=== PATIENT | female | born 1945 | race Caucasian/White ===

== ENCOUNTER 2021-10-02 16:21 | Inpatient (IN) | payer MEDICARE, SELFPAY ==
[2021-10-02] VITALS (9 sets, daily range): BP systolic 105–145; BP diastolic 72–90; PULSE 60–117; RESP 16–92; TEMP 36.7–36.9; O2SAT 90–93; BMI 35.4
--- NOTE | 2021-10-02 18:33 | USR_ITS ---
PROCEDURE INFORMATION: Exam: US Abdomen, Limited; Right Upper Quadrant Exam date and time: 10/02/2021 6:33 PM Age: 76 years old Clinical indication: Abdominal pain; Acute; Patient HX: Ruq pain and nausea TECHNIQUE: Imaging protocol: US abdomen. Real time ultrasound with image documentation. Limited exam focused on the right upper quadrant. COMPARISON: No relevant prior studies available. FINDINGS: Liver: Normal. No masses. Gallbladder: The gallbladder is distended with multiple shadowing gallstones. There is gallbladder wall thickening measuring up to 1.1 cm in thickness. Common bile duct: The common bile duct measures 2 mm within normal limits. Pancreas: Suboptimally visualized due to overlying bowel gas and soft tissues. Right kidney: The right kidney measures 8 cm in length. No mass. No hydronephrosis. US/US abdomen limited [id number] IMPRESSION: Cholelithiasis with sonographic findings suspicious for acute cholecystitis.
--- NOTE | 2021-10-02 18:33 | ECG_ITS ---
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 Measurements Intervals [place] Rate: 132 P: [place]: QRS: 77 QRSD: 79 T: 14 QT: 336 QTc: 498 Interpretive Statements ATRIAL FIBRILLATION WITH RAPID VENTRICULAR RESPONSE LOW QRS VOLTAGE IN PRECORDIAL LEADS [QRS DEFLECTION < 1.0 mV IN CHEST LEADS] ABNORMAL RHYTHM ECG Compared to ECG 03/03/2019 15:27:30 Low QRS voltage now present Atrial abnormality no longer present T-wave abnormality no longer present Electronically Signed On 10-03-2021 5:36:13 SUSTAINABILITY PROJECT MANAGER by Mitra Sanchez M.D. [email or web address] [place].[employer]/store/Om/[id number]
--- NOTE | 2021-10-02 18:34 | W.ED.ABDPA2 ---
HPI - Abdominal Pain General: Chief Complaint: Abdominal Pain Stated Complaint: abd pain, sent by pcp Time Seen by Provider: 10/02/21 18:26 History of Present Illness: 76-year-old presents due to right upper quadrant abdominal pain since yesterday. Describes it is worse with eating. Denies any chest pain or shortness of breath. Denies any fevers or chills. Denies nausea vomiting diarrhea constipation. Denies any radiation. States pain is achy and constant. Review of Systems Narrative: - CONSTITUTIONAL: Denies weight loss, fever and chills. - HEENT: Denies changes in vision and hearing. - RESPIRATORY: Denies SOB and cough. - CV: Denies palpitations and CP. - GI: As above - : Denies dysuria and urinary frequency. - MSK: Denies myalgia and joint pain. - SKIN: Denies rash and pruritus. - NEUROLOGICAL: Denies headache, weakness, numbness and syncope. - PSYCHIATRIC: Denies suicidal ideation [facility] ED PFSH: Medical History Atrial fibrillation Chronic kidney disease Hypertension Leg swelling Mixed hyperlipidemia Obesity Family History Grandmother Cancer Mother Cancer Denies family history of Diabetes CAD (coronary artery disease) Clotting disorder Dementia Hyperlipidemia Chronic kidney disease (CKD) Suicide Anesthesia complication Bleeding disorder Lung disease Hypertension Stroke Social History Alcohol intake: never Physical Exam Narrative: EXAM NARRATIVE: - GENERAL: Alert and oriented x 3. No acute distress. Well-nourished. - EYES: EOMI. Anicteric. - HENT: Atraumatic, no C-spine tenderness. Moist mucous membranes. No scleral icterus. No cervical lymphadenopathy. - LUNGS: Clear to auscultation bilaterally. No accessory muscle use. Equal lung sounds bilaterally. No respiratory distress. - CARDIOVASCULAR: Irregular tachycardia. No murmur. No JVD. - ABDOMEN: Soft, right upper quadrant tenderness, non-distended. Negative CVA tenderness bilaterally, no rebound or guarding, positive Rush sign. No palpable masses. - EXTREMITIES: No edema. Non-tender. - SKIN: No rashes or lesions. Warm. - NEUROLOGIC: No meningismus or focal neurological deficits. CN II-XII grossly intact. - PSYCHIATRIC: Cooperative. Appropriate mood and affect. Course Vital Signs: Vital signs: Vital Signs Temperature 98.1 F 10/02/21 18:09 Pulse Rate 115 H 10/02/21 18:09 Respiratory Rate 16 10/02/21 20:51 Blood Pressure 144/72 10/02/21 18:30 Pulse Oximetry 93 10/02/21 18:30 MDM - Abdominal Pain Medical Decision Making 36-year-old presents with right upper quadrant abdominal pain. Ultrasound concerning for cholecystitis. His white count elevation of 27. Due to penicillin allergy started on Levaquin. Otherwise she is hemodynamic stable afebrile nontoxic-appearing. EKG does not reveal any sign of acute ischemia. Surgery consulted. Remainder of lab work and imaging reviewed. Discussed with hospitalist and they agreed patient would benefit from admission. Patient admitted in stable condition. Further evaluation management per hospitalist team. Lab Data : 10/02/21 21:00 10/02/21 21:00 Labs/Radiology: Radiology Impressions Abdomen Ultrasound 10/02/21 18:33 IMPRESSION: Cholelithiasis with sonographic findings suspicious for acute cholecystitis. Laboratory Results WBC 27.9 10^3/uL (4.0-10.0) H 10/02/21 21:00 RBC 4.33 10^6/uL (4.1-5.3) 10/02/21 21:00 Hgb 13.8 g/dL (11.5-15.3) 10/02/21 21:00 Hct 40.4 % (37.0-47.0) 10/02/21 21:00 MCV 93.3 fl (81-99) 10/02/21 21:00 MCH 31.9 pg (28.0-34.0) 10/02/21 21:00 MCHC 34.2 g/dL (30.0-36.0) 10/02/21 21:00 RDW 12.8 % (12.1-15.1) 10/02/21 21:00 Plt Count 226 10^3/cmm (130-400) 10/02/21 21:00 MPV 12.3 fL (7.4-10.4) H 10/02/21 21:00 Neut % (Auto) 89.6 % 10/02/21 21:00 Lymph % (Auto) 2.6 % 10/02/21 21:00 [place] % (Auto) 6.5 % 10/02/21 21:00 Eos % (Auto) 0.0 % 10/02/21 21:00 Baso % (Auto) 0.3 % 10/02/21 21:00 Neut # (Auto) 25.01 10^3/uL (1.8-7.7) H 10/02/21 21:00 Lymph # (Auto) 0.7 10^3/uL (0.8-4.8) L 10/02/21 21:00 [place] # (Auto) 1.8 10^3/uL (0.2-0.9) H 10/02/21 21:00 Eos # (Auto) 0.0 10^3/uL (0.0-0.8) 10/02/21 21:00 Baso # (Auto) 0.1 10^3/uL (0.0-0.1) 10/02/21 21:00 Nucleated RBC % (auto) 0 % 10/02/21 21:00 Nucleated RBCs # 0.0 /100WBC 10/02/21 21:00 PT 25.30 SECONDS (12.1-14.9) H 10/02/21 21:00 INR 2.25 (0.8-1.2) H 10/02/21 21:00 Sodium 138 mmol/L (136-145) 10/02/21 21:00 Potassium 4.1 mmol/L (3.5-5.1) 10/02/21 21:00 Chloride 103 mmol/L (98-107) 10/02/21 21:00 Carbon Dioxide 20 mmol/L (22-29) L 10/02/21 21:00 Anion Gap 19.1 (5-19) H 10/02/21 21:00 BUN 29 mg/dL (8-23) H 10/02/21 21:00 Creatinine 1.9 mg/dL (0.5-0.9) H 10/02/21 21:00 GFR Calculation Not Reportable 10/02/21 21:00 Glucose 152 mg/dL (65-115) H 10/02/21 21:00 Calculated Osmolality 295 mOsm/kg (285-295) 10/02/21 21:00 Lactate 1.5 mmol/L (0.5-2.2) 10/02/21 21:00 Calcium 8.2 mg/dL (8.5-10.5) L 10/02/21 21:00 Total Bilirubin 1.1 mg/dL (0.15-1.2) 10/02/21 21:00 AST 27 U/L (0-32) 10/02/21 21:00 ALT 32 U/L (0-33) 10/02/21 21:00 Alkaline Phosphatase 78 IU/L (35-105) 10/02/21 21:00 Troponin T Baseline 20 ng/L (0-10) H 10/02/21 21:00 Total Protein 6.2 g/dL (6.6-8.7) L 10/02/21 21:00 Albumin 3.6 g/dL (3.5-5.2) 10/02/21 21:00 Globulin 2.6 g/dL (1.3-4.6) 10/02/21 21:00 Lipase 25 U/L (13-60) 10/02/21 21:00 Urine Color Other (Yellow) 10/02/21 20:35 Urine Appearance Cloudy (CLEAR) 10/02/21 20:35 Urine pH 5 (5-7) 10/02/21 20:35 Ur Specific [place] 1.030 (1.005-1.030) 10/02/21 20:35 Urine Protein 2+ (Negative) H 10/02/21 20:35 Urine Glucose (UA) 1+ (Normal) H 10/02/21 20:35 Urine Ketones 1+ (Negative) H 10/02/21 20:35 Urine Blood Neg (Negative) 10/02/21 20:35 Urine Nitrate Positive (Negative) H 10/02/21 20:35 Urine Bilirubin Neg (Negative) 10/02/21 20:35 Urine Urobilinogen Norm mg/dL (Negative) 10/02/21 20:35 Ur Leukocyte Esterase Trace (Negative) H 10/02/21 20:35 Urine RBC 0-4 /hpf (0-2) H 10/02/21 20:35 Urine WBC 5-10 /hpf (0-5) H 10/02/21 20:35 Ur Squamous Epith Cells 40-55 /hpf (0-5) H 10/02/21 20:35 Amorphous Sediment 2+ /hpf 10/02/21 20:35 Urine Bacteria Trace /hpf (NONE) 10/02/21 20:35 Urine Mucus 1+ /hpf 10/02/21 20:35 EKG Data EKG 1: Other EKG comments: A. fib with RVR rate of 119, no sign of acute ischemia or other acute abnormality. Discharge Plan Discharge Condition: Stable Prescriptions: No Action warfarin 3 mg tablet 3 mg PO DAILY 0RF atorvastatin 20 mg tablet 20 mg PO DAILY 0RF furosemide 20 mg tablet 20 mg PO QAM PRN (Reason: edema) 0RF Rx Instructions: patient may take 1-2 tab daily as needed potassium chloride 20 mEq packet 20 meq PO DAILY PRN0RF Rx Instructions: when taking Lasix metoprolol tartrate 100 mg tablet 100 mg PO DAILY 0RF amlodipine 5 mg tablet 5 mg PO DAILY 0RF warfarin 4 mg tablet 4 mg PO DAILY 0RF Referrals: Osiris Owusu MD [Primary Care Provider] - Coding Level of Care Code ED Base Draw Operator for Chg Jean
[2021-10-02] MEDS: morphine 4 mg/mL SDV 1 mL IVP ×2 (18:45→20:51)
[2021-10-02] MEDS: ondansetron 2 mg/ML SDV 2 mL 4 MG IVP (18:46)
--- NOTE | 2021-10-02 20:33 | ECG_ITS ---
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 Measurements Intervals [place] Rate: 119 P: [place]: QRS: 0 QRSD: 84 T: 0 QT: 244 QTc: 344 Interpretive Statements ATRIAL FIBRILLATION WITH RAPID VENTRICULAR RESPONSE LOW QRS VOLTAGE IN PRECORDIAL LEADS [QRS DEFLECTION < 1.0 mV IN CHEST LEADS] POSSIBLE ANTERIOR MYOCARDIAL INFARCTION , PROBABLY OLD [30 ms Q WAVE IN V3/V4, OR R < 0.2 mV IN V4] ABNORMAL RHYTHM ECG Compared to ECG 10/02/2021 16:44:33 Myocardial infarct finding now present Electronically Signed On 10-03-2021 5:45:34 SET DESIGNER by Mitra Sanchez M.D. [email or web address]/[id number]
[2021-10-02] MEDS: levofloxacin-dextrose 5 % 750 MG/150 ML PREMIX 100 MG IV (20:58)
[2021-10-02 21:13] LABS: Basophils # 0.1 10^3/uL (0.0-0.1); Basophils % 0.3 %; Hematocrit 40.4 % (37.0-47.0); Hemoglobin 13.8 g/dL (11.5-15.3); Lymphocytes # 0.7 10^3/uL (0.8-4.8); Lymphocytes % 2.6 %; Mean Corpuscular HGB Conc 34.2 g/dL (30.0-36.0); Mean Corpuscular Hemoglobin 31.9 pg (28.0-34.0); Mean Corpuscular Volume 93.3 fl (81-99); Mean Platelet Volume 12.3 fL (7.4-10.4); Monocytes # 1.8 10^3/uL (0.2-0.9); Monocytes % 6.5 %; Neutrophils # 25.01 10^3/uL (1.8-7.7); Neutrophils % 89.6 %; Nucleated Red Blood Cells % 0 %; Platelet Count 226 10^3/cmm (130-400); Red Blood Count 4.33 10^6/uL (4.1-5.3); Red Cell Distribution Width 12.8 % (12.1-15.1); White Blood Count 27.9 10^3/uL (4.0-10.0)
[2021-10-02 21:14] LABS: Urine Appearance Cloudy (CLEAR); Urine Color Other (Yellow); pH Urine 5 (5-7)
[2021-10-02 21:15] LABS: Add Urine Culture? No; Amorphous Sediment Urine 2+ /hpf; Bacteria Urine TRACE /hpf; Bilirubin Urine Neg (Negative); Blood Urine Neg (Negative); Glucose Urine UA 1+ (Normal); Ketones Urine 1+ (Negative); Leukocyte Esterase Urine Trace (Negative); Mucus Urine 1+ /hpf; Nitrate Urine Positive (Negative); Protein Urine 2+ (Negative); RBC Urine 0-4 /hpf (0-2); Squamous Epithelial Cell Urine 40-55 /hpf (0-5); Urobilinogen Urine Norm (Negative)
[2021-10-02 21:31] LABS: INR 2.25 (0.8-1.2)
[2021-10-02 21:39] LABS: Alanine Aminotransferase 32 U/L (0-33); Albumin Level 3.6 g/dL (3.5-5.2); Alkaline Phosphatase 78 IU/L (35-105); Anion Gap 19.1 (5-19); Aspartate Amino Transferase 27 U/L (0-32); Blood Urea Nitrogen 29 mg/dL (8-23); Calcium 8.2 mg/dL (8.5-10.5); Carbon Dioxide 20 mmol/L (22-29); Chloride 103 mmol/L (98-107); Globulin 2.6 g/dL (1.3-4.6); Glucose 152 mg/dL (65-115); Lipase 25 U/L (13-60); Osmolality Calculated 295 mOsm/kg (285-295); Potassium 4.1 mmol/L (3.5-5.1); Sodium 138 mmol/L (136-145); Total Bilirubin 1.1 mg/dL (0.15-1.2); Total Protein 6.2 g/dL (6.6-8.7)
[2021-10-02 21:40] LABS: Lactate (Lactic Acid level) 1.5 mmol/L (0.5-2.2); Troponin(5th) Baseline 20 ng/L (0-10)
[2021-10-02] MEDS: sodium chloride 0.9% 1,000 ML 999 ML IV (22:29)
--- NOTE | 2021-10-02 22:51 | PC.NURSE ---
ADMIT NOTE Pt received to room from ER at 2240. Is alert and oriented. c/o pain/tenderness in RUQ abd and says goes some over into medial upper abdomen. Says worse again after moving into bed from ER rruidoso. Says pain started yesterday and just kept getting worse. Also reports having been nauseated with bitter emesis. Denies previous problems with gallbladder. IV patent to left hand. Will place on sales and marketing intern. Says has had some SOB but thinks is because of the pain. Hard to take deep breaths VS check done. Call light in reach. RN to do admission assessment
--- NOTE | 2021-10-02 23:11 | PM.HP ---
Providers/Chief Complaint Admitting Physician: René Granger DO Primary Care Provider: Osiris Owusu MD Chief Complaint: abd pain, sent by pcp History of Present Illness The patient is a 76-year-old female who presents with chief [place] abdominal pain which started on the morning of October 29, 2021. She indicates that the pain is on the right upper quadrant and does not radiate from that area. She states it was of sudden onset and since that time it has been constant and describes it as a stabbing. As worst is rated 10 out of 10 she currently claims it rates 8 out of 10 although her outward appearance does not come close to matching the subjective rating of pain. She did not take any medication for pain at home. She does not know whether by mouth intake affects the pain in any way. She denies constipation, melena, hematochezia. She admits to diarrhea. She missed to nausea and vomiting. She denies fever or rigors. She presents for further evaluation Review of Systems General: Reports: 10 or more systems reviewed and unremarkable except in HPI and below Medications/Allergies Home Medications Medication Instructions Recorded Confirmed Last Taken Type amlodipine 5 mg tablet 5 mg PO DAILY 02/03/20 07/21/20 Unknown History furosemide 20 mg tablet 20 mg PO QAM PRN 02/03/20 07/21/20 Unknown History metoprolol tartrate 100 mg tablet 100 mg PO DAILY 02/03/20 07/21/20 Unknown History potassium chloride 20 mEq oral 20 meq PO DAILY PRN 02/03/20 07/21/20 Unknown History packet warfarin 4 mg tablet 4 mg PO DAILY 02/03/20 07/21/20 Unknown History atorvastatin 20 mg tablet 20 mg PO DAILY tab 01/22/21 Unknown History warfarin 3 mg tablet 3 mg PO DAILY tab 01/22/21 Unknown History Allergies Allergy/AdvReac Type Severity Reaction Status Date / Time Penicillins Allergy unknown Verified 07/26/21 07:37 PFSH Acute PFSH: Medical History Atrial fibrillation Chronic kidney disease Hypertension Leg swelling Mixed hyperlipidemia Obesity Family History Grandmother Cancer Mother Cancer Denies family history of Diabetes CAD (coronary artery disease) Clotting disorder Dementia Hyperlipidemia Chronic kidney disease (CKD) Suicide Anesthesia complication Bleeding disorder Lung disease Hypertension Stroke Social History Alcohol intake: never Vitals/I&O/Wt Last Vital Signs Temp 98.1 F 10/02/21 23:05 Pulse 89 10/02/21 23:05 Resp 24 H 10/02/21 23:05 BP 105/90 10/02/21 23:05 Pulse Ox 91 10/02/21 23:05 10/02/21 10/02/21 10/03/21 14:59 22:59 06:59 Intake Total 150 / 150 Balance 150 / 150 Weight last 48 hrs Weight 90.718 kg Physical Exam Const: COMMON NORMALS: no acute distress, average body habitus, patient oriented x3, no limitations, healthy appearing, alert and well nourished HENMT: COMMON NORMALS: normocephalic, atraumatic, hearing grossly normal bilaterally, external ears normal, EAC's normal, TM's normal bilaterally, Normal external nose present, Normal nasal mucous membranes and turbinates present, moist oral mucous membranes, oropharynx normal, dentition normal and gingiva normal Eye: COMMON NORMALS: Equal, round and reactive pupils present, EOMs intact bilaterally, conjunctivae normal, no scleral icterus, no papilledema, normal visual sirera by confrontation and fundi normal bilaterally Neck/C-Spine: COMMON NORMALS: full ROM, no lymphadenopathy, supple, no meningeal signs, no JVD, Thyroid normal and No carotid bruits Chest: COMMONS NORMALS: normal inspection of the chest, normal palpation of entire chest wall, normal inspection of the breasts and normal palpation of the breasts Resp: COMMON NORMALS: normal respiratory effort, No retractions, No use of accessory muscles, clear to auscultation bilaterally and percussion normal Cardio: COMMON NORMALS: no JVD, regular rate, regular rhythm, S1 normal heart sound present, S2 normal heart sound present, No gallops present (Cardio), No clicks present (Cardio), No murmurs present (Cardio), No rub (Cardio) and Peripheral pulses 2+ throughout GI: COMMON NORMALS: Normal to inspection, nondistended, normoactive bowel sounds present, Soft to palpation, non-tender, No hepatosplenomegaly present, no masses and no bruits : COMMON NORMALS: Yes no CVA tenderness, Yes normal external appearance, Yes normal appearance of the vagina, Yes normal appearance of the cervix, Yes normal bimanual exam, Yes No adnexal tenderness and Yes no masses Back/Pelvis: COMMON NORMALS: no CVA tenderness, thoracic and lumbar spine normal to inspection, no thoracic nor lumbar tenderness, thoraco-lumbar ROM normal and straight leg raise negative bilaterally THORACIC SPINE/UPPER BACK: Yes normal to inspection LUMBAR SPINE/LOWER BACK: Yes normal to inspection COCCYX: swelling, Coccyx tenderness present and Other pelvic findings Extremity: COMMON NORMALS: normal to inspection, full ROM, capillary refill normal, no joint enlargement, no clubbing, cyanosis or edema, no calf tenderness and no pedal edema Neuro: COMMON NORMALS: patient oriented x3, CN's II-XII intact bilaterally, moves all extremities, no focal motor deficits, no sensory deficits noted, deep tendon reflexes 2+ bilaterally and gait normal DEEP TENDON REFLEXES: Right triceps reflex intensity grade: 2+, Left triceps reflex intensity grade: 2+, Rt Biceps (C5, C6): 2+, Left biceps reflex intensity grade: 2+, Right brachioradialis reflex intensity grade: 2+, Left brachioradialis reflex intensity grade: 2+, Right patellar reflex intensity grade: 2+, Left patellar reflex intensity grade: 2+, Right ankle reflex intensity grade: 2+ and Left ankle reflex intensity grade: 2+ COORDINATION: [id number] test normal PUPIL EXAM: Normal pupillary reactivity/response: bilateral, Dilated: bilateral, Pinpoint: bilateral, Mid position: bilateral, Sluggish: bilateral and Fixed/non-reactive: bilateral Psych: COMMON NORMALS: mental status grossly normal, Normal thought process present, cooperative, normal affect, speech normal, activity/motor behavior normal, denies hallucinations, denies homicidal ideation and denies suicidal ideation Skin: COMMON NORMALS: no rashes or lesions noted, no wounds, turgor normal, no jaundice, no petechiae and no mottling Data : 10/02/21 21:00 10/02/21 21:00 A&P Assessment and plan (1) Leg swelling: Status: Acute Plan Cholelithiasis with early cholecystitis. Nothing by mouth. Rocephin 1 g IV daily. Blood culture ?2 pending. IV normal saline at 75 ML's per hour. I was notified by the emergency department physician that General surgery has been consult and regarding this patient Atrial for ablation. Will monitor patient on telemetry. Will monitor PT/INR periodically Acute renal insufficiency versus documented history of chronic kidney disease. Will monitor creatinine intermittently. IV normal saline 75 ML's per hour Urinary tract infection. Rocephin 1 g IV daily Elevated troponin. Patient gives no history of chest pain. Will monitor patient on telemetry and checks her cardiac enzymes. Will recheck EKG on the morning of October 03, 2021 Hyperlipidemia Hypertension Obesity. The patient becomes regarding lifestyle modification DVT Proflex is. Bilateral SCD Attestations Medical Necessity Statement*: Hospitalization is medically necessary Coding Level of Care Code Acute X Ray Service Engineer for Chg Jean Diagnoses Leg swelling M79.89
[2021-10-02 23:15] LABS: Basophils # 0.1 10^3/uL (0.0-0.1); Basophils % 0.2 %; Hematocrit 39.8 % (37.0-47.0); Hemoglobin 13.7 g/dL (11.5-15.3); Lymphocytes # 0.9 10^3/uL (0.8-4.8); Lymphocytes % 3.5 %; Mean Corpuscular HGB Conc 34.4 g/dL (30.0-36.0); Mean Platelet Volume 12.4 fL (7.4-10.4); Monocytes # 1.9 10^3/uL (0.2-0.9); Neutrophils # 23.33 10^3/uL (1.8-7.7); Neutrophils % 88.1 %; Nucleated Red Blood Cells % 0 %; Platelet Count 195 10^3/cmm (130-400); Red Blood Count 4.28 10^6/uL (4.1-5.3); Red Cell Distribution Width 12.8 % (12.1-15.1); White Blood Count 26.5 10^3/uL (4.0-10.0)
[2021-10-02] MEDS: cefTRIAXone 1,000 MG in sodium chloride 0.9% (plus) 50 ML 100 MG IV (23:20)
[2021-10-02 23:24] LABS: INR 2.47 (0.8-1.2)
[2021-10-02 23:26] LABS: Partial Thromboplastin Time 52.2 SECONDS (23.9-36.7)
[2021-10-02 23:30] LABS: Troponin 5 2HR 21.09 ng/L (0-10)
[2021-10-02 23:31] LABS: Troponin 5 2HR Delta 1.09 ABS# (0-10)
[2021-10-03] VITALS (12 sets, daily range): BP systolic 108–114; BP diastolic 69–75; PULSE 89–108; RESP 18–20; TEMP 36.4–37.1; O2SAT 90–92
[2021-10-03] MEDS: ondansetron 2 mg/ML SDV 2 mL 4 MG IVP
--- NOTE | 2021-10-03 00:33 | ECG_ITS ---
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 Measurements Intervals [place] Rate: 97 P: [place]: QRS: -13 QRSD: 78 T: -21 QT: 335 QTc: 426 Interpretive Statements ATRIAL FIBRILLATION LOW QRS VOLTAGE IN PRECORDIAL LEADS [QRS DEFLECTION < 1.0 mV IN CHEST LEADS] POSSIBLE ANTERIOR MYOCARDIAL INFARCTION , OF INDETERMINATE AGE [30 ms Q WAVE IN V3/V4, OR R < 0.2 mV IN V4] Compared to ECG 10/02/2021 18:30:37 No significant changes Electronically Signed On 10-03-2021 16:06:43 LAMINATION TECHNICIAN by Jonny Clarke M.D. [id number]
[2021-10-03] MEDS: acetaminophen 325 mg Tablet 650 MG PO (03:16)
[2021-10-03 03:20] LABS: Basophils # 0.1 10^3/uL (0.0-0.1); Basophils % 0.2 %; Hematocrit 36.3 % (37.0-47.0); Hemoglobin 13.3 g/dL (11.5-15.3); Lymphocytes # 0.8 10^3/uL (0.8-4.8); Lymphocytes % 3.3 %; Mean Corpuscular HGB Conc 36.6 g/dL (30.0-36.0); Mean Corpuscular Hemoglobin 34.8 pg (28.0-34.0); Mean Platelet Volume 12.4 fL (7.4-10.4); Monocytes # 1.6 10^3/uL (0.2-0.9); Monocytes % 6.7 %; Neutrophils # 21.59 10^3/uL (1.8-7.7); Neutrophils % 87.8 %; Nucleated Red Blood Cells % 0 %; Platelet Count 197 10^3/cmm (130-400); Red Blood Count 3.82 10^6/uL (4.1-5.3); Red Cell Distribution Width 13.2 % (12.1-15.1); White Blood Count 24.6 10^3/uL (4.0-10.0)
[2021-10-03 03:28] LABS: INR 2.54 (0.8-1.2)
[2021-10-03 03:29] LABS: Partial Thromboplastin Time 54.8 SECONDS (23.9-36.7)
[2021-10-03 03:35] LABS: Troponin 5 6HR 21.64 ng/L (0-10)
[2021-10-03 03:36] LABS: Troponin 5 6HR Delta 1.64 ng/L (0-12)
[2021-10-03 03:38] LABS: Alanine Aminotransferase 28 U/L (0-33); Albumin Level 3.3 g/dL (3.5-5.2); Alkaline Phosphatase 83 IU/L (35-105); Anion Gap 16.3 (5-19); Aspartate Amino Transferase 20 U/L (0-32); Blood Urea Nitrogen 34 mg/dL (8-23); Calcium 8.1 mg/dL (8.5-10.5); Carbon Dioxide 23 mmol/L (22-29); Chloride 100 mmol/L (98-107); Globulin 3.2 g/dL (1.3-4.6); Glucose 131 mg/dL (65-115); Osmolality Calculated 289 mOsm/kg (285-295); Potassium 4.3 mmol/L (3.5-5.1); Sodium 135 mmol/L (136-145); Total Bilirubin 0.9 mg/dL (0.15-1.2); Total Protein 6.5 g/dL (6.6-8.7)
[2021-10-03] MEDS: morphine 4 mg/mL SDV 1 mL 1 MG IVP ×5 (03:42→21:27)
--- NOTE | 2021-10-03 05:58 | PC.NURSE ---
SHIFT SUMMARY Since arrival to floor from ER has had X1 emesis and was given IV Zofran with relief. Continues to have tenderness/pain to RUQ abdomen. Required call to Dr for IV Morphine for pain not responsive to po Tylenol. Remains NPO except for meds. IV infusing at 75ml/hr rate, Telemetry showing A-fib with rate staying around 100/min
--- NOTE | 2021-10-03 06:00 | ECG_ITS ---
[facility] Test Date: 2021-10-03 Pat Name: Camryn De Department: Room: 275 Gender: Female Tech Intern: : 1945 Requested By: René Granger Order Number: [id number] Sherry MD: Jonny Clarke M.D. Measurements Intervals [place] Rate: 102 P: [place]: QRS: -3 QRSD: 86 T: -5 QT: 344 QTc: 449 Interpretive Statements ATRIAL FIBRILLATION WITH RAPID VENTRICULAR RESPONSE LOW QRS VOLTAGE IN PRECORDIAL LEADS [QRS DEFLECTION < 1.0 mV IN CHEST LEADS] POSSIBLE ANTERIOR MYOCARDIAL INFARCTION , OF INDETERMINATE AGE [30 ms Q WAVE IN V3/V4, OR R < 0.2 mV IN V4] Compared to ECG 10/03/2021 02:16:42 Atrial fibrillation no longer present Myocardial infarct finding still present Electronically Signed On 10-03-2021 16:06:08 LAMPS TESTER AND INSPECTOR by Jonny Clarke M.D. [email or web address].[email or web address]/store/OM/[id number]
--- NOTE | 2021-10-03 06:12 | P.CONIM_ITS ---
Providers/Reason For Consult Consulting Physician/Specialty*: Milton Corley Reason for Consult*: Cholecystitis Requesting Physician: Dr Tobias Attending Physician: René Granger DO Primary Care Provider: Osiris Owusu MD History of Present Illness History of Present Illness Chief complaint: Tummy hurts HPI: Ms.Madonna De is a pleasant 76 year old female presented to the ER of [facility] complaining of worsening right upper quadrant abdominal pain that has been more sharp and not being referred associated with nausea and vomiting. Started last Friday and because of that she was not able to take her warfarin for her chronic atrial fibrillation with a current INR of 2.54. Further work-up in the emergency department showed a leukocytosis of 27,000+ with a trending down to 24,000+ today. Patient denies any other constitutional symptoms. She gives history of hypertension, hyperlipidemia, obesity class I with a BMI of 35.4 and chronic kidney disease She recalls no previous episodes of gallbladder disease and she was not aware that she had gallbladder stones. Current hemoglobin 13.3, platelet count 197, INR 2.54, sodium 135 potassium 4.3, serum creatinine 2.2, total bilirubin 1.9, AST 20, ALT 28 and alkaline phosphatase 83. Also I noticed that she had elevation of her troponins and I believe further work-up likely will take place by the medical hospitalists,whom the patient was admitted to their service. And serum lipase 25 U/S findings: Liver: Normal. No masses. Gallbladder:? The gallbladder is distended with multiple shadowing gallstones. There is gallbladder wall thickening measuring up to 1.1 cm in thickness. Common bile duct: The common bile duct measures 2 mm within normal limits. Pancreas: Suboptimally visualized due to overlying bowel gas and soft tissues. Right kidney: The right kidney measures 8 cm in length. No mass. No hydronephrosis. IMPRESSION: Cholelithiasis with sonographic findings suspicious for acute cholecystitis. General surgery was consulted for further evaluation potential intervention Medications/Allergies Home Medications Medication Instructions Recorded Confirmed Last Taken Type amlodipine 5 mg tablet 5 mg PO DAILY 02/03/20 07/21/20 Unknown History furosemide 20 mg tablet 20 mg PO QAM PRN 02/03/20 07/21/20 Unknown History metoprolol tartrate 100 mg tablet 100 mg PO DAILY 02/03/20 07/21/20 Unknown History potassium chloride 20 mEq oral 20 meq PO DAILY PRN 02/03/20 07/21/20 Unknown History packet warfarin 4 mg tablet 4 mg PO DAILY 02/03/20 07/21/20 Unknown History atorvastatin 20 mg tablet 20 mg PO DAILY tab 01/22/21 Unknown History warfarin 3 mg tablet 3 mg PO DAILY tab 01/22/21 Unknown History Allergies Allergy/AdvReac Type Severity Reaction Status Date / Time Penicillins Allergy unknown Verified 10/03/21 06:14 Current Medications Generic Name Dose Route Start Last Admin Trade Name Freq PRN Reason Stop Dose Admin Acetaminophen 650 mg 10/02/21 23:12 10/03/21 03:16 Acetaminophen 325 Mg Tablet PO 650 mg Q6H PRN Administration Mild/Mod Pain Or Temp >/= 101 Ceftriaxone Sodium 1,000 mg/ 50 mls @ 100 mls/hr 10/02/21 23:15 10/03/21 01:09 Sodium Chloride IV Infused Q24H SHER Infusion Protocol Morphine Sulfate 1 mg 10/03/21 03:33 10/03/21 03:42 Morphine 4 Mg/Ml Sdv 1 Ml IVP 1 mg Q4H PRN Administration SEVERE PAIN Ondansetron HCl 4 mg 10/02/21 23:12 10/03/21 00:00 Ondansetron 2 Mg/Ml Sdv 2 Ml IVP 4 mg Q8H PRN Administration vomiting, or N/V if npo PFSH Acute PFSH: Medical History Atrial fibrillation Chronic kidney disease Hypertension Leg swelling Mixed hyperlipidemia Obesity Family History Grandmother Cancer Mother Cancer Denies family history of Diabetes CAD (coronary artery disease) Clotting disorder Dementia Hyperlipidemia Chronic kidney disease (CKD) Suicide Anesthesia complication Bleeding disorder Lung disease Hypertension Stroke Social History Alcohol intake: never Vitals/I&O/Wt Last Vital Signs Temp 97.7 F 10/03/21 04:00 Pulse 100 10/03/21 05:54 Resp 20 H 10/03/21 04:00 BP 108/73 10/03/21 04:00 Pulse Ox 92 10/03/21 04:00 10/02/21 10/02/21 10/03/21 14:59 22:59 06:59 Intake Total 150 / 150 50 / 200 Output Total 300 / 300 Balance 150 / 150 -250 / -100 Weight last 48 hrs Weight 200 lb Physical Exam Const: COMMON NORMALS: no acute distress and patient oriented x3 GENERAL APPEARANCE: cooperative ORIENTATION/CONSCIOUSNESS: Yes awake, Yes oriented to person, Yes oriented to place and Yes oriented to time HENMT: COMMON NORMALS: normocephalic HEAD & SCALP: normocephalic Eye: COMMON NORMALS: Equal, round and reactive pupils present and no scleral icterus PUPIL: Yes Equal, round and reactive pupils present Lymph: LYMPHATIC: no lymphadenopathy noted Chest: COMMONS NORMALS: normal inspection of the chest Resp: COMMON NORMALS: normal respiratory effort and clear to auscultation bilaterally AUSCULTATION: clear to auscultation bilaterally Cardio: COMMON NORMALS: S1 normal heart sound present and S2 normal heart sound present; negative for No murmurs present (Cardio) HEART SOUNDS: S1 normal heart sound present and S2 normal heart sound present GI: COMMON NORMALS: Soft to palpation; negative for No hepatosplenomegaly present INSPECTION: Yes normal to inspection PALPATION: Yes Soft to palpation, No Firmness to palpation present (GI), Yes Tenderness to palpation present (GI) Details: RUQ (Positive Rush's sign ), No Guarding due to palpation present (GI), No Rigid due to palpation and No No hepatosplenomegaly present Neuro: COMMON NORMALS: patient oriented x3 SENSORIUM/ORIENTATION: Yes oriented to person, Yes oriented to place and Yes oriented to time Psych: COMMON NORMALS: mental status grossly normal Skin: COMMON NORMALS: no rashes or lesions noted GENERAL SKIN EXAM: no rashes or lesions noted Data : 10/03/21 02:50 10/03/21 02:50 Micro: Microbiology 10/03/21 02:56 Blood Culture - Preliminary Blood SPECIMEN COLLECTED 10/03/21 02:50 Blood Culture - Preliminary Blood SPECIMEN COLLECTED A&P Assessment and plan (1) Cholecystitis with cholelithiasis: Plan of care; After thorough history physical examination and reviewing the chart and images with my personal intrepreatation.I counseled the patient for laparoscopic cholecystectomy possible open, indications risks including but not limited injury to the common bile duct and/or other viscera, higher risk of bleeding,that may require potential future surgical interventions including but not limited to ERCP and or laparatomy that may include Hepatobiliary surgery.Benefits and alternatives all discussed with the patient and her spou se(over the phone in the presence of the nursing staff Stan). All questions have been answered and all concerns have been addressed to patient's satisfaction. Rationale was carefully and clearly discussed with the patient and her spouse Other options were also explored with the patient and her spouse in the form of placement of cholecystostomy tube with the plan for interval cholecystectomy in 4 to 6 weeks. And the third option is to continue IV antibiotics and conservative management with the plan for elective surgery down the road. Patient understands being on chronic warfarin with a high INR of 2.5 certainly she would be at a higher risk of bleeding and in order to proceed with surgery we need to normalize the INR and have her on heparin subcu. At the patient does understand also that she is at high risk of stroke if her blood got less anticoagulated. I did encourage the patient to discuss further with her spouse and to visit with her medical hospitalist and let me know with her potential decision. Patient can have ice chips or popsicles for now and apply heat pad to the side. Assurance and education All questions have been answered and all concerns have been addressed to patient's satisfaction. 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
--- NOTE | 2021-10-03 07:26 | PC.NURSE ---
ROUNDING Dr Kerns at bedside discussing options and treatment with pt. He talked with pts on phone
--- NOTE | 2021-10-03 09:29 | P.PN_ITS ---
Subjective Subjective: This morning patient was seen and examined, Patient will like to discuss further plan with her family Consult note reviewed Patient is currently afebrile However severe leukocytosis noted I did discuss with her that for now we are continuing IV antibiotics and IV fluids, by tomorrow we can advance her diet to clear liquids if there are no severe signs of worsening However in case she becomes septic then she might need cholecystostomy tube versus laparoscopic cholecystectomy Vitals/I&O/Wt Last Vital Signs Temp 98.5 F 10/03/21 08:00 Pulse 103 H 10/03/21 08:00 Resp 20 H 10/03/21 08:00 BP 114/69 10/03/21 08:00 Pulse Ox 90 10/03/21 08:00 10/02/21 10/03/21 10/03/21 22:59 06:59 14:59 Intake Total 150 / 150 50 / 200 Output Total 300 / 300 Balance 150 / 150 -250 / -100 Weight last 48 hrs Weight 90.718 kg Physical Exam Narrative: Patient was laying supine Dehydrated Positive Rush sign Abdomen distended, soft, right upper quadrant tenderness Lower extremity no edema Nonfocal neuro exam Saturating well on room air Data : 10/03/21 02:50 10/03/21 02:50 Micro: Microbiology 10/03/21 02:56 Blood Culture - Preliminary Blood SPECIMEN COLLECTED 10/03/21 02:50 Blood Culture - Preliminary Blood SPECIMEN COLLECTED A&P Assessment and plan (1) Cholecystitis with cholelithiasis: Status: Acute (2) Leg swelling: Status: Acute (3) Atrial fibrillation: Status: Acute Qualifiers: Atrial fibrillation type: paroxysmal Qualified Code(s): I48.0 - Paroxysmal atrial fibrillation (4) Hypertension: Status: Acute Qualifiers: Hypertension type: essential hypertension Qualified Code(s): I10 - Essential (primary) hypertension (5) Chronic kidney disease: Status: Acute Qualifiers: Chronic kidney disease stage: unspecified stage Qualified Code(s): N18.9 - Chronic kidney disease, unspecified (6) Obesity: Status: Acute Qualifiers: Obesity type: due to excess calories Obesity classification: adult class 2 (BMI 35 - 39.9) Serious obesity comorbidity presence: without serious comorbidity Body mass index: BMI 37.0-37.9 Qualified Code(s): E66.09 - Other obesity due to excess calories; Z68.37 - Body mass index (BMI) 37.0-37.9, adult Plan Acute cholecystitis Severe leukocytosis Afebrile Continue IV antibiotics and IV fluids Keep her n.p.o. Ceftriaxone 1 g daily, I will discontinue ceftriaxone and use Zosyn Appreciate general surgery consultation Supratherapeutic INR hold Coumadin A. fib RVR Continue p.o. AV abdiel blocking agent Hold Coumadin Keep her on SCDs Morphine for analgesia Leg swelling, obtain venous Doppler, please note she takes amlodipine at home Full code N.p.o. 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
--- NOTE | 2021-10-03 09:33 | USCV_ITS ---
Camryn De Age: 76 Gender: F : 1945 Exam Date: 10/03/2021 12:42 Ordering Phys: Eliu Andrade MD Technologist: Frank Valle [place] [facility] [place]: SWELLING PROCEDURES: Venous duplex imaging was performed in bilateral lower extremities. The following venous structures were evaluated: common femoral vein, profunda vein, proximal portion of the greater saphenous vein, superficial femoral vein, and the popliteal vein. In addition, the posterior tibial and peroneal trunk were evaluated. Serial compression, augmentation maneuvers, and spectral Doppler flow evaluation were performed. FINDINGS: Normal 2-D Doppler and augmentation and compressibility throughout the lower extremity venous structures. Additional imaging through the proximal calf veins also reveals no thrombus. Limited evaluation of the greater saphenous vein is patent with no thrombus. CONCLUSIONS No DVT bilateral lower extremities. Dr. Delores Hampton DO (Electronically Signed) Final Date: 04 October 2021 08:38 S
--- NOTE | 2021-10-03 09:36 | USCV_ITS ---
Camryn De Age: 76 Gender: F : 1945 Exam Date: 10/03/2021 13:10 Ordering Phys: Eliu Andrade MD Technologist: Frank Valle [place] [facility] [place]ication: chf BP: 114 / 69 HR: 93 Rhythm: Sinus Technical Quality: Adequate MEASUREMENTS (Male / Female) Normal Values 2D ECHO LV Diastolic Diameter PLAX 2.7 cm 4.2 - 5.9 / 3.9 - 5.3 cm LV Systolic Diameter PLAX 1.9 cm IVS Diastolic Thickness 1.3 cm 0.6 - 1.0 / 0.6 - 0.9 cm IVS Systolic Thickness 1.2 cm LVPW Diastolic Thickness 1.4 cm 0.6 - 1.0 / 0.6 - 0.9 cm LVPW Systolic Thickness 1.5 cm LVOT Diameter 2.0 cm LV Ejection Fraction 2D Teich 59.7 % LV Ejection Fraction MOD 2C 68.9 % LV Ejection Fraction 2C AL 68.1 % LA Diameter 3.7 cm LA Width 4.3 cm LA Height 5.0 cm RA Width 3.4 cm RA Height 4.9 cm Aorta at Sinotubular Diameter 2.4 cm M-MODE Aortic Annulus Diameter 3.0 cm LA Ao Ratio MM 1.3 MV E Point Septal Separation 0.2 cm DOPPLER AV Peak Velocity 150.0 cm/s LVOT Peak Velocity 106.0 cm/s AV Area Cont Eq vti 2.3 cm squared AV Area Cont Eq pk 2.2 cm squared TR Peak Velocity 282.6 cm/s TR Peak Gradient 31.9 mmHg TR Mean Velocity 216.3 cm/s TR Mean Gradient 19.5 mmHg TR Velocity Time Integral 75.9 cm Right Atrial Pressure 3.0 mmHg Pulmonary Artery Systolic Pressu 34.9 mmHg RV Acceleration Time 0.1 s RV Ejection Time 0.3 s RV AcT/ET 0.3 FINDINGS Left Ventricle Normal left ventricular size and systolic function, EF 65 %. Mild left ventricular hypertrophy. No regional wall motion abnormalities. Right Ventricle Mildly increased right ventricular size. Normal right ventricular systolic function. Right Atrium Mildly increased right atrial size. Left Atrium Mildly increased left atrial size. Mitral Valve Thickened mitral valve. Moderate mitral annular calcification. Trace mitral valve regurgitation. Aortic Valve Thickened aortic valve. Tricuspid Valve Trace tricuspid valve regurgitation. Pulmonic Valve Pulmonic valve not well visualized. Pericardium Normal pericardium without effusion. Aorta Normal ascending aorta dimension. CONCLUSIONS Normal left ventricular size and systolic function, EF 65 %. Mild left ventricular hypertrophy. No regional wall motion abnormalities. Mild biatrial enlargement. Thickened mitral valve. Moderate mitral annular calcification. Trace mitral valve regurgitation. Thickened aortic valve. Trace tricuspid valve regurgitation. Estimated pulmonary artery peak systolic pressure of 35 mmHg Technically difficult study because of the poor ultrasonic window. Dr Gordy Oseguera MD FACC (Electronically Signed) Final Date: 03 October 2021 17:48 S
--- NOTE | 2021-10-03 10:15 | PC.CHAP ---
Pastoral Care Encounter/Spiritual Assessment Type of Contact [] Declined veterinarian epidemiologist visit [] Patient/Family/Request visit [] Outpatient visit [] Follow-up visit [] Physician referral [] Code/Alert [] Routine visit [] Staff referral [] Actively dying [] Patient sleeping [] Family support [] [] Out of room [] Palliative care [] [] Receiving care in room [] Pre-surgical visit [] Trauma [] Long length of stay [] ICU visit [] Other: Relational/Emotional Strength [] Patient feels connected with others/family/visitors/staff [] Distress [] Loneliness/isolation [] Abandonment Spirituality of Patient [x] Person of [place] [x] Attends Denominational of their [place] [x] Believes in Prayer [] Reads Bible or Christianity materials [] There are Spiritual issues to be addressed Fringe Maker Interventions [x] Prayer [x] Active listening [x] Non-anxious presence [] Spiritual/emotional support [] Crisis/trauma care [] Spiritual counseling [] Bereavement support [] Provided bereavement packet [] Provided Bible/devotional materials [] Provided toy/stuffed animal, coloring book to patient or family member [] Provided Communion [] Anointing/[place] [] Salvation [x] Completed spiritual assessment [] Other: Impact on Illness or Injury [] Angry [] Fearful [] Anxious [] Often cries [] Exhaustion [] Unable to work [] Unable to attend congregational [] Unable to walk/stand [] Unable to read [] Unable to drive [] Unable to eat/drink [] Unable to sleep [] Unable to be with family [] Patient intubated [] Other: Summary Time spent with patient 10 min
--- NOTE | 2021-10-03 10:27 | PC.PHAR ---
pt states she takes care of her own medications-pt states she hasnt been taking her medications for a while-notes are made in the pharmacy comments-pt was unsure of the names of the medications medications entered are what the pharmacy has filled recently and what was on a previous entered med list
[2021-10-03] MEDS: metroNIDAZOLE IV 500 MG/100 ML PREMIX 100 MG IV ×2 (11:10→18:11)
[2021-10-03] MEDS: sodium chloride 0.9% 1,000 ML 75 ML IV (11:10)
[2021-10-03] MEDS: metoprolol tartrate 50 mg Tablet 100 MG PO ×2 (11:11→20:38)
[2021-10-03] MEDS: cefepime 1,000 MG in sodium chloride 0.9% (plus) 50 ML 100 MG IV (12:56)
[2021-10-04] VITALS (16 sets, daily range): BP systolic 94–141; BP diastolic 58–84; PULSE 87–111; RESP 16–22; TEMP 36.7–37.7; O2SAT 90–93
[2021-10-04] MEDS: sodium chloride 0.9% 1,000 ML 100 ML IV ×3 (00:37→21:37)
--- NOTE | 2021-10-04 01:27 | PC.NURSE ---
OUTPUT Pt has continued to have decreased urine output since IV rate was increased for this on day shift. Hospitalist was notified per Dr Kerns instructions. Wanted me to flush Pool and bladder scan pt. This was done and Pool flushed easily with saline returned. Bladder scan with 5-10ml urine shown. Pt does have some exertional SOB and wheezing noted but lungs are clear. foam charger nurse listened as well and verified lungs being clear. was notifie of all this and order received to continue IV fluids at present rate
[2021-10-04] MEDS: metroNIDAZOLE IV 500 MG/100 ML PREMIX 100 MG IV ×3 (02:34→18:47)
[2021-10-04] MEDS: morphine 4 mg/mL SDV 1 mL 1 MG IVP ×3 (02:43→18:46)
[2021-10-04 03:04] LABS: Basophils # 0.1 10^3/uL (0.0-0.1); Basophils % 0.3 %; Hematocrit 37.7 % (37.0-47.0); Hemoglobin 12.7 g/dL (11.5-15.3); Lymphocytes # 0.5 10^3/uL (0.8-4.8); Lymphocytes % 2.6 %; Mean Corpuscular HGB Conc 33.7 g/dL (30.0-36.0); Mean Corpuscular Hemoglobin 33.2 pg (28.0-34.0); Mean Corpuscular Volume 98.4 fl (81-99); Mean Platelet Volume 12.5 fL (7.4-10.4); Monocytes # 1.3 10^3/uL (0.2-0.9); Monocytes % 6.6 %; Neutrophils # 16.65 10^3/uL (1.8-7.7); Neutrophils % 87.7 %; Nucleated Red Blood Cells % 0 %; Platelet Count 175 10^3/cmm (130-400); Red Blood Count 3.83 10^6/uL (4.1-5.3); Red Cell Distribution Width 13.4 % (12.1-15.1)
[2021-10-04 03:30] LABS: Alanine Aminotransferase 19 U/L (0-33); Albumin Level 2.8 g/dL (3.5-5.2); Alkaline Phosphatase 122 IU/L (35-105); Anion Gap 17.7 (5-19); Aspartate Amino Transferase 16 U/L (0-32); Blood Urea Nitrogen 52 mg/dL (8-23); Calcium 7.9 mg/dL (8.5-10.5); Carbon Dioxide 20 mmol/L (22-29); Chloride 104 mmol/L (98-107); Globulin 3.4 g/dL (1.3-4.6); Glucose 121 mg/dL (65-115); Osmolality Calculated 299 mOsm/kg (285-295); Potassium 4.7 mmol/L (3.5-5.1); Sodium 137 mmol/L (136-145); Total Bilirubin 0.5 mg/dL (0.15-1.2); Total Protein 6.2 g/dL (6.6-8.7)
--- NOTE | 2021-10-04 05:10 | PC.NURSE ---
SHIFT SUMMARY Awake much of the night. Had to change rooms during night due to need for private room for cancer pt. Mrs De was not very happy about this. New roommate was snoring. Later did not seem to be too upset. Has told me several times that she just wants surgery overwith. Has been medicated with IV Morphine for pain and appears tp have good relief with this. Has taken clear liquids and enc to go easy with them. No N/V c/o tonight. IV infusing at 100ml/hr rate and receiving IV antibiotics as ordered. Total urine output this shift at 350ml
[2021-10-04 06:05] LABS: INR 2.99 (0.8-1.2)
--- NOTE | 2021-10-04 07:27 | PM.PN ---
Subjective Subjective: Patient overall feels better. Tolerating p.o. intake. Trending down of leukocytosis to 19,000. And a current INR of 2.9, patient decided if she were to get any procedure she would be more interested in a cholecystostomy tube placement. Medications: Reviewed: Yes Vitals/I&O/Wt Last Vital Signs Temp 98.0 F 10/04/21 04:00 Pulse 94 10/04/21 06:00 Resp 16 10/04/21 04:00 BP 124/75 10/04/21 04:00 Pulse Ox 93 10/04/21 04:00 10/03/21 10/04/21 10/04/21 22:59 06:59 14:59 Intake Total 320 / 470 220 / 690 Output Total 10 110 350 / 460 Balance 310 / 360 -130 / 230 Weight last 48 hrs Weight 200 lb Physical Exam Narrative: Patient is conscious alert oriented X3 No apparent distress BMI 35.4 Head and neck examination PERRLA no masses no cervical lymphadenopathy no jaundice Abdomen less tender nondistended soft no organomegaly guarding or rigidity/no signs of peritonitis Obese Extremities no cyanosis no clubbing no edema Urinary Catheter Management: Pool: Cath Placed During This Visit: yes Reason for Continuing Indwelling Catheter: Other Urinary Catheter Date of Insertion: 10/03/21 Urinary Catheter Time of Insertion: 10:50 Data : 10/04/21 02:37 10/04/21 02:37 Micro: Microbiology 10/03/21 02:56 Blood Culture - Preliminary Blood NEGATIVE TO DATE 10/03/21 02:50 Blood Culture - Preliminary Blood NEGATIVE TO DATE A&P Assessment and plan (1) Cholecystitis with cholelithiasis: At this point since the patient decided to proceed with cholecystostomy tube likely INR reversal would be very appropriate by receiving FFP, I will defer further management with that regard to . From surgical standpoint reviewed recommend highly to continue the parenteral antimicrobial therapy and optimize the patient's medically. We will continue to follow on patient's clinical progress Recommend to continue clear liquid diet and n.p.o. after midnight Please call for any questions or concerns Assurance and education All questions have been answered and all concerns have been addressed to patient's satisfaction. 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
[2021-10-04] MEDS: amlodipine 10 mg Tablet PO (08:40)
[2021-10-04] MEDS: metoprolol tartrate 50 mg Tablet 100 MG PO ×2 (08:40→21:36)
[2021-10-04] MEDS: FUROsemide 10 mg/mL SDV 2mL 20 MG IVP (09:31)
[2021-10-04] MEDS: cefepime 1,000 MG in sodium chloride 0.9% (plus) 50 ML 100 MG IV (10:31)
--- NOTE | 2021-10-04 13:48 | PM.PN ---
Subjective Subjective: This Morning plan was made for IR cholecystostomy tube Leukocytosis improving Afebrile Transaminases improving We will give her 2 units FFP to bring her INR below 1.[address] Kerns Inadequate urine output This morning given Lasix, continue IV fluids at 100 mL/h Clinically dehydrated Vitals/I&O/Wt Last Vital Signs Temp 98.2 F 10/04/21 11:55 Pulse 87 10/04/21 11:55 Resp 16 10/04/21 11:55 BP 107/71 10/04/21 11:55 Pulse Ox 91 10/04/21 11:55 10/03/21 10/04/21 10/04/21 22:59 06:59 14:59 Intake Total 320 / 470 220 / 690 1245 / 1245 Output Total 10 / 110 350 / 460 Balance 310 / 360 -130 / 230 1245 / 1245 Weight last 48 hrs Weight 90.718 kg Physical Exam Narrative: Patient was laying supine Endorsing feeling slightly better Tolerating her diet Had 1 bowel movement today Abdomen soft nontender no signs of peritonitis Right upper quadrant tenderness positive S1, S2 Saturating well on 2 L nasal cannula Lower extremity 1+ pitting edema Urinary Catheter Management: Pool: Cath Placed During This Visit: yes Reason for Continuing Indwelling Catheter: Other Urinary Catheter Date of Insertion: 10/03/21 Urinary Catheter Time of Insertion: 10:50 Data : 10/04/21 02:37 10/04/21 02:37 Micro: Microbiology 10/03/21 02:56 Blood Culture - Preliminary Blood NEGATIVE TO DATE 10/03/21 02:50 Blood Culture - Preliminary Blood NEGATIVE TO DATE A&P Assessment and plan (1) Cholecystitis with cholelithiasis: Status: Acute (2) Leg swelling: Status: Acute (3) Atrial fibrillation: Status: Acute Qualifiers: Atrial fibrillation type: paroxysmal Qualified Code(s): I48.0 - Paroxysmal atrial fibrillation (4) Hypertension: Status: Acute Qualifiers: Hypertension type: essential hypertension Qualified Code(s): I10 - Essential (primary) hypertension (5) Chronic kidney disease: Status: Acute Qualifiers: Chronic kidney disease stage: unspecified stage Qualified Code(s): N18.9 - Chronic kidney disease, unspecified (6) Obesity: Status: Acute Qualifiers: Obesity type: due to excess calories Obesity classification: adult class 2 (BMI 35 - 39.9) Serious obesity comorbidity presence: without serious comorbidity Body mass index: BMI 37.0-37.9 Qualified Code(s): E66.09 - Other obesity due to excess calories; Z68.37 - Body mass index (BMI) 37.0-37.9, adult (7) Mixed hyperlipidemia: Status: Acute Plan Acute cholecystitis without signs of bacteremia Continue broad-spectrum antibiotics Leukocytosis improving Afebrile Plan for cholecystostomy tube tomorrow by IR 2 FFP today to reverse coagulopathy A. fib without RVR Hold Coumadin Reversing Coumadin related coagulopathy with FFP today when goal INR below 1.8 for the intervention tomorrow Acute hypoxia: Wean off oxygen to room air Does not use oxygen at home Patient is tolerating clear liquid diet 1 bowel movement today We will keep n.p.o. 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
[2021-10-04] MEDS: sodium chloride 0.9% (100 ml) 100 ML 999 ML (15:51)
[2021-10-05] VITALS (10 sets, daily range): BP systolic 124–163; BP diastolic 74–88; PULSE 72–101; RESP 16–24; TEMP 36.6–36.8; O2SAT 92–96
[2021-10-05 03:02] LABS: Basophils % 0.1 %; Hematocrit 36.7 % (37.0-47.0); Hemoglobin 12.9 g/dL (11.5-15.3); Lymphocytes # 0.8 10^3/uL (0.8-4.8); Lymphocytes % 5.3 %; Mean Corpuscular HGB Conc 35.1 g/dL (30.0-36.0); Mean Corpuscular Hemoglobin 34.5 pg (28.0-34.0); Mean Corpuscular Volume 98.1 fl (81-99); Mean Platelet Volume 12.8 fL (7.4-10.4); Monocytes # 0.8 10^3/uL (0.2-0.9); Monocytes % 5.4 %; Neutrophils # 12.91 10^3/uL (1.8-7.7); Nucleated Red Blood Cells % 0 %; Platelet Count 175 10^3/cmm (130-400); Red Blood Count 3.74 10^6/uL (4.1-5.3); Red Cell Distribution Width 13.6 % (12.1-15.1); White Blood Count 14.7 10^3/uL (4.0-10.0)
[2021-10-05 03:12] LABS: INR 2.01 (0.8-1.2)
[2021-10-05 03:22] LABS: Alanine Aminotransferase 18 U/L (0-33); Alkaline Phosphatase 122 IU/L (35-105); Anion Gap 16.7 (5-19); Aspartate Amino Transferase 21 U/L (0-32); Blood Urea Nitrogen 49 mg/dL (8-23); Calcium 8.2 mg/dL (8.5-10.5); Carbon Dioxide 21 mmol/L (22-29); Chloride 107 mmol/L (98-107); Globulin 3.8 g/dL (1.3-4.6); Glucose 121 mg/dL (65-115); Osmolality Calculated 306 mOsm/kg (285-295); Potassium 3.7 mmol/L (3.5-5.1); Sodium 141 mmol/L (136-145); Total Bilirubin 0.4 mg/dL (0.15-1.2); Total Protein 6.8 g/dL (6.6-8.7)
[2021-10-05] MEDS: metroNIDAZOLE IV 500 MG/100 ML PREMIX 100 MG IV ×3 (03:23→22:49)
[2021-10-05] MEDS: amlodipine 10 mg Tablet PO (09:18)
[2021-10-05] MEDS: metoprolol tartrate 50 mg Tablet 100 MG PO ×2 (09:19→20:48)
--- NOTE | 2021-10-05 09:39 | PC.NURSE ---
Administered antibiotic therapy. Previously held per primary care nurse due to need for FFP infusion. Attempted 2nd line per Kemar Glover SPN times 1 stick and Meg Elder RN times 1 stick RA. STAT Vit K subcut injection ordered. Primary care nurse verified med. 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 Administered dose and charted late into EHR. PCN aware.
--- NOTE | 2021-10-05 10:28 | PC.SOCIAL ---
IMM Update Pg. 2 of IMM updated and reviewed with patient, who verbalized understanding. Copy provided.
[2021-10-05] MEDS: sodium chloride 0.9% 1,000 ML 100 ML IV (10:42)
[2021-10-05] MEDS: phytonadione (ADULT) 10 mg/mL Ampule 1 mL SUBCUT (11:06)
[2021-10-05] MEDS: cefepime 1,000 MG in sodium chloride 0.9% (plus) 50 ML 100 MG IV (11:13)
[2021-10-05 11:40] LABS: INR 1.85 (0.8-1.2)
--- NOTE | 2021-10-05 13:52 | P.PN_ITS ---
Subjective Subjective: Patient was seen this morning, her is at bedside, she did have a low-grade temperature overnight 99.3, she still quite tender in the right upper quadrant, still has significant pain on palpation, her INR is 1.8 1:05 unit FFP and vitamin K, she and her are anxious about the next step -As per her discussion with Dr. Andrade and Dr. Kerns, she was quite hesitant about proceeding with cholecystectomy initially, she had a high white count, she was quite ill, the plan was to give a trial of IV antibiotics -Her clinical condition did improve with IV antibiotics, her white count has improved, she is clinically improved, -Thus the plan is to proceed with cholecystostomy tube placement to further see clinical improvement, to drain the gallbladder, allow infection to cool off, and plan for elective surgery -Given her age, her anticoagulation with Coumadin, atrial fibrillation, her CKD, her obesity, planning for elective surgery, she does have significant surgical risk, -Thus by continuing antibiotics, placing cholecystostomy tube, allowing the gallbladder to cool off, and planning elective surgery would carry better surgical outcome, and decreased surgical risk -Her and her understand, they are a bit frustrated about her INR, and frustrated about her prolonged hospital course, prolonged course for gallbladder removal -But they understand our rationale, they understand this would yield a better outcome for her -Her INR remains 1.85, will give her another unit FFP is Dr. Hampton once INR below 1.5, I spoken to anesthesia, as there are plans on doing CT-guided c holecystostomy tube under conscious sedation, repeat INR at 2 PM Vitals/I&O/Wt Last Vital Signs Temp 97.8 F 10/05/21 13:36 Pulse 97 10/05/21 13:36 Resp 22 H 10/05/21 13:36 BP 149/81 10/05/21 13:36 Pulse Ox 92 10/05/21 13:25 10/04/21 10/05/21 10/05/21 22:59 06:59 14:59 Intake Total 1608.333 / 2973.333 1512 / 1512 Output Total 450 / 450 800 / 1250 Balance 1158.333 / 2523.333 -800 / 5545.899 5492 / 1512 Physical Exam Const: COMMON NORMALS: no acute distress and patient oriented x3 Resp: COMMON NORMALS: normal respiratory effort, No retractions, No use of accessory muscles and clear to auscultation bilaterally AUSCULTATION: clear to auscultation bilaterally Cardio: COMMON NORMALS: regular rate, regular rhythm, S1 normal heart sound present and S2 normal heart sound present RATE: regular rate RHYTHM: regular rhythm HEART SOUNDS: S1 normal heart sound present and S2 normal heart sound present GI: COMMON NORMALS: Soft to palpation AUSCULTATION: Yes normoactive bowel sounds PALPATION: Yes Soft to palpation, Yes Tenderness to palpation present (GI) Details: RUQ, No Guarding due to palpation present (GI) and No Rigid due to palpation Extremity: COMMON NORMALS: no pedal edema Neuro: COMMON NORMALS: patient oriented x3 Psych: COMMON NORMALS: mental status grossly normal Urinary Catheter Management: Pool: Cath Placed During This Visit: yes Reason for Continuing Indwelling Catheter: Required Immobilization for Trauma or Surgery or Anesthesia Urinary Catheter Date of Insertion: 10/03/21 Urinary Catheter Time of Insertion: 10:50 Data : 10/05/21 01:45 10/05/21 01:45 A&P Assessment and plan (1) Cholecystitis with cholelithiasis: Status: Acute (2) Leg swelling: Status: Acute (3) Atrial fibrillation: Status: Acute Qualifiers: Atrial fibrillation type: paroxysmal Qualified Code(s): I48.0 - Paroxysmal atrial fibrillation (4) Hypertension: Status: Acute Qualifiers: Hypertension type: essential hypertension Qualified Code(s): I10 - Essential (primary) hypertension (5) Chronic kidney disease: Status: Acute Qualifiers: Chronic kidney disease stage: unspecified stage Qualified Code(s): N18.9 - Chronic kidney disease, unspecified (6) Obesity: Status: Acute Qualifiers: Obesity type: due to excess calories Obesity classification: adult class 2 (BMI 35 - 39.9) Serious obesity comorbidity presence: without serious comorbidity Body mass index: BMI 37.0-37.9 Qualified Code(s): E66.09 - Other obesity due to excess calories; Z68.37 - Body mass index (BMI) 37.0-37.9, adult (7) Mixed hyperlipidemia: Status: Acute Plan Acute cholecystitis without signs of bacteremia Continue broad-spectrum antibiotics Leukocytosis improving Low-grade temperature overnight Continues to have significant right upper quadrant pain Plan for cholecystostomy tube today INR still 1.85 status post 2 units FFP, 10 mg of vitamin K, will give another units FFP A. fib without RVR Hold Coumadin Reversing Coumadin related coagulopathy with FFP today when goal INR below 1.5 for intervention today Acute hypoxia: Wean off oxygen to room air Does not use oxygen at home Patient is tolerating clear liquid diet Bowel regimen N.p.o. 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
--- NOTE | 2021-10-05 17:22 | P.PN_ITS ---
Subjective Subjective: Patient was seen and examined today, and seems to be overall doing better and clinically improving. Overall responding to antimicrobial therapy and IV fluid hydration. Seems to be tolerating p.o. intake.Trending down leukocytosis 14.7and INR 2.01as well. Medications: Reviewed: Yes Vitals/I&O/Wt Last Vital Signs Temp 97.8 F 10/05/21 13:36 Pulse 73 10/05/21 16:00 Resp 16 10/05/21 16:00 BP 124/74 10/05/21 16:00 Pulse Ox 96 10/05/21 16:00 10/05/21 10/05/21 10/05/21 06:59 14:59 22:59 Intake Total 1512 / 1512 Output Total 800 / 1250 Balance -800 / 0880.121 6082 / 1512 Physical Exam Narrative: Patient is conscious alert oriented X3 No apparent distress BMI 35.4 Head and neck examination PERRLA no masses no cervical lymphadenopathy no jaundice Abdomen much less tender nondistended soft no organomegaly guarding or rigidity/no signs of peritonitis Obese Urinary Catheter Management: Pool: Cath Placed During This Visit: yes Reason for Continuing Indwelling Catheter: Required Immobilization for Trauma or Surgery or Anesthesia Urinary Catheter Date of Insertion: 10/03/21 Urinary Catheter Time of Insertion: 10:50 Data : 10/05/21 01:45 10/05/21 01:45 A&P Assessment and plan (1) Cholecystitis with cholelithiasis: Overall seems that the patient is improving clinically and responding to antimicrobial therapy. Patient is anxious to go home. And she seems to be little bit [id number] on the next step. But she still leaning more towards a cholecystostomy tube to be placed if anything to be done. From general surgery standpoint of view, certainly the patient would benefit at some point from laparoscopic cholecystectomy down the road ,as an intervention procedure. Providing that the patient continues to show clinical improvement whether responding to parenteral antimicrobial therapy with or without placement of cholecystostomy tube. We will continue coordinating care with hospitalist service. Assurance and education All questions have been answered and all concerns have been addressed to patient's satisfaction. 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
[2021-10-06] VITALS (18 sets, daily range): BP systolic 146–179; BP diastolic 84–111; PULSE 88–110; RESP 16–29; TEMP 36.4–36.8; O2SAT 93–95
--- NOTE | 2021-10-06 | CT_ITS ---
WS: [id number] CT-GUIDED cholecystotomy tube. HISTORY: acute cholecystitis FLUOROSCOPIC TIME: 1.0 minutes. DLP: 317.[address] scans at [facility] use at least one of these dose optimization techniques: automated e xposure control; mA and/or kV adjustment per patient size (includes targeted exams where dose is matc hed to clinical indication); or iterative reconstruction. Procedures is explained to detailed to the patient and her family. Consent is obtained. Consent is fo r bleeding, infection and sepsis. Prior medications and blood work reviewed. Recent CT 10/06/2021 is also reviewed which demonstrated acute cholecystitis. Small RIGHT pleural effus ion and bibasilar atelectasis. With anesthesia present cholecystostomy tube is placed with patient under sedation. Imaging is perfor med through the gallbladder. Skin is cleansed with ChloraPrep and anesthetized with 1% buffered lidoc zhang. Access achieved into the gallbladder with a 17-gauge coaxial needle. Needle was exchanged over a guidewire. Tract is dilated. 8.5 Tristanian pigtail catheter is inserted into the lumen of the gallblad len. Catheter is in good position. Bile is readily aspirated from the gallbladder. Approximately 60 cc are removed without difficulty. Vacuum drainage bag was then connected. Catheter secured in positi on after the pigtail was formed. Bile specimen is collected for analysis. No complications. Patient will be transferred to ICU for close monitoring. CT/CT guided drainage [id number] IMPRESSION: 1. Uncomplicated cholecystostomy tube placement with the patient sedated by an esthesia. 2. Bile specimen collected and sent for culture and sensitivity. 3. Gallbladder catheter should be flushed with 10 cc of sterile saline every 1 2 hours. 4. No tension placed on the catheter. 5. Catheter will need to remain within the gallbladder for at least 4-6 weeks unless surgery is performed.
[2021-10-06] MEDS: sodium chloride 0.9% 1,000 ML 100 ML IV ×2 (01:57→14:06)
[2021-10-06 05:49] LABS: Basophils # 0.1 10^3/uL (0.0-0.1); Basophils % 0.4 %; Eosinophils # 0.1 10^3/uL (0.0-0.8); Eosinophils % 0.8 %; Hematocrit 32.7 % (37.0-47.0); Hemoglobin 11.8 g/dL (11.5-15.3); Lymphocytes % 7.4 %; Mean Corpuscular HGB Conc 36.1 g/dL (30.0-36.0); Mean Corpuscular Hemoglobin 34.9 pg (28.0-34.0); Mean Corpuscular Volume 96.7 fl (81-99); Mean Platelet Volume 11.9 fL (7.4-10.4); Monocytes # 1.2 10^3/uL (0.2-0.9); Monocytes % 9.5 %; Neutrophils # 10.52 10^3/uL (1.8-7.7); Nucleated Red Blood Cells % 0 %; Platelet Count 194 10^3/cmm (130-400); Red Blood Count 3.38 10^6/uL (4.1-5.3); Red Cell Distribution Width 13.6 % (12.1-15.1)
[2021-10-06] MEDS: metroNIDAZOLE IV 500 MG/100 ML PREMIX 100 MG IV ×3 (06:17→23:12)
[2021-10-06 07:00] LABS: INR 1.51 (0.8-1.2)
[2021-10-06 07:24] LABS: Alanine Aminotransferase 15 U/L (0-33); Albumin Level 2.9 g/dL (3.5-5.2); Alkaline Phosphatase 135 IU/L (35-105); Anion Gap 16.3 (5-19); Aspartate Amino Transferase 15 U/L (0-32); Blood Urea Nitrogen 46 mg/dL (8-23); Calcium 8.1 mg/dL (8.5-10.5); Carbon Dioxide 20 mmol/L (22-29); Chloride 111 mmol/L (98-107); Globulin 3.5 g/dL (1.3-4.6); Glucose 112 mg/dL (65-115); Magnesium 1.8 mg/dL (1.7-2.3); Osmolality Calculated 311 mOsm/kg (285-295); Phosphorus 2.2 mg/dL (2.5-4.5); Potassium 3.3 mmol/L (3.5-5.1); Sodium 144 mmol/L (136-145); Total Bilirubin 0.5 mg/dL (0.15-1.2); Total Protein 6.4 g/dL (6.6-8.7)
[2021-10-06] MEDS: amlodipine 10 mg Tablet PO (08:54)
[2021-10-06] MEDS: metoprolol tartrate 50 mg Tablet 100 MG PO ×2 (08:55→20:05)
--- NOTE | 2021-10-06 09:40 | CTR_ITS ---
PROCEDURE INFORMATION: Exam: CT Abdomen And Pelvis With Contrast Exam date and time: 10/06/2021 9:40 AM Age: 76 years old Clinical indication: Abdominal pain; Tenderness; Right upper quadrant (ruq); Additional info: Acute cholecystitis TECHNIQUE: Imaging protocol: Computed tomography of the abdomen and pelvis with contrast. Radiation optimization: All CT scans at this facility use at least one of these dose optimization techniques: automated exposure control; mA and/or kV adjustment per patient size (includes targeted exams where dose is matched to clinical indication); or iterative reconstruction. Contrast material: VISIPAQUE 320; Contrast volume: 90 ml; Contrast route: INTRAVENOUS (IV); COMPARISON: US abdomen limited [id number] 10/02/2021 7:00 PM RADIATION DOSE METRICS: Total DLP (mGy-cm): 1786.72 FINDINGS: Pleural spaces: There is a small to moderate right pleural effusion incompletely seen. There is a small left incompletely seen effusion. Incompletely seen bilateral lower lobe infiltrates most likely atelectasis. Liver: The liver is moderately fatty but not enlarged. There is fluid around the liver. There is periportal fluid. There is a small cystic area within the liver inferiorly measuring 8 mm adjacent to the gallbladder fossa. As the patient has suspected acute cholecystitis the presence of a defect chin cannot be excluded versus simple cyst. Gallbladder and bile ducts: There is a large distended gallbladder with an irregular possibly some irregularly thickened wall and pericholecystic fluid and edema. Pancreas: Normal. No ductal dilation. Spleen: Normal. No splenomegaly. Adrenal glands: Normal. No mass. Kidneys and ureters: Normal. No hydronephrosis. Stomach and bowel: Numerous colonic diverticula without evidence of acute colonic diverticulitis. Appendix: The appendix is seen appears normal. Intraperitoneal space: There is a small amount of pelvic fluid. Vasculature: Unremarkable. No abdominal aortic aneurysm. Lymph nodes: Unremarkable. No enlarged lymph nodes. Urinary bladder: The Pool catheter and air is seen in the decompressed urinary bladder. Reproductive: Unremarkable as visualized. Bones/joints: Unremarkable. No acute fracture. Soft tissues: Small hiatal hernia. CT/CT abdomen pelvis w con* [id number] IMPRESSION: 1. Severe acute cholecystitis. 2. Cyst versus abscess in the liver adjacent to the gallbladder image and . 3. Bilateral pleural effusions and lobe infiltrates possibly atelectasis. 4. Ascites.
[2021-10-06] MEDS: iodixanol 320 mg/mL 100mL Btl IV (10:05)
--- NOTE | 2021-10-06 10:22 | ANES.PREANE2 ---
Pre-Anesthetic Assessment Height/Weight: Height 1.6 m Weight 90.718 kg Temp Pulse Resp BP Pulse Ox 97.6 F 100 18 161/98 93 10/06/21 08:00 10/06/21 08:00 10/06/21 08:00 10/06/21 08:00 10/06/21 08:00 Cholecystostomy/cholecystectomy Familial anesthetic complications: None Was Beta Ondina taken within 24 hours: Yes Was Clonidine taken within 24 hours: N/A Social No alcohol and No tobacco Exam alert, oriented x 3 and clear to auscultation bilaterally Irregular, slightly tachy Airway Submandibular: within normal limits Cervical ROM: within normal limits Mallampati: Class II Dentition: chipped CV/HEM Atrial Fibrillation, Anemia and Hypertension Chronic Renal Insufficiency Metabolic Hyperlipidemia and Morbid Obesity [facility] [place] Deconditioned Anesthetic Plan ASA status: 3 Anesthesia: Choice Medications/Allergies Home Medications Medication Instructions Recorded Confirmed Last Taken Type amlodipine 5 mg tablet 5 mg PO DAILY 02/03/20 10/03/21 Unknown History furosemide 20 mg tablet 20 mg PO QAM PRN 02/03/20 10/03/21 Unknown History metoprolol tartrate 100 mg tablet 100 mg PO DAILY 02/03/20 10/03/21 Unknown History potassium chloride 20 mEq oral 20 - 40 meq PO DAILY PRN 02/03/20 10/03/21 Unknown History packet atorvastatin 20 mg tablet 20 mg PO DAILY tab 01/22/21 10/03/21 Unknown History warfarin 3 mg tablet 3 mg PO . DIRECTED tab 01/22/21 10/03/21 Unknown History ondansetron 4 mg disintegrating 4 mg PO TID PRN 10/03/21 10/03/21 Unknown History tablet Allergies Allergy/AdvReac Type Severity Reaction Status Date / Time Penicillins Allergy unknown Verified 10/03/21 06:14 Current Medications Generic Name Dose Route Start Last Admin Trade Name Freq PRN Reason Stop Dose Admin Acetaminophen 650 mg 10/02/21 23:12 10/03/21 03:16 Acetaminophen 325 Mg Tablet PO 650 mg Q6H PRN Administration Mild/Mod Pain Or Temp >/= 101 Amlodipine Besylate 10 mg 10/04/21 09:00 10/06/21 08:54 Amlodipine 10 Mg Tablet PO 10 mg DAILY SHER Administration Cefepime HCl 1,000 mg/ Sodium 50 mls @ 100 mls/hr 10/03/21 10:00 10/05/21 21:05 Chloride IV Infused Q24H SHER Infusion Protocol Sodium Chloride 1,000 mls @ 100 mls/hr 10/03/21 16:45 10/06/21 01:57 Sodium Chloride 0.9% IV 100 mls/hr .Q10H SHER Administration Metronidazole 500 mg in 100 mls @ 100 mls/hr 10/05/21 14:45 10/06/21 06:17 Flagyl Iv IV 100 mls/hr Q8H SHER Administration Protocol Metoprolol Tartrate 100 mg 10/03/21 09:35 10/06/21 08:55 Metoprolol Tartrate 50 Mg Tablet PO 100 mg BID@0900,2100 SHER Administration Morphine Sulfate 1 mg 10/03/21 03:33 10/04/21 18:46 Morphine 4 Mg/Ml Sdv 1 Ml IVP 1 mg Q4H PRN Administration SEVERE PAIN Ondansetron HCl 4 mg 10/02/21 23:12 10/03/21 00:00 Ondansetron 2 Mg/Ml Sdv 2 Ml IVP 4 mg Q8H PRN Administration vomiting, or N/V if npo PFSH Anesthesia Medical History Atrial fibrillation Chronic kidney disease Hypertension Leg swelling Mixed hyperlipidemia Obesity Surgical History (Updated 10/03/21 @ 09:31 by Eliu Andrade MD) No history of previous surgery Family History Grandmother Cancer Mother Cancer Denies family history of Diabetes CAD (coronary artery disease) Clotting disorder Dementia Hyperlipidemia Chronic kidney disease (CKD) Suicide Anesthesia complication Bleeding disorder Lung disease Hypertension Stroke Social History Alcohol intake: never Data Anesthesia : 10/06/21 05:15 10/06/21 05:15 Short CBC 10/05/21 10/06/21 Range/Units 01:45 05:15 WBC 14.7 H 13.0 H (4.0-10.0) 10^3/uL Hgb 12.9 11.8 (11.5-15.3) g/dL Hct 36.7 L 32.7 L (37.0-47.0) % MCV 98.1 96.7 (81-99) fl Plt Count 175 194 (130-400) 10^3/cmm Neut % (Auto) 88.0 81.0 % Neut # (Auto) 12.91 H 10.52 H (1.8-7.7) 10^3/uL BMP 10/05/21 10/06/21 01:45 05:15 Sodium 141 144 Potassium 3.7 3.3 L Chloride 107 111 H Carbon Dioxide 21 L 20 L BUN 49 H 46 H Creatinine 2.1 H 1.2 H Glucose 121 H 112 Calcium 8.2 L 8.1 L Liver Function 10/05/21 10/06/21 Range/Units 01:45 05:15 Total Bilirubin 0.4 0.5 (0.15-1.2) mg/dL AST 21 15 (0-32) U/L ALT 18 15 (0-33) U/L Alkaline Phosphatase 122 H 135 H (35-105) IU/L Albumin 3.0 L 2.9 L (3.5-5.2) g/dL Blood Bank 10/04/21 10:42 Blood Type AB Positive Rho(D) Type Positive Coags 10/05/21 10/05/21 10/05/21 01:45 11:12 14:05 PT 23.20 H 21.70 H 20.40 H INR 2.01 H 1.85 H 1.70 H 10/06/21 05:15 PT 18.50 H INR 1.51 H Cardiac Studies: Echocardiogram 10/03/21
[2021-10-06] MEDS: cefepime 1,000 MG in sodium chloride 0.9% (plus) 50 ML 100 MG IV (10:33)
--- NOTE | 2021-10-06 11:09 | PM.PN ---
Subjective Subjective: Patient overall is about the same, did not undergo IR placement of cholecystostomy tube yesterday because of higher INR. Today's INR is down to 1.5 and WBC count is down to 13,000+ Interventional radiologist requested a repeat CT scan of the abdomen and pelvis and the report came; Liver: The liver is moderately fatty but not enlarged. There is fluid around the liver. There is periportal fluid. There is a small cystic area within the liver inferiorly measuring 8 mm adjacent to the gallbladder fossa. As the patient has suspected acute cholecystitis the presence of a defect chin cannot be excluded versus simple cyst. Gallbladder and bile ducts: There is a large distended gallbladder with an irregular possibly some irregularly thickened wall and pericholecystic fluid and edema. 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 nondistended soft no organomegaly guarding or rigidity/no signs of peritonitis Obese Urinary Catheter Management: Pool: Cath Placed During This Visit: yes Reason for Continuing Indwelling Catheter: Required Immobilization for Trauma or Surgery or Anesthesia Urinary Catheter Date of Insertion: 10/03/21 Urinary Catheter Time of Insertion: 10:50 Data : 10/06/21 05:15 10/06/21 05:15 A&P Assessment and plan (1) Cholecystitis with cholelithiasis: After further evaluating the patient, and reviewing the CT scan of the abdomen and pelvis with my personal interpretation, certainly the patient does have severely inflamed acute calculus cholecystitis with surrounding stranding and edema of the surrounding structures, which certainly would make it at higher risk of complications for surgical intervention. The best potential approach would be placement of cholecystostomy tube under image guided. To drain the gallbladder and give the patient relief with the plan for interval cholecystectomy in 4 to 6 weeks. I would highly recommend to obtain cultures from the gallbladder content I did discuss with the patient again and in the presence of her spouse and nursing staff Edyta, the plan of care and I reemphasized that last Friday we would have had a window for surgical intervention but as the patient and her elected to hold off surgery now her about few days from her symptoms or so it would be more challenging to achieve a safe laparoscopic cholecystectomy giving the surrounding inflammatory structures and adhesions and higher risk of biliary injury and conversion to open, I did discuss with them the benefits of potential cholecystostomy tube placement and commitment to have it taken care of for the coming 6 weeks before potential elective surgery. Patient and her spouse agreed to proceed accordingly I also did discuss the plan of care with Dr. Bolanos the hospitalist and all providers are on the same page with the plan of care. 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
--- NOTE | 2021-10-06 11:31 | CT_ITS ---
WS: [id number] CT-GUIDED cholecystotomy tube. HISTORY: acute cholecystitis FLUOROSCOPIC TIME: 1.0 minutes. DLP: 317.[address] scans at [facility] use at least one of these dose optimization techniques: automated e xposure control; mA and/or kV adjustment per patient size (includes targeted exams where dose is matc hed to clinical indication); or iterative reconstruction. Procedures is explained to detailed to the patient and her family. Consent is obtained. Consent is fo r bleeding, infection and sepsis. Prior medications and blood work reviewed. Recent CT 10/06/2021 is also reviewed which demonstrated acute cholecystitis. Small RIGHT pleural effus ion and bibasilar atelectasis. With anesthesia present cholecystostomy tube is placed with patient under sedation. Imaging is perfor med through the gallbladder. Skin is cleansed with ChloraPrep and anesthetized with 1% buffered lidoc zhang. Access achieved into the gallbladder with a 17-gauge coaxial needle. Needle was exchanged over a guidewire. Tract is dilated. 8.5 Kosovan pigtail catheter is inserted into the lumen of the gallblad len. Catheter is in good position. Bile is readily aspirated from the gallbladder. Approximately 60 cc are removed without difficulty. Vacuum drainage bag was then connected. Catheter secured in positi on after the pigtail was formed. Bile specimen is collected for analysis. No complications. Patient will be transferred to ICU for close monitoring.
--- NOTE | 2021-10-06 12:38 | PC.NURSE ---
Addendum entered by Harriet Pool RN 10/06/21 12:40: Report given to AMY at 1145. Original Note: Gave report to AMY in ICU at 1245.
[2021-10-06] MEDS: morphine 4 mg/mL SDV 1 mL 1 MG IVP ×2 (13:23→18:16)
--- NOTE | 2021-10-06 14:01 | PM.PN ---
Subjective Subjective: Patient was seen this morning, multiple times, she continues to have right upper quadrant pain, no fevers overnight, is feeling better, denies any fevers overnight, discussed her INR 1.5, last night there was delays her cholecystostomy tube as her INR remained elevated, and it was too late to perform it last night, will attempt this morning, plans on doing a CT scan, CT scan shows severe acute cholecystitis with cyst versus abscess in the liver, discussed with Dr. Kerns, neck step would be to place cholecystostomy tube, discussed with Dr. Hampton, agreeable for cholecystostomy tube placement this afternoon Vitals/I&O/Wt Last Vital Signs Temp 97.9 F 10/06/21 13:15 Pulse 105 H 10/06/21 13:30 Resp 28 H 10/06/21 13:30 BP 179/111 10/06/21 13:30 Pulse Ox 95 10/06/21 13:02 10/05/21 10/06/21 10/06/21 22:59 06:59 14:59 Intake Total 1150 / 2662 340 / 3002 1350 / 1350 Output Total 500 / 500 300 / 800 Balance 650 / 2162 40 / 2202 1350 / 1350 Physical Exam Const: COMMON NORMALS: no acute distress and patient oriented x3 Resp: COMMON NORMALS: normal respiratory effort, No retractions, No use of accessory muscles and clear to auscultation bilaterally AUSCULTATION: clear to auscultation bilaterally Cardio: COMMON NORMALS: regular rate, regular rhythm, S1 normal heart sound present and S2 normal heart sound present RATE: regular rate RHYTHM: regular rhythm HEART SOUNDS: S1 normal heart sound present and S2 normal heart sound present GI: COMMON NORMALS: Normal to inspection, nondistended, normoactive bowel sounds present and Soft to palpation PALPATION: Yes Soft to palpation and Yes Tenderness to palpation present (GI) Details: RUQ Extremity: COMMON NORMALS: no pedal edema Neuro: COMMON NORMALS: patient oriented x3 Psych: COMMON NORMALS: mental status grossly normal Urinary Catheter Management: Pool: Cath Placed During This Visit: yes Reason for Continuing Indwelling Catheter: Required Immobilization for Trauma or Surgery or Anesthesia Urinary Catheter Date of Insertion: 10/03/21 Urinary Catheter Time of Insertion: 10:50 Data : 10/06/21 05:15 10/06/21 05:15 A&P Assessment and plan (1) Cholecystitis with cholelithiasis: Status: Acute (2) Leg swelling: Status: Acute (3) Atrial fibrillation: Status: Acute Qualifiers: Atrial fibrillation type: paroxysmal Qualified Code(s): I48.0 - Paroxysmal atrial fibrillation (4) Hypertension: Status: Acute Qualifiers: Hypertension type: essential hypertension Qualified Code(s): I10 - Essential (primary) hypertension (5) Chronic kidney disease: Status: Acute Qualifiers: Chronic kidney disease stage: unspecified stage Qualified Code(s): N18.9 - Chronic kidney disease, unspecified (6) Obesity: Status: Acute Qualifiers: Obesity type: due to excess calories Obesity classification: adult class 2 (BMI 35 - 39.9) Serious obesity comorbidity presence: without serious comorbidity Body mass index: BMI 37.0-37.9 Qualified Code(s): E66.09 - Other obesity due to excess calories; Z68.37 - Body mass index (BMI) 37.0-37.9, adult (7) Mixed hyperlipidemia: Status: Acute Plan Acute cholecystitis without signs of bacteremia Continue broad-spectrum antibiotics CT scan of the abdomen pelvis shows 1. Severe acute cholecystitis. 2. Cyst versus abscess in the liver adjacent to the gallbladder image and . 3. Bilateral pleural effusions and lobe infiltrates possibly atelectasis. 4. Ascites. Potassium replacement Cultures obtained Leukocytosis improving Afebrile overnight Continues to have significant right upper quadrant pain Plan for cholecystostomy tube today INR 1.5, hold anticoagulation for the next 24 hours, will consider resuming tomorrow based on clinical progress We will move patient down to ICU for closer monitoring for the next 24 hours, PT OT A. fib without RVR Hold Coumadin Reversing Coumadin related coagulopathy with FFP today when goal INR below 1.5 for intervention today Acute hypoxia: Wean off oxygen to room air Does not use oxygen at home Does have bilateral pleural effusions, will consider Lasix therapy Bilateral pleural effusions, likely secondary to fluid overload, hold fluids for now we will consider Lasix Patient is tolerating clear liquid diet Bowel regimen Clear liquid diet Hold DVT prophylaxis Full code Attestations Medical Necessity Statement*: Patient requires hospitalization due to severe cholecystitis, possible liver abscess, requiring cholecystostomy tube placement 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
--- NOTE | 2021-10-06 17:26 | NUR.SHIFT ---
Shift Note Frequent safety and comfort rounds after procedure.. Patient monitored for response to drain insertion. thick green output noted . Education provided includes drain care and pain . Will continue to monitor.
--- NOTE | 2021-10-06 18:14 | PC.SLP ---
VOLUNTEER FIRE FIGHTER followed up with the patient at [facility]. The patient was not feeling up to eating but a bite or 2 of Jell-O and drinking some liquid. No overt symptoms of aspiration noted. No significant swallowing difficulty reported by the patient. VOLUNTEER FIRE FIGHTER will follow with the patient tomorrow. Nursing reports that the plan is to upgrade to a full liquid diet soon.
--- NOTE | 2021-10-06 18:38 | PC.OT ---
As per the discussion with Dr. Bolanos, he will be taking the order off and no need for OT evaluation at this time. Nursing notified.
[2021-10-06] MEDS: enoxaparin 40 mg/0.4 mL Syringe SUBCUT (20:05)
--- NOTE | 2021-10-06 23:17 | ANE.PACU2 ---
Inpatient post-anesthesia follow up: Airway intact: Yes Vital signs: Temperature 98.2 F Pulse Rate 94 Respiratory Rate 18 Blood Pressure 152/97 Pulse Oximetry 93 Oxygen Delivery Me thod [ Nasal Cannula Current Rate & Del claudine] Oxygen Delivery Me thod Nasal Cannula Oxygen Flow Rate [ Current Rate 2.5 & Delivery] Oxygen Flow Rate 2 Fraction of Inspir ed Oxygen Hydration adequate: Yes Nausea and vomiting: No Pain level: 2 Mental status: Baseline
[2021-10-06] MEDS: ondansetron 2 mg/ML SDV 2 mL 4 MG IVP (23:40)
[2021-10-07] VITALS (46 sets, daily range): BP systolic 117–171; BP diastolic 85–100; PULSE 82–128; RESP 16–30; TEMP 36.6–36.9; O2SAT 90–96
[2021-10-07] MEDS: morphine 4 mg/mL SDV 1 mL 1 MG IVP (00:09)
[2021-10-07] MEDS: metroNIDAZOLE IV 500 MG/100 ML PREMIX 100 MG IV ×3 (05:58→22:53)
[2021-10-07] MEDS: amlodipine 10 mg Tablet PO (08:26)
[2021-10-07] MEDS: potassium chloride ER 20 mEq Tablet PO (08:26)
[2021-10-07] MEDS: FUROsemide 10 mg/mL SDV 4mL 40 MG IVP (08:26)
[2021-10-07] MEDS: metoprolol tartrate 50 mg Tablet 100 MG PO ×2 (08:27→20:02)
[2021-10-07 08:30] LABS: Basophils # 0.1 10^3/uL (0.0-0.1); Basophils % 0.5 %; Eosinophils # 0.1 10^3/uL (0.0-0.8); Eosinophils % 0.9 %; Hematocrit 40.6 % (37.0-47.0); Hemoglobin 13.8 g/dL (11.5-15.3); Lymphocytes # 1.3 10^3/uL (0.8-4.8); Lymphocytes % 12.9 %; Mean Platelet Volume 11.8 fL (7.4-10.4); Monocytes # 1.3 10^3/uL (0.2-0.9); Monocytes % 12.2 %; Neutrophils # 7.33 10^3/uL (1.8-7.7); Neutrophils % 71.6 %; Nucleated Red Blood Cells % 0 %; Platelet Count 204 10^3/cmm (130-400); Red Blood Count 4.06 10^6/uL (4.1-5.3); Red Cell Distribution Width 14.2 % (12.1-15.1); White Blood Count 10.2 10^3/uL (4.0-10.0)
[2021-10-07 09:24] LABS: Alanine Aminotransferase 12 U/L (0-33); Albumin Level 2.6 g/dL (3.5-5.2); Alkaline Phosphatase 100 IU/L (35-105); Blood Urea Nitrogen 34 mg/dL (8-23); C Reactive Protein 146.1 mg/L (0.0-4.9); Calcium 8.2 mg/dL (8.5-10.5); Carbon Dioxide 22 mmol/L (22-29); Chloride 111 mmol/L (98-107); Globulin 4.1 g/dL (1.3-4.6); Glucose 131 mg/dL (65-115); Magnesium 1.6 mg/dL (1.7-2.3); Osmolality Calculated 311 mOsm/kg (285-295); Phosphorus 2.3 mg/dL (2.5-4.5); Sodium 146 mmol/L (136-145); Total Bilirubin 0.6 mg/dL (0.15-1.2); Total Protein 6.7 g/dL (6.6-8.7)
[2021-10-07 09:29] LABS: Anion Gap 16.8 (5-19); Aspartate Amino Transferase 12 U/L (0-32); Potassium 3.8 mmol/L (3.5-5.1); Procalcitonin 1.48 ng/mL (0-0.5)
[2021-10-07] MEDS: cefepime 1,000 MG in sodium chloride 0.9% (plus) 50 ML 100 MG IV (10:45)
[2021-10-07] MEDS: warfarin 6 mg Tablet PO (10:50)
[2021-10-07] MEDS: lisinopril 10 mg Tablet PO ×2 (12:55→17:28)
[2021-10-07] MEDS: magnesium sulfate premix 2 GM/50 ML PIGGYBACK IV (12:55)
--- NOTE | 2021-10-07 14:26 | P.PN_ITS ---
Subjective Subjective: Patient was seen this morning, she had a cholecystostomy tube placed yesterday afternoon, doing significantly better, feeling better, she is wondering when she can be ready to go home, afebrile overnight, continues to have a poor appetite Vitals/I&O/Wt Last Vital Signs Temp 98.2 F 10/07/21 04:00 Pulse 87 10/07/21 13:00 Resp 22 H 10/07/21 13:00 BP 128/85 10/07/21 13:00 Pulse Ox 94 10/07/21 13:00 10/06/21 10/07/21 10/07/21 22:59 06:59 14:59 Intake Total 0 / 1559.0909 460 / 2019.0909 550 / 550 Output Total 580 / 580 470 / 1050 Balance -580 / 979.0909 -10 / 969.0909 550 / 550 Physical Exam Const: COMMON NORMALS: no acute distress and patient oriented x3 Resp: COMMON NORMALS: normal respiratory effort, No retractions, No use of accessory muscles and clear to auscultation bilaterally AUSCULTATION: clear to auscultation bilaterally Cardio: COMMON NORMALS: regular rate, regular rhythm, S1 normal heart sound present and S2 normal heart sound present RATE: regular rate RHYTHM: regular rhythm HEART SOUNDS: S1 normal heart sound present and S2 normal heart sound present GI: COMMON NORMALS: Normal to inspection, nondistended, normoactive bowel sounds present, Soft to palpation and non-tender PALPATION: Yes Soft to palpation Extremity: COMMON NORMALS: no pedal edema Neuro: COMMON NORMALS: patient oriented x3 Urinary Catheter Management: Pool: Cath Placed During This Visit: yes Reason for Continuing Indwelling Catheter: Acute Urinary Retention or Obstruction Urinary Catheter Date of Insertion: 10/03/21 Urinary Catheter Time of Insertion: 10:50 Data : 10/07/21 08:15 10/07/21 08:15 Micro: Microbiology 10/06/21 12:45 Gram Stain - Final Other Source A&P Assessment and plan (1) Cholecystitis with cholelithiasis: Status: Acute (2) Leg swelling: Status: Acute (3) Atrial fibrillation: Status: Acute Qualifiers: Atrial fibrillation type: paroxysmal Qualified Code(s): I48.0 - Paroxysmal atrial fibrillation (4) Hypertension: Status: Acute Qualifiers: Hypertension type: essential hypertension Qualified Code(s): I10 - Essential (primary) hypertension (5) Chronic kidney disease: Status: Acute Qualifiers: Chronic kidney disease stage: unspecified stage Qualified Code(s): N18.9 - Chronic kidney disease, unspecified (6) Obesity: Status: Acute Qualifiers: Obesity type: due to excess calories Obesity classification: adult class 2 (BMI 35 - 39.9) Serious obesity comorbidity presence: without serious comorbidity Body mass index: BMI 37.0-37.9 Qualified Code(s): E66.09 - Other obesity due to excess calories; Z68.37 - Body mass index (BMI) 37.0-37.9, adult (7) Mixed hyperlipidemia: Status: Acute Plan Acute cholecystitis without signs of bacteremia Continue broad-spectrum antibiotics CT scan of the abdomen pelvis shows 1. Severe acute cholecystitis. 2. Cyst versus abscess in the liver adjacent to the gallbladder image and . 3. Bilateral pleural effusions and lobe infiltrates possibly atelectasis. 4. Ascites. Potassium replacement Cultures obtained Leukocytosis improving Afebrile overnight Continues to have significant right upper quadrant pain Status post cholecystostomy tube placement yesterday afternoon, 450 cc output INR 1.5, resume anticoagulation, PT OT We will move patient out of the ICU A. 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
--- NOTE | 2021-10-07 16:21 | PC.SOCIAL ---
IMM UPDATED IMM dated and initialed and copy given to family
--- NOTE | 2021-10-07 17:11 | NUR.SHIFT ---
Shift Note Frequent safety and comfort rounds continue. up ambulated in [place] today with walker and pt Patient monitored for response tolerated well at this time. . Education provided includes how to care for drain right side . Patient and present to teaching . Will continue to monitor.
[2021-10-07] MEDS: lanolin oint 7 gm 1 APPLIC TOPICAL (22:55)
[2021-10-08] VITALS (16 sets, daily range): BP systolic 116–162; BP diastolic 86–99; PULSE 83–107; RESP 16–22; TEMP 36.4–36.6; O2SAT 90–96
[2021-10-08 03:32] LABS: Basophils # 0.1 10^3/uL (0.0-0.1); Basophils % 0.4 %; Eosinophils # 0.3 10^3/uL (0.0-0.8); Eosinophils % 2.3 %; Hematocrit 36.1 % (37.0-47.0); Hemoglobin 12.5 g/dL (11.5-15.3); Lymphocytes # 1.8 10^3/uL (0.8-4.8); Lymphocytes % 15.4 %; Mean Corpuscular HGB Conc 34.6 g/dL (30.0-36.0); Mean Corpuscular Hemoglobin 32.2 pg (28.0-34.0); Mean Platelet Volume 11.4 fL (7.4-10.4); Monocytes # 1.5 10^3/uL (0.2-0.9); Monocytes % 12.7 %; Neutrophils # 7.63 10^3/uL (1.8-7.7); Neutrophils % 66.1 %; Nucleated Red Blood Cells % 0 %; Platelet Count 227 10^3/cmm (130-400); Red Blood Count 3.88 10^6/uL (4.1-5.3); Red Cell Distribution Width 13.5 % (12.1-15.1); White Blood Count 11.5 10^3/uL (4.0-10.0)
[2021-10-08 03:42] LABS: INR 1.41 (0.8-1.2)
[2021-10-08 04:00] LABS: Alanine Aminotransferase 9 U/L (0-33); Albumin Level 2.5 g/dL (3.5-5.2); Alkaline Phosphatase 87 IU/L (35-105); Anion Gap 14.3 (5-19); Aspartate Amino Transferase 9 U/L (0-32); Blood Urea Nitrogen 27 mg/dL (8-23); C Reactive Protein 68.8 mg/L (0.0-4.9); Calcium 7.9 mg/dL (8.5-10.5); Carbon Dioxide 24 mmol/L (22-29); Chloride 107 mmol/L (98-107); Globulin 3.6 g/dL (1.3-4.6); Glucose 114 mg/dL (65-115); Magnesium 1.7 mg/dL (1.7-2.3); Osmolality Calculated 300 mOsm/kg (285-295); Phosphorus 2.1 mg/dL (2.5-4.5); Potassium 3.3 mmol/L (3.5-5.1); Procalcitonin 1.07 ng/mL (0-0.5); Sodium 142 mmol/L (136-145); Total Bilirubin 0.5 mg/dL (0.15-1.2); Total Protein 6.1 g/dL (6.6-8.7)
[2021-10-08] MEDS: metroNIDAZOLE IV 500 MG/100 ML PREMIX 100 MG IV (05:04)
[2021-10-08] MEDS: morphine 4 mg/mL SDV 1 mL 1 MG IVP (05:05)
[2021-10-08] MEDS: FUROsemide 10 mg/mL SDV 4mL 40 MG IVP (08:58)
[2021-10-08] MEDS: lidocaine 1% 5 ML in potassium chloride premix 100 ML 25 ML IV (08:58)
[2021-10-08] MEDS: cefepime 1,000 MG in sodium chloride 0.9% (plus) 50 ML 100 MG IV (08:59)
[2021-10-08] MEDS: metoprolol tartrate 50 mg Tablet 100 MG PO (08:59)
[2021-10-08] MEDS: amlodipine 10 mg Tablet PO (08:59)
[2021-10-08] MEDS: lisinopril 10 mg Tablet PO (08:59)
--- NOTE | 2021-10-08 11:06 | PC.CHAP ---
Pastoral Care Encounter/Spiritual Assessment Type of Contact [] Declined licensed psychologist visit [] Patient/Family/Request visit [] Outpatient visit [] Follow-up visit [] Physician referral [] Code/Alert [x] Routine visit [] Staff referral [] Actively dying [x] Patient sleeping [] Family support [] [] Out of room [] Palliative care [] [] Receiving care in room [] Pre-surgical visit [] Trauma [] Long length of stay [x] ICU visit [] Other: Relational/Emotional Strength [] Patient feels connected with others/family/visitors/staff [] Distress [] Loneliness/isolation [] Abandonment Spirituality of Patient [] Person of [place] [] Attends Oriental Orthodox of their [place] [] Believes in Prayer [] Reads Bible or Latter-Day materials [] There are Spiritual issues to be addressed 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 Machine Operator Helper Interventions [x] Prayer [] Active listening [] Non-anxious presence [] Spiritual/emotional support [] Crisis/trauma care [] Spiritual counseling [] Bereavement support [] Provided bereavement packet [] Provided Bible/devotional materials [] Provided toy/stuffed animal, coloring book to patient or family member [] Provided Communion [] Anointing/[place] [] Salvation [x] Completed spiritual assessment [] Other: Impact on Illness or Injury [] Angry [] Fearful [] Anxious [] Often cries [] Exhaustion [] Unable to work [] Unable to attend muslim [] Unable to walk/stand [] Unable to read [] Unable to drive [] Unable to eat/drink [] Unable to sleep [] Unable to be with family [] Patient intubated [] Other: Summary Time spent with patient
--- NOTE | 2021-10-08 11:50 | P.DS_ITS ---
Discharge Providers Date of Admission: 10/02/21 21:59 Date of Discharge: October 08, 2021 Attending Provider at Admission: René Granger DO Attending Provider at Discharge: Shamar Bolanos MD Primary Care Provider: Osiris Owusu MD Diagnoses at Discharge Discharge Diagnosis (1) Cholecystitis with cholelithiasis: Status: Acute (2) Leg swelling: Status: Acute (3) Atrial fibrillation: Status: Acute Qualifiers: Atrial fibrillation type: paroxysmal Qualified Code(s): I48.0 - Paroxysmal atrial fibrillation (4) Hypertension: Status: Acute Qualifiers: Hypertension type: essential hypertension Qualified Code(s): I10 - Essential (primary) hypertension (5) Chronic kidney disease: Status: Acute Qualifiers: Chronic kidney disease stage: unspecified stage Qualified Code(s): N18.9 - Chronic kidney disease, unspecified (6) Obesity: Status: Acute Qualifiers: Obesity type: due to excess calories Obesity classification: adult class 2 (BMI 35 - 39.9) Serious obesity comorbidity presence: without serious comorbidity Body mass index: BMI 37.0-37.9 Qualified Code(s): E66.09 - Other obesity due to excess calories; Z68.37 - Body mass index (BMI) 37.0-37.9, adult (7) Mixed hyperlipidemia: Status: Acute Reason for Visit Reason for Visit: abd pain, sent by pcp Hospital Course Hospital Course This is a 76-year-old female with a past medical history of atrial fibrillation on Coumadin, hypertension, hyperlipidemia, CKD, obesity, who presents to [facility] due to concerns for abdominal pain Patient was admitted to [facility] for acute cholecystitis with sepsis, managed with broad-spectrum antibiotic therapy, after discussion with patient and general surgery service patient elected for elective surgery as outpatient, after few days of medical management and plans on cholecystostomy tube placement, CT of abdomen and pelvis showed severe acute cholecystitis with cyst versus abscess in the liver, radiology service was consulted, had cholecystostomy tube placed successfully. Patient overall clinically improved, blood cultures remain unremarkable, afebrile, right upper quadrant pain improved, ambulating without significant symptomatology. Will be discharged on 8 remaining days of antibiotics, with close follow-up with primary care provider as outpatient. Discharged with cholecystostomy tube in place, with a follow-up with general surgery in 2 weeks. For atrial fibrillation, and hypertension, metoprolol dose was increased to 100 mg twice a day, lisinopril 20 mg twice daily was also added, Norvasc dose was increased to 10 mg a day follow-up with primary care provider for recheck blood pressure in a few days. Patient's Coumadin was held for over 3 days in preparation for cholecystostomy tube placement, she will be discharged on 3 mg Coumadin daily, with recheck INR through primary care on Friday. Physical Exam Const: COMMON NORMALS: no acute distress and patient oriented x3 Resp: COMMON NORMALS: normal respiratory effort, No retractions, No use of accessory muscles and clear to auscultation bilaterally AUSCULTATION: clear to auscultation bilaterally Cardio: COMMON NORMALS: regular rate, regular rhythm, S1 normal heart sound present and S2 normal heart sound present RATE: regular rate RHYTHM: regular rhythm HEART SOUNDS: S1 normal heart sound present and S2 normal heart sound present GI: COMMON NORMALS: Normal to inspection, nondistended, normoactive bowel sounds present, Soft to palpation, non-tender and No hepatosplenomegaly present PALPATION: Yes Soft to palpation and Yes No hepatosplenomegaly present OTHER: Cholecystostomy tube in place, area looks clean and dry, VAC in place Extremity: COMMON NORMALS: no pedal edema Neuro: COMMON NORMALS: patient oriented x3 Psych: COMMON NORMALS: mental status grossly normal Urinary Catheter Management: Pool: Cath Placed During This Visit: yes Reason for Continuing Indwelling Catheter: Acute Urinary Retention or Obstruction Urinary Catheter Date of Insertion: 10/03/21 Urinary Catheter Time of Insertion: 10:50 Discharge Data Studies Completed and Pending Completed Studies During Hospitalization Category Date Time Status CT abdomen pelvis w con* [id number] Stat Cat Scan 10/06/21 09:[address] guided drainage [id number] Routine Cat Scan 10/06/21 [place] [id number] Routine Ultrasound 10/03/21 09:33 Completed CV. echo complete* [id number] Routine Ultrasound 10/03/21 09:36 Completed US abdomen limited [id number] Stat Ultrasound 10/02/21 18:33 Completed Pending at discharge Category Date Time Status ABO/Rh Type Routine Lab 10/04/21 10:42 Results Body Fluid Culture & GS Stat Lab 10/06/21 12:45 Results C Reactive Protein AM LABS Lab 10/09/21 04:00 Ordered Complete Crossmatch Routine Lab 10/04/21 10:42 Results FFP [Frozen Plasma FZ <24 1st Cont] Routine Lab 10/04/21 10:42 Results Procalcitonin AM LABS Lab 10/09/21 04:00 Ordered Prothrombin Time INR AM LABS Lab 10/09/21 04:00 Ordered Prothrombin Time INR AM LABS Lab 10/10/21 04:00 Ordered Prothrombin Time INR AM LABS Lab 10/11/21 04:00 Ordered Radiology Impressions Abdomen Ultrasound 10/02/21 18:33 IMPRESSION: Cholelithiasis with sonographic findings suspicious for acute cholecystitis. Abscess Drainage CT 10/06/21 00:00 IMPRESSION: 1. Uncomplicated cholecystostomy tube placement with the patient sedated by anesthesia. 2. Bile specimen collected and sent for culture and sensitivity. 3. Gallbladder catheter should be flushed with 10 cc of sterile saline every 12 hours. 4. No tension placed on the catheter. 5. Catheter will need to remain within the gallbladder for at least 4-6 weeks unless surgery is performed. Abdomen/Pelvis CT 10/06/21 09:40 IMPRESSION: 1. Severe acute cholecystitis. 2. Cyst versus abscess in the liver adjacent to the gallbladder image and . 3. Bilateral pleural effusions and lobe infiltrates possibly atelectasis. 4. Ascites. ADDENDUM: 10/06/21 1106 Findings were discussed with SHAMAR BOLANOS at 10/06/2021 11:03 AM [employer]. In addition there are inflammatory changes seen involving the right posterior flank soft tissues which also could be cellulitis. Laboratory Results WBC 11.5 10^3/uL (4.0-10.0) H 10/08/21 03:14 Corrected WBC Cancelled 10/07/21 05:03 RBC 3.88 10^6/uL (4.1-5.3) L 10/08/21 03:14 Hgb 12.5 g/dL (11.5-15.3) 10/08/21 03:14 Hct 36.1 % (37.0-47.0) L 10/08/21 03:14 MCV 93.0 fl (81-99) D 10/08/21 03:14 MCH 32.2 pg (28.0-34.0) 10/08/21 03:14 MCHC 34.6 g/dL (30.0-36.0) 10/08/21 03:14 RDW 13.5 % (12.1-15.1) 10/08/21 03:14 Plt Count 227 10^3/cmm (130-400) 10/08/21 03:14 MPV 11.4 fL (7.4-10.4) H 10/08/21 03:14 Gran % Cancelled 10/07/21 05:03 Neut % (Auto) 66.1 % 10/08/21 03:14 Lymph % (Auto) 15.4 % 10/08/21 03:14 [place] % (Auto) 12.7 % 10/08/21 03:14 Eos % (Auto) 2.3 % 10/08/21 03:14 Baso % (Auto) 0.4 % 10/08/21 03:14 Neut # (Auto) 7.63 10^3/uL (1.8-7.7) 10/08/21 03:14 Lymph # (Auto) 1.8 10^3/uL (0.8-4.8) 10/08/21 03:14 [place] # (Auto) 1.5 10^3/uL (0.2-0.9) H 10/08/21 03:14 Eos # (Auto) 0.3 10^3/uL (0.0-0.8) 10/08/21 03:14 Baso # (Auto) 0.1 10^3/uL (0.0-0.1) 10/08/21 03:14 Absolute Gran (auto) Cancelled 10/07/21 05:03 Nucleated RBC % (auto) 0 % 10/08/21 03:14 Nucleated RBCs # 0.0 /100WBC 10/08/21 03:14 PT 17.60 SECONDS (12.1-14.9) H 10/08/21 03:14 INR 1.41 (0.8-1.2) H 10/08/21 03:14 APTT 54.8 SECONDS (23.9-36.7) H 10/03/21 02:50 Sodium 142 mmol/L (136-145) 10/08/21 03:14 Potassium 3.3 mmol/L (3.5-5.1) L 10/08/21 03:14 Chloride 107 mmol/L (98-107) 10/08/21 03:14 Carbon Dioxide 24 mmol/L (22-29) 10/08/21 03:14 Anion Gap 14.3 (5-19) 10/08/21 03:14 BUN 27 mg/dL (8-23) H 10/08/21 03:14 Creatinine 0.8 mg/dL (0.5-0.9) 10/08/21 03:14 GFR Calculation Not Reportable 10/08/21 03:14 Glucose 114 mg/dL (65-115) 10/08/21 03:14 Calculated Osmolality 300 mOsm/kg (285-295) H 10/08/21 03:14 Lactate 1.5 mmol/L (0.5-2.2) 10/02/21 21:00 Calcium 7.9 mg/dL (8.5-10.5) L 10/08/21 03:14 Phosphorus 2.1 mg/dL (2.5-4.5) L 10/08/21 03:14 Magnesium 1.7 mg/dL (1.7-2.3) 10/08/21 03:14 Total Bilirubin 0.5 mg/dL (0.15-1.2) 10/08/21 03:14 AST 9 U/L (0-32) 10/08/21 03:14 ALT 9 U/L (0-33) 10/08/21 03:14 Alkaline Phosphatase 87 IU/L (35-105) 10/08/21 03:14 Troponin T Baseline 20 ng/L (0-10) H 10/02/21 21:00 Troponin T 120 Minute 21.09 ng/L (0-10) H 10/02/21 23:02 Delta Troponin T 1.09 ABS# (0-10) 10/02/21 23:02 Troponin T Hi Sens 6Hr 21.64 ng/L (0-10) H 10/03/21 02:50 Troponin T Hi Sens 6Hr Delta 1.64 ng/L (0-12) 10/03/21 02:50 C-Reactive Protein 68.8 mg/L (0.0-4.9) H 10/08/21 03:14 Total Protein 6.1 g/dL (6.6-8.7) L 10/08/21 03:14 Albumin 2.5 g/dL (3.5-5.2) L 10/08/21 03:14 Globulin 3.6 g/dL (1.3-4.6) 10/08/21 03:14 Lipase 25 U/L (13-60) 10/02/21 21:00 Procalcitonin 1.07 ng/mL (0-0.5) H 10/08/21 03:14 Urine Color Other (Yellow) 10/02/21 20:35 Urine Appearance Cloudy (CLEAR) 10/02/21 20:35 Urine pH 5 (5-7) 10/02/21 20:35 Ur Specific [place] 1.030 (1.005-1.030) 10/02/21 20:35 Urine Protein 2+ (Negative) H 10/02/21 20:35 Urine Glucose (UA) 1+ (Normal) H 10/02/21 20:35 Urine Ketones 1+ (Negative) H 10/02/21 20:35 Urine Blood Neg (Negative) 10/02/21 20:35 Urine Nitrate Positive (Negative) H 10/02/21 20:35 Urine Bilirubin Neg (Negative) 10/02/21 20:35 Urine Urobilinogen Norm mg/dL (Negative) 10/02/21 20:35 Ur Leukocyte Esterase Trace (Negative) H 10/02/21 20:35 Urine RBC 0-4 /hpf (0-2) H 10/02/21 20:35 Urine WBC 5-10 /hpf (0-5) H 10/02/21 20:35 Ur Squamous Epith Cells 40-55 /hpf (0-5) H 10/02/21 20:35 Amorphous Sediment 2+ /hpf 10/02/21 20:35 Urine Bacteria Trace /hpf (NONE) 10/02/21 20:35 Urine Mucus 1+ /hpf 10/02/21 20:35 Blood Type AB Positive 10/04/21 10:42 Rho(D) Type Positive 10/04/21 10:42 Vitals Last Vital Signs Temp 97.9 F 10/08/21 07:00 Pulse 100 10/08/21 08:00 Resp 18 10/08/21 08:00 BP 162/98 10/08/21 08:00 Pulse Ox 91 10/08/21 08:00 Discharge Plan Discharge Patient Disposition: Home Condition: Stable Prescriptions: New hydrocodone-acetaminophen 5-325 mg tablet 1 tab PO Q6H PRN (Reason: pain) 7 Days Qty: 28 0RF metoprolol tartrate 50 mg Tablet 100 mg PO BID@0900,2100 30 Days Qty: 60 0RF lisinopril 20 mg Tablet 20 mg PO BID 30 Days Qty: 60 0RF metronidazole 500 mg tablet 500 mg PO Q8H 8 Days Qty: 24 0RF amlodipine 10 mg Tablet 10 mg PO DAILY 30 Days Qty: 30 0RF cefdinir 300 mg capsule 300 mg PO BID 8 Days Qty: 16 0RF Continued warfarin 3 mg tablet 3 mg PO . DIRECTED 0RF atorvastatin 20 mg tablet 20 mg PO DAILY 0RF furosemide 20 mg tablet 20 mg PO QAM PRN (Reason: edema) 0RF potassium chloride 20 mEq packet 20 - 40 meq PO DAILY PRN (Reason: while taking lasix) 0RF ondansetron 4 mg tablet,disintegrating 4 mg PO TID PRN (Reason: Nausea And Vomiting) 0RF Discontinued metoprolol tartrate 100 mg tablet 100 mg PO DAILY 0RF amlodipine 5 mg tablet 5 mg PO DAILY 0RF Discharge Orders: Discharge Order (Routine); Ordered 10/08/21 Ordered By: Shamar Bolanos Referrals: Osiris Owusu MD [Primary Care Provider] - Milton Kerns MD [Physician] - (Return to surgery office in 2 weeks discuss elective laparoscopic cholecystectomy) Discharge Diet: Low Fat and GI Soft Discharge Activity: Resume usual activity Patient Instructions: Opioid Safety Activity Restrictions/Additional Instructions: -Keep cholecystostomy in place -bag changes as directed -If you have any worsening abdominal pain please go to emergency room -If you have any fevers, chills, nausea, vomiting go to emergency room -Follow-up with general surgery as outpatient -Continue Coumadin 3 mg daily, recheck INR on Friday through primary care Discharge Attestations Time Spent in Discharge Care*: less than 30 min Quality Metrics Clinical Quality Measures [ No reported AMI, CVA or VTE this stay] Coding Level of Care Code Acute g [facility] note Diagnoses Cholecystitis with cholelithiasis K80.10 Leg swelling M79.89 Atrial fibrillation I48.0 Atrial fibrillation type: paroxysmal Hypertension I10 Hypertension type: essential hypertension Chronic kidney disease N18.9 Chronic kidney disease stage: unspecified stage Obesity E66.09; Z68.37 Obesity type: due to excess calories Obesity classification: adult class 2 (BMI 35 - 39.9) Serious obesity comorbidity presence: without serious comorbidity Body mass index: BMI 37.0-37.9 Mixed hyperlipidemia E78.2
--- NOTE | 2021-10-08 16:09 | PC.NURSE ---
Discharge note Patient discharged to home with . IV removed with catheter in tact. Biliary drain emptied and flushed. Patient and Patient's spouse educated on care for drain with demonstration, verbal explanation, and teach back. Patient and spouse able to teach back drain care. Patient educated on all discharge information with medication education and follow up appointments. Patient what taken out by this nurse via wheelchair to patients vehicle with spouse.
== END 2021-10-08 15:35 | disposition home or self-care (01) | DRG 445 ==
LOC: ER 22:34 → MEDSURG 22:41 → ICU 10-06 11:53
PROVIDERS: Emergency Medicine; Internal Medicine; Surgery; Admitting Provider Internal Medicine; Emergency Provider Emergency Medicine; PCP Family Medicine; Visit Provider Family Medicine
DX: K80.00 Calculus of gallbladder with acute cholecystitis without obstruction (principal); N39.0 Urinary tract infection, site not specified; R18.8 Other ascites; J90 Pleural effusion, not elsewhere classified; I48.0 Paroxysmal atrial fibrillation; I12.9 Hypertensive chronic kidney disease with stage 1 through stage 4 chronic kidney disease, or unspecified chronic kidney disease; N18.9 Chronic kidney disease, unspecified; E78.2 Mixed hyperlipidemia; M79.89 Other specified soft tissue disorders; R93.2 Abnormal findings on diagnostic imaging of liver and biliary tract; R77.8 Other specified abnormalities of plasma proteins; E86.0 Dehydration; R09.02 Hypoxemia; E66.09 Other obesity due to excess calories; Z68.37 Body mass index [BMI] 37.0-37.9, adult; Z79.01 Long term (current) use of anticoagulants; Z88.0 Allergy status to penicillin
CPT/HCPCS: 36415; 36430; 47490; 51702; 74177; 75989; 76705; 80053; 81001; 83605; 83690; 83735; 84100; 84145; 84484; 85025; 85610; 85730; 86140; 86900; 86927; 87040; 87070; 87075; 87205; 92610; 93005; 93306; 93970; 96365; 96372; 96375; 96376; 97110; 97161; 97530; 99291; J0692; J0696; J1650; J1940; J1956; J2270; J2405; J3010; J3430; J3475; J3480; J3490; J7030; P9017; Q9967; S0030

== ENCOUNTER 2021-10-27 14:04 | Inpatient (IN) | payer MEDICARE, SELFPAY ==
[2021-10-27] VITALS (53 sets, daily range): BP systolic 70–115; BP diastolic 40–65; PULSE 107–194; RESP 20; TEMP 36.4–37; O2SAT 89–100; BMI 32.1
--- NOTE | 2021-10-27 14:08 | W.ED.ABDPA2 ---
HPI - Abdominal Pain General: Chief Complaint: Weakness Stated Complaint: ABD/BACK PAIN; LOW BP Time Seen by Provider: 10/27/21 14:07 Source: patient Limitations: no limitations History of Present Illness: 76-year-old female presents to the emergency room with nausea and vomiting generally not feeling well she had poor oral intake last couple of weeks. She was admitted through the emergency room recently and had a week long hospital stay with acute cholecystitis cholecystectomy tube was placed with the plan of after drainage to progress to definitive treatment after 6 weeks with cholecystectomy. She presents today generally not feeling well she also noticed increased swelling nausea she denies any significant shortness of breath or chest pain. She does have some generalized mild abdominal discomfort but states that actually little better. MD elicited complaint: abdominal pain Pertinent past history: other (Cholecystitis) Onset (ago): week(s) Pain Consistency: constant Location: Epigastric Severity: mild Quality: cramping Radiation: none Migration to: no migration Exacerbating factors: eating Relieving factors: nothing Associated Symptoms: Reports bloating, GI cramping and poor appetite; Denies anorexia, belching, change in bowel habits, change in stool character, chills, coffee ground emesis, constipation, diarrhea, dyspepsia, dysuria, excessive flatus, fever(s), heartburn, hematochezia, hematuria, hematemesis, fecal incontinence, loose stools, melena and nausea Review of Systems Const: Denies: fever(s) or chills ENMT: Denies: throat pain, ear or mastoid pain, nasal discharge or nasal congestion Card: Denies: chest pain, edema, dyspnea on exertion or orthopnea Resp: Denies: dyspnea, productive cough or non-productive cough GI: Reports: bloating and GI cramping; Denies: nausea, hematemesis, coffee ground emesis, heartburn, diarrhea, constipation, belching, excessive flatus, fecal incontinence, change in bowel habits, change in stool character, hematochezia or melena : Denies: dysuria or hematuria Skin/Breast: Denies: rash or pruritus PFSH ED PFSH: Medical History Atrial fibrillation Chronic anticoagulation With Coumadin, for atrial fibrillation Chronic kidney disease Hypertension Mixed hyperlipidemia Obesity Surgical History Acute calculous cholecystitis Status post cholecystostomy tube placement Family History Grandmother Cancer Mother Cancer Denies family history of Diabetes CAD (coronary artery disease) Clotting disorder Dementia Hyperlipidemia Chronic kidney disease (CKD) Suicide Anesthesia complication Bleeding disorder Lung disease Hypertension Stroke Social History Smoking and tobacco status: never smoked Alcohol intake: never Household members: spouse Marital status: Physical Exam Const: GENERAL APPEARANCE: cooperative and lethargic ORIENTATION/CONSCIOUSNESS: Yes awake and Yes lethargic HENMT: COMMON NORMALS: normocephalic and atraumatic HEAD & SCALP: normocephalic and atraumatic Neck/C-Spine: COMMON NORMALS: no JVD Resp: COMMON NORMALS: normal respiratory effort, No retractions, No use of accessory muscles and clear to auscultation bilaterally AUSCULTATION: clear to auscultation bilaterally Cardio: COMMON NORMALS: no JVD, regular rate, regular rhythm and No murmurs present (Cardio) RATE: regular rate RHYTHM: regular rhythm GI: COMMON NORMALS: Soft to palpation and No hepatosplenomegaly present AUSCULTATION: Yes normoactive bowel sounds PALPATION: Yes Soft to palpation, No Tenderness to palpation present (GI), No Guarding due to palpation present (GI) and Yes No hepatosplenomegaly present OTHER: Cholecystectomy tube in the right upper quadrant bilious drainage present minimal tenderness Extremity: COMMON NORMALS: normal to inspection, capillary refill normal, no clubbing, cyanosis or edema, no calf tenderness and no pedal edema Neuro: SENSORIUM/ORIENTATION: Yes lethargic Skin: COMMON NORMALS: no rashes or lesions noted GENERAL SKIN EXAM: no rashes or lesions noted Course Vital Signs: Vital signs: Vital Signs Temperature 97.8 F 11/06/21 11:37 Pulse Rate 99 11/06/21 11:37 Respiratory Rate 16 11/06/21 11:37 Blood Pressure 148/79 11/06/21 11:37 Pulse Oximetry 96 11/06/21 11:37 MDM - Abdominal Pain Medical Decision Making Acute kidney injury. Cholecystitis. Discussed with hospitalist consult surgery will admit orders written start antibiotics also start fluids consult nephrology as well Medical Records I reviewed the patient's medical records. Lab Data I reviewed the patient's lab results. : 11/06/21 04:10 11/06/21 04:10 Labs/Radiology: Radiology Impressions Abdomen/Pelvis CT 10/27/21 14:13 IMPRESSION: When compared with 10/06/2021, there has been interval placement of a percutaneous canal cholecystotomy. Gallbladder distension and associated inflammation have significantly improved in the interval. There is questionable gastroduodenitis.Clinical correlation is advised. Chest X-Ray 10/27/21 21:34 IMPRESSION: There is a right IJ catheter whose tip is in the superior vena cava. No PICC catheter is identified. Laboratory Results WBC 11.4 10^3/uL (4.0-10.0) H 10/27/21 14:45 RBC 3.45 10^6/uL (4.1-5.3) L 10/27/21 14:45 Hgb 10.7 g/dL (11.5-15.3) L 10/27/21 14:45 Hct 31.2 % (37.0-47.0) L 10/27/21 14:45 MCV 90.4 fl (81-99) 10/27/21 14:45 MCH 31.0 pg (28.0-34.0) 10/27/21 14:45 MCHC 34.3 g/dL (30.0-36.0) 10/27/21 14:45 RDW 14.3 % (12.1-15.1) 10/27/21 14:45 Plt Count 300 10^3/cmm (130-400) 10/27/21 14:45 MPV 13.1 fL (7.4-10.4) H 10/27/21 14:45 Neut % (Auto) 85.3 % 10/27/21 14:45 Lymph % (Auto) 10.1 % 10/27/21 14:45 [place] % (Auto) 3.8 % 10/27/21 14:45 Eos % (Auto) 0.0 % 10/27/21 14:45 Baso % (Auto) 0.4 % 10/27/21 14:45 Neut # (Auto) 9.76 10^3/uL (1.8-7.7) H 10/27/21 14:45 Lymph # (Auto) 1.2 10^3/uL (0.8-4.8) 10/27/21 14:45 [place] # (Auto) 0.4 10^3/uL (0.2-0.9) 10/27/21 14:45 Eos # (Auto) 0.0 10^3/uL (0.0-0.8) 10/27/21 14:45 Baso # (Auto) 0.1 10^3/uL (0.0-0.1) 10/27/21 14:45 Nucleated RBC % (auto) 0 % 10/27/21 14:45 Nucleated RBCs # 0.0 /100WBC 10/27/21 14:45 PT Cancelled 10/27/21 17:10 INR Cancelled 10/27/21 17:10 Specimen Type Arterial 10/27/21 17:30 Sample Site Radial, left 10/27/21 17:30 ABG pH 7.26 (7.35-7.45) L 10/27/21 17:30 ABG pCO2 24.5 mmHg (35-45) L 10/27/21 17:30 ABG pO2 155.0 mmHg (80.0-100.0) H 10/27/21 17:30 ABG HCO3 11.0 mmol/L (22-26) L 10/27/21 17:30 ABG O2 Saturation 99.4 10/27/21 17:30 ABG Base Excess -14.6 mmol/L (-2.0-2.0) L 10/27/21 17:30 Андрей Test Pos 10/27/21 17:30 A-a O2 Gradient Not Reportable 10/27/21 17:30 Hematocrit 27.0 % (37-47) L 10/27/21 17:30 Hgb O2 Saturation 97.9 % (95-100) 10/27/21 17:30 Carboxyhemoglobin 0.3 %THgb (0.4-20.1) L 10/27/21 17:30 Methemoglobin 1.2 % (0.4-1.5) 10/27/21 17:30 Total Hemoglobin 8.8 g/dL (12-16) L 10/27/21 17:30 Sodium 133.0 mmol/L (131-143) 10/27/21 17:30 Potassium 5.3 mmol/L (3.5-5.0) H 10/27/21 17:30 Glucose 111.0 mg/dL (70-115) 10/27/21 17:30 Ionized Calcium 1.8 mmol/L (1.1-1.4) H* 10/27/21 17:30 O2 Delivery Device Nc 10/27/21 17:30 O2 Liters/Min 5.0 % 10/27/21 17:30 Dealer Sales Rep ID [id number] 10/27/21 17:30 Sodium 126 mmol/L (136-145) L 10/27/21 16:34 Potassium 6.2 mmol/L (3.5-5.1) H 10/27/21 16:34 Chloride 92 mmol/L (98-107) L 10/27/21 16:34 Carbon Dioxide 10 mmol/L (22-29) L 10/27/21 16:34 Anion Gap 30.2 (5-19) H 10/27/21 16:34 BUN 143 mg/dL (8-23) H* D 10/27/21 16:34 Creatinine 11.1 mg/dL (0.5-0.9) H* 10/27/21 16:34 GFR Calculation Not Reportable 10/27/21 16:34 Glucose 117 mg/dL (65-115) H 10/27/21 16:34 Calculated Osmolality 310 mOsm/kg (285-295) H 10/27/21 16:34 Lactic Acid 1.0 mmol/L (0.5-2.2) 10/27/21 16:34 Calcium 9.4 mg/dL (8.5-10.5) 10/27/21 16:34 Phosphorus 7.8 mg/dL (2.5-4.5) H* 10/27/21 16:34 Magnesium 2.1 mg/dL (1.7-2.3) 10/27/21 16:34 Total Bilirubin 0.3 mg/dL (0.15-1.2) 10/27/21 16:34 AST 15 U/L (0-32) 10/27/21 16:34 ALT 12 U/L (0-33) 10/27/21 16:34 Alkaline Phosphatase 86 IU/L (35-105) 10/27/21 16:34 Total Protein 7.2 g/dL (6.6-8.7) 10/27/21 16:34 Albumin 3.3 g/dL (3.5-5.2) L 10/27/21 16:34 Globulin 3.9 g/dL (1.3-4.6) 10/27/21 16:34 Lipase 174 U/L (13-60) H 10/27/21 16:34 Urine Color Cancelled 10/27/21 15:03 Urine Appearance Cancelled 10/27/21 15:03 Urine pH Cancelled 10/27/21 15:03 Ur Specific [place] Cancelled 10/27/21 15:03 Urine Protein Cancelled 10/27/21 15:03 Urine Glucose (UA) Cancelled 10/27/21 15:03 Urine Ketones Cancelled 10/27/21 15:03 Urine Blood Cancelled 10/27/21 15:03 Urine Nitrate Cancelled 10/27/21 15:03 Urine Bilirubin Cancelled 10/27/21 15:03 Prot Sulfosalicylic Acd Cancelled 10/27/21 15:03 Urine Urobilinogen Cancelled 10/27/21 15:03 Ur Leukocyte Esterase Cancelled 10/27/21 15:03 Discharge Plan Discharge Patient Disposition: Admitted As Inpatient Admit Provider: Simba Keller Clinical Impression: Acute kidney injury superimposed on chronic kidney disease, Chronic anticoagulation, Obesity, Metabolic acidosis, Acute anemia, Paroxysmal atrial fibrillation with RVR, Hypotension, Hyperkalemia, Nausea and vomiting, Calculus of gallbladder with cholecystitis without biliary obstruction Condition: Stable 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
--- NOTE | 2021-10-27 14:13 | ECG_ITS ---
[facility] Test Date: 2021-10-27 Pat Name: Camryn De Department: Room: Gender: Female Coding Director: : 1945 Requested By: Sb Wilkins Order Number: [id number] Sherry MD: Jonny Clarke M.D. Measurements Intervals [place] Rate: 97 P: DE: QRS: -6 QRSD: 86 T: -4 QT: 335 QTc: 427 Interpretive Statements ATRIAL FIBRILLATION LOW QRS VOLTAGE IN PRECORDIAL LEADS [QRS DEFLECTION < 1.0 mV IN CHEST LEADS] POSSIBLE ANTERIOR MYOCARDIAL INFARCTION , PROBABLY OLD [30 ms Q WAVE IN V3/V4, OR R < 0.2 mV IN V4] Compared to ECG 10/03/2021 06:31:58 Myocardial infarct finding still present Electronically Signed On 10-29-2021 9:02:42 CDT by Jonny Clarke M.D. [email or web address]
--- NOTE | 2021-10-27 14:13 | CTR_ITS ---
PROCEDURE INFORMATION: Exam: CT Abdomen And Pelvis With Contrast Exam date and time: 10/27/2021 2:57 PM Age: 76 years old Clinical indication: Abdominal pain; Generalized; Prior surgery; Surgery date: <1 month; Surgery type: Gallbladder drain; Additional info: Abd pain TECHNIQUE: Imaging protocol: Computed tomography of the abdomen and pelvis with contrast. Radiation optimization: All CT scans at this facility use at least one of these dose optimization techniques: automated exposure control; mA and/or kV adjustment per patient size (includes targeted exams where dose is matched to clinical indication); or iterative reconstruction. Contrast material: OMNIPAQUE 300; Contrast volume: 95 ml; Contrast route: INTRAVENOUS (IV); COMPARISON: CT abdomen pelvis w con* [id number] 10/06/2021 10:05 AM RADIATION DOSE METRICS: Total DLP (mGy-cm): 1662.85 FINDINGS: Liver: Findings consistent with fatty infiltration of the liver are identified. Gallbladder and bile ducts: There is a percutaneous cholecystotomy. There is wall thickening of the gallbladder with a small amount of gas in the gallbladder lumen. Gallbladder distension and associated inflammation have significantly improved in the interval. Pancreas: Normal. No ductal dilation. Spleen: Normal. No splenomegaly. Adrenal glands: Normal. No mass. Kidneys and ureters: Normal. No hydronephrosis. Stomach and bowel: There is questionable wall thickening of gastric antrum and duodenum versus underdistention. For example, as seen on coronal image 33. Colonic diverticula are present although there are no CT findings to suggest diverticulitis. No bowel obstruction. Appendix: The appendix is visualized and appears normal. Intraperitoneal space: Unremarkable. No free air. No significant fluid collection. Vasculature: Unremarkable. No abdominal aortic aneurysm. Lymph nodes: Unremarkable. No enlarged lymph nodes. Urinary bladder: Unremarkable as visualized. Reproductive: Unremarkable as visualized. Bones/joints: Unremarkable. No acute fracture. Soft tissues: Unremarkable. CT/CT abdomen pelvis w con* [id number] IMPRESSION: When compared with 10/06/2021, there has been interval placement of a percutaneous canal cholecystotomy. Gallbladder distension and associated inflammation have significantly improved in the interval. There is questionable gastroduodenitis.Clinical correlation is advised.
[2021-10-27] MEDS: iohexol 300 mg/mL 100 mL Btl IV (14:57)
[2021-10-27 15:04] LABS: Basophils # 0.1 10^3/uL (0.0-0.1); Basophils % 0.4 %; Hematocrit 31.2 % (37.0-47.0); Hemoglobin 10.7 g/dL (11.5-15.3); Lymphocytes # 1.2 10^3/uL (0.8-4.8); Lymphocytes % 10.1 %; Mean Corpuscular HGB Conc 34.3 g/dL (30.0-36.0); Mean Corpuscular Volume 90.4 fl (81-99); Mean Platelet Volume 13.1 fL (7.4-10.4); Monocytes # 0.4 10^3/uL (0.2-0.9); Monocytes % 3.8 %; Neutrophils # 9.76 10^3/uL (1.8-7.7); Neutrophils % 85.3 %; Nucleated Red Blood Cells % 0 %; Platelet Count 300 10^3/cmm (130-400); Red Blood Count 3.45 10^6/uL (4.1-5.3); Red Cell Distribution Width 14.3 % (12.1-15.1); White Blood Count 11.4 10^3/uL (4.0-10.0)
[2021-10-27] MEDS: ondansetron 2 mg/ML SDV 2 mL 4 MG IVP (15:08)
--- NOTE | 2021-10-27 15:26 | PC.NURSE ---
Patient presents with abdominal pain and not feeling well for a few weeks. Patient has drain to her gall bladder that was placed a couple weeks ago. Patient in bed, call light within reach.
--- NOTE | 2021-10-27 15:27 | PC.NURSE ---
Sinus tach air sampling and monitoring placed.
--- NOTE | 2021-10-27 16:55 | PC.NURSE ---
Patient blood pressure 76/50 rechecked manually, verbalized provider, gave verbal order for 1000 ml LR bolus right now.
[2021-10-27 17:00] LABS: Alanine Aminotransferase 12 U/L (0-33); Albumin Level 3.3 g/dL (3.5-5.2); Alkaline Phosphatase 86 IU/L (35-105); Calcium 9.4 mg/dL (8.5-10.5); Carbon Dioxide 10 mmol/L (22-29); Chloride 92 mmol/L (98-107); Globulin 3.9 g/dL (1.3-4.6); Glucose 117 mg/dL (65-115); Lipase 174 U/L (13-60); Sodium 126 mmol/L (136-145); Total Bilirubin 0.3 mg/dL (0.15-1.2); Total Protein 7.2 g/dL (6.6-8.7)
[2021-10-27] MEDS: lactated ringers 1,000 ML 999 ML IV ×2 (17:03→18:06)
[2021-10-27 17:08] LABS: Anion Gap 30.2 (5-19); Osmolality Calculated 310 mOsm/kg (285-295)
[2021-10-27 17:09] LABS: Aspartate Amino Transferase 15 U/L (0-32); Potassium 6.2 mmol/L (3.5-5.1)
[2021-10-27 17:10] LABS: Blood Urea Nitrogen 143 mg/dL (8-23)
[2021-10-27] MEDS: calcium chloride 10% Syr 10 mL 1 GM IVP (17:32)
[2021-10-27] MEDS: sodium bicarbonate 8.4% 1 mEq/mL 50mL Syr 100 MEQ IVP (17:38)
[2021-10-27 17:39] LABS: Magnesium 2.1 mg/dL (1.7-2.3)
[2021-10-27 17:41] LABS: ABG PCO2 24.5 mmHg (35-45); ABG PH Result 7.26 (7.35-7.45); Base Excess ABG -14.6 mmol/L (-2.0-2.0); Blood Gas Allen Test Pos; Blood Gas Operator Identificat CAK; Blood Gas Sample Site Radial, left; Blood Gas Sample Type Arterial; Carboxyhemoglobin 0.3 %THgb (0.4-20.1); HGB O2 Sat 97.9 % (95-100); Methemoglobin 1.2 % (0.4-1.5); Oxygen Device NC; Oxygen Saturation ABG 99.4; Potassium Level - ABG 5.3 mmol/L (3.5-5.0); Total Hemoglobin 8.8 g/dL (12-16)
[2021-10-27 17:43] LABS: Phosphorus 7.8 mg/dL (2.5-4.5)
[2021-10-27 17:43] LABS: Ionized Calcium Level - ABG 1.8 mmol/L (1.1-1.4)
[2021-10-27] MEDS: sodium polystyrene sulfonate 15 gm/60 mL Btl PO (17:48)
--- NOTE | 2021-10-27 17:56 | P.CONIM_ITS ---
Providers/Reason For Consult Consulting Physician/Specialty*: Vanessa Denis DO, telenephrology Reason for Consult*: Acute kidney injury Requesting Physician: Sb Gaxiola MD Primary Care Provider: Osiris Owusu MD History of Present Illness History of Present Illness Camryn De is a 76 year old female presents to ER for evaluation of weakness and abdominal pain. Minimal oral intake for a couple of weeks. Review of Systems GI: Reports: melena Neuro: Reports: weakness in extremities and difficulty walking Medications/Allergies Home Medications Medication Instructions Recorded Confirmed Last Taken Type atorvastatin 20 mg tablet 20 mg PO DAILY tab 01/22/21 10/27/21 Unknown History warfarin 3 mg tablet 3 mg PO DAILY tab 01/22/21 10/27/21 Unknown History lisinopril 20 mg tablet 20 mg PO BID 30 Days #60 tab 10/08/21 10/27/21 Unknown Rx hydrocodone 5 mg-acetaminophen 325 1 tab PO Q6H PRN 10/17/21 10/27/21 Unknown History mg tablet Allergies Allergy/AdvReac Type Severity Reaction Status Date / Time Penicillins Allergy unknown Verified 10/18/21 15:11 Current Medications Generic Name Dose Route Start Last Admin Trade Name Freq PRN Reason Stop Dose Admin Lactated Ringer's 1,000 mls @ 999 mls/hr 10/27/21 16:56 10/27/21 17:03 Lactated Ringers IV 10/27/21 17:56 999 mls/hr .Q1H1M ONE Administration PFSH Acute PFSH: Medical History Atrial fibrillation Chronic kidney disease Hypertension Leg swelling Mixed hyperlipidemia Obesity Surgical History No history of previous surgery Family History Grandmother Cancer Mother Cancer Denies family history of Diabetes CAD (coronary artery disease) Clotting disorder Dementia Hyperlipidemia Chronic kidney disease (CKD) Suicide Anesthesia complication Bleeding disorder Lung disease Hypertension Stroke Social History Smoking and tobacco status: never smoked Alcohol intake: never Household members: spouse Marital status: Vitals/I&O/Wt Last Vital Signs Temp 97.6 F 10/27/21 15:21 Pulse 108 H 03/26/22 15:21 Resp 20 H 10/27/21 15:21 BP 85/51 10/27/21 15:21 Pulse Ox 90 10/27/21 15:21 Weight last 48 hrs Weight 90.7 kg Physical Exam Narrative: alert, answers questions appropriately Extremity: NARRATIVE EXTREMITY EXAM: no edema Data : 10/27/21 14:45 10/27/21 16:34 Other Labs: 7./155 Ca 9.4, phos 7.8 Micro: Microbiology 10/27/21 16:00 Blood Culture - Preliminary Blood SPECIMEN COLLECTED 10/27/21 14:45 Blood Culture - Preliminary Blood SPECIMEN COLLECTED CT Abd/Pel: Radiologist's impression: Kidneys and ureters: Normal. No hydronephrosis. A&P Assessment and plan (1) Hypotension: Status: Acute Plan 1. Acute kidney injury - hypotension, likely due to volume depletion, + ACEi 2. Hyperkalemia, hyponatremia 3. Increased anion gap metabolic acidosis- received IV bicarbonate 4. possible sepsis 5. Supratherapeutic INR, GI bleed Recommend: IVF hydration, repeat labs, check CK, urine studies, panculture Consult Attestations Medical Necessity Statement: see above Coding Level of Care Code Acute Principal Embedded Software Engineer for g Fwd Diagnoses Hypotension I95.9
--- NOTE | 2021-10-27 17:58 | PC.NURSE ---
HOLDING DOPAMINE DRIP PER PROVIDER.
--- NOTE | 2021-10-27 19:02 | P.HP_ITS ---
Providers/Chief Complaint Admitting Physician: Simba Keller Primary Care Provider: Osiris Owusu MD Chief Complaint: ABD/BACK PAIN; LOW BP History of Present Illness Pleasant 76-year-old lady is accompanied by her in ER presenting due to malaise, nausea, inability to take in food or drink they report for the last several weeks, she was here recently admitted 10/02-10/08 for acute cholecystitis, at which time a cholecystotomy tube was placed, also atrial fibrillation and hypertension medications were adjusted. She was continued on Coumadin. She was following up with surgery for arrangements of definitive treatment with cholecystectomy 6 weeks from index episode. She reports her blood pressure has been soft at home, but were much lower in ER, initially 85/51, she was started on IV fluid bolus, dopamine infusion was requested but so far not started. Blood pressure with improvement, up to 107 systolic. She reports she has continue taking some of her medications including lisinopril, warfarin, had not taken metoprolol, amlodipine, Lasix. Occasionally would take hydrocodone for pain. I do see empty bottle of Flagyl, so it does look like she finished her antibiotics. On laboratory work-up here she is noted to be hyponatremic, sodium 126, potassium 6.2, bicarb 10, anion gap 30.2, BUN 143, creatinine 11.1, lactic acid is 1. Liver parameters unremarkable. Albumin 3.3. Lipase 174. EKG with noted known atrial flutter, heart rate 97. Appears to have a Q-wave in [address] abdomen pelvis was obtained as well, discussed with her and her , with noted significant improvement in gallbladder distention and associated inflammation. noticed also that she had had some darker stools recently. Does report she had taken an ibuprofen yesterday, but only 1 tablet. Received treatment for hyperkalemia in ER with Kayexalate, bicarb, received calcium chloride. Some difficulties with blood draw in ER, when attempting to obtain INR level, INR reported as greater than 20, thought to be spurious value. Currently being reattempted. Due to difficult stick attempts to obtain on the foot. I see last INR reported as 2.54 during surgery visit on 10/17. is not aware of it being checked since then. Review of Systems Const: Reports: chills, change in appetite and malaise; Denies: fever(s) Eyes: Denies: change in vision or eye redness ENMT: Denies: throat pain, oral sores or ear or mastoid pain Card: Denies: chest pain, edema, pre-syncope or dyspnea on exertion Resp: Denies: dyspnea, productive cough, change in phlegm color or hemoptysis GI: Reports: nausea and vomiting; Denies: abdominal pain, diarrhea, constipation, hematochezia or melena : Denies: flank pain, urinary frequency or hematuria Musc: Reports: back pain; Denies: joint swelling or joint redness Skin/Breast: Denies: rash, sores or new lesions Neuro: Denies: headache(s), numbness in extremities, weakness in extremities, dizziness, confusion or seizure-like activity Endo: Denies: polyuria or polydipsia Nick/Lymph: Denies: easy bleeding or purpura All/Imm: Denies: urticaria, throat swelling or tongue swelling Medications/Allergies Home Medications Medication Instructions Recorded Confirmed Last Taken Type atorvastatin 20 mg tablet 20 mg PO DAILY tab 01/22/21 10/27/21 Unknown History warfarin 3 mg tablet 3 mg PO DAILY tab 01/22/21 10/27/21 Unknown History lisinopril 20 mg tablet 20 mg PO BID 30 Days #60 tab 10/08/21 10/27/21 Unknown R x hydrocodone 5 mg-acetaminophen 325 1 tab PO Q6H PRN 10/17/21 10/27/21 Unknown History mg tablet Allergies Allergy/AdvReac Type Severity Reaction Status Date / Time Penicillins Allergy unknown Verified 10/18/21 15:11 PFSH Acute PFSH: Medical History Atrial fibrillation Chronic kidney disease Hypertension Leg swelling Mixed hyperlipidemia Obesity Surgical History No history of previous surgery Family History Grandmother Cancer Mother Cancer Denies family history of Diabetes CAD (coronary artery disease) Clotting disorder Dementia Hyperlipidemia Chronic kidney disease (CKD) Suicide Anesthesia complication Bleeding disorder Lung disease Hypertension Stroke Social History Smoking and tobacco status: never smoked Alcohol intake: never Household members: spouse Marital status: Vitals/I&O/Wt Last Vital Signs Temp 97.6 F 10/27/21 15:21 Pulse 108 H 10/27/21 15:21 Resp 20 H 10/27/21 15:21 BP 85/51 10/27/21 15:21 Pulse Ox 90 10/27/21 15:21 Weight last 48 hrs Weight 90.7 kg Physical Exam Narrative: at bedside. Const: COMMON NORMALS: patient oriented x3 OTHER: Generally weak HENMT: COMMON NORMALS: oropharynx normal Neck/C-Spine: COMMON NORMALS: no JVD Resp: COMMON NORMALS: normal respiratory effort and clear to auscultation bilaterally AUSCULTATION: clear to auscultation bilaterally Cardio: COMMON NORMALS: no JVD, regular rhythm, S1 normal heart sound present, S2 normal heart sound present and No murmurs present (Cardio) RHYTHM: regular rhythm HEART SOUNDS: S1 normal heart sound present and S2 normal heart sound present GI: COMMON NORMALS: Normal to inspection, nondistended, normoactive bowel sounds present, Soft to palpation and non-tender PALPATION: Yes Soft to palpation OTHER: Cholecystotomy drain right upper quadrant small amount of leakage around drain. Extremity: COMMON NORMALS: no joint enlargement GENERAL: Yes edema (1+) Neuro: COMMON NORMALS: patient oriented x3 and moves all extremities Skin: COMMON NORMALS: no rashes or lesions noted GENERAL SKIN EXAM: no rashes or lesions noted Data : 10/27/21 14:45 10/27/21 16:34 Micro: Microbiology 10/27/21 16:00 Blood Culture - Preliminary Blood SPECIMEN COLLECTED 10/27/21 14:45 Blood Culture - Preliminary Blood SPECIMEN COLLECTED A&P Assessment and plan (1) Acute kidney injury superimposed on chronic kidney disease: JUAN on CKD with metabolic acidosis, hyperkalemia, creatinine 11.1, BUN 143. Cause not entirely clear, states she took 1 dose of ibuprofen yesterday, but has not been taking it regularly. Blood pressure noted low on presentation, but they do state have been monitoring at home, it has been low, but not as low as here. Hold lisinopril, she denies taking Lasix and a number of other medications previously listed including amlodipine. Monitor blood pressures, hypertension currently better. Monitor in ICU. Monitor I&O including cholecystotomy drainage. Nephrology consultation pending. Status: Acute (2) Hypotension: Initially hypotensive on presentation, given bolus of LR. Currently blood pressure is better. Monitor. Hold antihypertensives. Status: Acute (3) Hyperkalemia: Received treatment for hyperkalemia. Was given calcium, Kayexalate. Repeat chemistries are requested. Status: Acute (4) Metabolic acidosis: Lactic acid normal. Secondary to acute renal failure. Status: Acute (5) Acute anemia: Noted hemoglobin 10.7, lower than prior, 10/08 was 12.5. noted some dark stools. INR is unknown, currently being repeated, as initial value was reported as over 20, thought to be spurious. We will add PPI for now. Check Hemoccult. Status: Acute (6) Paroxysmal atrial fibrillation with RVR: Her reports she has not been taking metoprolol. She has been taking warfarin. Heart rates currently ranging between 90s-low 100s. Monitor. Resume beta-lizy if heart rates uncontrolled, blood pressure better, resume at lower dose with consideration of acute kidney injury. Status: Acute (7) Hypoxia: Recorded requiring 6 L of oxygen. Lungs do sound clear. Will request chest x- ray. COVID-19 PCR. Status: Acute (8) Nausea and vomiting: Signs of possible gastroenteritis on CT abdomen pelvis. Discussed with her and her . PPI added as above. Zofran for nausea vomiting.Check COVID-19. Status: Acute (9) Chronic anticoagulation: With atrial fibrillation. On Coumadin. states they do not regularly check INR. Last INR was 2.54 on 10/17. Pending recheck as first value here noted over 20. Status: Acute (10) Calculus of gallbladder with cholecystitis without biliary obstruction: Recent admission for acute cholecystitis, cholecystostomy tube in place. states has been emptying about 3-4 times a day. Significant improvement noted on CT abdomen pelvis. Pending definitive therapy with cholecystectomy being planned with surgery. Status: Acute (11) Chronic kidney disease: Status: Acute Qualifiers: Chronic kidney disease stage: unspecified stage Qualified Code(s): N18.9 - Chronic kidney disease, unspecified Plan History of HTN HLD Attestations Medical Necessity Statement*: Admission of over 2 midnights is anticipated for assessment of management of acute kidney injury on chronic kidney disease with metabolic acidosis, hyperkalemia, hypotension, additional comorbidities as above. Coding Level of Care Code Acute Floorworker Lasting for Chg Fwd Diagnoses Acute kidney injury superimposed on chronic kidney disease N17.9; N18.9 Hypotension I95.9 Hyperkalemia E87.5 Metabolic acidosis E87.2 Acute anemia D64.9 Paroxysmal atrial fibrillation with RVR I48.0 Hypoxia R09.02 Nausea and vomiting R11.2 Chronic anticoagulation Z79.01 Calculus of gallbladder with cholecystitis without biliary obstruction K80.10 Chronic kidney disease N18.9 Chronic kidney disease stage: unspecified stage
[2021-10-27 19:15] LABS: Prothrombin Time > 120.00 SECONDS (12.1-14.9)
--- NOTE | 2021-10-27 19:15 | PC.NURSE ---
Report given to Sheab NEAL in ICU.
--- NOTE | 2021-10-27 19:16 | PC.NURSE ---
Vitals printed off monitor, okay per rn discharge, will be scanned into chart. Provider was updated throughout visit on vitals and the trends patient was experiencing. Patient wheeled to ICU.
[2021-10-27 19:17] LABS: INR > 20.00 (0.8-1.2)
--- NOTE | 2021-10-27 19:22 | XRR_ITS ---
PROCEDURE INFORMATION: Exam: XR Chest Exam date and time: 10/27/2021 8:17 PM Age: 76 years old Clinical indication: Dyspnea; Additional info: Hypoxia TECHNIQUE: Imaging protocol: XR of the chest. Views: 1 view. COMPARISON: CR Chest 2 views* [id number] 03/03/2019 2:28 PM FINDINGS: Lungs: Unremarkable. No consolidation. Pleural spaces: Unremarkable. No pleural effusion. No pneumothorax. Heart/Mediastinum: Unremarkable. No cardiomegaly. Bones/joints: Unremarkable. XR/XR chest 1V portable [id number] IMPRESSION: No acute findings.
[2021-10-27] MEDS: sodium chloride 0.9% 1,000 ML 150 ML IV (20:06)
[2021-10-27] MEDS: pantoprazole 40 mg SDV IVP (20:06)
[2021-10-27] MEDS: HYDROcodone-acetaminophen 5-325 mg Tablet 1 TAB PO (20:07)
[2021-10-27] MEDS: phytonadione (ADULT) 10 mg/mL Ampule 1 mL PO (20:07)
[2021-10-27] MEDS: DOPamine drip 400 MG/250 ML PREMIX 17.01 MG IV (20:19)
--- NOTE | 2021-10-27 20:52 | PC.NURSE ---
Dr. Bolanos has approved stat CBC to be drawn from pt's foot due to poor vascular access.
[2021-10-27] MEDS: sucralfate 1 gm Tablet PO (20:55)
[2021-10-27 21:21] LABS: Basophils # 0.1 10^3/uL (0.0-0.1); Basophils % 0.4 %; Eosinophils % 0.1 %; Hematocrit 26.6 % (37.0-47.0); Hemoglobin 9.4 g/dL (11.5-15.3); Lymphocytes % 15.1 %; Mean Corpuscular HGB Conc 35.3 g/dL (30.0-36.0); Mean Corpuscular Hemoglobin 32.4 pg (28.0-34.0); Mean Corpuscular Volume 91.7 fl (81-99); Mean Platelet Volume 12.8 fL (7.4-10.4); Monocytes # 1.1 10^3/uL (0.2-0.9); Monocytes % 8.1 %; Neutrophils # 10.11 10^3/uL (1.8-7.7); Neutrophils % 75.7 %; Nucleated Red Blood Cells % 0 %; Platelet Count 190 10^3/cmm (130-400); Red Cell Distribution Width 13.9 % (12.1-15.1); White Blood Count 13.4 10^3/uL (4.0-10.0)
--- NOTE | 2021-10-27 21:34 | XRR_ITS ---
PROCEDURE INFORMATION: Exam: XR Chest Exam date and time: 10/27/2021 10:07 PM Age: 76 years old Clinical indication: Device placement; Picc; Additional info: Central line placement TECHNIQUE: Imaging protocol: XR of the chest. Views: 1 view. COMPARISON: CR (CHEST, ) 10/27/2021 8:17 PM FINDINGS: Tubes, catheters and devices: There is a nasogastric tube whose tip is in the stomach. There is a right IJ catheter whose tip is in the superior vena cava. No PICC catheter is identified. Lungs: Unremarkable. No consolidation. Pleural spaces: Unremarkable. No pleural effusion. No pneumothorax. Heart/Mediastinum: Unremarkable. No cardiomegaly. Bones/joints: Unremarkable. XR/XR chest 1V portable [id number] IMPRESSION: There is a right IJ catheter whose tip is in the superior vena cava. No PICC catheter is identified.
--- NOTE | 2021-10-27 22:14 | PC.NURSE ---
At 2040, pt became more tachycardic and hypotensive. She began vomiting blood. Dr. Bolanos notified and came to bedside for central line placement. NG tube was placed to low intermittent suction. Consent was obtained for central line and blood products. Pt tolerated procedure well. CXR was obtained for placement of NG tube and central line.
[2021-10-27] MEDS: octreotide 500 MCG in sodium chloride 0.9% (100 ml) 100 ML 10.1 MCG IV (22:36)
[2021-10-27 23:13] LABS: Alanine Aminotransferase 13 U/L (0-33); Albumin Level 2.9 g/dL (3.5-5.2); Alkaline Phosphatase 86 IU/L (35-105); Anion Gap 27.6 (5-19); Aspartate Amino Transferase 19 U/L (0-32); Calcium 9.4 mg/dL (8.5-10.5); Carbon Dioxide 14 mmol/L (22-29); Chloride 96 mmol/L (98-107); Creatine Phosphokinase 32 U/L (26-192); Globulin 3.3 g/dL (1.3-4.6); Glucose 174 mg/dL (65-115); Potassium 4.6 mmol/L (3.5-5.1); Sodium 133 mmol/L (136-145); Total Bilirubin 0.4 mg/dL (0.15-1.2); Total Protein 6.2 g/dL (6.6-8.7)
[2021-10-27 23:20] LABS: Osmolality Calculated 324 mOsm/kg (285-295)
[2021-10-27 23:21] LABS: Blood Urea Nitrogen 136 mg/dL (8-23)
[2021-10-27 23:35] LABS: Urine Color Yellow (Yellow)
[2021-10-27 23:36] LABS: Add Urine Microscopic? YES; Bilirubin Urine 2+ (Negative); Blood Urine 3+ (Negative); Glucose Urine UA Norm (Normal); Ketones Urine 1+ (Negative); Leukocyte Esterase Urine Trace (Negative); Nitrate Urine Negative (Negative); Protein Urine 1+ (Negative); Urobilinogen Urine Norm (Negative); pH Urine 5 (5-7)
[2021-10-27 23:43] LABS: Add Urine Culture? No; Bacteria Urine 2+ /hpf; Squamous Epithelial Cell Urine 15-25 /hpf (0-5); WBC Urine 15-25 /hpf (0-5)
[2021-10-27 23:46] LABS: Creatinine Urine, Random 447 mg/dL (28-217)
--- NOTE | 2021-10-27 23:52 | PC.NURSE ---
This nurse at bedside with patient from 2039 until 2299, carefully monitoring vital signs and titrating medications. Pt had a large black, tarry bowel movement, and Dr. Bolanos was notified. Pt then had a large amount of coffee ground emesis, which was witnessed by Dr. Bolanos. Pt became hypotensive and dopamine was started. Pt then became more tachycardic. Amiodarone was given. Labs were not obtained in a timely manner, because blood could not be obtained from patient. After central line was placed, blood was obtained.
[2021-10-28] VITALS (105 sets, daily range): BP systolic 72–135; BP diastolic 34–65; PULSE 75–135; RESP 12–20; TEMP 35.9–37.3; O2SAT 93–100
[2021-10-28 00:06] LABS: Urine Random Sodium 11 mmol/L
[2021-10-28] MEDS: sodium chloride 0.9% 250 ML IV (00:43)
--- NOTE | 2021-10-28 01:32 | PC.NURSE ---
Drain is on right abdomen. Drainage is a clear brownish/orange color. Very small amount of drainage in bag. Some blood visible under window dressing. No redness or warmth outside of dressing noted.
[2021-10-28 01:34] LABS: Hematocrit 22.7 % (37.0-47.0); Hemoglobin 8.2 g/dL (11.5-15.3)
[2021-10-28] MEDS: sodium bicarbonate 50 MEQ in sodium chloride 0.45% 1,000 ML 100 MEQ IV (01:34)
[2021-10-28] MEDS: norepinephrine 8 MG in dextrose 5 % 500 ML 68.58 MG IV (02:35)
--- NOTE | 2021-10-28 02:58 | ANES.PROC ---
Anesthesia Procedures Procedure/Date: 10/28/21 Central Venous Insert: Central Venous Line: rIJ Time Out Performed: Yes Consent: patient agrees to proceed and emergency procedure Central Line: New Anesthesia monitors: pulse oximetry, EKG, BP cuff and oxygen Vein cannulated: right internal jugular Ultrasound used: to identify patency to vessel and to visualize needle entry to vein Post procedure: Obtain Chest X-Ray Additional Comments: When right internal jugular was cannulated, flash of dark red blood, nonpulsatile When central line wire was threaded over needle, ultrasound was used to ensure proper placement in right internal jugular Chest x-ray confirmed appropriate placement
--- NOTE | 2021-10-28 03:00 | P.PNCC_ITS ---
Critical Care Event Note The high probability of a clinically significant, sudden or life threatening deterioration of the patient's [] system(s) required my full and direct attention, intervention and personal management. The critical care time is as shown. This time is in addition to time spent performing any reported procedures but includes the following: [x] Data and vital sign review and interpretation [x] Patient assessment, examination and intervention [x] Documentation [x] Medication orders and management At 930, patient was examined, she was hypotensive, maps less than 65, blood pressure 60s over 40s, atrial fibrillation heart rates in the 150s, she was actively vomiting dark red blood, alert to person, to place, to time, complaining of nausea vomiting -Patient's hemoglobin is 10.7, INR over 20, given vitamin K -I immediately had nurses placing NG tube, roughly 400 cc of dark red blood mixed with feculent material was suctioned out -I immediately placed a right central line -Patient was started on Levophed, weaned off dopamine -Given patient's hemorrhagic shock, concern for upper GI bleed secondary to supratherapeutic INR, benefits of Kcentra outweigh the risks, patient was given 1500 units of Kcentra -INR 1.8, given 1 unit of FFP -For atrial fibrillation was given 1 amiodarone bolus, 150, followed by amiodarone drip -Given concern for possible upper GI source started octreotide -Patient clinically improved, blood pressure is improved, heart rate improving -I briefly spoke to Dr. Che, possible need for urgent EGD, will reassess in the morning for EGD -I discussed patient's CODE STATUS, she would like to be a full code Critical Care Time Code activated: No Critical Care Time (min): 55 Coding Level of Care Code Acute Calendar Control Clerk Blood Bank for g Fwd
--- NOTE | 2021-10-28 04:43 | PC.NURSE ---
Unable to dopple dorsalis pedis pulses, but posterior tibial pulses can be heard. Cap refill normal. Extremities cool to touch.
[2021-10-28 04:45] LABS: Basophils # 0.1 10^3/uL (0.0-0.1); Basophils % 0.5 %; Eosinophils % 0.2 %; Hematocrit 22.2 % (37.0-47.0); Hemoglobin 7.6 g/dL (11.5-15.3); Lymphocytes # 2.5 10^3/uL (0.8-4.8); Lymphocytes % 16.6 %; Mean Corpuscular HGB Conc 34.2 g/dL (30.0-36.0); Mean Corpuscular Hemoglobin 31.1 pg (28.0-34.0); Mean Platelet Volume 13.1 fL (7.4-10.4); Monocytes # 1.5 10^3/uL (0.2-0.9); Neutrophils # 11.02 10^3/uL (1.8-7.7); Neutrophils % 72.2 %; Nucleated Red Blood Cells % 0 %; Platelet Count 267 10^3/cmm (130-400); Red Blood Count 2.44 10^6/uL (4.1-5.3); Red Cell Distribution Width 14.2 % (12.1-15.1); White Blood Count 15.3 10^3/uL (4.0-10.0)
[2021-10-28 04:58] LABS: INR 2.18 (0.8-1.2)
[2021-10-28 05:08] LABS: Alanine Aminotransferase 13 U/L (0-33); Albumin Level 3.1 g/dL (3.5-5.2); Alkaline Phosphatase 88 IU/L (35-105); Aspartate Amino Transferase 17 U/L (0-32); Calcium 9.3 mg/dL (8.5-10.5); Carbon Dioxide 14 mmol/L (22-29); Chloride 99 mmol/L (98-107); Globulin 2.9 g/dL (1.3-4.6); Glucose 234 mg/dL (65-115); Sodium 134 mmol/L (136-145); Total Bilirubin 0.4 mg/dL (0.15-1.2)
[2021-10-28 05:24] LABS: Blood Urea Nitrogen 140 mg/dL (8-23); Osmolality Calculated 331 mOsm/kg (285-295)
[2021-10-28] MEDS: sodium bicarbonate 8.4% 1 mEq/mL 50mL Syr 100 MEQ IVP (08:15)
[2021-10-28] MEDS: octreotide 500 MCG in sodium chloride 0.9% (100 ml) 100 ML 10.1 MCG IV ×2 (08:18→18:18)
[2021-10-28] MEDS: pantoprazole 40 mg SDV IVP ×2 (08:24→20:59)
[2021-10-28 08:46] LABS: ABG PCO2 29.2 mmHg (35-45); ABG PH Result 7.46 (7.35-7.45); Alveolar-Arterial Oxygen Gradi 1.8 mmHg (5-10); Base Excess ABG -2.5 mmol/L (-2.0-2.0); Blood Gas Allen Test Pos; Blood Gas Operator Identificat CAK; Blood Gas Sample Site Radial, left; Blood Gas Sample Type Arterial; Carboxyhemoglobin 0.8 %THgb (0.4-20.1); HCO3 ABG 20.9 mmol/L (22-26); Ionized Calcium Level - ABG 1.1 mmol/L (1.1-1.4); Methemoglobin 1.2 % (0.4-1.5); Oxygen Device ROOM AIR; Potassium Level - ABG 4.5 mmol/L (3.5-5.0); Total Hemoglobin 7.2 g/dL (12-16)
--- NOTE | 2021-10-28 08:53 | P.PN_ITS ---
Subjective Subjective: weak, not feeling well in ICU. ng tube, bled overnight. abd pain, on pressors Medications: Reviewed: Yes Medication Review Details: Current Medications Hydrocodone Bitart/Acetaminophen (Hydrocodone-Acetaminophen 5-325 Mg Tablet) 1 tab PO Q6H PRN PRN Reason: Pain Last Admin: 10/27/21 20:07 Dose: 1 tab Documented by: Dopamine HCl/Dextrose (Intropin Drip) 400 mg in 250 mls @ 17.006 mls/hr IV CONT SHER; Protocol Last Titration: 10/27/21 23:26 Dose: 5 mcg/kg/min, 17.01 mls/hr Documented by: Amiodarone HCl 900 mg/Dextrose/ IV Miscellaneous Supplies 518 mls @ 0 mls/hr IV .Q0M SHER; Protocol Last Titration: 10/28/21 04:45 Dose: 0.5 mg/min, 17.27 mls/hr Documented by: Octreotide Acetate 500 mcg/ (Sodium Chloride) 101 mls @ 10.1 mls/hr IV .Q10H SHER Last Admin: 10/28/21 08:18 Dose: 50 mcg/hr, 10.1 mls/hr Documented by: Norepinephrine Bitartrate 8 mg (/ Dextrose) 508 mls @ 0 mls/hr IV .Q0M SHER; Protocol Last Titration: 10/28/21 06:04 Dose: 19 mcg/min, 72.39 mls/hr Documented by: Ondansetron HCl (Ondansetron 2 Mg/Ml Sdv 2 Ml) 4 mg IVP Q8H PRN PRN Reason: vomiting, or N/V if npo Pantoprazole Sodium (Pantoprazole 40 Mg Sdv) 40 mg IVP Q12H SHER Last Admin: 10/28/21 08:24 Dose: 40 mg Documented by: Sucralfate (Sucralfate 1 Gm Tablet) 1 gm PO AC&BEDTIME SHER Last Admin: 10/28/21 06:41 Dose: Not Given Documented by: Vitals/I&O/Wt Last Vital Signs Temp 99 F 10/28/21 04:00 Pulse 117 H 10/28/21 06:30 Resp 16 10/28/21 06:00 BP 115/59 10/28/21 06:30 Pulse Ox 100 10/28/21 06:30 10/27/21 10/28/21 10/28/21 22:59 06:59 14:59 Intake Total 2200.842 / 2200.842 1845.032 / 4045.874 97.97 / 97.97 Output Total 490 / 510 Balance 2180.842 / 2180.842 1355.032 / 3535.874 97.97 / 97.97 Weight last 48 hrs Weight 84.277 kg Weight 84.776 kg Weight 90.7 kg Physical Exam Narrative: pressors- norepi, dopamine, amio, octreotide NC o2 ng tube w/ blood obese, uncomfortable in bed heent- nc/at, eomi lungs dull bases heart - irreg irreg, tachy abd distended, tender, + bs, cholecystostomy tube ext 1+ b/l edema neuro- a,a, o x 1 Urinary Catheter Management: Pool: Cath Placed During This Visit: yes Reason for Continuing Indwelling Catheter: Accurate Measurement of Urinary Output in Critically Ill Patients Urinary Catheter Date of Insertion: 10/27/21 Urinary Catheter Time of Insertion: 20:00 Data : 10/28/21 04:15 10/28/21 04:15 Micro: Microbiology 10/27/21 20:55 Occult Blood (FIT) - Final Stool 10/27/21 16:00 Blood Culture - Preliminary Blood SPECIMEN COLLECTED 10/27/21 14:45 Blood Culture - Preliminary Blood SPECIMEN COLLECTED A&P Assessment and plan (1) Acute kidney injury superimposed on chronic kidney disease: 76 yr old female recent admitted 10/02-10/08 for acute cholecystitis, at which time a cholecystotomy tube was placed. underlying a fib, htn. Pt was admitted on 10/27/21 in septic shock, anemia, JUAN, met acidosis, hyperkalemia, and hyponatremia. 1. JUAN - ATN from septic shock and bleed. then received iodine contrast on 10-27-21. minimal uop -low ur na noted. however, uop and cr not improving w/ ivf -as pt is on multiple pressors, k stable at 5 and alkalotic- hold dialysis for now -monitor uop, chemistries 2. met acidosis from JUAN - check lacatte 2b. resp alkalosis 3. anemia - surgery to see- Q GI bleed 4. a fib w/ RVR 5. Calculus of gallbladder with cholecystitis without biliary obstruction: Recent admission for acute cholecystitis, cholecystostomy tube in place 6. remains hypotensive w/ leukocytosis 7. high inr reversed 8. hyponatremia from sepsis meds reviewed Status: Acute Plan see above Attestations Medical Necessity Statement*: septic shock, juan, on pressors in icu Time Spent in Patient Care: Greater than 35 minutes (>than 50% of time spent in counselling and/or direct pt care on unit) . 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
[2021-10-28] MEDS: DOPamine drip 400 MG/250 ML PREMIX 13.61 MG IV (10:28)
[2021-10-28] MEDS: norepinephrine 8 MG in dextrose 5 % 500 ML 72.39 MG IV (10:29)
[2021-10-28 10:38] LABS: Complement C3 100 mg/dL (90-180)
--- NOTE | 2021-10-28 10:38 | PM.CONSULT ---
Providers/Reason For Consult Consulting Physician/Specialty*: General Surgery Yuval Che MD Reason for Consult*: Requesting temporary hemodialysis catheter placement Attending Physician: Simba Keller Primary Care Provider: Osiris Owusu MD History of Present Illness History of Present Illness Camryn De is a 76 year old female admitted last night with significant upper GI bleeding and progressive weakness. Her INR was found be over 20. She has been on Coumadin for atrial fibrillation. Her INR is now down the 1.8?2 0.1. She has experienced an acute on chronic kidney injury, and a temporary hemodialysis catheter placement has been requested by nephrology. Review of Systems General: Reports: 10 or more systems reviewed and unremarkable except in HPI and below Const: Reports: malaise GI: Reports: nausea, vomiting and hematemesis; Denies: abdominal pain Musc: Reports: back pain Medications/Allergies Home Medications Medication Instructions Recorded Confirmed Last Taken Type atorvastatin 20 mg tablet 20 mg PO DAILY tab 01/22/21 10/27/21 Unknown History warfarin 3 mg tablet 3 mg PO DAILY tab 01/22/21 10/27/21 Unknown History lisinopril 20 mg tablet 20 mg PO BID 30 Days #60 tab 10/08/21 10/27/21 Unknown Rx hydrocodone 5 mg-acetaminophen 325 1 tab PO Q6H PRN 10/17/21 10/27/21 Unknown History mg tablet Allergies Allergy/AdvReac Type Severity Reaction Status Date / Time Penicillins Allergy unknown Verified 10/28/21 10:48 Current Medications Generic Name Dose Route Start Last Admin Trade Name Freq PRN Reason Stop Dose Admin Hydrocodone Bitart/Acetaminophen 1 tab 10/27/21 19:15 10/27/21 20:07 Hydrocodone-Acetaminophen 5-325 Mg Tablet PO 1 tab Q6H PRN Administration Pain Dopamine HCl/Dextrose 400 mg in 250 mls @ 17.006 mls/hr 10/27/21 17:15 10/28/21 10:28 Intropin Drip IV 4 mcg/kg/min CONT SHER 13.61 mls/hr Administration Protocol 5 MCG/KG/MIN Amiodarone HCl 900 mg/ 518 mls @ 0 mls/hr 10/27/21 20:45 10/28/21 04:45 Dextrose/ IV Miscellaneous IV 0.5 mg/min Supplies .Q0M SHER 17.27 mls/hr Titration Protocol Per Protocol Octreotide Acetate 500 mcg/ 101 mls @ 10.1 mls/hr 10/27/21 21:00 10/28/21 08:18 Sodium Chloride IV 50 mcg/hr .Q10H SHER 10.1 mls/hr Administration 50 MCG/HR Norepinephrine Bitartrate 8 mg 508 mls @ 0 mls/hr 10/28/21 01:15 10/28/21 10:29 / Dextrose IV 19 mcg/min .Q0M SHER 72.39 mls/hr Administration Protocol Per Protocol Pantoprazole Sodium 40 mg 10/27/21 20:46 10/28/21 08:24 Pantoprazole 40 Mg Sdv IVP 40 mg Q12H SHER Administration Sucralfate 1 gm 10/27/21 21:00 10/28/21 06:41 Sucralfate 1 Gm Tablet PO Not Given AC&BEDTIME SHER PFSH Acute PFSH: Medical History (Updated 10/28/21 @ 10:56 by Yuval Che MD) Atrial fibrillation Chronic kidney disease Hypertension Leg swelling Mixed hyperlipidemia Obesity Surgical History (Updated 10/28/21 @ 10:54 by Yuval Che MD) Acute calculous cholecystitis Status post cholecystostomy tube placement Family History Grandmother Cancer Mother Cancer Denies family history of Diabetes CAD (coronary artery disease) Clotting disorder Dementia Hyperlipidemia Chronic kidney disease (CKD) Suicide Anesthesia complication Bleeding disorder Lung disease Hypertension Stroke Social History Smoking and tobacco status: never smoked Alcohol intake: never Household members: spouse Marital status: Vitals/I&O/Wt Last Vital Signs Temp 99 F 10/28/21 04:00 Pulse 117 H 10/28/21 06:30 Resp 16 10/28/21 06:00 BP 115/59 10/28/21 06:30 Pulse Ox 100 10/28/21 06:30 10/27/21 10/28/21 10/28/21 22:59 06:59 14:59 Intake Total 2200.842 / 4045.874 1845.032 / 4045.874 527.233 / 527.233 Output Total 510 490 / 510 Balance 2180.842 / 3535.874 1355.032 / 3535.874 527.233 / 527.233 Weight last 48 hrs Weight 185 lb 12.8 oz Weight 186 lb 14.4 oz Weight 199 lb 15.348 oz Physical Exam Narrative: The patient was encountered in her intensive care unit room. She does not appear to be in any acute distress. She has a nasogastric tube in place that is draining minimal material but it's very dark in color. There is no evidence of bright red blood in the tubing. The pupils seem equal. No carotid bruits are heard. The lungs are clear anteriorly. The heart seems regular. The abdomen is moderately obese. There is a cholecystostomy tube in place that is draining a small amount of light brown/bilious colored fluid. The abdomen seems nontender. The extremities reveal minimal edema. Neurologically the patient appears to be grossly intact. Urinary Catheter Management: Pool: Cath Placed During This Visit: yes Reason for Continuing Indwelling Catheter: Accurate Measurement of Urinary Output in Critically Ill Patients Urinary Catheter Date of Insertion: 10/27/21 Urinary Catheter Time of Insertion: 20:00 Data : 10/28/21 04:15 10/28/21 04:15 Micro: Microbiology 10/27/21 20:55 Occult Blood (FIT) - Final Stool 10/27/21 16:00 Blood Culture - Preliminary Blood SPECIMEN COLLECTED 10/27/21 14:45 Blood Culture - Preliminary Blood SPECIMEN COLLECTED CT Abd/Pel: Radiologist's impression: CT abdomen/pelvis 10/27/2021 IMPRESSION: When compared with 10/06/2021, there has been interval placement of a percutaneous canal cholecystotomy.? Gallbladder distension and associated inflammation have significantly improved in the interval. A&P Assessment and plan (1) Acute kidney injury superimposed on chronic kidney disease: I have been asked to see the patient for placement of a temporary hemodialysis catheter. The patient currently has a right internal jugular triple-lumen catheter in place. She has apparently had limited activity over the week due to her ongoing fatigue. We discussed placement of a temporary femoral catheter since she is not active, anyway. Surgical risks of bleeding, infection, etc. were gone over. The patient seems understand and agrees to proceed. The patient has been n.p.o. I am going to make arrangements for a temporary femoral hemodialysis catheter placement later today. Status: Acute (2) Hematemesis: Seems to have resolved. Status: Acute (3) Anemia due to blood loss, acute: Patient is being transfused. Status: Acute Consult Attestations Medical Necessity Statement: See admitting service's notation. Coding Level of Care Code Acute Incident Response Analyst for [facility] Fwd Diagnoses Acute kidney injury superimposed on chronic kidney disease N17.9; N18.9 Hematemesis K92.0 Anemia due to blood loss, acute D62
[2021-10-28 10:42] LABS: Hemoglobin 7.2 g/dL (11.5-15.3)
[2021-10-28 10:50] LABS: Hepatitis B Surface Antigen Non-Reactive (Nonreactive); Hepatitis C Virus Antibody Non-Reactive (Nonreactive)
[2021-10-28] MEDS: sodium chloride 0.9% (100 ml) 100 ML 50 ML ×2 (10:53→15:21)
[2021-10-28 10:58] LABS: Hepatitis B Surface AB < 3.5 (11.5-1000)
--- NOTE | 2021-10-28 11:00 | P.PN_ITS ---
Subjective Subjective: Last night with hematemesis, became more hypotensive, this morning so far no further vomiting. Bothered by some discomfort in the back of the throat from NG tube, as well as lower back discomfort, although with improvement with repositioning. No chest pain pressure. Is not short of breath. Vitals/I&O/Wt Last Vital Signs Temp 96.7 F L 10/28/21 10:40 Pulse 101 H 10/28/21 10:55 Resp 12 10/28/21 10:55 BP 119/57 10/28/21 10:55 Pulse Ox 94 10/28/21 10:55 10/27/21 10/28/21 10/28/21 22:59 06:59 14:59 Intake Total 2200.842 / 2200.842 1845.032 / 4045.874 527.233 / 527.233 Output Total 490 / 510 Balance 2180.842 / 2180.842 1355.032 / 3535.874 527.233 / 527.233 Weight last 48 hrs Weight 84.277 kg Weight 84.776 kg Weight 90.7 kg Physical Exam Const: COMMON NORMALS: patient oriented x3 OTHER: Generally weak HENMT: COMMON NORMALS: oropharynx normal (dry lips/MM) Neck/C-Spine: COMMON NORMALS: no JVD Resp: COMMON NORMALS: normal respiratory effort and clear to auscultation bilaterally AUSCULTATION: clear to auscultation bilaterally Cardio: COMMON NORMALS: no JVD, S1 normal heart sound present, S2 normal heart sound present and No murmurs present (Cardio) RHYTHM: abnormal rhythm irregularly irregular HEART SOUNDS: S1 normal heart sound present and S2 normal heart sound present GI: COMMON NORMALS: Normal to inspection, nondistended, normoactive bowel sounds present, Soft to palpation and non-tender PALPATION: Yes Soft to palpation OTHER: Cholecystotomy drain right upper quadrant small amount of leakage around drain. Extremity: COMMON NORMALS: no joint enlargement GENERAL: Yes edema (trace) Neuro: COMMON NORMALS: patient oriented x3 and moves all extremities Skin: COMMON NORMALS: no rashes or lesions noted GENERAL SKIN EXAM: no rashes or lesions noted OTHER: Bruising Urinary Catheter Management: Pool: Cath Placed During This Visit: yes Reason for Continuing Indwelling Catheter: Accurate Measurement of Urinary Out put in Critically Ill Patients Urinary Catheter Date of Insertion: 10/27/21 Urinary Catheter Time of Insertion: 20:00 Data : 10/28/21 09:50 10/28/21 04:15 Micro: Microbiology 10/27/21 20:55 Occult Blood (FIT) - Final Stool 10/27/21 16:00 Blood Culture - Preliminary Blood SPECIMEN COLLECTED 10/27/21 14:45 Blood Culture - Preliminary Blood SPECIMEN COLLECTED A&P Assessment and plan (1) Anemia due to blood loss, acute: History noted supratherapeutic INR more than 20, was given vitamin K, but subsequently with hematemesis, due to acute blood loss received PCC, FFP. INR on recheck last night was 1.8. This morning 2.18. Hold warfarin. Hemoglobin down to 7.6. 2 units previously transfusion requested. PPI. Octreotide. So far only 20 additional mL after 400 mL on NG tube output. Last night also with tarry bowel movement without additional BM so far. With renal dysfunction, BUN 140s, given also DDAVP. Discussed with surgery. Transfuse and continue to optimize hemodynamics, otherwise given INR has been reversed, and minimal NG tube output, no further bowel movements, anticipate bleeding has abated, however, consideration still given to possible need for EGD assessment which certainly may be a more risk endeavor given ongoing hypotension. Status: Acute (2) Hypotension: Possibly secondary to acute blood loss anemia. Also noted leukocytosis, unclear if this is stress related, although in case of acute infection, sepsis and septic shock component, will additionally cover empirically with cefepime. Continue Levophed. Wean down and off dopamine. Wean off pressors as tolerating. PRBC transfusion as above. With additionally poor oral intake recently, previously diuretics, although states not recently, may also have hypovolemia, and if hypotensive following transfusions and fluid responsive consider additional fluid boluses. Status: Acute (3) GI bleed: As above. Status: Acute (4) Acute kidney injury superimposed on chronic kidney disease: Appreciate nephrology recommendations. Surgery consultation obtained also for placement of hemodialysis catheter with anticipation to dialysis may become necessary in the near future. JUAN on CKD with metabolic acidosis, hyperkalemia, creatinine 11.1, BUN 143. Cause not entirely clear, states she took 1 dose of ibuprofen yesterday, but has not been taking it regularly. Blood pressure noted low on presentation, but they do state have been monitoring at home, it has been low, but not as low as here. Hold lisinopril, she denies taking Lasix and a number of other medications previously listed including amlodipine. Monitor blood pressures, hypertension currently better. Monitor in ICU. Monitor I&O including cholecystotomy drainage. Status: Acute (5) Hyperkalemia: Improved with treatment. Was given calcium, Kayexalate. Status: Acute (6) Metabolic acidosis: Lactic acid normal. Secondary to acute renal failure. Today alkalotic, also think this may be more due to bicarb administration, as well as contraction Kalosis, she also was tachypneic on presentation, and so CO2 is low, her, tachypnea is now resolved. Doubt PE given has been on warfarin and supratherapeutic. Status: Acute (7) Paroxysmal atrial fibrillation with RVR: Started on amiodarone drip last night. We will transition to p.o. once able to reliably take and oral intake. Her reports she has not been taking metoprolol. She has been taking warfarin. Heart rates currently ranging between 90s-low 100s. Monitor. Resume beta-lizy if heart rates uncontrolled, blood pressure better, resume at lower dose with consideration of acute kidney injury. Status: Acute (8) Hypoxia: Saturating well on room air. Chest x-ray unremarkable. COVID-19 PCR. Status: Acute (9) Nausea and vomiting: Signs of possible gastroenteritis on CT abdomen pelvis. Discussed with her and her . PPI added as above. Zofran for nausea vomiting. Check COVID-19. Status: Acute (10) Chronic anticoagulation: With atrial fibrillation. On Coumadin. states they do not regularly check INR. Last INR was 2.54 on 10/17. Last night INR noted more than 20. Received vitamin K, subsequently with GI bleed, acute blood loss anemia, hypotension, received PCC, FFP. INR down to 2.18. Recheck. Status: Acute (11) Calculus of gallbladder with cholecystitis without biliary obstruction: Recent admission for acute cholecystitis, cholecystostomy tube in place. states has been emptying about 3-4 times a day. Significant improvement noted on CT abdomen pelvis. Pending definitive therapy with cholecystectomy being planned with surgery. Status: Acute (12) Chronic kidney disease: Status: Acute Qualifiers: Chronic kidney disease stage: unspecified stage Qualified Code(s): N18.9 - Chronic kidney disease, unspecified Plan History of HTN: Continue to hold antihypertensives HLD Could not reach for update. Attestations Medical Necessity Statement*: Continue admission for assessment management of hypotension, shock, acute blood loss anemia, JUAN on CKD Critical Care Time: The high probability of a clinically significant, sudden or life threatening deterioration of the patient's acute blood loss anemia, hemodynamic and renal system(s) required my full and direct attention, intervention and personal management. The critical care time is as shown. 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
[2021-10-28 11:14] LABS: Hematocrit 19.4 % (37.0-47.0)
[2021-10-28] MEDS: cefepime 1,000 MG in sodium chloride 0.9% (plus) 50 ML 100 MG IV (11:28)
--- NOTE | 2021-10-28 11:29 | PC.NURSE ---
Cefepie delay related to double checking penicillin allergy and IV access.
--- NOTE | 2021-10-28 12:11 | ANES.PREANE2 ---
Pre-Anesthetic Assessment Height/Weight: Height 1.63 m Weight 84.277 kg Temp Pulse Resp BP Pulse Ox 96.7 F L 107 H 16 99/45 98 10/28/21 10:40 10/28/21 11:30 10/28/21 11:30 10/28/21 11:30 10/28/21 11:30 Operation Date: 10/28/21 13:00 Proposed Procedures p Dialysis Catheter Insertion(Not Applicable) - Yuval Che MD Familial anesthetic complications: None Was Beta Ondina taken within 24 hours: N/A Was Clonidine taken within 24 hours: N/A Social No alcohol and No tobacco Exam alert, oriented x 3 and clear to auscultation bilaterally Airway Submandibular: within normal limits Cervical ROM: within normal limits Mallampati: Class II Dentition: chipped CV/HEM Atrial Fibrillation, Anemia and Hypertension In ICU on pressors for hypotension Chronic Renal Insufficiency Acute kidney injury GI Gastroesophageal Reflux Disease cholecystitis Metabolic Hyperlipidemia Hyperkalemia, acidosis Musc/skel deconditioned Anesthetic Plan ASA status: 3 Anesthesia: Choice Medications/Allergies Home Medications Medication Instructions Recorded Confirmed Last Taken Type atorvastatin 20 mg tablet 20 mg PO DAILY tab 01/22/21 10/27/21 Unknown History warfarin 3 mg tablet 3 mg PO DAILY tab 01/22/21 10/27/21 Unknown History lisinopril 20 mg tablet 20 mg PO BID 30 Days #60 tab 10/08/21 10/27/21 Unknown Rx hydrocodone 5 mg-acetaminophen 325 1 tab PO Q6H PRN 10/17/21 10/27/21 Unknown History mg tablet Allergies Allergy/AdvReac Type Severity Reaction Status Date / Time Penicillins Allergy unknown Verified 10/28/21 10:48 Current Medications Generic Name Dose Route Start Last Admin Trade Name Freq PRN Reason Stop Dose Admin Hydrocodone Bitart/Acetaminophen 1 tab 10/27/21 19:15 10/27/21 20:07 Hydrocodone-Acetaminophen 5-325 Mg Tablet PO 1 tab Q6H PRN Administration Pain Dopamine HCl/Dextrose 400 mg in 250 mls @ 17.006 mls/hr 10/27/21 17:15 10/28/21 11:28 Intropin Drip IV 3 mcg/kg/min CONT SHER 10.2 mls/hr Titration Protocol 5 MCG/KG/MIN Amiodarone HCl 900 mg/ 518 mls @ 0 mls/hr 10/27/21 20:45 10/28/21 04:45 Dextrose/ IV Miscellaneous IV 0.5 mg/min Supplies .Q0M SHER 17.27 mls/hr Titration Protocol Per Protocol Octreotide Acetate 500 mcg/ 101 mls @ 10.1 mls/hr 10/27/21 21:00 10/28/21 08:18 Sodium Chloride IV 50 mcg/hr .Q10H SHER 10.1 mls/hr Administration 50 MCG/HR Norepinephrine Bitartrate 8 mg 508 mls @ 0 mls/hr 10/28/21 01:15 10/28/21 10:29 / Dextrose IV 19 mcg/min .Q0M SHER 72.39 mls/hr Administration Protocol Per Protocol Pantoprazole Sodium 40 mg 10/27/21 20:46 10/28/21 08:24 Pantoprazole 40 Mg Sdv IVP 40 mg Q12H SHER Administration Sucralfate 1 gm 10/27/21 21:00 10/28/21 06:41 Sucralfate 1 Gm Tablet PO Not Given AC&BEDTIME SHER PFSH Anesthesia Medical History (Updated 10/28/21 @ 11:08 by Simba Keller MD) Atrial fibrillation Chronic kidney disease Hypertension Leg swelling Mixed hyperlipidemia Obesity Surgical History (Updated 10/28/21 @ 10:54 by Yuval Che MD) Acute calculous cholecystitis Status post cholecystostomy tube placement Family History Grandmother Cancer Mother Cancer Denies family history of Diabetes CAD (coronary artery disease) Clotting disorder Dementia Hyperlipidemia Chronic kidney disease (CKD) Suicide Anesthesia complication Bleeding disorder Lung disease Hypertension Stroke Social History Smoking and tobacco status: never smoked Alcohol intake: never Household members: spouse Marital status: Data Anesthesia : 10/28/21 09:50 10/28/21 04:15 Short CBC 10/27/21 10/27/21 10/28/21 Range/Units 14:45 21:00 01:00 WBC 11.4 H 13.4 H (4.0-10.0) 10^3/uL Hgb 10.7 L 9.4 L 8.2 L (11.5-15.3) g/dL Hct 31.2 L 26.6 L 22.7 L (37.0-47.0) % MCV 90.4 91.7 (81-99) fl Plt Count 300 190 D (130-400) 10^3/cmm Neut % (Auto) 85.3 75.7 % Neut # (Auto) 9.76 H 10.11 H (1.8-7.7) 10^3/uL 10/28/21 10/28/21 Range/Units 04:15 09:50 WBC 15.3 H (4.0-10.0) 10^3/uL Hgb 7.6 L 7.2 L (11.5-15.3) g/dL Hct 22.2 L 19.4 L* (37.0-47.0) % MCV 91.0 (81-99) fl Plt Count 267 D (130-400) 10^3/cmm Neut % (Auto) 72.2 % Neut # (Auto) 11.02 H (1.8-7.7) 10^3/uL BMP 10/27/21 10/27/21 10/27/21 14:45 16:00 16:34 Sodium Cancelled Cancelled 126 L Potassium Cancelled Cancelled 6.2 H Chloride Cancelled Cancelled 92 L Carbon Dioxide Cancelled Cancelled 10 L BUN Cancelled Cancelled 143 H* D Creatinine Cancelled Cancelled 11.1 H* Glucose Cancelled Cancelled 117 H Calcium Cancelled Cancelled 9.4 10/27/21 10/27/21 10/28/21 21:00 22:45 04:15 Sodium Cancelled 133 L 134 L Potassium Cancelled 4.6 5.0 Chloride Cancelled 96 L 99 Carbon Dioxide Cancelled 14 L 14 L BUN Cancelled 136 H* 140 H* Creatinine Cancelled 9.6 H* 11.4 H* Glucose Cancelled 174 H 234 H Calcium Cancelled 9.4 9.3 Cardiac Enzymes 10/27/21 10/27/21 Range/Units 21:00 22:45 Creatine Kinase Cancelled 32 Liver Function 10/27/21 10/27/21 10/27/21 Range/Units 14:45 16:00 16:34 Total Bilirubin Cancelled Cancelled 0.3 AST Cancelled Cancelled 15 ALT Cancelled Cancelled 12 Alkaline Phosphatase Cancelled Cancelled 86 Albumin Cancelled Cancelled 3.3 L 10/27/21 10/28/21 Range/Units 22:45 04:15 Total Bilirubin 0.4 0.4 AST 19 17 ALT 13 13 Alkaline Phosphatase 86 88 Albumin 2.9 L 3.1 L Urine 10/27/21 10/27/21 Range/Units 15:03 23:07 Urine Color Cancelled Yellow Urine Appearance Cancelled Sl cloudy A Urine pH Cancelled 5 Ur Specific [place] Cancelled 1.030 Urine Protein Cancelled 1+ H Urine Glucose (UA) Cancelled Norm Urine Ketones Cancelled 1+ H Urine Nitrate Cancelled Negative Urine Bilirubin Cancelled 2+ H Ur Leukocyte Esterase Cancelled Trace H Urine RBC 5-10 H (0-2) /hpf Urine WBC 15-25 H (0-5) /hpf Blood Bank 10/27/21 22:45 Blood Type AB Positive Rho(D) Type Positive Antibody Screen Negative Coags 10/27/21 10/27/21 10/27/21 14:45 16:34 17:10 PT Cancelled Cancelled Cancelled INR Cancelled Cancelled Cancelled 10/27/21 10/27/21 10/28/21 18:48 22:45 04:15 PT > 120.00 H 21.30 H D 24.70 H INR > 20.00 H* 1.80 H 2.18 H ABG 10/27/21 10/28/21 17:30 08:35 Specimen Type Arterial Arterial Sample Site Radial, left Radial, left ABG pH 7.26 L 7.46 H ABG pCO2 24.5 L 29.2 L ABG pO2 155.0 H 99.0 ABG HCO3 11.0 L 20.9 L ABG O2 Saturation 99.4 99.0 ABG Base Excess -14.6 L -2.5 L A-a O2 Gradient Not Reportable 1.8 L O2 Delivery Device Nc Room air O2 Liters/Min 5.0 FiO2 21.0 Microbiology 10/27/21 20:55 Occult Blood (FIT) - Final Stool 10/27/21 16:00 Blood Culture - Preliminary Blood SPECIMEN COLLECTED 10/27/21 14:45 Blood Culture - Preliminary Blood SPECIMEN COLLECTED Cardiac Studies: Echocardiogram 10/03/21
--- NOTE | 2021-10-28 12:15 | PC.NURSE ---
Pt to surgery for HD cath.
--- NOTE | 2021-10-28 12:51 | PM.OP ---
Operative Report Date of procedure: October 28, 2021 Post-op diagnosis: Acute kidney injury on top of chronic kidney disease. Procedure done: 12 [place] 20 cm hemodialysis catheter placement into the right femoral vein utilizing intraoperative ultrasound. Specimens removed/disposition: None sent. Surgeon: General Surgery Yuval Che MD Anesthesia: MAC Estimated blood loss: 10 mL. Complications: None. Procedure: The patient was brought in the operating room and was left on her ICU bed. A monitored anesthetic was induced. The right femoral region was prepped and draped in a sterile fashion. Intraoperative ultrasound was utilized to find the right femoral vein as evidenced by its size and compressibility. The right femoral vein was accessed with a needle and syringe as evidenced by the return of dark, nonpulsatile blood. The J-wire was passed down the needle and the needle was withdrawn. An incision was made in the skin at the insertion point of the J-wire. The dilators that came in the hemodialysis kit were then used to sequentially dilate the subcutaneous tract. The dialysis catheter was passed over the wire into the femoral vein and the wire was withdrawn. Both ports aspirated venous blood very easily and were flushed with hep flush solution and subsequently with a stronger heparin-containing solution. The catheter was sewn in place with some sutures of 2-0 silk. The site was dressed with a sterile bandage and the patient was taken back to the intensive care unit in stable condition postoperatively
[2021-10-28 12:54] LABS: Add Urine Microscopic? YES; Bilirubin Urine 1+ (Negative); Blood Urine 3+ (Negative); Glucose Urine UA Norm (Normal); Ketones Urine Negative (Negative); Leukocyte Esterase Urine 2+ (Negative); Nitrate Urine Negative (Negative); Protein Urine Trace (Negative); Urine Appearance Cloudy (CLEAR); Urine Color Yellow (Yellow); Urobilinogen Urine Norm (Negative); pH Urine 5 (5-7)
[2021-10-28 12:56] LABS: Bacteria Urine 2+ /hpf
[2021-10-28 12:57] LABS: Add Urine Culture? Yes; WBC Urine 80-100 /hpf (0-5)
--- NOTE | 2021-10-28 13:05 | PC.NURSE ---
Pt arrives back to [facility] . to room 12, in cse of hemodialysis needs. Pt alert and oriented. LEft groin HD catheter intact.
[2021-10-28 14:26] LABS: Adenovirus Not Detected (NOT DETECT); Chlamydia Pneumoniae Not Detected (NOT DETECT); Coronavirus 229E,HKU1,NL63,OC4 Not Detected (NOT DETECT); Human Metapneumovirus Not Detected (NOT DETECT); Human Rhinovirus/Enterovirus Not Detected (NOT DETECT); Influenza A Not Detected (NOT DETECT); Influenza A H1 Not Detected (NOT DETECT); Influenza A H1-2009 Not Detected (NOT DETECT); Influenza A H3 Not Detected (NOT DETECT); Influenza B Not Detected (NOT DETECT); Mycoplasma Pneumoniae Not Detected (NOT DETECT); Parainfluenza Virus Type 1 Not Detected (NOT DETECT); Parainfluenza Virus Type 2 Not Detected (NOT DETECT); Parainfluenza Virus Type 3 Not Detected (NOT DETECT); Parainfluenza Virus Type 4 Not Detected (NOT DETECT); Respiratory Syncytial Virus A Not Detected (NOT DETECT); Respiratory Syncytial Virus B Not Detected (NOT DETECT); SARS-COV-2 Not Detected (NOT DETECT)
[2021-10-28 14:59] LABS: Anion Gap 25.7 (5-19); Calcium 8.6 mg/dL (8.5-10.5); Carbon Dioxide 17 mmol/L (22-29); Chloride 93 mmol/L (98-107); Glucose 229 mg/dL (65-115); Potassium 4.7 mmol/L (3.5-5.1); Sodium 131 mmol/L (136-145)
[2021-10-28 15:17] LABS: ABG PCO2 30.7 mmHg (35-45); ABG PH Result 7.39 (7.35-7.45); Alveolar-Arterial Oxygen Gradi 2.5 mmHg (5-10); Arterial Blood Gas Hematocrit 27.5 % (37-47); Base Excess ABG -5.6 mmol/L (-2.0-2.0); Blood Gas Allen Test Pos; Blood Gas Operator Identificat CAK; Blood Gas Sample Site Radial, left; Blood Gas Sample Type Arterial; Carboxyhemoglobin 1.2 %THgb (0.4-20.1); HCO3 ABG 18.6 mmol/L (22-26); HGB O2 Sat 96.8 % (95-100); Ionized Calcium Level - ABG 1.1 mmol/L (1.1-1.4); Oxygen Device ROOM AIR; PO2 ABG 91.9 mmHg (80.0-100.0); Potassium Level - ABG 4.7 mmol/L (3.5-5.0)
[2021-10-28] MEDS: HYDROcodone-acetaminophen 5-325 mg Tablet 1 TAB PO ×2 (15:22→20:59)
[2021-10-28 15:34] LABS: Alanine Aminotransferase 11 U/L (0-33); Albumin Level 2.8 g/dL (3.5-5.2); Alkaline Phosphatase 89 IU/L (35-105); Aspartate Amino Transferase 15 U/L (0-32); Globulin 3.1 g/dL (1.3-4.6); Total Protein 5.9 g/dL (6.6-8.7)
[2021-10-28 15:49] LABS: Osmolality Calculated 320 mOsm/kg (285-295)
[2021-10-28 15:52] LABS: Blood Urea Nitrogen 126 mg/dL (8-23)
[2021-10-28] MEDS: sucralfate 1 gm Tablet PO ×2 (17:26→21:00)
[2021-10-28] MEDS: norepinephrine 8 MG in dextrose 5 % 500 ML 60.96 MG IV (18:17)
[2021-10-28 18:42] LABS: Hematocrit 28.4 % (37.0-47.0); Hemoglobin 9.8 g/dL (11.5-15.3)
--- NOTE | 2021-10-28 18:43 | ANE.PACU2 ---
Inpatient post-anesthesia follow up: Airway intact: Yes Vital signs: Temperature 98.7 F Pulse Rate 82 Respiratory Rate 18 Blood Pressure 129/63 Pulse Oximetry 100 Oxygen Delivery Me thod Room Air Oxygen Flow Rate 3 Fraction of Inspir ed Oxygen Hydration adequate: Yes Nausea and vomiting: No Pain level: 4 Mental status: Baseline
[2021-10-28 18:55] LABS: INR 3.15 (0.8-1.2)
--- NOTE | 2021-10-28 19:15 | PC.NURSE ---
Shift Note: Pt rested in bed throughout shift. She did complain of back pain, repositioning and pain meds provided. No furhter complains this evening. She has had critical labs today: hematocrit, BUN and creatinine. She received 2 units of PRBCs, her color and B/P are improving. Dopamine weaned off . Levophed decreased to 15mcg/min. Octreotide remains infusing. Her l ungs were clear to auscultation. She went to OR for HD cath, it is located in er right groin, Then HD/CRRT held this afternoon. She has scant amount of urine output of 50 ml. Her gall bladder drain had 80ml of brown thick drainage. Frequent safety and comfort rounds continue. Orders and/or nursing care completed as indicated. Patient monitored for response to intervention and treatment(s). Education provided includes dialysis, PRBC, desmopressin, levophed. Patient and/or international sales representative verbalized understanding of plan of carea, medications and condition.. Will continue to monitor.
--- NOTE | 2021-10-28 20:24 | PC.NURSE ---
Pt alert to self, year, month,situation, not alert to day of the week. Believed she had been in the hospital for a few days. Pt easily reoriented.
--- NOTE | 2021-10-28 20:36 | PC.NURSE ---
Secure message sent to Dr. Bolanos regarding pt's pain. She states that she is unable to take PO meds at this time.
[2021-10-28 21:16] LABS: Hematocrit 26.6 % (37.0-47.0); Hemoglobin 9.3 g/dL (11.5-15.3)
[2021-10-28] MEDS: lidocaine 5% Patch 0.5 PATCH TOPICAL (21:27)
[2021-10-28] MEDS: phytonadione (ADULT) 10 mg/mL Ampule 1 mL 2.5 MG SUBCUT (21:28)
[2021-10-28] MEDS: amiodarone 200 mg Tablet 400 MG PO (21:28)
[2021-10-28] MEDS: lanolin oint 7 gm 1 APPLIC TOPICAL (22:29)
[2021-10-29] VITALS (65 sets, daily range): BP systolic 88–159; BP diastolic 42–94; PULSE 74–105; RESP 14–20; TEMP 36.9–37.7; O2SAT 90–99
--- NOTE | 2021-10-29 00:01 | PC.NURSE ---
no drainage out of cholecystotomy drain noted. Abdomen feels slightly distended and firm on right side only. Stopcock found to be off to patient. Drain opened to patient, and immediate drainage of cloudy dark brown fluid flowed into bag, approximately 50 mls.
[2021-10-29 05:10] LABS: Alanine Aminotransferase 11 U/L (0-33); Albumin Level 2.7 g/dL (3.5-5.2); Alkaline Phosphatase 95 IU/L (35-105); Anion Gap 24.5 (5-19); Aspartate Amino Transferase 18 U/L (0-32); Calcium 8.5 mg/dL (8.5-10.5); Carbon Dioxide 18 mmol/L (22-29); Chloride 92 mmol/L (98-107); Globulin 2.7 g/dL (1.3-4.6); Glucose 148 mg/dL (65-115); Potassium 4.5 mmol/L (3.5-5.1); Sodium 130 mmol/L (136-145); Total Bilirubin 1.4 mg/dL (0.15-1.2); Total Protein 5.4 g/dL (6.6-8.7)
[2021-10-29] MEDS: octreotide 500 MCG in sodium chloride 0.9% (100 ml) 100 ML 10.1 MCG IV ×2 (05:29→14:49)
[2021-10-29 05:30] LABS: INR 3.71 (0.8-1.2)
--- NOTE | 2021-10-29 05:36 | PC.NURSE ---
Drainage in bag is thick, brown sludge. Drainage in tubing appears serosanguinous.
[2021-10-29 06:19] LABS: Blood Urea Nitrogen 134 mg/dL (8-23)
[2021-10-29 06:20] LABS: Osmolality Calculated 316 mOsm/kg (285-295)
[2021-10-29] MEDS: sucralfate 1 gm Tablet PO ×4 (07:55→20:22)
--- NOTE | 2021-10-29 07:56 | P.PN_ITS ---
Subjective Subjective: awakens a little, confused. c/o pain everywhere. no edema, denies sob. her cholecystostomy tube was closed overnight w/ abd distention- improved when open w/ over 150 ml out Medications: Reviewed: Yes Medication Review Details: Current Medications Hydrocodone Bitart/Acetaminophen (Hydrocodone-Acetaminophen 5-325 Mg Tablet) 1 tab PO Q6H PRN PRN Reason: Pain Last Admin: 10/28/21 20:59 Dose: 1 tab Documented by: Amiodarone HCl (Amiodarone 200 Mg Tablet) 400 mg PO Q12H [facility] Last Admin: 10/28/21 21:28 Dose: 400 mg Documented by: Dopamine HCl/Dextrose (Intropin Drip) 400 mg in 250 mls @ 17.006 mls/hr IV CONT SHER; Protocol Last Titration: 10/28/21 20:32 Dose: Infused Documented by: Amiodarone HCl 900 mg/Dextrose/ IV Miscellaneous Supplies 518 mls @ 0 mls/hr IV .Q0M [facility]; Protocol Last Titration: 10/28/21 23:44 Dose: Infused Documented by: Octreotide Acetate 500 mcg/ (Sodium Chloride) 101 mls @ 10.1 mls/hr IV .Q10H SHER Last Admin: 10/29/21 05:29 Dose: 50 mcg/hr, 10.1 mls/hr Documented by: Norepinephrine Bitartrate 8 mg (/ Dextrose) 508 mls @ 0 mls/hr IV .Q0M SHER; Protocol Last Titration: 10/29/21 06:00 Dose: 4 mcg/min, 15.24 mls/hr Documented by: Cefepime HCl 250 mg/ Sodium (Chloride) 50 mls @ 100 mls/hr IV Q24H [facility] Last Infusion: 10/28/21 22:28 Dose: Infused Documented by: Lanolin (Lanolin Oint 7 Gm) 1 applic TOPICAL PRN PRN PRN Reason: DRYNESS Last Admin: 10/28/21 22:29 Dose: 1 applic Documented by: Lidocaine (Lidocaine 5% Patch) 0.5 patch TOPICAL [id number] [facility] Last Admin: 10/28/21 21:27 Dose: 0.5 patch Documented by: Ondansetron HCl (Ondansetron 2 Mg/Ml Sdv 2 Ml) 4 mg IVP Q8H PRN PRN Reason: vomiting, or N/V if npo Pantoprazole Sodium (Pantoprazole 40 Mg Sdv) 40 mg IVP Q12H SHER Last Admin: 10/28/21 20:59 Dose: 40 mg Documented by: Sucralfate (Sucralfate 1 Gm Tablet) 1 gm PO AC&BEDTIME SHER Last Admin: 10/28/21 21:00 Dose: 1 gm Documented by: Vitals/I&O/Wt Last Vital Signs Temp 100 F H 10/29/21 04:00 Pulse 82 10/29/21 05:55 Resp 20 H 10/29/21 05:00 BP 128/60 10/29/21 05:55 Pulse Ox 97 10/29/21 05:55 10/28/21 10/29/21 10/29/21 22:59 06:59 14:59 Intake Total 1649.199 / 2670.042 711.672 / 3381.714 Output Total 155 / 157 225 / 382 20 Balance 1494.199 / 2513.042 486.672 / 2999.714 -20 / -20 Weight last 48 hrs Weight 88.904 kg Weight 84.277 kg Weight 84.776 kg Weight 90.7 kg Physical Exam Narrative: pressors-decreased on levo NC o2 obese, comfortable in bed heent- nc/at, eomi lungs dull bases heart -rrr abd- soft, nt, nd, + bs, cholecystostomy tube ext minimal b/l edema neuro- a,a, o x 1-2 Urinary Catheter Management: Pool: Cath Placed During This Visit: yes Reason for Continuing Indwelling Catheter: Accurate Measurement of Urinary Output in Critically Ill Patients Urinary Catheter Date of Insertion: 10/27/21 Urinary Catheter Time of Insertion: 20:00 Data : 10/28/21 21:10 10/29/21 03:23 Micro: Microbiology 10/27/21 16:00 Blood Culture - Preliminary Blood NEGATIVE TO DATE 10/27/21 14:45 Blood Culture - Preliminary Blood NEGATIVE TO DATE A&P Assessment and plan (1) Acute kidney injury superimposed on chronic kidney disease: 76 yr old female recent admitted 10/02-10/08 for acute cholecystitis, at which time a cholecystotomy tube was placed. underlying a fib, htn. Pt was admitted on 10/27/21 in septic shock, anemia, JUAN, met acidosis, hyperkalemia, and hyponatremia. 1. JUAN - ATN from septic shock and bleed. then received iodine contrast on 10-27-21. -remains oliguric -cr may be stablizing -will give lasix and see if responds. if not, may need dialysis soon for uremic -as still on pressors, will hold dialysis for now -monitor uop, chemistries -has a groin access if needed 2. met acidosis from JUAN - improving - resp alkalosis -pt is balanced acid/ base status 3. anemia - hgb improving 4. a fib -controlled hr 5. Calculus of gallbladder with cholecystitis without biliary obstruction: Recent admission for acute cholecystitis, cholecystostomy tube in place 6. monitor wbc 7. high inr reversed- now going back up to 3.7 8. hyponatremia from sepsis, juan meds reviewed seen and examined w/ RN- telehealth visit Status: Acute Plan see above Attestations Medical Necessity Statement*: juan, septic shock, anemia Time Spent in Patient Care: 16 - 35 minutes (>than 50% of time spent in counselling and/or direct pt care on unit) . Coding Level of Care Code Acute [employer] [facility] Diagnoses Acute kidney injury superimposed on chronic kidney disease N17.9; N18.9
[2021-10-29] MEDS: FUROsemide 10 mg/mL SDV 4mL 40 MG IVP ×2 (08:18→20:22)
[2021-10-29 08:23] LABS: Uric Acid 11.7 mg/dL (2.4-5.7)
[2021-10-29 08:42] LABS: Basophils # 0.1 10^3/uL (0.0-0.1); Basophils % 0.8 %; Eosinophils # 0.2 10^3/uL (0.0-0.8); Eosinophils % 1.7 %; Hematocrit 26.7 % (37.0-47.0); Lymphocytes # 2.1 10^3/uL (0.8-4.8); Lymphocytes % 16.2 %; Mean Corpuscular HGB Conc 33.7 g/dL (30.0-36.0); Mean Platelet Volume 12.6 fL (7.4-10.4); Monocytes # 1.3 10^3/uL (0.2-0.9); Monocytes % 9.7 %; Neutrophils # 9.37 10^3/uL (1.8-7.7); Neutrophils % 70.8 %; Nucleated Red Blood Cells % 0 %; Platelet Count 164 10^3/cmm (130-400); Red Cell Distribution Width 15.1 % (12.1-15.1); White Blood Count 13.2 10^3/uL (4.0-10.0)
--- NOTE | 2021-10-29 09:00 | PM.PN ---
Subjective Subjective: Patient complains of needing to have a bowel movement. She is also hurting all over. Denies trouble breathing or nausea. Difficulty swallowing with NG tube in place. Would like to have NG tube out. No report of any bleeding overnight and has been weaned down on pressor support, transition to oral amiodarone as noted below. Medications: Medication Review Details: Levophed drip currently at 4 Amiodarone drip has been stopped with oral amiodarone initiated, drip stopped before midnight 10/29 Off of dopamine Remains on octreotide drip Vitals/I&O/Wt Last Vital Signs Temp 100 F H 10/29/21 08:00 Pulse 82 10/29/21 08:00 Resp 20 H 10/29/21 08:00 BP 128/60 10/29/21 08:00 Pulse Ox 97 10/29/21 08:00 10/28/21 10/29/21 10/29/21 22:59 06:59 14:59 Intake Total 1649.199 / 2670.042 711.672 / 3381.714 60 / 60 Output Total 155 / 157 225 / 382 20 / 20 Balance 1494.199 / 2513.042 486.672 / 2999.714 40 / 40 Positive fluid balance of approximately 6500 mls today Weight last 48 hrs Weight 88.904 kg Weight 84.277 kg Weight 84.776 kg Weight 90.7 kg Physical Exam Narrative: Constitutional: Awake, acutely ill-appearing but able to answer questions, uncomfortable HEENT: Normocephalic, lips and oropharynx are quite dry, NG tube is intact with no blood noted dark or bright in tubing presently Neck: Central venous line in place in right neck Respiratory: Clear to auscultation anteriorly, decreased at bases, no accessory muscle use Cardiovascular: Irregularly irregular, rate controlled Abdomen: Soft, cholecystostomy tube in place with dark blackish color fluid, no bright red blood or purulence noted. Abdomen is tender throughout without focal area of increased pain noted. Positive bowel sounds x4 quadrants. : Pool catheter is in place with dark yellow urine, hemodialysis catheter in place in the right groin Extremities: Both lower extremities are tender to palpation, right lower extremity looks slightly larger than left lower extremity although she is keeping it externally rotated due to pain in her back. Trace edema bilaterally. Brisk capillary refill. Neuro: Speech clear, face symmetric, generally weak all over but moves all extremities Skin: dry, scattered bruises noted Urinary Catheter Management: Pool: Cath Placed During This Visit: yes Reason for Continuing Indwelling Catheter: Accurate Measurement of Urinary Output in Critically Ill Patients Urinary Catheter Date of Insertion: 10/27/21 Urinary Catheter Time of Insertion: 20:00 Data : 10/29/21 03:23 10/29/21 03:23 Micro: Microbiology 10/27/21 16:00 Blood Culture - Preliminary Blood NEGATIVE TO DATE 10/27/21 14:45 Blood Culture - Preliminary Blood NEGATIVE TO DATE A&P Assessment and plan (1) Malaise: Presenting complaint along with abdominal pain, back pain, anorexia and low blood pressures Symptoms are persistent Status: Acute (2) Nausea and vomiting: Occurring with attempts at oral intake prior to admission Nausea remains persistent although without vomiting after NG tube placement Status: Acute Qualifiers: Vomiting type: bilious vomiting Qualified Code(s): R11.14 - Bilious vomiting (3) Hypotension: Secondary to hypovolemia and antihypertensive medications initially with subsequent development of hypovolemic shock in the setting of GI bleed Currently on Levophed at 4, max Levophed 19 mcg/min evening of presentation Max dopamine 0.5 mcg/kg/min, off since evening of 10/28/2021 Blood pressure continues to improve but remains on some pressor support, off of home lisinopril presently Status: Acute Qualifiers: Hypotension type: hypotension due to hypovolemia Qualified Code(s): I95.89 - Other hypotension; E86.1 - Hypovolemia (4) Warfarin-induced coagulopathy: Initial INR greater than 20, chronically on Coumadin due to history of atrial fibrillation, goal INR 2-3 Has received 12.5 mg of vitamin K to date - 10mg 10/27, 2.5 mg 10/28 Status post prothrombin complex concentrate x 1 dose on 10/27 Today at 3.71, slight rebound since yesterday which is not unexpected Status: Acute (5) 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 mL 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 No recurrence noted last 24 hours NG tube is in place Lipase 174 presentation On octreotide drip, Carafate, PPI No evidence of ongoing bleed is noted Status: Acute Qualifiers: GI bleed type/associated pathology: gastrointestinal hemorrhage with hematemesis Qualified Code(s): K92.0 - Hematemesis (6) Anemia due to blood loss, acute: Status post transfusion of 2 units of packed red blood cells on 10/28 Presenting hemoglobin 10.7, down from hemoglobin 12.5 10/08/2021, with low hemoglobin of 7.2 on 10/28/2021 Hemoglobin this morning within normal variation although overall trend downwards Status: Acute (7) Acute kidney injury superimposed on chronic kidney disease: BUN and creatinine at presentation 143/11.1 Creatinine earlier this month ranged from 0.8-3.0, has a diagnosis of chronic kidney disease although exact baseline creatinine is unknown Chronically on YAKOV inhibitor although had not been taking regularly Received contrast 10/27/2021 Status post DDAVP x1 dose on 10/28 Associated hyperkalemia at 6.2 at presentation Associated hyperphosphatemia Associated metabolic acidosis Assoiciated hyperuricemia Hemodialysis catheter placed 10/[address] Che Pool catheter in place since 10/27 Etiology of acute kidney injury ATN from hypotension and subsequent hypovolemic shock and possible component of contrast association Bun/Cr about the same, potassium acceptable range, hyperuricemia noted IV Lasix 40 mg every 12 hours initiated 10/29 by nephrology Nephrology assistance appreciated, continues to follow Status: Acute (8) Paroxysmal atrial fibrillation with RVR: Chronic history of atrial fibrillation for which she is on anticoagulation Had previously been on beta-blockade but was not taking it due to low blood pressures In A. fib with RVR initially, status post IV amiodarone and transition to oral amiodarone 10/29/2021 Currently rate controlled on oral amiodarone Status: Acute (9) Hypoxia: Noted at presentation COVID antigen and PCR negative Chest x-ray unremarkable On room air Status: Resolved (10) Calculus of gallbladder with cholecystitis without biliary obstruction: Subacute this month with improvement on imaging Cholecystostomy tube remains in place Following with Dr. Kerns outpatient Cholecystostomy tube output appears stable Status: Acute Qualifiers: Cholecystitis acuity: other acuity Qualified Code(s): K80.18 - Calculus of gallbladder with other cholecystitis without obstruction Plan History of HTN: presently off of home antihypertensives secondary to hypotension Hyperlipidemia: chonrically on statin therapy, currently held Constipation Borderline temperatures Leukocytosis though improved CVL in place right IJ Temporary dialysis catheter in place right femoral Cholecystostomy tube in place Pool catheter in place Continue ICU care Wean pressor support as able Monitor response to IV diuresis Consider IV fluids Continue serial laboratory studies Remains at high risk for need for hemodialysis Nephrology continues to follow Consultation with Dr. Kerns who had seen Mrs. De earlier this month when cholecystostomy tube was placed. I have spoken with him in regards to consideration of possible endoscopy and management of cholecystostomy tube, eventual cholecystectomy. Repeat hemoglobin and INR later today May require additional PCC for Coumadin coagulopathy, warfarin remains held Continue octreotide and IV PPI, Carafate presently, will likely discontinue octreotide in the next 24 hours if no ongoing bleeding noted Continue NG tube management pending evaluation by Dr. Kerns Continue oral amiodarone with plan to decrease dosing in a couple of days Laxative therapy Follow-up pending blood and urine cultures On cefepime empirically day 2 Will change to hydrocodone elixir for pain SCDs for DVT prophylaxis, no pharmacological DVT prophylaxis secondary to GI bleeding and need for transfusion Continue central line, Pool catheter and temporary dialysis catheter due to critical nature of current condition Supportive care otherwise Plans were discussed with patient and she was given an opportunity to ask questions. She would like to get the NG tube out and would like to not hurt as much. She would also like to have a bowel movement today. Will anticipate potential need for disposition to skilled facility for rehabilitation given significant overall deconditioning and severity of current clinical status. Ultimately will depend on clinical course. Discussed with case management. Full code Attestations Medical Necessity Statement*: Requires ongoing inpatient stay for management of multiple acute medical issues she is described above. Remains on pressor support and other continuous IV infusions, with serial laboratory studies, nephrology and surgical consultations ongoing. At high risk of rapid clinical decline without care. 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
[2021-10-29] MEDS: lidocaine 5% Patch 0.5 PATCH TOPICAL (09:30)
[2021-10-29] MEDS: pantoprazole 40 mg SDV IVP ×2 (09:51→20:22)
[2021-10-29] MEDS: bisacodyl 10 mg Supp PR (09:51)
[2021-10-29] MEDS: amiodarone 200 mg Tablet 400 MG PO ×2 (09:51→20:22)
--- NOTE | 2021-10-29 10:34 | PC.NURSE ---
0930 Removed lidocain patch from lower back.
[2021-10-29] MEDS: docusate sodium 10 mg/mL (5ml) Liq 100 MG PO (10:35)
--- NOTE | 2021-10-29 10:45 | PC.CHAP ---
Pastoral Care Encounter/Spiritual Assessment Type of Contact [] Declined entry level assistant manager visit [] Patient/Family/Request visit [] Outpatient visit [] Follow-up visit [] Physician referral [] Code/Alert [x] Routine visit [] Staff referral [] Actively dying [] Patient sleeping [] Family support [] [] Out of room [] Palliative care [] [] Receiving care in room [] Pre-surgical visit [] Trauma [] Long length of stay [x] ICU visit [] Other: Relational/Emotional Strength [] Patient feels connected with others/family/visitors/staff [] Distress [] Loneliness/isolation [] Abandonment Spirituality of Patient [] Person of [place] [] Attends Religion of their [place] [] Believes in Prayer [] Reads Bible or Episcopal materials [] There are Spiritual issues to be addressed Treatment Technician Interventions [x] Prayer [] Active listening [] Non-anxious presence [] Spiritual/emotional support [] Crisis/trauma care [] Spiritual counseling [] Bereavement support [] Provided bereavement packet [] Provided Bible/devotional materials [] Provided toy/stuffed animal, coloring book to patient or family member [] Provided Communion [] Anointing/[place] [] Salvation [x] Completed spiritual assessment [] Other: Impact on Illness or Injury [] Angry [] Fearful [] Anxious [] Often cries [] Exhaustion [] Unable to work [] Unable to attend mormonism [] Unable to walk/stand [] Unable to read [] Unable to drive [] Unable to eat/drink [] Unable to sleep [] Unable to be with family [] Patient intubated [] Other: Summary Time spent with patient
--- NOTE | 2021-10-29 14:35 | PM.CONSULT ---
Providers/Reason For Consult Consulting Physician/Specialty*: Milton Kerns MD Reason for Consult*: Coffee-ground emesis Requesting Physician: Dr. Maciel Attending Physician: Mary Maciel MD Primary Care Provider: Osiris Owusu MD History of Present Illness History of Present Illness Chief Complaint: Vomiting of blood History of present illness: Ms. alistair De is a 76 year old female is well-known to me from previous clinical encounters please see below: 10/03/2021 HPI in the hospital Ms.Madonna De is a pleasant 76 year old female presented to the ER of [facility] complaining of worsening right upper quadrant abdominal pain that has been more sharp and not being referred associated with nausea and vomiting.? Started last Friday and because of that she was not able to take her warfarin for her chronic atrial fibrillation with a current INR of 2.54.? Further work-up in the emergency department showed a leukocytosis of 27,000+ with a trending down to 24,000+ today.? Patient denies any other constitutional symptoms.? She gives history of hypertension, hyperlipidemia, obesity class I with a BMI of 35.4 and chronic kidney disease? She recalls no previous episodes of gallbladder disease and she was not aware that she had gallbladder stones. Current hemoglobin 13.3, platelet count 197, INR 2.54, sodium 135 potassium 4.3, serum creatinine 2.2, total bilirubin 1.9, AST 20, ALT 28 and alkaline phosphatase 83.? Also I noticed that she had elevation of her troponins and I believe further work-up likely will take place by the medical hospitalists,whom the patient was admitted to their service.? And serum lipase 25 U/S findings: Liver: Normal. No masses. Gallbladder:? The gallbladder is distended with multiple shadowing gallstones. There is gallbladder wall thickening measuring up to 1.1 cm in thickness. Common bile duct: The common bile duct measures 2 mm within normal limits. Pancreas: Suboptimally visualized due to overlying bowel gas and soft tissues. Right kidney: The right kidney measures 8 cm in length. No mass. No hydronephrosis. IMPRESSION: Cholelithiasis with sonographic findings suspicious for acute cholecystitis. General surgery was consulted for further evaluation potential intervention 10/17/2021 Shunt comes today status post CT-guided cholecystostomy tube placement by interventional radiology and seems to be feeling well and overall feeling better.? Comes today escorted by her and she denies any nausea vomiting fevers or chills or jaundice and she has been having appropriate cholecystostomy tube care.? Patient comes today to discuss potential interval cholecystectomy Hospital HPI 10/29/2021 Apparently the patient presented history of malaise and generalized weakness to the emergency department of [facility] on 10/27/2021. Patient reported blood pressure 85/51. A CT scan of the abdomen pelvis was obtained that showed; When compared with 10/06/2021, there has been interval placement of a percutaneous canal cholecystotomy.? Gallbladder distension and associated inflammation have significantly improved in the interval. Per patient's spouse description that she has been having dark stools and an INR was reported to be greater than 20. It is not clear if the INR is being checked upon or not. Patient was admitted to the ICU for further resuscitation and central venous line was placed in the right IJ by the hospitalist service and the right femoral vein temporary nontunneled hemodialysis catheter by the surgeon on-call the other day due to the concern about potential need for hemodialysis. In the interim patient had an NG with coffee-ground emesis and melanotic stools per nurse's description. I was consulted today for evaluation for potential intervention in the form of diagnostic EGD. Patient was seen and evaluated in the ICU bed #12 in the presence of her spouse and nursing staff. Seems to be comfortable in bed with NG in place Review of Systems General: Reports: 10 or more systems reviewed and unremarkable except in HPI and below Medications/Allergies Home Medications Medication Instructions Recorded Confirmed Last Taken Type atorvastatin 20 mg tablet 20 mg PO DAILY tab 01/22/21 10/27/21 Unknown History warfarin 3 mg tablet 3 mg PO DAILY tab 01/22/21 10/27/21 Unknown History lisinopril 20 mg tablet 20 mg PO BID 30 Days #60 tab 10/08/21 10/27/21 Unknown Rx hydrocodone 5 mg-acetaminophen 325 1 tab PO Q6H PRN 10/17/21 10/27/21 Unknown History mg tablet Allergies Allergy/AdvReac Type Severity Reaction Status Date / Time Penicillins Allergy unknown Verified 10/28/21 10:48 Current Medications Generic Name Dose Route Start Last Admin Trade Name Freq PRN Reason Stop Dose Admin Amiodarone HCl 400 mg 10/28/21 21:15 10/29/21 09:51 Amiodarone 200 Mg Tablet PO 400 mg Q12H SHER Administration Docusate Sodium 100 mg 10/29/21 10:00 10/29/21 10:35 Docusate Sodium 10 Mg/Ml (5ml) Liq PO 100 mg DAILY SHER Administration Furosemide 40 mg 10/29/21 08:30 10/29/21 08:18 Furosemide 10 Mg/Ml Sdv 4ml IVP 40 mg Q12H SHER Administration Octreotide Acetate 500 mcg/ 101 mls @ 10.1 mls/hr 10/27/21 21:00 10/29/21 05:29 Sodium Chloride IV 50 mcg/hr .Q10H SHER 10.1 mls/hr Administration 50 MCG/HR Norepinephrine Bitartrate 8 mg 508 mls @ 0 mls/hr 10/28/21 01:15 10/29/21 11:30 / Dextrose IV Infused .Q0M SHER Titration Protocol Per Protocol Cefepime HCl 250 mg/ Sodium 50 mls @ 100 mls/hr 10/28/21 21:30 10/28/21 22:28 Chloride IV Infused Q24H SHER Infusion Lanolin 1 applic 10/28/21 21:49 10/28/21 22:29 Lanolin Oint 7 Gm TOPICAL 1 applic PRN PRN Administration DRYNESS Lidocaine 0.5 patch 10/28/21 21:00 10/29/21 09:30 Lidocaine 5% Patch TOPICAL 0.5 patch [id number] SHER Administration Pantoprazole Sodium 40 mg 10/27/21 20:46 10/29/21 09:51 Pantoprazole 40 Mg Sdv IVP 40 mg Q12H SHER Administration Sucralfate 1 gm 10/27/21 21:00 10/29/21 11:08 Sucralfate 1 Gm Tablet PO 1 gm AC&BEDTIME SHER Administration PFSH Acute PFSH: Medical History Atrial fibrillation Chronic anticoagulation With Coumadin, for atrial fibrillation Chronic kidney disease Hypertension Mixed hyperlipidemia Obesity Surgical History Acute calculous cholecystitis Status post cholecystostomy tube placement Family History Grandmother Cancer Mother Cancer Denies family history of Diabetes CAD (coronary artery disease) Clotting disorder Dementia Hyperlipidemia Chronic kidney disease (CKD) Suicide Anesthesia complication Bleeding disorder Lung disease Hypertension Stroke Social History Smoking and tobacco status: never smoked Alcohol intake: never Household members: spouse Marital status: Vitals/I&O/Wt Last Vital Signs Temp 98.5 F 10/29/21 12:00 Pulse 75 10/29/21 14:00 Resp 20 H 10/29/21 12:00 BP 128/60 10/29/21 12:00 Pulse Ox 93 10/29/21 12:00 10/28/21 10/29/21 10/29/21 22:59 06:59 14:59 Intake Total 1649.199 / 2670.042 711.672 / 3381.714 114.59 / 114.59 Output Total 155 / 157 225 / 382 170 / 170 Balance 1494.199 / 2513.042 486.672 / 2999.714 -55.41 / -55.41 Weight last 48 hrs Weight 196 lb Weight 185 lb 12.8 oz Weight 186 lb 14.4 oz Weight 199 lb 15.348 oz Physical Exam Const: COMMON NORMALS: no acute distress and patient oriented x3 GENERAL APPEARANCE: cooperative ORIENTATION/CONSCIOUSNESS: Yes awake, Yes oriented to person, Yes oriented to place and Yes oriented to time HENMT: COMMON NORMALS: normocephalic HEAD & SCALP: normocephalic NOSE: Other nasal findings present (NG in place and coffee-ground emesis in the canister) Eye: COMMON NORMALS: Equal, round and reactive pupils present and no scleral icterus PUPIL: Yes Equal, round and reactive pupils present Lymph: LYMPHATIC: no lymphadenopathy noted Chest: COMMONS NORMALS: normal inspection of the chest Resp: COMMON NORMALS: normal respiratory effort and clear to auscultation bilaterally AUSCULTATION: clear to auscultation bilaterally Cardio: COMMON NORMALS: S1 normal heart sound present and S2 normal heart sound present; negative for No murmurs present (Cardio) HEART SOUNDS: S1 normal heart sound present and S2 normal heart sound present GI: COMMON NORMALS: Soft to palpation; negative for No hepatosplenomegaly present INSPECTION: Yes normal to inspection and Yes other (Right-sided cholecystostomy tube in place with clear bile) PALPATION: Yes Soft to palpation, No Firmness to palpation present (GI), No Tenderness to palpation present (GI), No Guarding due to palpation present (GI), No Rigid due to palpation and No No hepatosplenomegaly present : OTHER: Pool catheter in place Extremity: OTHER: Right femoral vein dialysis catheter in place Neuro: COMMON NORMALS: patient oriented x3 SENSORIUM/ORIENTATION: Yes oriented to person, Yes oriented to place and Yes oriented to time Psych: COMMON NORMALS: mental status grossly normal Skin: COMMON NORMALS: no rashes or lesions noted GENERAL SKIN EXAM: no rashes or lesions noted Urinary Catheter Management: Pool: Cath Placed During This Visit: yes Reason for Continuing Indwelling Catheter: Accurate Measurement of Urinary Output in Critically Ill Patients Urinary Catheter Date of Insertion: 10/27/21 Urinary Catheter Time of Insertion: 20:00 Data : 10/29/21 15:30 10/29/21 03:23 Micro: Microbiology 10/28/21 12:19 Urine Culture - Preliminary Urine,Clean Catch 10/27/21 23:09 Urine Culture - Preliminary Urine Catheterized 10/27/21 16:00 Blood Culture - Preliminary Blood NEGATIVE TO DATE 10/27/21 14:45 Blood Culture - Preliminary Blood NEGATIVE TO DATE A&P Assessment and plan (1) Hematemesis: Plan of care; After thorough history and physical examination and reviewing the chart, plan to perform a diagnostic esophagogastroduodenoscopy with possible biopsy in the GI lab. Once appropriate from medical standpoint of view. I discussed with the patient and her spouse in detail the risk,benefits,alternatives and indications.The risk of aspiration, bleeding, soft tissue injury, perforation of the stomach/esophagus and other potential concomitant complications were explained to the patient in details,aslo the potential need for Thoracic and or Abdominal surgery to repair any complications.The patient understood this well and did agree to proceed. Rationale was carefully and clearly discussed with the patient.Appropriate informed consent have been reviewed and signed All questions have been answered and all concerns have been addressed to patient's satisfaction. NG to low intermittent wall Flush NG tube with 50 mL of saline every 8 hours to maintain patency Blood transfusion per protocol Correction of coagulopathy per hospitalist service Assurance and education All questions have been answered and all concerns have been addressed to patient's satisfaction. Thank you for consulting general surgery to participate taking care Ms. [place] Status: Acute (2) Cholecystostomy care: Please flush cholecystostomy tube at least once a day using 5 to 10 mL of normal saline to maintain patency. Assurance and education All questions have been answered and all concerns have been addressed to patient's satisfaction. 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
[2021-10-29 15:40] LABS: Hematocrit 23.8 % (37.0-47.0); Hemoglobin 8.2 g/dL (11.5-15.3)
[2021-10-29 15:57] LABS: INR 3.36 (0.8-1.2)
--- NOTE | 2021-10-29 17:46 | PC.NURSE ---
1230 Flushed jorge tube with 5ml normal saline as instructed by Dr. Kerns.
[2021-10-29] MEDS: phytonadione (ADULT) 10 mg/mL Ampule 1 mL 5 MG SUBCUT (18:42)
--- NOTE | 2021-10-29 18:46 | PC.NURSE ---
1845 Complaining left foot being pinched, removed foot pump for a short while to relieve discomfort.
[2021-10-29 22:02] LABS: Hematocrit 24.1 % (37.0-47.0); Hemoglobin 8.2 g/dL (11.5-15.3)
[2021-10-30] VITALS (26 sets, daily range): BP systolic 84–149; BP diastolic 48–101; PULSE 74–118; RESP 16–23; TEMP 36.3–36.8; O2SAT 93–99
[2021-10-30] MEDS: octreotide 500 MCG in sodium chloride 0.9% (100 ml) 100 ML 10.1 MCG IV (01:29)
[2021-10-30 04:29] LABS: Basophils # 0.1 10^3/uL (0.0-0.1); Basophils % 0.7 %; Eosinophils # 0.3 10^3/uL (0.0-0.8); Hematocrit 23.5 % (37.0-47.0); Hemoglobin 8.2 g/dL (11.5-15.3); Lymphocytes # 1.2 10^3/uL (0.8-4.8); Lymphocytes % 11.3 %; Mean Corpuscular HGB Conc 34.9 g/dL (30.0-36.0); Mean Corpuscular Hemoglobin 32.3 pg (28.0-34.0); Mean Corpuscular Volume 92.5 fl (81-99); Mean Platelet Volume 12.5 fL (7.4-10.4); Monocytes # 0.9 10^3/uL (0.2-0.9); Monocytes % 8.6 %; Nucleated Red Blood Cells % 0 %; Platelet Count 147 10^3/cmm (130-400); Red Blood Count 2.54 10^6/uL (4.1-5.3); White Blood Count 10.3 10^3/uL (4.0-10.0)
[2021-10-30 04:57] LABS: INR 2.27 (0.8-1.2)
[2021-10-30 04:59] LABS: Alanine Aminotransferase 8 U/L (0-33); Albumin Level 2.5 g/dL (3.5-5.2); Alkaline Phosphatase 106 IU/L (35-105); Anion Gap 23.8 (5-19); Aspartate Amino Transferase 13 U/L (0-32); Calcium 8.2 mg/dL (8.5-10.5); Carbon Dioxide 18 mmol/L (22-29); Chloride 95 mmol/L (98-107); Glucose 127 mg/dL (65-115); Potassium 4.8 mmol/L (3.5-5.1); Sodium 132 mmol/L (136-145); Total Bilirubin 0.5 mg/dL (0.15-1.2); Total Protein 5.5 g/dL (6.6-8.7)
[2021-10-30 05:02] LABS: Magnesium 1.7 mg/dL (1.7-2.3); Phosphorus 5.8 mg/dL (2.5-4.5)
[2021-10-30 05:11] LABS: 25 Hydroxy Vitamin D 16 ng/mL (30-100)
[2021-10-30 05:35] LABS: Osmolality Calculated 322 mOsm/kg (285-295)
[2021-10-30 05:37] LABS: Blood Urea Nitrogen 142 mg/dL (8-23)
--- NOTE | 2021-10-30 07:32 | P.PN_ITS ---
Subjective Subjective: more awake.states she feels better. on RA. is urinating. weak, abd pain. not eating Medications: Reviewed: Yes Medication Review Details: Current Medications Hydrocodone Bitart/Acetaminophen (Hydrocodone-Apap 7.5-325 Mg/15 Ml Udc) 10 ml PO Q4H PRN PRN Reason: MODERATE PAIN Amiodarone HCl (Amiodarone 200 Mg Tablet) 400 mg PO Q12H [facility] Last Admin: 10/29/21 20:22 Dose: 400 mg Documented by: Docusate Sodium (Docusate Sodium 10 Mg/Ml (5ml) Liq) 100 mg PO DAILY [facility] Last Admin: 10/29/21 10:35 Dose: 100 mg Documented by: Furosemide (Furosemide 10 Mg/Ml Sdv 4ml) 40 mg IVP Q12H [facility] Last Admin: 10/29/21 20:22 Dose: 40 mg Documented by: Octreotide Acetate 500 mcg/ (Sodium Chloride) 101 mls @ 10.1 mls/hr IV .Q10H [facility] Last Admin: 10/30/21 01:29 Dose: 50 mcg/hr, 10.1 mls/hr Documented by: Norepinephrine Bitartrate 8 mg (/ Dextrose) 508 mls @ 0 mls/hr IV .Q0M [facility]; Protocol Last Titration: 10/29/21 11:30 Dose: Infused Documented by: Cefepime HCl 250 mg/ Sodium (Chloride) 50 mls @ 100 mls/hr IV Q24H [facility] Last Admin: 10/29/21 21:31 Dose: 100 mls/hr Documented by: Lanolin (Lanolin Oint 7 Gm) 1 applic TOPICAL PRN PRN PRN Reason: DRYNESS Last Admin: 10/28/21 22:29 Dose: 1 applic Documented by: Lidocaine (Lidocaine 5% Patch) 0.5 patch TOPICAL [id number] [facility] Last Admin: 10/29/21 21:02 Dose: Not Given Documented by: Ondansetron HCl (Ondansetron 2 Mg/Ml Sdv 2 Ml) 4 mg IVP Q8H PRN PRN Reason: vomiting, or N/V if npo Pantoprazole Sodium (Pantoprazole 40 Mg Sdv) 40 mg IVP Q12H [facility] Last Admin: 10/29/21 20:22 Dose: 40 mg Documented by: Sucralfate (Sucralfate 1 Gm Tablet) 1 gm PO AC&BEDTIME [facility] Last Admin: 10/29/21 20:22 Dose: 1 gm Documented by: Vitals/I&O/Wt Last Vital Signs Temp 97.3 F L 10/30/21 00:00 Pulse 88 10/30/21 05:37 Resp 20 H 10/29/21 16:00 BP 128/60 10/30/21 04:00 Pulse Ox 96 10/30/21 04:00 10/29/21 10/30/21 10/30/21 22:59 06:59 14:59 Intake Total 85 / 293.857 101 / 394.857 Output Total 906 / 1076 600 / 1676 Balance -821 / -782.143 -499 / -1281.143 Weight last 48 hrs Weight 89.811 kg Weight 88.904 kg Physical Exam Narrative: pressors off obese, comfortable in bed, NARD heent- nc/at, eomi lungs dull bases heart -rrr abd- soft, tender, nd, + bs, cholecystostomy tube ext minimal b/l edema neuro- a,a, o x 2+ Urinary Catheter Management: Pool: Cath Placed During This Visit: yes Reason for Continuing Indwelling Catheter: Accurate Measurement of Urinary Output in Critically Ill Patients Urinary Catheter Date of Insertion: 10/27/21 Urinary Catheter Time of Insertion: 20:00 Data : 10/30/21 03:50 10/30/21 03:50 Micro: Microbiology 10/28/21 12:19 Urine Culture - Preliminary Urine,Clean Catch 10/27/21 23:09 Urine Culture - Preliminary Urine Catheterized A&P Assessment and plan (1) Acute kidney injury superimposed on chronic kidney disease: 76 yr old female recent admitted 10/02-10/08 for acute cholecystitis, at which time a cholecystotomy tube was placed. underlying a fib, htn. Pt was admitted on 10/27/21 in septic shock, anemia, JUAN, met acidosis, hyperkalemia, and hyponatremia. 1. JUAN - ATN from septic shock and bleed. then received iodine contrast on 10-27-21. -UOP and MS improved -cr slowly rising. BUN rising -d/c lasix and monitor for dialysis needs -monitor uop, chemistries -has a groin access if needed -may need a phos binder 2. met acidosis from JUAN - improved to bicarb of 18 3. anemia - hgb 8.2- monitor -give epo 4. a fib -controlled hr 5. Calculus of gallbladder with cholecystitis without biliary obstruction: Recent admission for acute cholecystitis, cholecystostomy tube in place 6. monitor wbc -improving 7. high inr reversed-back up to 3.7, now down to 2.27 8. hyponatremia from sepsis, juan- na improved to 132 meds reviewed replace vit d seen and examined w/ RN- telehealth visit Status: Acute Plan see above Attestations Medical Necessity Statement*: juan, abd process Coding Level of Care Code Acute [place] Wet Process for [facility] Fwd Diagnoses Acute kidney injury superimposed on chronic kidney disease N17.9; N18.9
[2021-10-30] MEDS: lidocaine 5% Patch 0.5 PATCH TOPICAL (08:24)
[2021-10-30] MEDS: docusate sodium 10 mg/mL (5ml) Liq 100 MG PO (08:25)
[2021-10-30] MEDS: amiodarone 200 mg Tablet 400 MG PO ×2 (08:25→21:38)
[2021-10-30] MEDS: sucralfate 1 gm Tablet PO ×2 (08:25→10:31)
[2021-10-30] MEDS: pantoprazole 40 mg SDV IVP ×2 (08:37→21:37)
--- NOTE | 2021-10-30 15:11 | P.PN_ITS ---
Subjective Subjective: Patient was seen and examined today and does not show to have acute events overnight. Minimal output per NG tube. Nephrology on board. Slight drift in H&H Medications: Reviewed: Yes Vitals/I&O/Wt Last Vital Signs Temp 97.3 F L 10/30/21 00:00 Pulse 88 10/30/21 05:37 Resp 20 H 10/29/21 16:00 BP 128/60 10/30/21 04:00 Pulse Ox 96 10/30/21 04:00 10/30/21 10/30/21 10/30/21 06:59 14:59 22:59 Intake Total 101 / 394.857 Output Total 600 / 1676 Balance -499 / -1281.143 Weight last 48 hrs Weight 198 lb Weight 196 lb Physical Exam Narrative: Patient is conscious alert oriented X3 No apparent distress BMI 34 Head and neck examination PERRLA no masses no cervical lymphadenopathy no jaundice Right IJ central line in place Abdomen nontender nondistended soft no organomegaly guarding or rigidity/no signs of peritonitis Cholecystostomy tube in place without complication Urinary Catheter Management: Pool: Cath Placed During This Visit: yes Reason for Continuing Indwelling Catheter: Accurate Measurement of Urinary Output in Critically Ill Patients Urinary Catheter Date of Insertion: 10/27/21 Urinary Catheter Time of Insertion: 20:00 Data : 10/30/21 03:50 10/30/21 15:09 Micro: Microbiology 10/28/21 12:19 Urine Culture - Final Urine,Clean Catch 10/27/21 23:09 Urine Culture - Final Urine Catheterized A&P Assessment and plan (1) Hematemesis: Plan of care; After thorough history and physical examination and reviewing the chart, plan to perform a diagnostic esophagogastroduodenoscopy with possible biopsy in the GI lab. I discussed with the patient in detail the risk,benefits,alternatives and indications.The risk of aspiration, bleeding, soft tissue injury, perforation of the stomach/esophagus and other potential concomitant complications were explained to the patient in details,aslo the potential need for Thoracic and or Abdominal surgery to repair any complications.The patient understood this well and did agree to proceed. Rationale was carefully and clearly discussed with the patient.Appropriate informed consent have been reviewed and signed All questions have been answered and all concerns have been addressed to patient's satisfaction. 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
--- NOTE | 2021-10-30 15:38 | PC.NURSE ---
Wound care: During bath noted the gallbladder drain site had foul odor and drainage, brown and purulent. Left the statlock in place, used saline and gauze then chloroprep to cleanse around area and stat lock. Covered with biocclusive and used part of a Sorba view to keep line in place. Sterile technique and hand hygiene observed during this dressing change.
[2021-10-30 16:03] LABS: Alanine Aminotransferase 8 U/L (0-33); Albumin Level 2.7 g/dL (3.5-5.2); Alkaline Phosphatase 107 IU/L (35-105); Aspartate Amino Transferase 11 U/L (0-32); Calcium 8.4 mg/dL (8.5-10.5); Carbon Dioxide 19 mmol/L (22-29); Chloride 95 mmol/L (98-107); Glucose 128 mg/dL (65-115); Sodium 132 mmol/L (136-145); Total Bilirubin 0.5 mg/dL (0.15-1.2); Total Protein 5.7 g/dL (6.6-8.7)
[2021-10-30 16:16] LABS: Anion Gap 22.3 (5-19)
[2021-10-30 16:22] LABS: Potassium 4.3 mmol/L (3.5-5.1)
[2021-10-30 16:28] LABS: Blood Urea Nitrogen 145 mg/dL (8-23); Osmolality Calculated 323 mOsm/kg (285-295)
--- NOTE | 2021-10-30 17:00 | PC.NURSE ---
Cholecstotomy tube flushed with 5ml as ordered.
[2021-10-30] MEDS: sucralfate 1 gm/10 mL Oral Liq UDC PO ×2 (17:23→21:38)
[2021-10-30] MEDS: HYDROcodone-APAP 7.5-325 mg/15 mL UDC 10 ML PO (17:39)
--- NOTE | 2021-10-30 18:03 | PC.SOCIAL ---
IMM update IMM updated with patient. Verbalized an understanding. Copy Pg 2 provided. Initialled, dated, timed, and placed in chart.
--- NOTE | 2021-10-30 19:27 | PC.NURSE ---
Shift Note: Pt rested in bed throughout shift. Bath provided. Dr Kerns removed NG this am, pt tolerated well. No nausea noted today( with the exception of trying to swallow pills). Sucralfate changed to liquid from pills for her comfort. She remains in afib. Pain meds admin this evening for back pain. Cholecystotomy drain had 155ml of this brown drainage. Urine output of 300ml. Frequent safety and comfort rounds continue. Orders and/or nursing care completed as indicated. Patient monitored for response to intervention and treatment(s). Education provided includes active range of motion pt could do, Sucralfate, protonix and EGD. Patient and/or employee relations representative verbalized understanding of plan of care and medications. Will continue to monitor.
--- NOTE | 2021-10-30 23:44 | P.PN_ITS ---
Subjective Subjective: Pt doing little better. Denied N/V. 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 Urinary Catheter Management: Pool: Cath Placed During This Visit: yes Reason for Continuing Indwelling Catheter: Accurate Measurement of Urinary Output in Critically Ill Patients Urinary Catheter Date of Insertion: 10/27/21 Urinary Catheter Time of Insertion: 20:00 Data : 10/30/21 03:50 10/30/21 15:09 Micro: Microbiology 10/28/21 12:19 Urine Culture - Final Urine,Clean Catch 10/27/21 23:09 Urine Culture - Final Urine Catheterized A&P Assessment and plan (1) Acute kidney injury superimposed on chronic kidney disease: due to ATN from sepsis, vomiting Status: Acute (2) Atrial fibrillation: rate controlled Status: Acute Qualifiers: Atrial fibrillation type: paroxysmal Qualified Code(s): I48.0 - Paroxysmal atrial fibrillation (3) Warfarin-induced coagulopathy: improving Status: Acute (4) Anemia due to blood loss, acute: H/H now holding steady Status: Acute (5) Hematemesis: Poss gastritis. Now better Status: Acute (6) Paroxysmal atrial fibrillation with RVR: rate controlled Status: Acute (7) Acute anemia: due to GI Bleed Status: Acute (8) Hypotension: now better Status: Acute Qualifiers: Hypotension type: hypotension due to hypovolemia Qualified Code(s): I95.89 - Other hypotension; E86.1 - Hypovolemia (9) GI bleed: no obvious bleeding at present Status: Acute Qualifiers: GI bleed type/associated pathology: gastrointestinal hemorrhage with hematemesis Qualified Code(s): K92.0 - Hematemesis (10) Mixed hyperlipidemia: Status: Chronic Plan To have EGD, Colonoscopy Consider HD F/U H/H, PT D.C Octreotide Attestations Medical Necessity Statement*: Pt w/GI Bleed, Ac Anemia, JUAN, sepsis, shock needs continued hospitalization for further care and management Time Spent in Patient Care: 40 min Critical Care Time: 10 min Coding Level of Care Code Acute Territory Representative for [facility] Fwd Diagnoses Acute kidney injury superimposed on chronic kidney disease N17.9; N18.9 Atrial fibrillation I48.0 Atrial fibrillation type: paroxysmal Warfarin-induced coagulopathy D68.32; T45.515A Anemia due to blood loss, acute D62 Hematemesis K92.0 Paroxysmal atrial fibrillation with RVR I48.0 Acute anemia D64.9 Hypotension I95.89; E86.1 Hypotension type: hypotension due to hypovolemia GI bleed K92.0 GI bleed type/associated pathology: gastrointestinal hemorrhage with hematemesis Mixed hyperlipidemia E78.2
[2021-10-31] VITALS (15 sets, daily range): BP systolic 109–150; BP diastolic 52–107; PULSE 72–95; RESP 12–18; TEMP 36.2–36.8; O2SAT 90–99
[2021-10-31 04:15] LABS: Basophils % 0.4 %; Eosinophils # 0.5 10^3/uL (0.0-0.8); Hematocrit 23.3 % (37.0-47.0); Hemoglobin 7.9 g/dL (11.5-15.3); Lymphocytes # 1.3 10^3/uL (0.8-4.8); Lymphocytes % 15.2 %; Mean Corpuscular HGB Conc 33.9 g/dL (30.0-36.0); Mean Corpuscular Hemoglobin 31.1 pg (28.0-34.0); Mean Corpuscular Volume 91.7 fl (81-99); Mean Platelet Volume 12.4 fL (7.4-10.4); Monocytes # 0.8 10^3/uL (0.2-0.9); Monocytes % 9.9 %; Neutrophils # 5.76 10^3/uL (1.8-7.7); Nucleated Red Blood Cells % 0 %; Platelet Count 155 10^3/cmm (130-400); Red Blood Count 2.54 10^6/uL (4.1-5.3); Red Cell Distribution Width 14.6 % (12.1-15.1); White Blood Count 8.5 10^3/uL (4.0-10.0)
[2021-10-31 04:47] LABS: Alanine Aminotransferase 8 U/L (0-33); Albumin Level 2.5 g/dL (3.5-5.2); Alkaline Phosphatase 101 IU/L (35-105); Anion Gap 22.1 (5-19); Aspartate Amino Transferase 13 U/L (0-32); Calcium 8.2 mg/dL (8.5-10.5); Carbon Dioxide 19 mmol/L (22-29); Chloride 97 mmol/L (98-107); Globulin 3.1 g/dL (1.3-4.6); Glucose 110 mg/dL (65-115); Magnesium 1.6 mg/dL (1.7-2.3); Phosphorus 5.8 mg/dL (2.5-4.5); Potassium 4.1 mmol/L (3.5-5.1); Sodium 134 mmol/L (136-145); Total Bilirubin 0.4 mg/dL (0.15-1.2); Total Protein 5.6 g/dL (6.6-8.7)
[2021-10-31 05:08] LABS: Osmolality Calculated 326 mOsm/kg (285-295)
[2021-10-31 05:09] LABS: Blood Urea Nitrogen 145 mg/dL (8-23)
--- NOTE | 2021-10-31 08:38 | PM.PN ---
Subjective Subjective: awake. NPO for EGD. dec abd pain. no sob or cp or linares. Medications: Reviewed: Yes Medication Review Details: Current Medications Hydrocodone Bitart/Acetaminophen (Hydrocodone-Apap 7.5-325 Mg/15 Ml Udc) 10 ml PO Q4H PRN PRN Reason: MODERATE PAIN Last Admin: 10/30/21 17:39 Dose: 10 ml Documented by: Amiodarone HCl (Amiodarone 200 Mg Tablet) 400 mg PO Q12H [facility] Last Admin: 10/30/21 21:38 Dose: 400 mg Documented by: Docusate Sodium (Docusate Sodium 10 Mg/Ml (5ml) Liq) 100 mg PO DAILY [facility] Last Admin: 10/30/21 08:25 Dose: 100 mg Documented by: Norepinephrine Bitartrate 8 mg (/ Dextrose) 508 mls @ 0 mls/hr IV .Q0M [facility]; Protocol Last Titration: 10/29/21 11:30 Dose: Infused Documented by: Cefepime HCl 250 mg/ Sodium (Chloride) 50 mls @ 100 mls/hr IV Q24H [facility] Last Admin: 10/30/21 21:38 Dose: 100 mls/hr Documented by: Dextrose/Sodium Chloride (Dextrose 5%-Sod Chloride 0.45%) 1,000 mls @ 100 mls/hr IV .Q10H [facility] Lanolin (Lanolin Oint 7 Gm) 1 applic TOPICAL PRN PRN PRN Reason: DRYNESS Last Admin: 10/28/21 22:29 Dose: 1 applic Documented by: Lidocaine (Lidocaine 5% Patch) 0.5 patch TOPICAL [id number] [facility] Last Admin: 10/30/21 21:38 Dose: Not Given Documented by: Ondansetron HCl (Ondansetron 2 Mg/Ml Sdv 2 Ml) 4 mg IVP Q8H PRN PRN Reason: vomiting, or N/V if npo Pantoprazole Sodium (Pantoprazole 40 Mg Sdv) 40 mg IVP Q12H [facility] Last Admin: 10/30/21 21:37 Dose: 40 mg Documented by: Sucralfate (Sucralfate 1 Gm/10 Ml Oral Liq Udc) 1 gm PO AC&BEDTIME [facility] Last Admin: 10/30/21 21:38 Dose: 1 gm Documented by: Vitals/I&O/Wt Last Vital Signs Temp 98.3 F 10/30/21 20:00 Pulse 88 10/31/21 04:00 Resp 18 10/30/21 16:00 BP 118/61 10/31/21 04:00 Pulse Ox 96 10/31/21 04:00 10/30/21 10/31/21 10/31/21 22:59 06:59 14:59 Intake Total 131 / 241 Output Total 465 / 465 480 / 945 Balance -334 / -224 -480 / -704 Weight last 48 hrs Weight 89.811 kg Physical Exam Narrative: pressors off obese, comfortable in bed, NARD heent- nc/at, eomi lungs dull bases heart -rrr abd- soft, less tender, nd, + bs, cholecystostomy tube ext minimal b/l edema, groin edema neuro- a,a, o x 2 Urinary Catheter Management: Pool: Cath Placed During This Visit: yes Reason for Continuing Indwelling Catheter: Accurate Measurement of Urinary Output in Critically Ill Patients Urinary Catheter Date of Insertion: 10/27/21 Urinary Catheter Time of Insertion: 20:00 Data : 10/31/21 03:40 10/31/21 03:40 Micro: Microbiology 10/28/21 12:19 Urine Culture - Final Urine,Clean Catch 10/27/21 23:09 Urine Culture - Final Urine Catheterized A&P Assessment and plan (1) Acute kidney injury superimposed on chronic kidney disease: 76 yr old female recent admitted 10/02-10/08 for acute cholecystitis, at which time a cholecystotomy tube was placed. underlying a fib, htn. Pt was admitted on 10/27/21 in septic shock, anemia, JUAN, met acidosis, hyperkalemia, and hyponatremia. 1. JUAN - ATN from septic shock and bleed. then received iodine contrast on 10-27-21. -UOP and MS improved -cr slowly improving. BUN stable -give ivf and if does not improve or if becomes volume overloaded then initiate HD -monitor uop, chemistries -has a groin dialysisaccess if needed -start a phos binder when eating 2. met acidosis from JUAN - improved to bicarb of 19 3. anemia - hgb 7.9- for EGD -epo 4. a fib -controlled hr 5. Calculus of gallbladder with cholecystitis without biliary obstruction: Recent admission for acute cholecystitis, cholecystostomy tube in place 6. monitor wbc -improving 7. high inr reversed-back up to 3.7, now down to 2.27 8. hyponatremia from sepsis, juan- na improved to 134 meds reviewed replace vit d seen and examined w/ RN- telehealth visit Status: Acute Plan see above Attestations Medical Necessity Statement*: juan, anemia Time Spent in Patient Care: 16 - 35 minutes (>than 50% of time spent in counselling and/or direct pt care on unit). Coding Level of Care Code Acute Funeral Pre Need Consultant for [facility] Fwd Diagnoses Acute kidney injury superimposed on chronic kidney disease N17.9; N18.9
[2021-10-31] MEDS: pantoprazole 40 mg SDV IVP ×2 (09:05→20:54)
[2021-10-31 09:06] LABS: INR 1.44 (0.8-1.2)
[2021-10-31] MEDS: lidocaine 5% Patch 0.5 PATCH TOPICAL (09:10)
--- NOTE | 2021-10-31 09:10 | PM.PN ---
Subjective Subjective: Doing better. Denied N/V. Slept well last night. Denied abd pain, CP, SOIB. 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 Urinary Catheter Management: Pool: Cath Placed During This Visit: yes Reason for Continuing Indwelling Catheter: Accurate Measurement of Urinary Output in Critically Ill Patients Urinary Catheter Date of Insertion: 10/27/21 Urinary Catheter Time of Insertion: 20:00 Data : 10/31/21 03:40 10/31/21 03:40 A&P Assessment and plan (1) Acute kidney injury superimposed on chronic kidney disease: Cr 9.3, Status: Acute (2) Atrial fibrillation: rate controlled Status: Acute Qualifiers: Atrial fibrillation type: paroxysmal Qualified Code(s): I48.0 - Paroxysmal atrial fibrillation (3) Hypertension: stable Status: Chronic Qualifiers: Hypertension type: essential hypertension Qualified Code(s): I10 - Essential (primary) hypertension (4) Hyperkalemia: resolved Status: Acute (5) Metabolic acidosis: due to JUAN Status: Acute (6) Nausea and vomiting: improved Status: Acute Qualifiers: Vomiting type: bilious vomiting Qualified Code(s): R11.14 - Bilious vomiting (7) Anemia due to blood loss, acute: due ti GI bled. H/H stable Status: Acute (8) GI bleed: upper GI bleed Status: Acute Qualifiers: GI bleed type/associated pathology: gastrointestinal hemorrhage with hematemesis Qualified Code(s): K92.0 - Hematemesis (9) Warfarin-induced coagulopathy: improving Status: Acute Plan EGD planned for today Consider HD Continue NPO Protonix IVF Attestations Medical Necessity Statement*: Pt w/GI Bleed, Ac Anemia, JUAN, sepsis, shock needs continued hospitalization? 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
--- NOTE | 2021-10-31 10:58 | ANES.PREANE2 ---
Documented by User: Demarcus Ratliff Jr, WAITER/WAITRESS TOURIST CLASS 10/31/21 11:06 Pre-Anesthetic Assessment Height/Weight: Height 1.63 m Weight 89.811 kg Temp Pulse Resp BP Pulse Ox 97.8 F 95 16 132/107 97 10/31/21 10:42 10/31/21 10:42 10/31/21 10:42 10/31/21 10:42 10/31/21 10:42 Operation Date: 10/28/21 13:00 Proposed Procedures p Dialysis Catheter Insertion(Not Applicable) - Yuval Che MD Operation Date: 10/31/21 11:00 Proposed Procedures p EGD(Not Applicable) - Milton Kerns MD Was Beta Ondina taken within 24 hours: N/A Was Clonidine taken within 24 hours: N/A Last intake: Intake Last Liquid Date 10/30/21 Last Liquid Time 17:00 Last Solid Date 10/27/21 Last Solid Time 08:00 Social No alcohol and No tobacco Exam alert, oriented x 3, clear to auscultation bilaterally and regular rate & rhythm Airway Submandibular: within normal limits Cervical ROM: within normal limits Mallampati: Class II Dentition: full History/ROS No significant history except as noted and No significant complaints Pulmonary None reported CV/HEM Atrial Fibrillation None reported Hepatic None reported GI None reported Metabolic None reported Musc/skel None reported Neuropsych None reported Anesthetic Plan ASA status: 3 Anesthesia: MAC Risk of > 500 ml blood loss (7ml/kg in children): No Medications/Allergies Home Medications Medication Instructions Recorded Confirmed Last Taken Type atorvastatin 20 mg tablet 20 mg PO DAILY tab 01/22/21 10/27/21 Unknown History warfarin 3 mg tablet 3 mg PO DAILY tab 01/22/21 10/27/21 Unknown History lisinopril 20 mg tablet 20 mg PO BID 30 Days #60 tab 10/08/21 10/27/21 Unknown Rx hydrocodone 5 mg-acetaminophen 325 1 tab PO Q6H PRN 10/17/21 10/27/21 Unknown History mg tablet Allergies Allergy/AdvReac Type Severity Reaction Status Date / Time Penicillins Allergy unknown Verified 10/28/21 10:48 Current Medications Generic Name Dose Route Start Last Admin Trade Name Freq PRN Reason Stop Dose Admin Hydrocodone Bitart/Acetaminophen 10 ml 10/29/21 10:30 10/30/21 17:39 Hydrocodone-Apap 7.5-325 Mg/15 Ml Udc PO 10 ml Q4H PRN Administration MODERATE PAIN Amiodarone HCl 400 mg 10/28/21 21:15 10/30/21 21:38 Amiodarone 200 Mg Tablet PO 400 mg Q12H SHER Administration Docusate Sodium 100 mg 10/29/21 10:00 10/31/21 09:02 Docusate Sodium 10 Mg/Ml (5ml) Liq PO Not Given DAILY SHER Norepinephrine Bitartrate 8 mg 508 mls @ 0 mls/hr 10/28/21 01:15 10/29/21 11:30 / Dextrose IV Infused .Q0M SHER Titration Protocol Per Protocol Cefepime HCl 250 mg/ Sodium 50 mls @ 100 mls/hr 10/28/21 21:30 10/30/21 21:38 Chloride IV 100 mls/hr Q24H SHER Administration Dextrose/Sodium Chloride 1,000 mls @ 100 mls/hr 10/31/21 07:00 10/31/21 09:00 Dextrose 5%-Sod Chloride 0.45% IV Not Given .Q10H SHER Lanolin 1 applic 10/28/21 21:49 10/28/21 22:29 Lanolin Oint 7 Gm TOPICAL 1 applic PRN PRN Administration DRYNESS Lidocaine 0.5 patch 10/28/21 21:00 10/31/21 09:10 Lidocaine 5% Patch TOPICAL 0.5 patch [id number] SHER Administration Pantoprazole Sodium 40 mg 10/27/21 20:46 10/31/21 09:05 Pantoprazole 40 Mg Sdv IVP 40 mg Q12H SHER Administration Sucralfate 1 gm 10/30/21 17:00 10/31/21 09:00 Sucralfate 1 Gm/10 Ml Oral Liq Udc PO Not Given AC&BEDTIME SHER PFSH Anesthesia Medical History Atrial fibrillation Chronic anticoagulation With Coumadin, for atrial fibrillation Chronic kidney disease Hypertension Mixed hyperlipidemia Obesity Surgical History Acute calculous cholecystitis Status post cholecystostomy tube placement Family History Grandmother Cancer Mother Cancer Denies family history of Diabetes CAD (coronary artery disease) Clotting disorder Dementia Hyperlipidemia Chronic kidney disease (CKD) Suicide Anesthesia complication Bleeding disorder Lung disease Hypertension Stroke Social History Smoking and tobacco status: never smoked Alcohol intake: never Household members: spouse Marital status: Data Anesthesia : 10/31/21 03:40 10/31/21 03:40 Short CBC 10/29/21 10/29/21 10/30/21 Range/Units 15:30 21:40 03:50 WBC 10.3 H (4.0-10.0) 10^3/uL Hgb 8.2 L 8.2 L 8.2 L (11.5-15.3) g/dL Hct 23.8 L 24.1 L 23.5 L (37.0-47.0) % MCV 92.5 (81-99) fl Plt Count 147 (130-400) 10^3/cmm Neut % (Auto) 76.0 % Neut # (Auto) 7.80 H (1.8-7.7) 10^3/uL 10/31/21 Range/Units 03:40 WBC 8.5 (4.0-10.0) 10^3/uL Hgb 7.9 L (11.5-15.3) g/dL Hct 23.3 L (37.0-47.0) % MCV 91.7 (81-99) fl Plt Count 155 (130-400) 10^3/cmm Neut % (Auto) 68.0 % Neut # (Auto) 5.76 (1.8-7.7) 10^3/uL BMP 10/30/21 10/30/21 10/31/21 03:50 15:09 03:40 Sodium 132 L 132 L 134 L Potassium 4.8 4.3 4.1 Chloride 95 L 95 L 97 L Carbon Dioxide 18 L 19 L 19 L BUN 142 H* 145 H* 145 H* Creatinine 10.0 H* 9.7 H* 9.3 H* Glucose 127 H 128 H 110 Calcium 8.2 L 8.4 L 8.2 L Liver Function 10/30/21 10/30/21 10/31/21 Range/Units 03:50 15:09 03:40 Total Bilirubin 0.5 0.5 0.4 (0.15-1.2) mg/dL AST 13 11 13 (0-32) U/L ALT 8 8 8 (0-33) U/L Alkaline Phosphatase 106 H 107 H 101 (35-105) IU/L Albumin 2.5 L 2.7 L 2.5 L (3.5-5.2) g/dL Coags 10/29/21 10/30/21 10/31/21 15:30 03:50 08:48 PT 34.50 H 25.50 H 17.90 H INR 3.36 H 2.27 H 1.44 H Microbiology 10/28/21 12:19 Urine Culture - Final Urine,Clean Catch 10/27/21 23:09 Urine Culture - Final Urine Catheterized Cardiac Studies: Echocardiogram 10/03/21 Documented by User: Jarrett Lobo DO 10/31/21 11:55 Medications/Allergies Home Medications Medication Instructions Recorded Confirmed Last Taken Type atorvastatin 20 mg tablet 20 mg PO DAILY tab 01/22/21 10/27/21 Unknown History warfarin 3 mg tablet 3 mg PO DAILY tab 01/22/21 10/27/21 Unknown History lisinopril 20 mg tablet 20 mg PO BID 30 Days #60 tab 10/08/21 10/27/21 Unknown Rx hydrocodone 5 mg-acetaminophen 325 1 tab PO Q6H PRN 10/17/21 10/27/21 Unknown History mg tablet Allergies Allergy/AdvReac Type Severity Reaction Status Date / Time Penicillins Allergy unknown Verified 10/28/21 10:48 Additional Medication Information Current Medications Hydrocodone Bitart/Acetaminophen (Hydrocodone-Apap 7.5-325 Mg/15 Ml Udc) 10 ml PO Q4H PRN PRN Reason: MODERATE PAIN Last Admin: 10/30/21 17:39 Dose: 10 ml Documented by: Amiodarone HCl (Amiodarone 200 Mg Tablet) 400 mg PO Q12H SHER Last Admin: 10/30/21 21:38 Dose: 400 mg Documented by: Docusate Sodium (Docusate Sodium 10 Mg/Ml (5ml) Liq) 100 mg PO DAILY [facility] Last Admin: 10/30/21 08:25 Dose: 100 mg Documented by: Norepinephrine Bitartrate 8 mg (/ Dextrose) 508 mls @ 0 mls/hr IV .Q0M [facility]; Protocol Last Titration: 10/29/21 11:30 Dose: Infused Documented by: Cefepime HCl 250 mg/ Sodium (Chloride) 50 mls @ 100 mls/hr IV Q24H [facility] Last Admin: 10/30/21 21:38 Dose: 100 mls/hr Documented by: Dextrose/Sodium Chloride (Dextrose 5%-Sod Chloride 0.45%) 1,000 mls @ 100 mls/hr IV .Q10H [facility] Lanolin (Lanolin Oint 7 Gm) 1 applic TOPICAL PRN PRN PRN Reason: DRYNESS Last Admin: 10/28/21 22:29 Dose: 1 applic Documented by: Lidocaine (Lidocaine 5% Patch) 0.5 patch TOPICAL [id number] [facility] Last Admin: 10/30/21 21:38 Dose: Not Given Documented by: Ondansetron HCl (Ondansetron 2 Mg/Ml Sdv 2 Ml) 4 mg IVP Q8H PRN PRN Reason: vomiting, or N/V if npo Pantoprazole Sodium (Pantoprazole 40 Mg Sdv) 40 mg IVP Q12H [facility] Last Admin: 10/30/21 21:37 Dose: 40 mg Documented by: Sucralfate (Sucralfate 1 Gm/10 Ml Oral Liq Udc) 1 gm PO AC&BEDTIME [facility] Last Admin: 10/30/21 21:38 Dose: 1 gm Documented by: [facility] Anesthesia Medical History Atrial fibrillation Chronic anticoagulation With Coumadin, for atrial fibrillation Chronic kidney disease Hypertension Mixed hyperlipidemia Obesity Surgical History Acute calculous cholecystitis Status post cholecystostomy tube placement Family History Grandmother Cancer Mother Cancer Denies family history of Diabetes CAD (coronary artery disease) Clotting disorder Dementia Hyperlipidemia Chronic kidney disease (CKD) Suicide Anesthesia complication Bleeding disorder Lung disease Hypertension Stroke Social History Smoking and tobacco status: never smoked Alcohol intake: never Household members: spouse Marital status: Data Anesthesia : 10/31/21 03:40 10/31/21 03:40 Cardiac Studies: Echocardiogram 10/03/21
[2021-10-31] MEDS: sodium chloride 0.9% 1,000 ML 30 ML IV ×2 (11:02→14:08)
--- NOTE | 2021-10-31 12:00 | ANE.PACU2 ---
Documented by User: Dickson Arreguin CRNA 10/31/21 12:01 Inpatient post-anesthesia follow up: Airway intact: Yes Vital signs: Temperature 97.8 F Pulse Rate 95 Respiratory Rate 16 Blood Pressure 132/107 Pulse Oximetry 97 Oxygen Delivery Me thod [ Room Air Current Rate & Del claudine] Oxygen Delivery Me thod Room Air Oxygen Flow Rate 3 Fraction of Inspir ed Oxygen Hydration adequate: Yes Nausea and vomiting: No Pain level: 1 Mental status: Baseline
--- NOTE | 2021-10-31 12:05 | PC.CHAP ---
Pastoral Care Encounter/Spiritual Assessment Type of Contact [] Declined handicapper harness racing visit [] Patient/Family/Request visit [] Outpatient visit [] Follow-up visit [] Physician referral [] Code/Alert [x] Routine visit [] Staff referral [] Actively dying [] Patient sleeping [] Family support [] [] Out of room [] Palliative care [] [] Receiving care in room [] Pre-surgical visit [] Trauma [] Long length of stay [x] ICU visit [] Other: Relational/Emotional Strength [] Patient feels connected with others/family/visitors/staff [] Distress [] Loneliness/isolation [] Abandonment Spirituality of Patient [] Person of [place] [] Attends Taoism of their [place] [] Believes in Prayer [] Reads Bible or Uatsdin materials [] There are Spiritual issues to be addressed Insulation Blanket Maker Interventions [x] Prayer [] Active listening [] Non-anxious presence [] Spiritual/emotional support [] Crisis/trauma care [] Spiritual counseling [] Bereavement support [] Provided bereavement packet [] Provided Bible/devotional materials [] Provided toy/stuffed animal, coloring book to patient or family member [] Provided Communion [] Anointing/[place] [] Salvation [x] Completed spiritual assessment [] Other: Impact on Illness or Injury [] Angry [] Fearful [] Anxious [] Often cries [] Exhaustion [] Unable to work [] Unable to attend oriental orthodox [] Unable to walk/stand [] Unable to read [] Unable to drive [] Unable to eat/drink [] Unable to sleep [] Unable to be with family [] Patient intubated [] Other: Summary Time spent with patient
[2021-10-31] MEDS: HYDROcodone-APAP 7.5-325 mg/15 mL UDC 10 ML PO ×2 (12:53→21:45)
--- NOTE | 2021-10-31 13:02 | PC.NURSE ---
Patient placed on bedpan.
[2021-10-31] MEDS: dextrose 5%-sod chloride 0.45% 1,000 ML 100 ML IV (17:55)
[2021-10-31] MEDS: sucralfate 1 gm/10 mL Oral Liq UDC PO ×2 (17:55→20:54)
[2021-10-31] MEDS: amiodarone 200 mg Tablet 400 MG PO (20:54)
[2021-11-01] VITALS (15 sets, daily range): BP systolic 113–155; BP diastolic 64–94; PULSE 72–87; RESP 16; TEMP 36.7; O2SAT 92–96
[2021-11-01] MEDS: dextrose 5%-sod chloride 0.45% 1,000 ML 100 ML IV ×2 (03:15→13:34)
[2021-11-01 03:32] LABS: Basophils # 0.1 10^3/uL (0.0-0.1); Basophils % 0.7 %; Eosinophils # 0.5 10^3/uL (0.0-0.8); Eosinophils % 5.9 %; Hematocrit 24.9 % (37.0-47.0); Hemoglobin 8.2 g/dL (11.5-15.3); Lymphocytes # 1.2 10^3/uL (0.8-4.8); Lymphocytes % 14.4 %; Mean Corpuscular HGB Conc 32.9 g/dL (30.0-36.0); Mean Corpuscular Hemoglobin 30.4 pg (28.0-34.0); Mean Corpuscular Volume 92.2 fl (81-99); Mean Platelet Volume 11.9 fL (7.4-10.4); Monocytes % 11.6 %; Neutrophils # 5.51 10^3/uL (1.8-7.7); Neutrophils % 66.8 %; Nucleated Red Blood Cells % 0 %; Platelet Count 179 10^3/cmm (130-400); Red Cell Distribution Width 14.2 % (12.1-15.1); White Blood Count 8.3 10^3/uL (4.0-10.0)
[2021-11-01 03:58] LABS: Alanine Aminotransferase 8 U/L (0-33); Albumin Level 2.5 g/dL (3.5-5.2); Alkaline Phosphatase 202 IU/L (35-105); Anion Gap 20.9 (5-19); Aspartate Amino Transferase 12 U/L (0-32); Calcium 7.9 mg/dL (8.5-10.5); Carbon Dioxide 19 mmol/L (22-29); Chloride 97 mmol/L (98-107); Globulin 3.2 g/dL (1.3-4.6); Glucose 173 mg/dL (65-115); Magnesium 1.5 mg/dL (1.7-2.3); Phosphorus 5.1 mg/dL (2.5-4.5); Potassium 3.9 mmol/L (3.5-5.1); Sodium 133 mmol/L (136-145); Total Bilirubin 0.3 mg/dL (0.15-1.2); Total Protein 5.7 g/dL (6.6-8.7)
[2021-11-01 04:10] LABS: Blood Urea Nitrogen 135 mg/dL (8-23); Osmolality Calculated 324 mOsm/kg (285-295)
[2021-11-01] MEDS: pantoprazole 40 mg SDV IVP (07:43)
[2021-11-01] MEDS: sucralfate 1 gm/10 mL Oral Liq UDC PO ×3 (07:43→22:12)
--- NOTE | 2021-11-01 08:15 | PM.PN ---
Subjective Subjective: feels better. no n/v/f/c/linaers/d/sob. on cl liquid diet. s/p EGD yesterday - gastritis Medications: Reviewed: Yes Medication Review Details: Current Medications Hydrocodone Bitart/Acetaminophen (Hydrocodone-Apap 7.5-325 Mg/15 Ml Udc) 10 ml PO Q4H PRN PRN Reason: MODERATE PAIN Last Admin: 10/31/21 21:45 Dose: 10 ml Documented by: Amiodarone HCl (Amiodarone 200 Mg Tablet) 400 mg PO Q12H [facility] Last Admin: 10/31/21 20:54 Dose: 400 mg Documented by: Docusate Sodium (Docusate Sodium 10 Mg/Ml (5ml) Liq) 100 mg PO DAILY [facility] Last Admin: 10/31/21 09:02 Dose: Not Given Documented by: Norepinephrine Bitartrate 8 mg (/ Dextrose) 508 mls @ 0 mls/hr IV .Q0M [facility]; Protocol Last Titration: 10/29/21 11:30 Dose: Infused Documented by: Cefepime HCl 250 mg/ Sodium (Chloride) 50 mls @ 100 mls/hr IV Q24H [facility] Last Infusion: 10/31/21 21:37 Dose: Infused Documented by: Dextrose/Sodium Chloride (Dextrose 5%-Sod Chloride 0.45%) 1,000 mls @ 100 mls/hr IV .Q10H [facility] Last Admin: 11/01/21 03:15 Dose: 100 mls/hr Documented by: Sodium Chloride (Sodium Chloride 0.9%) 1,000 mls @ 30 mls/hr IV .Q24H [facility] Last Admin: 10/31/21 14:08 Dose: 30 mls/hr Documented by: Lanolin (Lanolin Oint 7 Gm) 1 applic TOPICAL PRN PRN PRN Reason: DRYNESS Last Admin: 10/28/21 22:29 Dose: 1 applic Documented by: Lidocaine (Lidocaine 5% Patch) 0.5 patch TOPICAL [id number] [facility] Last Admin: 10/31/21 20:55 Dose: Not Given Documented by: Ondansetron HCl (Ondansetron 2 Mg/Ml Sdv 2 Ml) 4 mg IVP Q8H PRN PRN Reason: vomiting, or N/V if npo Pantoprazole Sodium (Pantoprazole 40 Mg Sdv) 40 mg IVP Q12H [facility]ER Last Admin: 11/01/21 07:43 Dose: 40 mg Documented by: Sucralfate (Sucralfate 1 Gm/10 Ml Oral Liq Udc) 1 gm PO AC&BEDTIME [facility]ER Last Admin: 11/01/21 07:43 Dose: 1 gm Documented by: Vitals/I&O/Wt Last Vital Signs Temp 98.0 F 11/01/21 07:45 Pulse 77 11/01/21 07:45 Resp 16 11/01/21 07:45 BP 120/65 11/01/21 07:45 Pulse Ox 94 11/01/21 07:45 10/31/21 11/01/21 11/01/21 22:59 06:59 14:59 Intake Total 50 / 150 933.333 / 1083.333 Output Total 0 / 351 780 / 1131 700 / 700 Balance 50 / -201 153.333 / -47.667 -700 / -700 Weight last 48 hrs Weight 95.424 kg Physical Exam Narrative: pressors off obese, comfortable in bed, NARD heent- nc/at, eomi lungs- clear b/l heart -rrr abd- soft, less tender, nd, + bs, cholecystostomy tube ext minimal - no leg edema neuro- a,a, o x 3 Urinary Catheter Management: Pool: Cath Placed During This Visit: yes Reason for Continuing Indwelling Catheter: Accurate Measurement of Urinary Output in Critically Ill Patients Urinary Catheter Date of Insertion: 10/27/21 Urinary Catheter Time of Insertion: 20:00 Data : 11/01/21 03:10 11/01/21 03:10 A&P Assessment and plan (1) Acute kidney injury superimposed on chronic kidney disease: 76 yr old female recent admitted 10/02-10/08 for acute cholecystitis, at which time a cholecystotomy tube was placed. underlying a fib, htn. Pt was admitted on 10/27/21 in septic shock, anemia, JUAN, met acidosis, hyperkalemia, and hyponatremia. 1. JUAN - ATN from septic shock and bleed. then received iodine contrast on 10-27-21. -UOP and MS improved -cr improving. BUN stable -give ivf and monitor uop, chemistries -if cr continues to improve, then remove dialysis access -start a phos binder when eating -replace mag 2. met acidosis from JUNA - improved to bicarb of 19 3. anemia - hgb-8.2- gastritis on EGD -epo 4. a fib -controlled hr 5. Calculus of gallbladder with cholecystitis without biliary obstruction: Recent admission for acute cholecystitis, cholecystostomy tube in place 6. monitor wbc -improving 7. high inr reversed-back up to 3.7, now down to 1.44 8. hyponatremia from sepsis, juan- na improved to 134 9. DM control meds reviewed replace vit d seen and examined w/ RN- telehealth visit Status: Acute Plan see above Attestations Medical Necessity Statement*: improving juan Time Spent in Patient Care: 16 - 35 minutes (>than 50% of time spent in counselling and/or direct pt care on unit). Coding Level of Care Code Acute Architecture Manager for Chg Fwd Diagnoses Acute kidney injury superimposed on chronic kidney disease N17.9; N18.9
[2021-11-01] MEDS: docusate sodium 10 mg/mL (5ml) Liq 100 MG PO (09:28)
[2021-11-01] MEDS: amiodarone 200 mg Tablet 400 MG PO (09:28)
[2021-11-01] MEDS: lidocaine 5% Patch 0.5 PATCH TOPICAL (09:32)
--- NOTE | 2021-11-01 10:52 | PC.SOCIAL ---
IMM Update Pg. 2 of IMM Updated, initialed, dated, and timed. Copy provided to patient at bedside.
[2021-11-01] MEDS: ondansetron 2 mg/ML SDV 2 mL 4 MG IVP (13:45)
--- NOTE | 2021-11-01 17:29 | P.PN_ITS ---
Subjective Medications: Medication Review Details: Pt is doing better Had EGD yesterday showing gastritis, duodenitis, reflux esophagitis, HH, GERD. Today tolerating clear liquid diet Vitals/I&O/Wt Last Vital Signs Temp 98.0 F 11/01/21 16:00 Pulse 80 11/01/21 16:00 Resp 16 11/01/21 16:00 BP 120/65 11/01/21 16:00 Pulse Ox 94 11/01/21 16:00 11/01/21 11/01/21 11/01/21 06:59 14:59 22:59 Intake Total 933.333 / 1153.655 0104 / 1025 Output Total 780 / 1131 700 / 700 Balance 153.333 / -47.667 325 / 325 Weight last 48 hrs Weight 95.424 kg Physical Exam Narrative: NAD HEENT: EOMI, Thr (-), Conjunc pale CVS S1S2, RRR, Mur (-) Resp: CTA Abd soft, NT, BS+ Edema + DATA ANALYST A&Ox3 Urinary Catheter Management: Pool: Cath Placed During This Visit: yes Reason for Continuing Indwelling Catheter: Accurate Measurement of Urinary Output in Critically Ill Patients Urinary Catheter Date of Insertion: 10/27/21 Urinary Catheter Time of Insertion: 20:00 Data : 11/01/21 03:10 11/01/21 03:10 Micro: Microbiology 10/27/21 16:00 Blood Culture - Final Blood NO GROWTH AFTER 5 DAYS 10/27/21 14:45 Blood Culture - Final Blood NO GROWTH AFTER 5 DAYS A&P Assessment and plan (1) Acute kidney injury superimposed on chronic kidney disease: Slowly trending down Se Cr Status: Acute (2) Atrial fibrillation: rate controlled Status: Acute Qualifiers: Atrial fibrillation type: paroxysmal Qualified Code(s): I48.0 - Paroxysmal atrial fibrillation (3) Anemia due to blood loss, acute: H/H stable Status: Acute (4) GI bleed: no further bleed Status: Acute Qualifiers: GI bleed type/associated pathology: gastrointestinal hemorrhage with hematemesis Qualified Code(s): K92.0 - Hematemesis (5) Gastritis and duodenitis: noted by EGD Status: Acute (6) Reflux esophagitis: noted by EGD Status: Acute Plan Continue PPI Hydrate Advance diet Transfer pt to [facility] Attestations Medical Necessity Statement*: Pt w/GI Bleed, Ac Anemia, JUAN, sepsis, shock needs continued hospitalization? for further care and management Time Spent in Patient Care: 40 min Coding Level of Care Code Acute Motors And Controls Tester for Chg Fwd Diagnoses Acute kidney injury superimposed on chronic kidney disease N17.9; N18.9 Atrial fibrillation I48.0 Atrial fibrillation type: paroxysmal Anemia due to blood loss, acute D62 GI bleed K92.0 GI bleed type/associated pathology: gastrointestinal hemorrhage with hematemesis Gastritis and duodenitis K29.90 Reflux esophagitis K21.00
[2021-11-01] MEDS: pantoprazole DR 40 mg Tablet PO (17:53)
[2021-11-02] VITALS (21 sets, daily range): BP systolic 114–161; BP diastolic 65–98; PULSE 70–93; RESP 18; TEMP 36.5–36.8; O2SAT 93–97
[2021-11-02] MEDS: HYDROcodone-APAP 7.5-325 mg/15 mL UDC 10 ML PO (04:21)
[2021-11-02 04:52] LABS: Basophils # 0.1 10^3/uL (0.0-0.1); Basophils % 0.6 %; Eosinophils # 0.3 10^3/uL (0.0-0.8); Eosinophils % 3.4 %; Hematocrit 26.7 % (37.0-47.0); Lymphocytes # 1.2 10^3/uL (0.8-4.8); Lymphocytes % 14.1 %; Mean Corpuscular HGB Conc 33.7 g/dL (30.0-36.0); Mean Corpuscular Hemoglobin 30.8 pg (28.0-34.0); Mean Corpuscular Volume 91.4 fl (81-99); Mean Platelet Volume 11.6 fL (7.4-10.4); Monocytes # 0.9 10^3/uL (0.2-0.9); Monocytes % 10.5 %; Neutrophils # 5.96 10^3/uL (1.8-7.7); Neutrophils % 70.6 %; Nucleated Red Blood Cells % 0 %; Platelet Count 203 10^3/cmm (130-400); Red Blood Count 2.92 10^6/uL (4.1-5.3); Red Cell Distribution Width 13.8 % (12.1-15.1); White Blood Count 8.5 10^3/uL (4.0-10.0)
[2021-11-02 05:20] LABS: Alanine Aminotransferase 8 U/L (0-33); Albumin Level 2.7 g/dL (3.5-5.2); Alkaline Phosphatase 99 IU/L (35-105); Anion Gap 20.9 (5-19); Aspartate Amino Transferase 11 U/L (0-32); Calcium 8.3 mg/dL (8.5-10.5); Carbon Dioxide 19 mmol/L (22-29); Chloride 100 mmol/L (98-107); Globulin 3.2 g/dL (1.3-4.6); Glucose 113 mg/dL (65-115); Magnesium 1.5 mg/dL (1.7-2.3); Phosphorus 4.5 mg/dL (2.5-4.5); Potassium 3.9 mmol/L (3.5-5.1); Sodium 136 mmol/L (136-145); Total Bilirubin 0.4 mg/dL (0.15-1.2); Total Protein 5.9 g/dL (6.6-8.7)
[2021-11-02 05:29] LABS: Blood Urea Nitrogen 115 mg/dL (8-23); Osmolality Calculated 319 mOsm/kg (285-295)
[2021-11-02] MEDS: sodium chloride 0.9% 1,000 ML 50 ML IV ×2 (06:28→21:41)
[2021-11-02] MEDS: sucralfate 1 gm/10 mL Oral Liq UDC PO ×3 (06:28→21:42)
[2021-11-02] MEDS: lidocaine 5% Patch 0.5 PATCH TOPICAL (09:04)
[2021-11-02] MEDS: docusate sodium 10 mg/mL (5ml) Liq 100 MG PO (09:04)
[2021-11-02] MEDS: pantoprazole DR 40 mg Tablet PO (09:04)
[2021-11-02] MEDS: ondansetron 2 mg/ML SDV 2 mL 4 MG IVP (09:17)
--- NOTE | 2021-11-02 09:57 | USCV_ITS ---
Camryn De Age: 76 Gender: F : 1945 Exam Date: 11/02/2021 16:00 Ordering Phys: Leslie Padron MD Technologist: Len Kingsley Exam Location: [facility] [place] Indication: leg pain PROCEDURES: The venous duplex Doppler examination of both lower extremities was performed in the standard fashion. The following venous structures were evaluated: common femoral vein, profunda vein, proximal portion of the greater saphenous vein, superficial femoral vein, and the popliteal vein. In addition, the posterior tibial and peroneal trunk were evaluated. FINDINGS: Normal 2-D Doppler and augmentation and compressibility throughout the lower extremity venous structures. Additional imaging through the proximal calf veins also reveals no thrombus. Limited evaluation of the greater saphenous vein is patent with no thrombus.. The veins were found to be easily compressible with spontaneous blood flow. Non pulsatile flow pattern. CONCLUSIONS No evidence of DVT in the above-mentioned identifiable veins. Dr Gordy Oseguera MD [facility] (Electronically Signed) Final Date: 02 November 2021 17:20 S
--- NOTE | 2021-11-02 10:48 | PM.PN ---
Subjective Subjective: Ms. De remained stable today with no acute issues. Blood cultures continuing to return negative. Labs reviewed, serum creatinine continues to improve, urine output remains robust. Minimal global extremity edema. Minimal pain. Eating and drinking minimal. Remains on gentle IV fluid. Otherwise no acute issues overnight Vitals/I&O/Wt Last Vital Signs Temp 98.0 F 11/02/21 08:00 Pulse 87 11/02/21 09:00 Resp 16 11/01/21 16:00 BP 121/65 11/02/21 09:00 Pulse Ox 96 11/02/21 09:00 11/01/21 11/02/21 11/02/21 22:59 06:59 14:59 Intake Total 1100 / 2125 1000 / 3125 150 / 150 Output Total 250 / 950 970 / 1920 75 / 75 Balance 850 / 1175 30 / 1205 75 / 75 Weight last 48 hrs Weight 91.399 kg Weight 95.424 kg Physical Exam Narrative: Constitutional: Awake, comfortable HEENT: Wet mucosa, no jvp, non icteric Lungs: Bilaterally clear without discernible wheeze, rales in all lung zones CVS: S1 S2, no murmurs Abdo: Soft, BS ok Ext 4: Minimal edema, peripheral perfusion with no cyanosis Neurological: Grossly non-focal Urinary Catheter Management: Pool: Cath Placed During This Visit: yes Reason for Continuing Indwelling Catheter: Accurate Measurement of Urinary Output in Critically Ill Patients Urinary Catheter Date of Insertion: 10/27/21 Urinary Catheter Time of Insertion: 20:00 Data : 11/02/21 03:30 11/02/21 03:30 Micro: Microbiology 10/27/21 16:00 Blood Culture - Final Blood NO GROWTH AFTER 5 DAYS 10/27/21 14:45 Blood Culture - Final Blood NO GROWTH AFTER 5 DAYS A&P Assessment and plan (1) Acute kidney injury superimposed on chronic kidney disease: 1. Acute kidney injury Renal function continues to improve very nicely without requiring for hemodialysis. Etiology likely multifactorial to include infection/sepsis mediated ATN, possible contrast injury No indication for dialysis, making good recovery, hemodialysis catheter can be removed Continue gentle IV hydration pending good oral intake. Ins and outs Dose medication for GFR less than 15 2. Chemistry Slight acidosis otherwise chemistry looks well-balanced. 3. Acute cholecystitis Status post a cholecystotomy tube, management per GI status post EGD 4. Hemodynamics Nicely stable Thank you for consultation Kendall Cardenas MD Nephrology [phone] Patient seen and examined via telemedicine, with the assistance of the bedside RN > 25 min spent in evaluation and mgmt of patient Status: Acute Attestations Medical Necessity Statement*: JUAN Coding Level of Care Code Acute Communications Programmer for Chg Fwd Diagnoses Acute kidney injury superimposed on chronic kidney disease N17.9; N18.9
--- NOTE | 2021-11-02 11:55 | PC.CHAP ---
Pastoral Care Encounter/Spiritual Assessment Type of Contact [] Declined personal fitness manager visit [] Patient/Family/Request visit [] Outpatient visit [] Follow-up visit [] Physician referral [] Code/Alert [x] Routine visit [] Staff referral [] Actively dying [] Patient sleeping [x] Family support [] [] Out of room [] Palliative care [] [] Receiving care in room [] Pre-surgical visit [] Trauma [] Long length of stay [x] ICU visit [] Other: Relational/Emotional Strength [] Patient feels connected with others/family/visitors/staff [] Distress [] Loneliness/isolation [] Abandonment Spirituality of Patient [] Person of [place] [] Attends Lutheran of their [place] [] Believes in Prayer [] Reads Bible or Jain materials [] There are Spiritual issues to be addressed Montessori Toddler Teacher Interventions [x] Prayer [] Active listening [] Non-anxious presence [] Spiritual/emotional support [] Crisis/trauma care [] Spiritual counseling [] Bereavement support [] Provided bereavement packet [] Provided Bible/devotional materials [] Provided toy/stuffed animal, coloring book to patient or family member [] Provided Communion [] Anointing/[place] [] Salvation [x] Completed spiritual assessment [] Other: Impact on Illness or Injury [] Angry [] Fearful [] Anxious [] Often cries [] Exhaustion [] Unable to work [] Unable to attend zoroastrianism [] Unable to walk/stand [] Unable to read [] Unable to drive [] Unable to eat/drink [] Unable to sleep [] Unable to be with family [] Patient intubated [] Other: Summary Time spent with patient
--- NOTE | 2021-11-02 13:35 | P.PN_ITS ---
Subjective Subjective: Pt continues to do better. Has slight nausea. Tolerating diet Feels weak. Denied CP, SOB. C/o leg pain karel lt Vitals/I&O/Wt Last Vital Signs Temp 98.0 F 11/02/21 08:00 Pulse 75 11/02/21 12:00 Resp 16 11/01/21 16:00 BP 132/76 11/02/21 12:00 Pulse Ox 97 11/02/21 12:00 11/01/21 11/02/21 11/02/21 22:59 06:59 14:59 Intake Total 1100 / 2125 1000 / 3125 210 / 210 Output Total 250 / 950 970 / 1920 75 / 75 Balance 850 / 1175 30 / 1205 135 / 135 Weight last 48 hrs Weight 91.399 kg Weight 95.424 kg Physical Exam Narrative: NAD HEENT: EOMI, Thr (-), Conjunc pale CVS S1S2, RRR, Mur (-) Resp: CTA Abd soft, NT, BS+ Edema + NURSING CARE PARTNER A&Ox3 Skeletal: Lt calf tender, no swelling/warmth Urinary Catheter Management: Pool: Cath Placed During This Visit: yes Reason for Continuing Indwelling Catheter: Accurate Measurement of Urinary Output in Critically Ill Patients Urinary Catheter Date of Insertion: 10/27/21 Urinary Catheter Time of Insertion: 20:00 Data : 11/02/21 03:30 11/02/21 03:30 Micro: Microbiology 10/27/21 16:00 Blood Culture - Final Blood NO GROWTH AFTER 5 DAYS 10/27/21 14:45 Blood Culture - Final Blood NO GROWTH AFTER 5 DAYS A&P Assessment and plan (1) Reflux esophagitis: on PPI stable Status: Acute (2) Gastritis and duodenitis: on PPI, stable Status: Acute (3) Atrial fibrillation: rate controlled Status: Acute Qualifiers: Atrial fibrillation type: paroxysmal Qualified Code(s): I48.0 - Paroxysmal atrial fibrillation (4) Hypertension: stable Status: Chronic Qualifiers: Hypertension type: essential hypertension Qualified Code(s): I10 - Essential (primary) hypertension (5) Acute kidney injury superimposed on chronic kidney disease: gradually improving but Se Cr still significantly high Status: Acute (6) Hyperkalemia: resolved Status: Acute (7) Anemia due to blood loss, acute: H/H low but stable Status: Acute (8) GI bleed: ni further bleed Status: Acute Qualifiers: GI bleed type/associated pathology: gastrointestinal hemorrhage with hematemesis Qualified Code(s): K92.0 - Hematemesis (9) Warfarin-induced coagulopathy: improved Status: Acute (10) Leg pain, bilateral: R/O DVT. Off ACS. 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
--- NOTE | 2021-11-02 15:45 | P.PN_ITS ---
Subjective Subjective: Patient overall looks better, resting in bed. No evidence of hematemesis and a current hemoglobin of 9, trending down of serum creatinine to 5.3 today. Tolerating p.o. intake yet slowly Medications: Reviewed: Yes Vitals/I&O/Wt Last Vital Signs Temp 98.0 F 11/02/21 08:00 Pulse 72 11/02/21 13:58 Resp 16 11/01/21 16:00 BP 132/76 11/02/21 12:00 Pulse Ox 97 11/02/21 12:00 11/02/21 11/02/21 11/02/21 06:59 14:59 22:59 Intake Total 1000 / 3125 210 / 210 Output Total 970 / 1920 75 / 75 Balance 30 / 1205 135 / 135 Weight last 48 hrs Weight 201 lb 8 oz Weight 210 lb 6 oz Physical Exam Narrative: Patient is conscious alert oriented X3 No apparent distress BMI 34 Head and neck examination PERRLA no masses no cervical lymphadenopathy no jaundice Right IJ central line in place Abdomen nontender nondistended soft no organomegaly guarding or rigidity/no signs of peritonitis Cholecystostomy tube in place without complication Urinary Catheter Management: Pool: Cath Placed During This Visit: yes Reason for Continuing Indwelling Catheter: Accurate Measurement of Urinary Output in Critically Ill Patients Urinary Catheter Date of Insertion: 10/27/21 Urinary Catheter Time of Insertion: 20:00 Data : 11/02/21 03:30 11/02/21 03:30 Micro: Microbiology 10/27/21 16:00 Blood Culture - Final Blood NO GROWTH AFTER 5 DAYS 10/27/21 14:45 Blood Culture - Final Blood NO GROWTH AFTER 5 DAYS A&P Assessment and plan (1) Gastritis and duodenitis: Raise the head of the bed 4-6 inches Frequent small meals through the day Avoid smoking or Chewing Tobacco Avoid excess coffee, tea, and other caffeinated beverages Avoid garments that fit tightly through the abdomen Avoid eating before going to sleep Avoid nonsteroidal anti-inflammatory drugs (NSAIDs) when possible Anti-reflux diet Anti-reflux medications as prescribed Emphasis on weight management Encourage to have the patient receive protein shakes 3-4 times a day(renal friendly) Recommend to have the patient follow-up at the office as scheduled to discuss elective laparoscopic cholecystectomy down the road once medically appropriate Status: Acute (2) Cholecystostomy care: Please flush cholecystostomy tube at least once a day using 5 to 10 mL of normal saline to maintain patency. Assurance and education All questions have been answered and all concerns have been addressed to patient's satisfaction. 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
--- NOTE | 2021-11-02 18:05 | PC.NURSE ---
Shift Note Frequent safety and comfort rounds continue. Orders and/or nursing care completed as indicated. Patient monitored for response to intervention and treatment(s). Education provided r/t gallbladder drain, upcoming surgery, medications and med surg orders. Pt verbalizes understanding. VSS. Continues to refuse her meals. Drinks a small amount of liquid through the day. Gallbladder drain in place draining freely to BSD. Pool remains in place with adequate UOP. No other issues noted. Will continue to monitor.
--- NOTE | 2021-11-02 18:19 | PC.NURSE ---
Report called to Evelia. Pt transferred to room 269. Tolerated well.
[2021-11-03] VITALS (10 sets, daily range): BP systolic 111–149; BP diastolic 74–89; PULSE 68–90; RESP 16–20; TEMP 36.4–36.9; O2SAT 9–98
[2021-11-03] MEDS: HYDROcodone-APAP 7.5-325 mg/15 mL UDC 10 ML PO (01:22)
[2021-11-03 05:33] LABS: Magnesium 1.4 mg/dL (1.7-2.3)
[2021-11-03] MEDS: sucralfate 1 gm/10 mL Oral Liq UDC PO (06:03)
[2021-11-03] MEDS: pantoprazole DR 40 mg Tablet PO (08:19)
[2021-11-03] MEDS: ondansetron 2 mg/ML SDV 2 mL 4 MG IVP ×2 (08:26→16:47)
[2021-11-03 08:52] LABS: Albumin Level 2.6 g/dL (3.5-5.2); Calcium 8.3 mg/dL (8.5-10.5); Carbon Dioxide 17 mmol/L (22-29); Chloride 106 mmol/L (98-107); Glucose 104 mg/dL (65-115); Phosphorus 4.4 mg/dL (2.5-4.5); Sodium 138 mmol/L (136-145)
[2021-11-03 09:06] LABS: Blood Urea Nitrogen 101 mg/dL (8-23)
--- NOTE | 2021-11-03 09:07 | PC.NURSE ---
Lab called with critical lab result for patient. BUN is 101 which is trending down from 115. Spoke Dr. Martínez and he has been made aware. He understands that her BUN is trending down.
--- NOTE | 2021-11-03 09:29 | PM.PN ---
Subjective Subjective: Ms. fritz remains comfortable today with no acute complaints. Hemodialysis catheter is now removed, robust urine output she denies any pain or discomfort. Labs reviewed, creatinine continues to downtrend, bicarb levels are low, magnesium level is low, corrected calcium looks good. Medications: Reviewed: Yes Medication Review Details: Pt is doing better Had EGD yesterday showing gastritis, duodenitis, reflux esophagitis, HH, GERD. Today tolerating clear liquid diet Vitals/I&O/Wt Last Vital Signs Temp 97.5 F L 11/03/21 08:59 Pulse 79 11/03/21 08:59 Resp 16 11/03/21 08:59 BP 129/82 11/03/21 08:59 Pulse Ox 98 11/03/21 08:59 11/02/21 11/03/21 11/03/21 22:59 06:59 14:59 Intake Total 870.833 / 1080.833 340 / 1420.833 500 / 500 Output Total 815 / 890 675 / 1565 Balance 55.833 / 190.833 -335 / -144.167 500 / 500 Weight last 48 hrs Weight 87.815 kg Weight 91.399 kg Physical Exam Narrative: Constitutional: Awake, comfortable HEENT: Wet mucosa, no jvp, non icteric Lungs: Bilaterally clear without discernible wheeze, rales in all lung zones CVS: S1 S2, no murmurs Abdo: Soft, BS ok Ext 4: Minimal edema, peripheral perfusion with no cyanosis Neurological: Grossly non-focal Urinary Catheter Management: Pool: Cath Placed During This Visit: yes Reason for Continuing Indwelling Catheter: Accurate Measurement of Urinary Output in Critically Ill Patients Urinary Catheter Date of Insertion: 10/27/21 Urinary Catheter Time of Insertion: 20:00 Data : 11/02/21 03:30 11/03/21 04:48 A&P Assessment and plan (1) Acute kidney injury superimposed on chronic kidney disease: 1. Acute kidney injury Renal function continues to improve very nicely without requiring for hemodialysis. Etiology likely multifactorial to include infection/sepsis mediated ATN, possible contrast injury No indication for dialysis, making good recovery, hemodialysis catheter can be removed DC ivf and encourage oral intake Ins and outs Dose medication for GFR less than 15 2. Chemistry Will replace magnesium, no need to alkalinize, continue to monitor. Bicarb will improve as renal function continues to improve. 3. Acute cholecystitis Status post a cholecystotomy tube, management per GI status post EGD 4. 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
--- NOTE | 2021-11-03 09:32 | PC.SOCIAL ---
IMM Updated Updated pt on IMM. No questions voiced. Provided pt a copy. Initialed, dated, & timed copy in chart.
--- NOTE | 2021-11-03 12:11 | PM.PN ---
Subjective Subjective: Patient was seen and examined this morning, was complaining of nausea as well as vomiting, likely uremic. Deny any other complain. Her Vitals and labs have been reviewed. Medications: Reviewed: Yes Medication Review Details: Generic Name Dose Route Start Last Admin Trade Name Freq PRN Reason Stop Dose Admin Hydrocodone Bitart /Acetaminophen 10 ml 10/29/21 10:30 11/03/21 01:22 Hydrocodone-Apap 7.5-325 Mg/15 Ml Udc PO 10 ml Q4H PRN Administration MODERATE PAIN Docusate Sodium 100 mg 10/29/21 10:00 11/03/21 08:31 Docusate Sodium 10 Mg/Ml (5ml) Liq PO Not Given DAILY SHER Cefepime HCl 250 m g/ Sodium 50 mls @ 100 mls/ hr 10/28/21 21:30 11/02/21 22:35 Chloride IV Infused Q24H SHER Infusion Lanolin 1 applic 10/28/21 21:49 10/28/21 22:29 Lanolin Oint 7 G m TOPICAL 1 applic PRN PRN Administration DRYNESS Lidocaine 0.5 patch 10/28/21 21:00 11/03/21 10:33 Lidocaine 5% Pat ch TOPICAL Not Given [id number] SHER Ondansetron HCl 4 mg 10/27/21 19:15 11/03/21 16:47 Ondansetron 2 Mg /Ml Sdv 2 Ml IVP 4 mg Q8H PRN Administration vomiting, or N/V if npo Pantoprazole Sodiu m 40 mg 11/03/21 09:00 11/03/21 08:[address] 40 Mg Tablet PO 40 mg DAILY SHER Administration Sucralfate 1 gm 10/31/21 17:00 11/03/21 16:47 Sucralfate 1 Gm/ 10 Ml Oral Liq Udc PO Not Given AC&BEDTIME SHER Vitals/I&O/Wt Last Vital Signs Temp 97.5 F L 11/03/21 08:59 Pulse 79 11/03/21 08:59 Resp 16 11/03/21 08:59 BP 129/82 11/03/21 08:59 Pulse Ox 98 11/03/21 08:59 11/02/21 11/03/21 11/03/21 22:59 06:59 14:59 Intake Total 870.833 / 1080.833 340 / 1420.833 500 / 500 Output Total 815 / 890 675 / 1565 400 / 400 Balance 55.833 / 190.833 -335 / -144.167 100 / 100 Weight last 48 hrs Weight 87.815 kg Weight 91.399 kg Physical Exam Const: COMMON NORMALS: patient oriented x3 HENMT: COMMON NORMALS: normocephalic and atraumatic HEAD & SCALP: normocephalic and atraumatic Chest: COMMONS NORMALS: normal inspection of the chest and normal palpation of entire chest wall CHEST: Yes Symmetrical chest wall rise Resp: COMMON NORMALS: normal respiratory effort, No retractions, No use of accessory muscles and clear to auscultation bilaterally EFFORT & INSPECTION: Yes symmetric chest movement AUSCULTATION: clear to auscultation bilaterally Cardio: COMMON NORMALS: regular rate, regular rhythm, S1 normal heart sound present, S2 normal heart sound present, No gallops present (Cardio), No murmurs present (Cardio), No rub (Cardio) and Peripheral pulses 2+ throughout RATE: regular rate RHYTHM: regular rhythm HEART SOUNDS: S1 normal heart sound present and S2 normal heart sound present PERIPHERAL PULSES: Peripheral pulses 2+ throughout GI: COMMON NORMALS: Normal to inspection, nondistended, normoactive bowel sounds present, Soft to palpation, non-tender, No hepatosplenomegaly present and no masses AUSCULTATION: Yes normoactive bowel sounds PALPATION: Yes Soft to palpation and Yes No hepatosplenomegaly present RECTAL EXAM: deferred Extremity: COMMON NORMALS: no clubbing, cyanosis or edema and no pedal edema Neuro: COMMON NORMALS: patient oriented x3 Urinary Catheter Management: Pool: Cath Placed During This Visit: yes Reason for Continuing Indwelling Catheter: Accurate Measurement of Urinary Output in Critically Ill Patients Urinary Catheter Date of Insertion: 10/27/21 Urinary Catheter Time of Insertion: 20:00 Data : 11/02/21 03:30 11/03/21 04:48 A&P Assessment and plan (1) Reflux esophagitis: on PPI stable Status: Acute (2) Gastritis and duodenitis: on PPI, stable Status: Acute (3) Atrial fibrillation: rate controlled Status: Acute Qualifiers: Atrial fibrillation type: paroxysmal Qualified Code(s): I48.0 - Paroxysmal atrial fibrillation (4) Hypertension: stable Status: Chronic Qualifiers: Hypertension type: essential hypertension Qualified Code(s): I10 - Essential (primary) hypertension (5) Acute kidney injury superimposed on chronic kidney disease: gradually improving but Se Cr still significantly high Status: Acute (6) Hyperkalemia: resolved Status: Acute (7) Anemia due to blood loss, acute: H/H low but stable Status: Acute (8) GI bleed: ni further bleed Status: Acute Qualifiers: GI bleed type/associated pathology: gastrointestinal hemorrhage with hematemesis Qualified Code(s): K92.0 - Hematemesis (9) Warfarin-induced coagulopathy: improved Status: Acute (10) Leg pain, bilateral: R/O DVT. Off ACS. Status: Acute Attestations Medical Necessity Statement*: Patient needs to be in hospital for the management of JUAN. Coding Level of Care Code Acute Steam Room Attendant for g Fwd Exam Detailed Diagnoses Reflux esophagitis K21.00 Gastritis and duodenitis K29.90 Atrial fibrillation I48.0 Atrial fibrillation type: paroxysmal Hypertension I10 Hypertension type: essential hypertension Acute kidney injury superimposed on chronic kidney disease N17.9; N18.9 Hyperkalemia E87.5 Anemia due to blood loss, acute D62 GI bleed K92.0 GI bleed type/associated pathology: gastrointestinal hemorrhage with hematemesis Warfarin-induced coagulopathy D68.32; T45.515A Leg pain, bilateral M79.604; M79.605
--- NOTE | 2021-11-03 13:03 | PC.NURSE ---
During rounds with Dr. Martínez and I were looking and feeling for right femoral pulse. RF dialysis excision site dressing was clean, dry, intact. Blister present on right upper outer thigh. Upon palpation of RF pulse, the blister popped. Clarissa Oconnor RN applied optifoam dressing on site.
[2021-11-04] VITALS (9 sets, daily range): BP systolic 109–153; BP diastolic 69–89; PULSE 76–100; RESP 16–18; TEMP 36.4–36.8; O2SAT 96–98
--- NOTE | 2021-11-04 06:06 | PC.NURSE ---
Shift Summary Patient has had an uneventful night, sleeping well with even respirations. Patient refusing all PO meds, including liquid medications, because she complained of getting choked up. Patient complained of having a slightly sour stomach this morning but refused her liquid carafate due to her getting choked up on her water when she took a drink. This nurse educated the patient that the carafate would help with the sour stomach, patient continued to refuse.
[2021-11-04 06:33] LABS: Magnesium 1.7 mg/dL (1.7-2.3)
--- NOTE | 2021-11-04 08:57 | P.PN_ITS ---
Subjective Subjective: still w/ n/v. no sob or cp or linares or diarrhea. Medications: Reviewed: Yes Medication Review Details: Current Medications Hydrocodone Bitart/Acetaminophen (Hydrocodone-Apap 7.5-325 Mg/15 Ml Udc) 10 ml PO Q4H PRN PRN Reason: MODERATE PAIN Last Admin: 11/03/21 01:22 Dose: 10 ml Documented by: Docusate Sodium (Docusate Sodium 10 Mg/Ml (5ml) Liq) 100 mg PO DAILY [facility] Last Admin: 11/04/21 08:34 Dose: Not Given Documented by: Cefepime HCl 250 mg/ Sodium (Chloride) 50 mls @ 100 mls/hr IV Q24H [facility] Last Infusion: 11/03/21 23:20 Dose: Infused Documented by: Lanolin (Lanolin Oint 7 Gm) 1 applic TOPICAL PRN PRN PRN Reason: DRYNESS Last Admin: 10/28/21 22:29 Dose: 1 applic Documented by: Lidocaine (Lidocaine 5% Patch) 0.5 patch TOPICAL [id number] [facility] Last Admin: 11/04/21 08:34 Dose: Not Given Documented by: Ondansetron HCl (Ondansetron 2 Mg/Ml Sdv 2 Ml) 4 mg IVP Q8H PRN PRN Reason: vomiting, or N/V if npo Last Admin: 11/03/21 16:47 Dose: 4 mg Documented by: Pantoprazole Sodium (Pantoprazole Dr 40 Mg Tablet) 40 mg PO DAILY [facility] Last Admin: 11/04/21 08:34 Dose: Not Given Documented by: Sucralfate (Sucralfate 1 Gm/10 Ml Oral Liq Udc) 1 gm PO AC&BEDTIME [facility] Last Admin: 11/04/21 06:06 Dose: Not Given Documented by: Vitals/I&O/Wt Last Vital Signs Temp 97.8 F 11/04/21 08:00 Pulse 76 11/04/21 08:00 Resp 18 11/04/21 08:00 BP 128/76 11/04/21 08:00 Pulse Ox 98 11/04/21 08:00 11/03/21 11/04/21 11/04/21 22:59 06:59 14:59 Intake Total 50 / 602 0 / 0 Output Total 720 / 1120 Balance -670 / -518 0 / 0 Weight last 48 hrs Weight 87.135 kg Weight 87.815 kg Physical Exam Narrative: VSS obese, comfortable in bed, NARD heent- nc/at, eomi lungs- clear b/l heart -rrr abd- soft, non tender, nd, + bs, cholecystostomy tube ext - no leg edema neuro- a,a, o x 3 Urinary Catheter Management: Almaguer: Cath Placed During This Visit: yes, but has since been removed by the nurse Reason for Continuing Indwelling Catheter: Decision to DC Catheter Urinary Catheter Date of Insertion: 10/27/21 Urinary Catheter Time of Insertion: 20:00 Date Urinary Catheter Removed: 11/03/21 Time Urinary Catheter Discontinued: 10:00 Data : 11/02/21 03:30 11/03/21 04:48 A&P Assessment and plan (1) Acute kidney injury superimposed on chronic kidney disease: 76 yr old female recent admitted 10/02-10/08 for acute cholecystitis, at which time a cholecystotomy tube was placed. underlying a fib, htn. Pt was admitted on 10/27/21 in septic shock, anemia, JUAN, met acidosis, hyperkalemia, and hyponatremia. 1. JUAN - ATN from septic shock and bleed. then received iodine contrast on 10-27-21. -UOP and MS improved -cr improving. -replace mag as needed -no almaguer and urinating on own 2. met acidosis from JUAN - improved to bicarb of 19 3. anemia - hgb-9- gastritis on EGD -epo 4. a fib -controlled hr 5. Calculus of gallbladder with cholecystitis without biliary obstruction: Recent admission for acute cholecystitis, cholecystostomy tube in place 6. monitor wbc -improving 7. DM control meds reviewed replace vit d seen and examined w/ RN- telehealth visit Status: Acute Plan see above Attestations Medical Necessity Statement*: if cr improving- then d/c per medicine Time Spent in Patient Care: 16 - 35 minutes (>than 50% of time spent in counselling and/or direct pt care on unit) . Coding Level of Care Code Acute [employer] Neck Whipper for Rosa Fwd Diagnoses Acute kidney injury superimposed on chronic kidney disease N17.9; N18.9
[2021-11-04 11:10] LABS: Basophils # 0.1 10^3/uL (0.0-0.1); Basophils % 0.6 %; Eosinophils # 0.1 10^3/uL (0.0-0.8); Eosinophils % 1.1 %; Hematocrit 28.4 % (37.0-47.0); Hemoglobin 9.3 g/dL (11.5-15.3); Lymphocytes # 1.5 10^3/uL (0.8-4.8); Lymphocytes % 15.8 %; Mean Corpuscular HGB Conc 32.7 g/dL (30.0-36.0); Mean Corpuscular Hemoglobin 31.2 pg (28.0-34.0); Mean Corpuscular Volume 95.3 fl (81-99); Mean Platelet Volume 11.5 fL (7.4-10.4); Monocytes # 0.9 10^3/uL (0.2-0.9); Monocytes % 9.1 %; Neutrophils # 6.76 10^3/uL (1.8-7.7); Neutrophils % 72.6 %; Nucleated Red Blood Cells % 0 %; Platelet Count 233 10^3/cmm (130-400); Red Blood Count 2.98 10^6/uL (4.1-5.3); Red Cell Distribution Width 14.6 % (12.1-15.1); White Blood Count 9.3 10^3/uL (4.0-10.0)
[2021-11-04 11:36] LABS: Alanine Aminotransferase 14 U/L (0-33); Albumin Level 2.7 g/dL (3.5-5.2); Alkaline Phosphatase 154 IU/L (35-105); Aspartate Amino Transferase 22 U/L (0-32); Carbon Dioxide 17 mmol/L (22-29); Chloride 108 mmol/L (98-107); Globulin 3.5 g/dL (1.3-4.6); Glucose 106 mg/dL (65-115); Osmolality Calculated 319 mOsm/kg (285-295); Sodium 141 mmol/L (136-145); Total Bilirubin 0.5 mg/dL (0.15-1.2); Total Protein 6.2 g/dL (6.6-8.7)
[2021-11-04 11:39] LABS: Blood Urea Nitrogen 88 mg/dL (8-23)
--- NOTE | 2021-11-04 14:10 | PM.PN ---
Subjective Subjective: Patient was seen and examined this morning, complaining of generalized weakness, but BUN and serum creatinine has continued to improve, patient continued to have good urine output Medications: Reviewed: Yes Medication Review Details: Generic Name Dose Route Start Last Admin Trade Name Freq PRN Reason Stop Dose Admin Hydrocodone Bitart /Acetaminophen 10 ml 10/29/21 10:30 11/03/21 01:22 Hydrocodone-Apap 7.5-325 Mg/15 Ml Udc PO 10 ml Q4H PRN Administration MODERATE PAIN Docusate Sodium 100 mg 10/29/21 10:00 11/03/21 08:31 Docusate Sodium 10 Mg/Ml (5ml) Liq PO Not Given DAILY SHER Cefepime HCl 250 m g/ Sodium 50 mls @ 100 mls/ hr 10/28/21 21:30 11/02/21 22:35 Chloride IV Infused Q24H SHER Infusion Lanolin 1 applic 10/28/21 21:49 10/28/21 22:29 Lanolin Oint 7 G m TOPICAL 1 applic PRN PRN Administration DRYNESS Lidocaine 0.5 patch 10/28/21 21:00 11/03/21 10:33 Lidocaine 5% Pat ch TOPICAL Not Given [id number] SHER Ondansetron HCl 4 mg 10/27/21 19:15 11/03/21 16:47 Ondansetron 2 Mg /Ml Sdv 2 Ml IVP 4 mg Q8H PRN Administration vomiting, or N/V if npo Pantoprazole Sodiu m 40 mg 11/03/21 09:00 11/03/21 08:[address] 40 Mg Tablet PO 40 mg DAILY SHER Administration Sucralfate 1 gm 10/31/21 17:00 11/03/21 16:47 Sucralfate 1 Gm/ 10 Ml Oral Liq Udc PO Not Given AC&BEDTIME SHER Vitals/I&O/Wt Last Vital Signs Temp 97.9 F 11/04/21 12:00 Pulse 83 11/04/21 12:00 Resp 18 11/04/21 12:00 BP 149/75 11/04/21 12:00 Pulse Ox 96 11/04/21 12:00 11/03/21 11/04/21 11/04/21 22:59 06:59 14:59 Intake Total 50 / 602 0 / 0 Output Total 720 / 1120 Balance -670 / -518 0 / 0 Weight last 48 hrs Weight 87.135 kg Weight 87.815 kg Physical Exam Const: COMMON NORMALS: patient oriented x3 HENMT: COMMON NORMALS: normocephalic and atraumatic HEAD & SCALP: normocephalic and atraumatic Chest: COMMONS NORMALS: normal inspection of the chest and normal palpation of entire chest wall CHEST: Yes Symmetrical chest wall rise Resp: COMMON NORMALS: normal respiratory effort, No retractions, No use of accessory muscles and clear to auscultation bilaterally EFFORT & INSPECTION: Yes symmetric chest movement AUSCULTATION: clear to auscultation bilaterally Cardio: COMMON NORMALS: regular rate, regular rhythm, S1 normal heart sound present, S2 normal heart sound present, No gallops present (Cardio), No murmurs present (Cardio), No rub (Cardio) and Peripheral pulses 2+ throughout RATE: regular rate RHYTHM: regular rhythm HEART SOUNDS: S1 normal heart sound present and S2 normal heart sound present PERIPHERAL PULSES: Peripheral pulses 2+ throughout GI: COMMON NORMALS: Normal to inspection, nondistended, normoactive bowel sounds present, Soft to palpation, non-tender, No hepatosplenomegaly present and no masses AUSCULTATION: Yes normoactive bowel sounds PALPATION: Yes Soft to palpation and Yes No hepatosplenomegaly present RECTAL EXAM: deferred Extremity: COMMON NORMALS: no clubbing, cyanosis or edema and no pedal edema Neuro: COMMON NORMALS: patient oriented x3 Urinary Catheter Management: Pool: Cath Placed During This Visit: yes, but has since been removed by the nurse Reason for Continuing Indwelling Catheter: Decision to DC Catheter Urinary Catheter Date of Insertion: 10/27/21 Urinary Catheter Time of Insertion: 20:00 Date Urinary Catheter Removed: 11/03/21 Time Urinary Catheter Discontinued: 10:00 Data : 11/04/21 10:30 11/04/21 10:30 A&P Assessment and plan (1) Reflux esophagitis: on PPI stable Status: Acute (2) Gastritis and duodenitis: on PPI, stable Status: Acute (3) Atrial fibrillation: rate controlled Status: Acute Qualifiers: Atrial fibrillation type: paroxysmal Qualified Code(s): I48.0 - Paroxysmal atrial fibrillation (4) Hypertension: stable Status: Chronic Qualifiers: Hypertension type: essential hypertension Qualified Code(s): I10 - Essential (primary) hypertension (5) Acute kidney injury superimposed on chronic kidney disease: gradually improving but Se Cr still significantly high Status: Acute (6) Hyperkalemia: resolved Status: Acute (7) Anemia due to blood loss, acute: H/H low but stable Status: Acute (8) GI bleed: ni further bleed Status: Acute Qualifiers: GI bleed type/associated pathology: gastrointestinal hemorrhage with hematemesis Qualified Code(s): K92.0 - Hematemesis (9) Warfarin-induced coagulopathy: improved Status: Acute (10) Leg pain, bilateral: R/O DVT. Off ACS. Status: Acute Attestations Medical Necessity Statement*: Patient needs to be in hospital for continued management of JUAN. 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
[2021-11-05] VITALS (8 sets, daily range): BP systolic 152–172; BP diastolic 71–98; PULSE 72–92; RESP 13–18; TEMP 36.7; O2SAT 94–98
[2021-11-05] MEDS: lanolin oint 7 gm 1 APPLIC TOPICAL (03:32)
[2021-11-05] MEDS: ondansetron 2 mg/ML SDV 2 mL 4 MG IVP (03:36)
[2021-11-05 04:10] LABS: Basophils # 0.1 10^3/uL (0.0-0.1); Basophils % 0.9 %; Eosinophils # 0.1 10^3/uL (0.0-0.8); Eosinophils % 1.4 %; Hematocrit 29.5 % (37.0-47.0); Hemoglobin 9.7 g/dL (11.5-15.3); Lymphocytes % 22.2 %; Mean Corpuscular HGB Conc 32.9 g/dL (30.0-36.0); Mean Corpuscular Hemoglobin 31.1 pg (28.0-34.0); Mean Corpuscular Volume 94.6 fl (81-99); Mean Platelet Volume 11.4 fL (7.4-10.4); Monocytes # 0.9 10^3/uL (0.2-0.9); Monocytes % 9.3 %; Neutrophils # 5.97 10^3/uL (1.8-7.7); Neutrophils % 65.2 %; Nucleated Red Blood Cells % 0 %; Platelet Count 269 10^3/cmm (130-400); Red Blood Count 3.12 10^6/uL (4.1-5.3); Red Cell Distribution Width 14.6 % (12.1-15.1); White Blood Count 9.2 10^3/uL (4.0-10.0)
[2021-11-05 04:31] LABS: Alanine Aminotransferase 24 U/L (0-33); Albumin Level 3.1 g/dL (3.5-5.2); Alkaline Phosphatase 182 IU/L (35-105); Anion Gap 19.7 (5-19); Aspartate Amino Transferase 45 U/L (0-32); Calcium 9.4 mg/dL (8.5-10.5); Carbon Dioxide 19 mmol/L (22-29); Chloride 109 mmol/L (98-107); Globulin 4.2 g/dL (1.3-4.6); Glucose 126 mg/dL (65-115); Magnesium 1.7 mg/dL (1.7-2.3); Osmolality Calculated 324 mOsm/kg (285-295); Phosphorus 3.1 mg/dL (2.5-4.5); Potassium 3.7 mmol/L (3.5-5.1); Sodium 144 mmol/L (136-145); Total Bilirubin 0.5 mg/dL (0.15-1.2); Total Protein 7.3 g/dL (6.6-8.7)
[2021-11-05 04:57] LABS: Blood Urea Nitrogen 82 mg/dL (8-23)
[2021-11-05] MEDS: sucralfate 1 gm/10 mL Oral Liq UDC PO ×2 (06:11→21:33)
--- NOTE | 2021-11-05 08:12 | PM.PN ---
Subjective Subjective: feels better. wants her abdominal surgery/ ccy. no linares or cp. occ n/v. no sob Medications: Reviewed: Yes Medication Review Details: Current Medications Docusate Sodium (Docusate Sodium 10 Mg/Ml (5ml) Liq) 100 mg PO DAILY [facility] Last Admin: 11/04/21 08:34 Dose: Not Given Documented by: Cefepime HCl 250 mg/ Sodium (Chloride) 50 mls @ 100 mls/hr IV Q24H [facility] Last Infusion: 11/04/21 22:07 Dose: Infused Documented by: Lanolin (Lanolin Oint 7 Gm) 1 applic TOPICAL PRN PRN PRN Reason: DRYNESS Last Admin: 11/05/21 03:32 Dose: 1 applic Documented by: Lidocaine (Lidocaine 5% Patch) 0.5 patch TOPICAL [id number] [facility] Last Admin: 11/04/21 21:38 Dose: Not Given Documented by: Ondansetron HCl (Ondansetron 2 Mg/Ml Sdv 2 Ml) 4 mg IVP Q8H PRN PRN Reason: vomiting, or N/V if npo Last Admin: 11/05/21 03:36 Dose: 4 mg Documented by: Pantoprazole Sodium (Pantoprazole Dr 40 Mg Tablet) 40 mg PO DAILY [facility] Last Admin: 11/04/21 08:34 Dose: Not Given Documented by: Sucralfate (Sucralfate 1 Gm/10 Ml Oral Liq Udc) 1 gm PO AC&BEDTIME [facility] Last Admin: 11/05/21 06:11 Dose: 1 gm Documented by: Vitals/I&O/Wt Last Vital Signs Temp 98.0 F 11/05/21 04:00 Pulse 84 11/05/21 07:58 Resp 13 11/05/21 07:58 BP 166/95 11/05/21 07:58 Pulse Ox 94 11/05/21 07:58 11/04/21 11/05/21 11/05/21 22:59 06:59 14:59 Intake Total 95 / 95 Output Total 120 / 120 450 / 570 Balance -25 / -25 -450 / -475 Weight last 48 hrs Weight 86.268 kg Weight 87.135 kg Physical Exam Narrative: VSS obese, comfortable in bed, NARD heent- nc/at, eomi lungs- clear b/l heart -rrr abd- soft, non tender, nd, + bs, cholecystostomy tube ext - no leg edema neuro- a,a, o x 3 Urinary Catheter Management: Almaguer: Cath Placed During This Visit: yes, but has since been removed by the nurse Reason for Continuing Indwelling Catheter: Decision to DC Catheter Urinary Catheter Date of Insertion: 10/27/21 Urinary Catheter Time of Insertion: 20:00 Date Urinary Catheter Removed: 11/03/21 Time Urinary Catheter Discontinued: 10:00 Data : 11/05/21 03:20 11/05/21 03:20 A&P Assessment and plan (1) Acute kidney injury superimposed on chronic kidney disease: 76 yr old female recent admitted 10/02-10/08 for acute cholecystitis, at which time a cholecystotomy tube was placed. underlying a fib, htn. Pt was admitted on 10/27/21 in septic shock, anemia, JUAN, met acidosis, hyperkalemia, and hyponatremia. 1. JUAN - ATN from septic shock and bleed. then received iodine contrast on 10-27-21. -UOP and MS improved -cr improving. -replace mag as needed -no almaguer and urinating on own 2. met acidosis from JUAN - improved to bicarb of 19 3. anemia - hgb-9.7- gastritis on EGD -epo d.c 4. a fib -controlled hr 5. Calculus of gallbladder with cholecystitis without biliary obstruction: Recent admission for acute cholecystitis, cholecystostomy tube in place -surgery ? 6. monitor wbc -improving 7. DM control meds reviewed replace vit d seen and examined w/ RN- telehealth visit Status: Acute Plan see above Attestations Medical Necessity Statement*: per hospitalist Time Spent in Patient Care: 16 - 35 minutes (>than 50% of time spent in counselling and/or direct pt care on unit). 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
--- NOTE | 2021-11-05 12:21 | PC.SOCIAL ---
IMM Update pg 2 of IMM updated and reviewed w/ patient. Copy provided and Copy in chart updated.
--- NOTE | 2021-11-05 19:44 | P.PN_ITS ---
Subjective Subjective: Patient was seen and examined this morning, has continued to complain of nausea. BUN and serum creatinine has continued to improve Continue to have good urine output. Medications: Reviewed: Yes Medication Review Details: Generic Name Dose Route Start Last Admin Trade Name Freq PRN Reason Stop Dose Admin Hydrocodone Bitart /Acetaminophen 10 ml 10/29/21 10:30 11/03/21 01:22 Hydrocodone-Apap 7.5-325 Mg/15 Ml Udc PO 10 ml Q4H PRN Administration MODERATE PAIN Docusate Sodium 100 mg 10/29/21 10:00 11/03/21 08:31 Docusate Sodium 10 Mg/Ml (5ml) Liq PO Not Given DAILY SHER Cefepime HCl 250 m g/ Sodium 50 mls @ 100 mls/ hr 10/28/21 21:30 11/02/21 22:35 Chloride IV Infused Q24H SHER Infusion Lanolin 1 applic 10/28/21 21:49 10/28/21 22:29 Lanolin Oint 7 G m TOPICAL 1 applic PRN PRN Administration DRYNESS Lidocaine 0.5 patch 10/28/21 21:00 11/03/21 10:33 Lidocaine 5% Pat ch TOPICAL Not Given [id number] SHER Ondansetron HCl 4 mg 10/27/21 19:15 11/03/21 16:47 Ondansetron 2 Mg /Ml Sdv 2 Ml IVP 4 mg Q8H PRN Administration vomiting, or N/V if npo Pantoprazole Sodiu m 40 mg 11/03/21 09:00 11/03/21 08:[address] 40 Mg Tablet PO 40 mg DAILY SHER Administration Sucralfate 1 gm 10/31/21 17:00 11/03/21 16:47 Sucralfate 1 Gm/ 10 Ml Oral Liq Udc PO Not Given AC&BEDTIME SHER Vitals/I&O/Wt Last Vital Signs Temp 98.1 F 11/05/21 19:19 Pulse 84 11/05/21 19:19 Resp 18 11/05/21 19:19 BP 169/93 11/05/21 19:19 Pulse Ox 97 11/05/21 19:19 11/05/21 11/05/21 11/05/21 06:59 14:59 22:59 Intake Total 260 / 260 52 / 312 Output Total 450 / 570 Balance -450 / -475 260 / 260 52 / 312 Weight last 48 hrs Weight 86.268 kg Weight 87.135 kg Physical Exam Const: COMMON NORMALS: patient oriented x3 HENMT: COMMON NORMALS: normocephalic and atraumatic HEAD & SCALP: normocephalic and atraumatic Chest: COMMONS NORMALS: normal inspection of the chest and normal palpation of entire chest wall CHEST: Yes Symmetrical chest wall rise Resp: COMMON NORMALS: normal respiratory effort, No retractions, No use of accessory muscles and clear to auscultation bilaterally EFFORT & INSPECTION: Yes symmetric chest movement AUSCULTATION: clear to auscultation bilaterally Cardio: COMMON NORMALS: regular rate, regular rhythm, S1 normal heart sound present, S2 normal heart sound present, No gallops present (Cardio), No murmurs present (Cardio), No rub (Cardio) and Peripheral pulses 2+ throughout RATE: regular rate RHYTHM: regular rhythm HEART SOUNDS: S1 normal heart sound present and S2 normal heart sound present PERIPHERAL PULSES: Peripheral pulses 2+ throughout GI: COMMON NORMALS: Normal to inspection, nondistended, normoactive bowel sounds present, Soft to palpation, non-tender, No hepatosplenomegaly present and no masses AUSCULTATION: Yes normoactive bowel sounds PALPATION: Yes Soft to palpation and Yes No hepatosplenomegaly present RECTAL EXAM: deferred Extremity: COMMON NORMALS: no clubbing, cyanosis or edema and no pedal edema Neuro: COMMON NORMALS: patient oriented x3 Urinary Catheter Management: Pool: Cath Placed During This Visit: yes, but has since been removed by the nurse Reason for Continuing Indwelling Catheter: Decision to DC Catheter Urinary Catheter Date of Insertion: 10/27/21 Urinary Catheter Time of Insertion: 20:00 Date Urinary Catheter Removed: 11/03/21 Time Urinary Catheter Discontinued: 10:00 Data : 11/05/21 03:20 11/05/21 03:20 A&P Assessment and plan (1) Reflux esophagitis: on PPI stable Status: Acute (2) Gastritis and duodenitis: on PPI, stable Status: Acute (3) Atrial fibrillation: rate controlled Status: Acute Qualifiers: Atrial fibrillation type: paroxysmal Qualified Code(s): I48.0 - Paroxysmal atrial fibrillation (4) Hypertension: stable Status: Chronic Qualifiers: Hypertension type: essential hypertension Qualified Code(s): I10 - Essential (primary) hypertension (5) Acute kidney injury superimposed on chronic kidney disease: gradually improving but Se Cr still significantly high Status: Acute (6) Hyperkalemia: resolved Status: Acute (7) Anemia due to blood loss, acute: H/H low but stable Status: Acute (8) GI bleed: ni further bleed Status: Acute Qualifiers: GI bleed type/associated pathology: gastrointestinal hemorrhage with hematemesis Qualified Code(s): K92.0 - Hematemesis (9) Warfarin-induced coagulopathy: improved Status: Acute (10) Leg pain, bilateral: R/O DVT. Off ACS. 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
[2021-11-05] MEDS: lidocaine 5% Patch 0.5 PATCH TOPICAL (21:39)
[2021-11-06] VITALS (10 sets, daily range): BP systolic 124–159; BP diastolic 76–94; PULSE 82–99; RESP 14–20; TEMP 36.5–36.9; O2SAT 94–99
[2021-11-06 05:08] LABS: Basophils # 0.1 10^3/uL (0.0-0.1); Basophils % 0.8 %; Eosinophils # 0.1 10^3/uL (0.0-0.8); Eosinophils % 1.3 %; Hematocrit 31.5 % (37.0-47.0); Hemoglobin 10.1 g/dL (11.5-15.3); Lymphocytes # 1.3 10^3/uL (0.8-4.8); Lymphocytes % 16.1 %; Mean Corpuscular HGB Conc 32.1 g/dL (30.0-36.0); Mean Corpuscular Hemoglobin 30.4 pg (28.0-34.0); Mean Corpuscular Volume 94.9 fl (81-99); Mean Platelet Volume 11.4 fL (7.4-10.4); Monocytes # 0.7 10^3/uL (0.2-0.9); Neutrophils # 6.03 10^3/uL (1.8-7.7); Neutrophils % 73.1 %; Nucleated Red Blood Cells % 0 %; Platelet Count 262 10^3/cmm (130-400); Red Blood Count 3.32 10^6/uL (4.1-5.3); Red Cell Distribution Width 14.6 % (12.1-15.1); White Blood Count 8.3 10^3/uL (4.0-10.0)
[2021-11-06 05:23] LABS: Alanine Aminotransferase 40 U/L (0-33); Albumin Level 3.1 g/dL (3.5-5.2); Alkaline Phosphatase 181 IU/L (35-105); Aspartate Amino Transferase 58 U/L (0-32); Blood Urea Nitrogen 65 mg/dL (8-23); Calcium 9.3 mg/dL (8.5-10.5); Carbon Dioxide 20 mmol/L (22-29); Chloride 110 mmol/L (98-107); Globulin 4.2 g/dL (1.3-4.6); Glucose 112 mg/dL (65-115); Osmolality Calculated 315 mOsm/kg (285-295); Sodium 143 mmol/L (136-145); Total Bilirubin 0.6 mg/dL (0.15-1.2); Total Protein 7.3 g/dL (6.6-8.7)
[2021-11-06 05:48] LABS: Magnesium 1.7 mg/dL (1.7-2.3); Phosphorus 2.7 mg/dL (2.5-4.5)
--- NOTE | 2021-11-06 06:27 | P.PN_ITS ---
Subjective Subjective: Patient overall seems to be recovering slowly. Seen and examined yesterday evening for 11/05/21 Medications: Reviewed: Yes Vitals/I&O/Wt Last Vital Signs Temp 97.9 F 11/06/21 04:00 Pulse 82 11/06/21 05:50 Resp 18 11/06/21 04:00 BP 146/91 11/06/21 04:00 Pulse Ox 97 11/06/21 04:00 11/05/21 11/05/21 11/06/21 14:59 22:59 06:59 Intake Total 260 / 260 222 / 482 100 / 582 Output Total 260 / 260 Balance 260 / 260 -38 / 222 100 / 322 Weight last 48 hrs Weight 188 lb 14.4 oz Weight 190 lb 3 oz Physical Exam Narrative: Patient is conscious alert oriented X3 No apparent distress BMI 34 Head and neck examination PERRLA no masses no cervical lymphadenopathy no jaundice Right IJ central line in place Abdomen nontender nondistended soft no organomegaly guarding or rigidity/no signs of peritonitis Cholecystostomy tube in place without complication Urinary Catheter Management: Pool: Cath Placed During This Visit: yes, but has since been removed by the nurse Reason for Continuing Indwelling Catheter: Decision to DC Catheter Urinary Catheter Date of Insertion: 10/27/21 Urinary Catheter Time of Insertion: 20:00 Date Urinary Catheter Removed: 11/03/21 Time Urinary Catheter Discontinued: 10:00 Data : 11/06/21 04:10 11/06/21 04:10 A&P Assessment and plan (1) Gastritis and duodenitis: Raise the head of the bed 4-6 inches Frequent small meals through the day, can advance diet as tolerated to soft GI diet Avoid smoking or Chewing Tobacco Avoid excess coffee, tea, and other caffeinated beverages Avoid garments that fit tightly through the abdomen Avoid eating before going to sleep Avoid nonsteroidal anti-inflammatory drugs (NSAIDs) when possible Anti-reflux diet Anti-reflux medications as prescribed in addition to [place] Emphasis on weight management Encourage to have the patient receive protein shakes 3-4 times a day(renal friendly) Patient is trying to get her gallbladder surgery done as soon as possible and I did educate the patient in the presence of her nursing staff Chastity that she would need time to recover from her recent acute kidney injury and hematemesis. Recommend to have the patient follow-up at the office as scheduled to discuss elective laparoscopic cholecystectomy down the road once medically appropriate Status: Acute (2) Cholecystostomy care: Continue to flush cholecystostomy tube at least once a day using 5 to 10 mL of normal saline to maintain patency. Assurance and education All questions have been answered and all concerns have been addressed to patient's satisfaction. 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
--- NOTE | 2021-11-06 08:13 | PM.PN ---
Subjective Subjective: c/o n/v/ abd pain. no sob, no cp, no linares Medications: Reviewed: Yes Medication Review Details: Current Medications Docusate Sodium (Docusate Sodium 10 Mg/Ml (5ml) Liq) 100 mg PO DAILY [facility] Last Admin: 11/06/21 08:12 Dose: Not Given Documented by: Cefepime HCl 250 mg/ Sodium (Chloride) 50 mls @ 100 mls/hr IV Q24H [facility] Last Infusion: 11/05/21 22:03 Dose: Infused Documented by: Lanolin (Lanolin Oint 7 Gm) 1 applic TOPICAL PRN PRN PRN Reason: DRYNESS Last Admin: 11/05/21 03:32 Dose: 1 applic Documented by: Lidocaine (Lidocaine 5% Patch) 0.5 patch TOPICAL [id number] [facility] Last Admin: 11/06/21 08:13 Dose: Not Given Documented by: Ondansetron HCl (Ondansetron 2 Mg/Ml Sdv 2 Ml) 4 mg IVP Q8H PRN PRN Reason: vomiting, or N/V if npo Last Admin: 11/05/21 03:36 Dose: 4 mg Documented by: Ondansetron HCl (Ondansetron 2 Mg/Ml Sdv 2 Ml) 4 mg IVP Q6H PRN PRN Reason: NAUSEA AND VOMITING Pantoprazole Sodium (Pantoprazole Dr 40 Mg Tablet) 40 mg PO DAILY [facility] Last Admin: 11/06/21 08:13 Dose: Not Given Documented by: Sucralfate (Sucralfate 1 Gm/10 Ml Oral Liq Udc) 1 gm PO AC&BEDTIME [facility] Last Admin: 11/06/21 06:02 Dose: Not Given Documented by: Vitals/I&O/Wt Last Vital Signs Temp 98.5 F 11/06/21 07:30 Pulse 85 11/06/21 07:30 Resp 14 11/06/21 07:30 BP 156/94 11/06/21 07:30 Pulse Ox 97 11/06/21 07:30 11/05/21 11/06/21 11/06/21 22:59 06:59 14:59 Intake Total 222 / 482 100 / 582 Output Total 260 / 260 Balance -38 / 222 100 / 322 Weight last 48 hrs Weight 85.684 kg Weight 86.268 kg Physical Exam Narrative: VSS obese, comfortable in bed, NARD heent- nc/at, eomi lungs- clear b/l heart -rrr abd- soft, RUQ tender, nd, + bs, cholecystostomy tube ext - no leg edema neuro- a,a, o x 3 Urinary Catheter Management: Almaguer: Cath Placed During This Visit: yes, but has since been removed by the nurse Reason for Continuing Indwelling Catheter: Decision to DC Catheter Urinary Catheter Date of Insertion: 10/27/21 Urinary Catheter Time of Insertion: 20:00 Date Urinary Catheter Removed: 11/03/21 Time Urinary Catheter Discontinued: 10:00 Data : 11/06/21 04:10 11/06/21 04:10 A&P Assessment and plan (1) Acute kidney injury superimposed on chronic kidney disease: 76 yr old female recent admitted 10/02-10/08 for acute cholecystitis, at which time a cholecystotomy tube was placed. underlying a fib, htn. Pt was admitted on 10/27/21 in septic shock, anemia, JUAN, met acidosis, hyperkalemia, and hyponatremia. 1. JUAN - ATN from septic shock and bleed. then received iodine contrast on 10-27-21. -UOP and MS improved -cr improving. -no almaguer and urinating on own 2. met acidosis from JUAN - improved to bicarb of 20 3. anemia - hgb-10.1- gastritis on EGD 4. a fib -controlled hr 5. Calculus of gallbladder with cholecystitis without biliary obstruction: Recent admission for acute cholecystitis, cholecystostomy tube in place -surgery as outpt per Dr Kerns -pt needs to be able to eat and drink to go home 6. DM control meds reviewed seen and examined w/ RN- telehealth visit renal will see PRN Status: Acute Plan see above Attestations Medical Necessity Statement*: per medicine and surgery Time Spent in Patient Care: 16 - 35 minutes (>than 50% of time spent in counselling and/or direct pt care on unit). 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
[2021-11-06] MEDS: ondansetron 2 mg/ML SDV 2 mL 4 MG IVP (11:34)
--- NOTE | 2021-11-06 17:31 | PC.NURSE ---
PATIENT GOT UP TO THE CHAIR FIRST THING THIS MORNING AND RESIDED THERE UNTIL EARLY AFTERNOON. WORKED WITH PT AND OT. PATIENT RECEIVED A SHOWER TODAY. NO COMPLAINTS OF PAIN. PATIENT HAD SEVERAL MOMENTS OF DRY HEAVING THIS MORNING. NAUSEA HAS IMPROVED THIS AFTERNOON VERSUS THIS MORNING. PATIENT HAS HAD 230ML OF OUTPUT FROM THE [place] DRAIN. GOOD URINE OUTPUT. HAD A BOWEL MOVEMENT. SLOWLY TOLERATING PO INTAKE. REFUSING PO MEDICATIONS AT THIS TIME. DR. HARGROVE NOTIFIED.
--- NOTE | 2021-11-06 17:56 | PM.PN ---
Subjective Subjective: Patient was seen and examined this morning no acute events overnight, BUN and serum creatinine has continued to improve. Medications: Reviewed: Yes Medication Review Details: Current Medications Docusate Sodium (Docusate Sodium 10 Mg/Ml (5ml) Liq) 100 mg PO DAILY [facility] Last Admin: 11/06/21 08:12 Dose: Not Given Documented by: Cefepime HCl 250 mg/ Sodium (Chloride) 50 mls @ 100 mls/hr IV Q24H [facility] Last Infusion: 11/05/21 22:03 Dose: Infused Documented by: Lanolin (Lanolin Oint 7 Gm) 1 applic TOPICAL PRN PRN PRN Reason: DRYNESS Last Admin: 11/05/21 03:32 Dose: 1 applic Documented by: Lidocaine (Lidocaine 5% Patch) 0.5 patch TOPICAL [id number] [facility] Last Admin: 11/06/21 08:13 Dose: Not Given Documented by: Ondansetron HCl (Ondansetron 2 Mg/Ml Sdv 2 Ml) 4 mg IVP Q8H PRN PRN Reason: vomiting, or N/V if npo Last Admin: 11/05/21 03:36 Dose: 4 mg Documented by: Ondansetron HCl (Ondansetron 2 Mg/Ml Sdv 2 Ml) 4 mg IVP Q6H PRN PRN Reason: NAUSEA AND VOMITING Pantoprazole Sodium (Pantoprazole Dr 40 Mg Tablet) 40 mg PO DAILY [facility] Last Admin: 11/06/21 08:13 Dose: Not Given Documented by: Sucralfate (Sucralfate 1 Gm/10 Ml Oral Liq Udc) 1 gm PO AC&BEDTIME [facility] Last Admin: 11/06/21 06:02 Dose: Not Given Documented by: Vitals/I&O/Wt Last Vital Signs Temp 97.7 F 11/06/21 15:37 Pulse 92 11/06/21 15:37 Resp 14 11/06/21 15:37 BP 124/76 11/06/21 15:37 Pulse Ox 99 11/06/21 15:37 11/06/21 11/06/21 11/06/21 06:59 14:59 22:59 Intake Total 100 / 582 420 / 420 Output Total 360 / 360 70 / 430 Balance 100 / 322 60 / 60 -70 / -10 Weight last 48 hrs Weight 85.684 kg Weight 86.268 kg Physical Exam Const: COMMON NORMALS: patient oriented x3 HENMT: COMMON NORMALS: normocephalic and atraumatic HEAD & SCALP: normocephalic and atraumatic Chest: COMMONS NORMALS: normal inspection of the chest and normal palpation of entire chest wall CHEST: Yes Symmetrical chest wall rise Resp: COMMON NORMALS: normal respiratory effort, No retractions, No use of accessory muscles and clear to auscultation bilaterally EFFORT & INSPECTION: Yes symmetric chest movement AUSCULTATION: clear to auscultation bilaterally Cardio: COMMON NORMALS: regular rate, regular rhythm, S1 normal heart sound present, S2 normal heart sound present, No gallops present (Cardio), No murmurs present (Cardio), No rub (Cardio) and Peripheral pulses 2+ throughout RATE: regular rate RHYTHM: regular rhythm HEART SOUNDS: S1 normal heart sound present and S2 normal heart sound present PERIPHERAL PULSES: Peripheral pulses 2+ throughout GI: COMMON NORMALS: Normal to inspection, nondistended, normoactive bowel sounds present, Soft to palpation, non-tender, No hepatosplenomegaly present and no masses AUSCULTATION: Yes normoactive bowel sounds PALPATION: Yes Soft to palpation and Yes No hepatosplenomegaly present RECTAL EXAM: deferred Extremity: COMMON NORMALS: no clubbing, cyanosis or edema and no pedal edema Neuro: COMMON NORMALS: patient oriented x3 Urinary Catheter Management: Pool: Cath Placed During This Visit: yes, but has since been removed by the nurse Reason for Continuing Indwelling Catheter: Decision to DC Catheter Urinary Catheter Date of Insertion: 10/27/21 Urinary Catheter Time of Insertion: 20:00 Date Urinary Catheter Removed: 11/03/21 Time Urinary Catheter Discontinued: 10:00 Data : 11/06/21 04:10 11/06/21 04:10 A&P Assessment and plan (1) Reflux esophagitis: on PPI stable Status: Acute (2) Gastritis and duodenitis: on PPI, stable Status: Acute (3) Atrial fibrillation: rate controlled Status: Acute Qualifiers: Atrial fibrillation type: paroxysmal Qualified Code(s): I48.0 - Paroxysmal atrial fibrillation (4) Hypertension: stable Status: Chronic Qualifiers: Hypertension type: essential hypertension Qualified Code(s): I10 - Essential (primary) hypertension (5) Acute kidney injury superimposed on chronic kidney disease: gradually improving but Se Cr still significantly high Status: Acute (6) Hyperkalemia: resolved Status: Acute (7) Anemia due to blood loss, acute: H/H low but stable Status: Acute (8) GI bleed: ni further bleed Status: Acute Qualifiers: GI bleed type/associated pathology: gastrointestinal hemorrhage with hematemesis Qualified Code(s): K92.0 - Hematemesis (9) Warfarin-induced coagulopathy: improved Status: Acute (10) Leg pain, bilateral: R/O DVT. Off ACS. Status: Acute Plan Disposition: Initial plan was to send patient home, given the fact that the is currently unable to take care of the patient, and patient currently still needs a lot of care, longterm placement has been attempted. 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
[2021-11-07] VITALS (8 sets, daily range): BP systolic 119–150; BP diastolic 78–90; PULSE 83–102; RESP 16–20; TEMP 36.4–36.9; O2SAT 96–98
[2021-11-07 05:17] LABS: Basophils # 0.1 10^3/uL (0.0-0.1); Basophils % 0.5 %; Eosinophils # 0.2 10^3/uL (0.0-0.8); Eosinophils % 2.1 %; Hematocrit 31.2 % (37.0-47.0); Hemoglobin 10.1 g/dL (11.5-15.3); Lymphocytes # 1.5 10^3/uL (0.8-4.8); Lymphocytes % 16.9 %; Mean Corpuscular HGB Conc 32.4 g/dL (30.0-36.0); Mean Corpuscular Hemoglobin 31.3 pg (28.0-34.0); Mean Corpuscular Volume 96.6 fl (81-99); Mean Platelet Volume 11.4 fL (7.4-10.4); Monocytes # 0.7 10^3/uL (0.2-0.9); Monocytes % 7.1 %; Neutrophils # 6.63 10^3/uL (1.8-7.7); Neutrophils % 72.6 %; Nucleated Red Blood Cells % 0 %; Platelet Count 256 10^3/cmm (130-400); Red Blood Count 3.23 10^6/uL (4.1-5.3); Red Cell Distribution Width 14.6 % (12.1-15.1); White Blood Count 9.1 10^3/uL (4.0-10.0)
[2021-11-07 05:31] LABS: Alanine Aminotransferase 50 U/L (0-33); Alkaline Phosphatase 175 IU/L (35-105); Aspartate Amino Transferase 61 U/L (0-32); Blood Urea Nitrogen 59 mg/dL (8-23); Calcium 9.1 mg/dL (8.5-10.5); Carbon Dioxide 19 mmol/L (22-29); Chloride 109 mmol/L (98-107); Globulin 4.3 g/dL (1.3-4.6); Glucose 127 mg/dL (65-115); Osmolality Calculated 314 mOsm/kg (285-295); Sodium 143 mmol/L (136-145); Total Bilirubin 0.5 mg/dL (0.15-1.2); Total Protein 7.3 g/dL (6.6-8.7)
[2021-11-07 05:32] LABS: Magnesium 1.6 mg/dL (1.7-2.3); Phosphorus 2.3 mg/dL (2.5-4.5)
[2021-11-07 05:34] LABS: Anion Gap 19.4 (5-19); Potassium 4.4 mmol/L (3.5-5.1)
[2021-11-07] MEDS: ondansetron 2 mg/ML SDV 2 mL 4 MG IVP (08:36)
--- NOTE | 2021-11-07 11:46 | PC.SOCIAL ---
IMM Updated Updated pt on IMM. No questions voiced. Provided pt a copy. Initialed, dated, & timed copy in chart.
--- NOTE | 2021-11-07 12:42 | P.PN_ITS ---
Subjective Subjective: Patient was seen and examined this morning no acute events overnight, BUN and serum creatinine has continued to improve. Continue to have good urine output Medications: Reviewed: Yes Medication Review Details: Current Medications Docusate Sodium (Docusate Sodium 10 Mg/Ml (5ml) Liq) 100 mg PO DAILY [facility] Last Admin: 11/06/21 08:12 Dose: Not Given Documented by: Cefepime HCl 250 mg/ Sodium (Chloride) 50 mls @ 100 mls/hr IV Q24H [facility] Last Infusion: 11/05/21 22:03 Dose: Infused Documented by: Lanolin (Lanolin Oint 7 Gm) 1 applic TOPICAL PRN PRN PRN Reason: DRYNESS Last Admin: 11/05/21 03:32 Dose: 1 applic Documented by: Lidocaine (Lidocaine 5% Patch) 0.5 patch TOPICAL [id number] [facility] Last Admin: 11/06/21 08:13 Dose: Not Given Documented by: Ondansetron HCl (Ondansetron 2 Mg/Ml Sdv 2 Ml) 4 mg IVP Q8H PRN PRN Reason: vomiting, or N/V if npo Last Admin: 11/05/21 03:36 Dose: 4 mg Documented by: Ondansetron HCl (Ondansetron 2 Mg/Ml Sdv 2 Ml) 4 mg IVP Q6H PRN PRN Reason: NAUSEA AND VOMITING Pantoprazole Sodium (Pantoprazole Dr 40 Mg Tablet) 40 mg PO DAILY [facility] Last Admin: 11/06/21 08:13 Dose: Not Given Documented by: Sucralfate (Sucralfate 1 Gm/10 Ml Oral Liq Udc) 1 gm PO AC&BEDTIME [facility] Last Admin: 11/06/21 06:02 Dose: Not Given Documented by: Vitals/I&O/Wt Last Vital Signs Temp 97.5 F L 11/07/21 08:00 Pulse 95 11/07/21 08:00 Resp 17 11/07/21 08:00 BP 133/82 11/07/21 08:00 Pulse Ox 97 11/07/21 08:00 11/06/21 11/07/21 11/07/21 22:59 06:59 14:59 Output Total 70 / 430 200 / 630 Balance -70 / -10 -200 / -210 Weight last 48 hrs Weight 82.871 kg Weight 85.684 kg Physical Exam 2 Const: COMMON NORMALS: patient oriented x3 HENMT: COMMON NORMALS: normocephalic and atraumatic HEAD & SCALP: normocephalic and atraumatic Chest: COMMONS NORMALS: normal inspection of the chest and normal palpation of entire chest wall CHEST: Yes Symmetrical chest wall rise Resp: COMMON NORMALS: normal respiratory effort, No retractions, No use of accessory muscles and clear to auscultation bilaterally EFFORT & INSPECTION: Yes symmetric chest movement AUSCULTATION: clear to auscultation bilaterally Cardio: COMMON NORMALS: regular rate, regular rhythm, S1 normal heart sound present, S2 normal heart sound present, No gallops present (Cardio), No murmurs present (Cardio), No rub (Cardio) and Peripheral pulses 2+ throughout RATE: regular rate RHYTHM: regular rhythm HEART SOUNDS: S1 normal heart sound present and S2 normal heart sound present PERIPHERAL PULSES: Peripheral pulses 2+ throughout GI: COMMON NORMALS: Normal to inspection, nondistended, normoactive bowel sounds present, Soft to palpation, non-tender, No hepatosplenomegaly present and no masses AUSCULTATION: Yes normoactive bowel sounds PALPATION: Yes Soft to palpation and Yes No hepatosplenomegaly present RECTAL EXAM: deferred Extremity: COMMON NORMALS: no clubbing, cyanosis or edema and no pedal edema Neuro: COMMON NORMALS: patient oriented x3 Urinary Catheter Management: Pool: Cath Placed During This Visit: yes, but has since been removed by the nurse Reason for Continuing Indwelling Catheter: Decision to DC Catheter Urinary Catheter Date of Insertion: 10/27/21 Urinary Catheter Time of Insertion: 20:00 Date Urinary Catheter Removed: 11/03/21 Time Urinary Catheter Discontinued: 10:00 Data : 11/07/21 04:18 11/07/21 04:18 A&P Assessment and plan (1) Reflux esophagitis: on PPI stable Status: Acute (2) Gastritis and duodenitis: on PPI, stable Status: Acute (3) Atrial fibrillation: rate controlled Status: Acute Qualifiers: Atrial fibrillation type: paroxysmal Qualified Code(s): I48.0 - Paroxysmal atrial fibrillation (4) Hypertension: stable Status: Chronic Qualifiers: Hypertension type: essential hypertension Qualified Code(s): I10 - Essential (primary) hypertension (5) Acute kidney injury superimposed on chronic kidney disease: gradually improving but Se Cr still significantly high Status: Acute (6) Hyperkalemia: resolved Status: Acute (7) Anemia due to blood loss, acute: H/H low but stable Status: Acute (8) GI bleed: ni further bleed Status: Acute Qualifiers: GI bleed type/associated pathology: gastrointestinal hemorrhage with hematemesis Qualified Code(s): K92.0 - Hematemesis (9) Warfarin-induced coagulopathy: improved Status: Acute (10) Leg pain, bilateral: R/O DVT. Off ACS. Status: Acute Plan Disposition: Initial plan was to send patient home, given the fact that the [facility] is currently unable to take care of the patient, and patient currently still needs a lot of care, custodial placement has been attempted. 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
[2021-11-08] VITALS (9 sets, daily range): BP systolic 118–139; BP diastolic 73–85; PULSE 84–96; RESP 14–18; TEMP 36.6–36.8; O2SAT 95–99
[2021-11-08] MEDS: pantoprazole DR 40 mg Tablet PO (08:22)
[2021-11-08] MEDS: ondansetron 2 mg/ML SDV 2 mL 4 MG IVP ×4 (08:25→22:01)
[2021-11-08] MEDS: metoclopramide 5 mg/mL SDV 2 mL IVP (10:20)
[2021-11-08] MEDS: sucralfate 1 gm/10 mL Oral Liq UDC PO (11:10)
--- NOTE | 2021-11-08 15:22 | PC.NURSE ---
Shift note Patient stated at the beginning of shift that even small amounts of liquid or food upset her stomach. After Protonix administration this morning with a sip of water, patient threw up in a bucket. PRN Zofran given. Spoke with physician. PRN Leah Q6H and scheduled Zofran ordered. Patient able to tolerate some milk and fruit for breakfast and lunch. Will try some soup later. Can drink water now. Sat up in chair for a few hours today. No pain reported. IV flushed and patent.
--- NOTE | 2021-11-08 18:36 | PM.PN ---
Subjective Subjective: Patient was seen and examined this morning no acute events overnight, BUN and serum creatinine has continued to improve. Poor oral intake due to nausea as well as vomiting. We will put her on scheduled Zofran as well as add Reglan as needed Continue to have good urine output Medications: Reviewed: Yes Medication Review Details: Current Medications Docusate Sodium (Docusate Sodium 10 Mg/Ml (5ml) Liq) 100 mg PO DAILY [facility] Last Admin: 11/06/21 08:12 Dose: Not Given Documented by: Cefepime HCl 250 mg/ Sodium (Chloride) 50 mls @ 100 mls/hr IV Q24H [facility] Last Infusion: 11/05/21 22:03 Dose: Infused Documented by: Lanolin (Lanolin Oint 7 Gm) 1 applic TOPICAL PRN PRN PRN Reason: DRYNESS Last Admin: 11/05/21 03:32 Dose: 1 applic Documented by: Lidocaine (Lidocaine 5% Patch) 0.5 patch TOPICAL [id number] [facility] Last Admin: 11/06/21 08:13 Dose: Not Given Documented by: Ondansetron HCl (Ondansetron 2 Mg/Ml Sdv 2 Ml) 4 mg IVP Q8H PRN PRN Reason: vomiting, or N/V if npo Last Admin: 11/05/21 03:36 Dose: 4 mg Documented by: Ondansetron HCl (Ondansetron 2 Mg/Ml Sdv 2 Ml) 4 mg IVP Q6H PRN PRN Reason: NAUSEA AND VOMITING Pantoprazole Sodium (Pantoprazole Dr 40 Mg Tablet) 40 mg PO DAILY [facility] Last Admin: 11/06/21 08:13 Dose: Not Given Documented by: Sucralfate (Sucralfate 1 Gm/10 Ml Oral Liq Udc) 1 gm PO AC&BEDTIME [facility] Last Admin: 11/06/21 06:02 Dose: Not Given Documented by: Vitals/I&O/Wt Last Vital Signs Temp 98.0 F 11/08/21 15:04 Pulse 87 11/08/21 15:04 Resp 18 11/08/21 15:04 BP 121/80 11/08/21 15:04 Pulse Ox 97 11/08/21 15:04 11/08/21 11/08/21 11/08/21 06:59 14:59 22:59 Intake Total 180 / 180 Output Total 225 / 225 250 / 475 Balance -45 / -45 -250 / -295 Weight last 48 hrs Weight 83.546 kg Weight 82.871 kg Physical Exam Const: COMMON NORMALS: patient oriented x3 HENMT: COMMON NORMALS: normocephalic and atraumatic HEAD & SCALP: normocephalic and atraumatic Chest: COMMONS NORMALS: normal inspection of the chest and normal palpation of entire chest wall CHEST: Yes Symmetrical chest wall rise Resp: COMMON NORMALS: normal respiratory effort, No retractions, No use of accessory muscles and clear to auscultation bilaterally EFFORT & INSPECTION: Yes symmetric chest movement AUSCULTATION: clear to auscultation bilaterally Cardio: COMMON NORMALS: regular rate, regular rhythm, S1 normal heart sound present, S2 normal heart sound present, No gallops present (Cardio), No murmurs present (Cardio), No rub (Cardio) and Peripheral pulses 2+ throughout RATE: regular rate RHYTHM: regular rhythm HEART SOUNDS: S1 normal heart sound present and S2 normal heart sound present PERIPHERAL PULSES: Peripheral pulses 2+ throughout GI: COMMON NORMALS: Normal to inspection, nondistended, normoactive bowel sounds present, Soft to palpation, non-tender, No hepatosplenomegaly present and no masses AUSCULTATION: Yes normoactive bowel sounds PALPATION: Yes Soft to palpation and Yes No hepatosplenomegaly present RECTAL EXAM: deferred Extremity: COMMON NORMALS: no clubbing, cyanosis or edema and no pedal edema Neuro: COMMON NORMALS: patient oriented x3 Urinary Catheter Management: Pool: Cath Placed During This Visit: yes, but has since been removed by the nurse Reason for Continuing Indwelling Catheter: Decision to DC Catheter Urinary Catheter Date of Insertion: 10/27/21 Urinary Catheter Time of Insertion: 20:00 Date Urinary Catheter Removed: 11/03/21 Time Urinary Catheter Discontinued: 10:00 Data : 11/07/21 04:18 11/07/21 04:18 A&P Assessment and plan (1) Reflux esophagitis: on PPI stable Status: Acute (2) Gastritis and duodenitis: on PPI, stable Status: Acute (3) Atrial fibrillation: rate controlled Status: Acute Qualifiers: Atrial fibrillation type: paroxysmal Qualified Code(s): I48.0 - Paroxysmal atrial fibrillation (4) Hypertension: stable Status: Chronic Qualifiers: Hypertension type: essential hypertension Qualified Code(s): I10 - Essential (primary) hypertension (5) Acute kidney injury superimposed on chronic kidney disease: gradually improving but Se Cr still significantly high Status: Acute (6) Hyperkalemia: resolved Status: Acute (7) Anemia due to blood loss, acute: H/H low but stable Status: Acute (8) GI bleed: ni further bleed Status: Acute Qualifiers: GI bleed type/associated pathology: gastrointestinal hemorrhage with hematemesis Qualified Code(s): K92.0 - Hematemesis (9) Warfarin-induced coagulopathy: improved Status: Acute (10) Leg pain, bilateral: R/O DVT. Off ACS. Status: Acute Plan Disposition: Initial plan was to send patient home, given the fact that the is currently unable to take care of the patient, and patient currently still needs a lot of care, detention placement has been attempted. Attestations Medical Necessity Statement*: Patient is currently awaiting detention placement. 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
[2021-11-09] VITALS: BP 144/86; PULSE 86; RESP 12; TEMP 37; O2SAT 95
[2021-11-09 04:00] VITALS: BP 135/85; PULSE 88; RESP 12; TEMP 37; O2SAT 97
[2021-11-09] MEDS: ondansetron 2 mg/ML SDV 2 mL 4 MG IVP ×2 (04:43→10:27)
[2021-11-09 05:43] LABS: Alanine Aminotransferase 41 U/L (0-33); Alkaline Phosphatase 159 IU/L (35-105); Anion Gap 14.6 (5-19); Aspartate Amino Transferase 39 U/L (0-32); Blood Urea Nitrogen 39 mg/dL (8-23); Calcium 8.8 mg/dL (8.5-10.5); Carbon Dioxide 21 mmol/L (22-29); Chloride 107 mmol/L (98-107); Globulin 3.2 g/dL (1.3-4.6); Glucose 100 mg/dL (65-115); Magnesium 1.3 mg/dL (1.7-2.3); Osmolality Calculated 295 mOsm/kg (285-295); Phosphorus 2.8 mg/dL (2.5-4.5); Potassium 4.6 mmol/L (3.5-5.1); Sodium 138 mmol/L (136-145); Total Bilirubin 0.5 mg/dL (0.15-1.2); Total Protein 6.2 g/dL (6.6-8.7)
[2021-11-09 06:00] VITALS: PULSE 95
[2021-11-09 07:43] VITALS: BP 148/93; PULSE 88; RESP 16; TEMP 36.4; O2SAT 96
[2021-11-09] MEDS: pantoprazole DR 40 mg Tablet PO (08:08)
--- NOTE | 2021-11-09 08:54 | PC.SOCIAL ---
IMM Updated Updated pt on IMM. No questions voiced. Provided pt a copy. Initialed, dated, & timed copy in chart.
--- NOTE | 2021-11-09 10:48 | PM.DCS ---
Discharge Providers Date of Admission: 10/27/21 17:59 Date of Discharge: November 09, 2021 Attending Provider at Admission: Simba Keller Attending Provider at Discharge: Kael Martínez MD Primary Care Provider: Osiris Owusu MD Diagnoses at Discharge Discharge Diagnosis (1) Reflux esophagitis: (2) Gastritis and duodenitis: (3) Atrial fibrillation: Qualifiers: Atrial fibrillation type: paroxysmal Qualified Code(s): I48.0 - Paroxysmal atrial fibrillation (4) Hypertension: Qualifiers: Hypertension type: essential hypertension Qualified Code(s): I10 - Essential (primary) hypertension (5) Acute kidney injury superimposed on chronic kidney disease: (6) Hyperkalemia: (7) Anemia due to blood loss, acute: (8) GI bleed: Qualifiers: GI bleed type/associated pathology: gastrointestinal hemorrhage with hematemesis Qualified Code(s): K92.0 - Hematemesis (9) Warfarin-induced coagulopathy: (10) Leg pain, bilateral: Reason for Visit Reason for Visit: ABD/BACK PAIN; LOW BP Hospital Course Hospital Course 76-year-old female with past medical history of hypertension CKD stage III, atrial fibrillation on warfarin, obesity dyslipidemia, was brought in with chief complaint of malaise, nausea, inability to take in food or drink they report for the last several weeks, she was here recently admitted 10/02-10/08 for acute cholecystitis, at which time a cholecystotomy tube was placed,She was continued on Coumadin.? She was following up with surgery for arrangements of definitive treatment with cholecystectomy 6 weeks from index episode She was initially admitted for management of JUAN on CKD, hypertension, anemia, nausea vomiting, She had a complicated hospital course, during the hospital stay she had massive hematemesis, requiring the need for EGD: Gastritis and duodenitis, hospital course was also complicated by development of JUAN on CKD JUAN was likely secondary to ATN from hypovolemic / septic shock.For which temporary dialysis catheter was placed, renal was on board, renal function was closely monitored, fortunately she was able to recover his kidney function, at the time of discharge she was making good urine, BUN and serum creatinine was trending down in the right direction, had no signs of volume overload, no signs of uremia, electrolytes are normal. For history of A. fib, heart rate was well controlled on discharge warfarin was held on discharge, Given the GI bleed during the hospital stay, secondary to warfarin induced coagulopathy for which she required PCC in addition to other reversal agent FFP vitamin K. Current plan is to follow cardiology as an outpatient and initiate warfarin as per the patient and the telecommunications field engineer discretion. Risk and benefit of being and not being on anticoagulation has been explained. Patient and family has agreed to not continue warfarin for now.Calculus of gallbladder with cholecystitis without biliary obstruction Cholecystostomy tube remains in place. She was empirically kept on cefepime, no antibiotics were continued on discharge. Following with Dr. Kerns outpatient. For history of hypertension she was discharged on amlodipine 5 mg p.o. daily, YAKOV inhibitor was discontinued on discharge given her recovering kidney function. Patient responded well to above medical management and is being discharge in stable condition to long term given her significant weakness. Physical Exam Const: COMMON NORMALS: patient oriented x3 HENMT: COMMON NORMALS: normocephalic and atraumatic HEAD & SCALP: normocephalic and atraumatic Eye: GENERAL EYE: appearance normal, both eyes and all related structures Chest: COMMONS NORMALS: normal inspection of the chest and normal palpation of entire chest wall CHEST: Yes Symmetrical chest wall rise Resp: COMMON NORMALS: normal respiratory effort and clear to auscultation bilaterally EFFORT & INSPECTION: Yes symmetric chest movement AUSCULTATION: clear to auscultation bilaterally Cardio: COMMON NORMALS: regular rate, regular rhythm, S1 normal heart sound present, S2 normal heart sound present, No gallops present (Cardio), No murmurs present (Cardio), No rub (Cardio) and Peripheral pulses 2+ throughout RATE: regular rate RHYTHM: regular rhythm HEART SOUNDS: S1 normal heart sound present and S2 normal heart sound present PERIPHERAL PULSES: Peripheral pulses 2+ throughout GI: COMMON NORMALS: Normal to inspection, nondistended, normoactive bowel sounds present, Soft to palpation, non-tender, No hepatosplenomegaly present and no masses AUSCULTATION: Yes normoactive bowel sounds PALPATION: Yes Soft to palpation and Yes No hepatosplenomegaly present RECTAL EXAM: deferred Extremity: COMMON NORMALS: no clubbing, cyanosis or edema and no pedal edema Neuro: COMMON NORMALS: patient oriented x3 Urinary Catheter Management: Pool: Cath Placed During This Visit: yes, but has since been removed by the nurse Reason for Continuing Indwelling Catheter: Decision to DC Catheter Urinary Catheter Date of Insertion: 10/27/21 Urinary Catheter Time of Insertion: 20:00 Date Urinary Catheter Removed: 11/03/21 Time Urinary Catheter Discontinued: 10:00 Discharge Data Studies Completed and Pending Completed Studies During Hospitalization Category Date Time Status CT abdomen pelvis w con* [id number] Stat Cat Scan 10/27/21 14:13 Completed CXRP [XR chest 1V portable [id number]] Routine Exams 10/27/21 19:22 Completed XR chest 1V portable [id number] Stat Exams 10/27/21 21:34 Completed Pathology: Surgical [PTH] Routine Pth 10/31/21 12:00 Completed US venous duplex lower extremity bilat [CV venous Ultrasound 11/02/21 09:57 [place] [id number]] Routine Pending at discharge Category Date Time Status Comprehensive Metabolic Panel AM LABS Lab 11/10/21 04:00 Ordered Comprehensive Metabolic Panel AM LABS Lab 11/11/21 04:00 Ordered Magnesium AM LABS Lab 11/10/21 04:00 Ordered Magnesium AM LABS Lab 11/11/21 04:00 Ordered Phosphorus AM LABS Lab 11/10/21 04:00 Ordered Phosphorus AM LABS Lab 11/11/21 04:00 Ordered Radiology Impressions Abdomen/Pelvis CT 10/27/21 14:13 IMPRESSION: When compared with 10/06/2021, there has been interval placement of a percutaneous canal cholecystotomy. Gallbladder distension and associated inflammation have significantly improved in the interval. There is questionable gastroduodenitis.Clinical correlation is advised. Chest X-Ray 10/27/21 21:34 IMPRESSION: There is a right IJ catheter whose tip is in the superior vena cava. No PICC catheter is identified. Laboratory Results WBC 9.1 10^3/uL (4.0-10.0) 11/07/21 04:18 RBC 3.23 10^6/uL (4.1-5.3) L 11/07/21 04:18 Hgb 10.1 g/dL (11.5-15.3) L 11/07/21 04:18 Hct 31.2 % (37.0-47.0) L 11/07/21 04:18 MCV 96.6 fl (81-99) 11/07/21 04:18 MCH 31.3 pg (28.0-34.0) 11/07/21 04:18 MCHC 32.4 g/dL (30.0-36.0) 11/07/21 04:18 RDW 14.6 % (12.1-15.1) 11/07/21 04:18 Plt Count 256 10^3/cmm (130-400) 11/07/21 04:18 MPV 11.4 fL (7.4-10.4) H 11/07/21 04:18 Neut % (Auto) 72.6 % 11/07/21 04:18 Lymph % (Auto) 16.9 % 11/07/21 04:18 [place] % (Auto) 7.1 % 11/07/21 04:18 Eos % (Auto) 2.1 % 11/07/21 04:18 Baso % (Auto) 0.5 % 11/07/21 04:18 Neut # (Auto) 6.63 10^3/uL (1.8-7.7) 11/07/21 04:18 Lymph # (Auto) 1.5 10^3/uL (0.8-4.8) 11/07/21 04:18 [place] # (Auto) 0.7 10^3/uL (0.2-0.9) 11/07/21 04:18 Eos # (Auto) 0.2 10^3/uL (0.0-0.8) 11/07/21 04:18 Baso # (Auto) 0.1 10^3/uL (0.0-0.1) 11/07/21 04:18 Nucleated RBC % (auto) 0 % 11/07/21 04:18 Nucleated RBCs # 0.0 /100WBC 11/07/21 04:18 PT 17.90 SECONDS (12.1-14.9) H 10/31/21 08:48 INR 1.44 (0.8-1.2) H 10/31/21 08:48 Specimen Type Arterial 10/28/21 15:05 Sample Site Radial, left 10/28/21 15:05 ABG pH 7.39 (7.35-7.45) 10/28/21 15:05 ABG pCO2 30.7 mmHg (35-45) L 10/28/21 15:05 ABG pO2 91.9 mmHg (80.0-100.0) 10/28/21 15:05 ABG HCO3 18.6 mmol/L (22-26) L 10/28/21 15:05 ABG O2 Saturation 98.0 10/28/21 15:05 ABG Base Excess -5.6 mmol/L (-2.0-2.0) L 10/28/21 15:05 Андрей Test Pos 10/28/21 15:05 A-a O2 Gradient 2.5 mmHg (5-10) L 10/28/21 15:05 Hematocrit 27.5 % (37-47) L 10/28/21 15:05 Hgb O2 Saturation 96.8 % (95-100) 10/28/21 15:05 Carboxyhemoglobin 1.2 %THgb (0.4-20.1) 10/28/21 15:05 Methemoglobin 0.0 % (0.4-1.5) L 10/28/21 15:05 Total Hemoglobin 9.0 g/dL (12-16) L 10/28/21 15:05 Sodium 133.0 mmol/L (131-143) 10/28/21 15:05 Potassium 4.7 mmol/L (3.5-5.0) 10/28/21 15:05 Glucose 213.0 mg/dL (70-115) H 10/28/21 15:05 Ionized Calcium 1.1 mmol/L (1.1-1.4) 10/28/21 15:05 O2 Delivery Device Room air 10/28/21 15:05 O2 Liters/Min 5.0 % 10/27/21 17:30 FiO2 21.0 % 10/28/21 15:05 Laundry Equipment Operator ID Cak 10/28/21 15:05 Sodium 138 mmol/L (136-145) 11/09/21 04:41 Potassium 4.6 mmol/L (3.5-5.1) 11/09/21 04:41 Chloride 107 mmol/L (98-107) 11/09/21 04:41 Carbon Dioxide 21 mmol/L (22-29) L 11/09/21 04:41 Anion Gap 14.6 (5-19) 11/09/21 04:41 BUN 39 mg/dL (8-23) H 11/09/21 04:41 Creatinine 1.3 mg/dL (0.5-0.9) H 11/09/21 04:41 GFR Calculation Not Reportable 11/09/21 04:41 Glucose 100 mg/dL (65-115) 11/09/21 04:41 Calculated Osmolality 295 mOsm/kg (285-295) 11/09/21 04:41 Lactic Acid 1.0 mmol/L (0.5-2.2) 10/27/21 16:34 Uric Acid 11.7 mg/dL (2.4-5.7) H 10/29/21 03:23 Calcium 8.8 mg/dL (8.5-10.5) 11/09/21 04:41 Phosphorus 2.8 mg/dL (2.5-4.5) 11/09/21 04:41 Magnesium 1.3 mg/dL (1.7-2.3) L 11/09/21 04:41 Total Bilirubin 0.5 mg/dL (0.15-1.2) 11/09/21 04:41 AST 39 U/L (0-32) H 11/09/21 04:41 ALT 41 U/L (0-33) H 11/09/21 04:41 Alkaline Phosphatase 159 IU/L (35-105) H 11/09/21 04:41 Creatine Kinase 32 U/L (26-192) 10/27/21 22:45 Total Protein 6.2 g/dL (6.6-8.7) L 11/09/21 04:41 Albumin 3.0 g/dL (3.5-5.2) L 11/09/21 04:41 Globulin 3.2 g/dL (1.3-4.6) 11/09/21 04:41 Lipase 174 U/L (13-60) H 10/27/21 16:34 25-OH Vitamin D Total 16 ng/mL (30-100) L 10/30/21 03:50 Urine Color Yellow (Yellow) 10/28/21 12:19 Urine Appearance Cloudy (CLEAR) 10/28/21 12:19 Urine pH 5 (5-7) 10/28/21 12:19 Ur Specific [place] 1.020 (1.005-1.030) 10/28/21 12:19 Urine Protein Trace (Negative) 10/28/21 12:19 Urine Glucose (UA) Norm (Normal) 10/28/21 12:19 Urine Ketones Negative (Negative) 10/28/21 12:19 Urine Blood 3+ (Negative) H 10/28/21 12:19 Urine Nitrate Negative (Negative) 10/28/21 12:19 Urine Bilirubin 1+ (Negative) H 10/28/21 12:19 Prot Sulfosalicylic Acd Cancelled 10/27/21 15:03 Urine Urobilinogen Norm mg/dL (Negative) 10/28/21 12:19 Ur Leukocyte Esterase 2+ (Negative) H 10/28/21 12:19 Urine RBC 10-15 /hpf (0-2) H 10/28/21 12:19 Urine WBC 80-100 /hpf (0-5) H 10/28/21 12:19 Ur Squamous Epith Cells 5-10 /hpf (0-5) H 10/28/21 12:19 Amorphous Sediment Not Reportable 10/28/21 12:19 Urine Bacteria 2+ /hpf (NONE) H 10/28/21 12:19 Ur Random Sodium 11 mmol/L 10/27/21 23:09 Urine Creatinine 447 mg/dL (28-217) H 10/27/21 23:09 Complement C3 100 mg/dL (90-180) 10/28/21 09:50 Complement C4 23 mg/dL (10-40) 10/28/21 09:50 Coronavirus 229E (PCR) Not detected (NOT DETECT) 10/28/21 12:19 Hep Bs Antigen Non-reactive (Nonreactive) 10/28/21 09:50 Hep Bs Antibody < 3.5 (11.5-1000) L 10/28/21 09:50 Hepatitis C Antibody Non-reactive (Nonreactive) 10/28/21 09:50 SARS-CoV-2 (PCR) Not detected (NOT DETECT) 10/28/21 12:19 Blood Type AB Positive 10/27/21 22:45 Rho(D) Type Positive 10/27/21 22:45 Antibody Screen Negative 10/27/21 22:45 Crossmatch See Detail 10/27/21 22:45 Vitals Last Vital Signs Temp 97.5 F L 11/09/21 07:43 Pulse 88 11/09/21 07:43 Resp 16 11/09/21 07:43 BP 148/93 11/09/21 07:43 Pulse Ox 96 11/09/21 07:43 Discharge Plan Discharge Patient Disposition: Home Condition: Stable Prescriptions: New amlodipine 5 mg tablet 5 mg PO DAILY Qty: 30 3RF ondansetron 4 mg tablet,disintegrating 4 mg PO Q8H 10 Days Qty: 30 0RF Reglan 5 mg tablet 5 mg PO Q8H PRN (Reason: nausea and vomiting) 7 Days Qty: 20 0RF Continued atorvastatin 20 mg tablet 20 mg PO DAILY 0RF Held warfarin 3 mg tablet 3 mg PO DAILY 0RF Hold Instructions: Resume on 11/29/21. Discontinued hydrocodone-acetaminophen 5-325 mg tablet 1 tab PO Q6H PRN (Reason: Pain) 0RF Discharge Orders: Discharge Order (Routine); Ordered 11/09/21 Ordered By: Kael Martínez Referrals: [facility] [Outside] Osiris Owusu MD [Primary Care Provider] - Gordy Oseguera MD [Physician] - 1 month Milton Kerns MD [Physician] - (Return to surgery office in 1 to 2 weeks after discharge from the hospital with Dr. Kerns) Discharge Diet: Regular Discharge Activity: Increase activity as tolerated Patient Instructions: GI Discharge Instructions, Opioid Safety Discharge Attestations Time Spent in Discharge Care*: greater than 30 min Specific Discharge Activities: educating patient, educating and/or supporting family/caregiver, discussing with pcp/other providers, discussing with case supervisor/social workers/dc planners, documenting/other paperwork and evaluating patient/reviewing data Quality Metrics Clinical Quality Measures [ No reported AMI, CVA or VTE this stay] Coding Level of Care Code Acute [facility] DC note Diagnoses Reflux esophagitis K21.00 Gastritis and duodenitis K29.90 Atrial fibrillation I48.0 Atrial fibrillation type: paroxysmal Hypertension I10 Hypertension type: essential hypertension Acute kidney injury superimposed on chronic kidney disease N17.9; N18.9 Hyperkalemia E87.5 Anemia due to blood loss, acute D62 GI bleed K92.0 GI bleed type/associated pathology: gastrointestinal hemorrhage with hematemesis Warfarin-induced coagulopathy D68.32; T45.515A Leg pain, bilateral M79.604; M79.605
[2021-11-09 11:27] VITALS: BP 153/90; PULSE 80; RESP 20; TEMP 36.8; O2SAT 95
[2021-11-09 13:10] LABS: SARS Covid-2 Antigen Negative (Negative)
== END 2021-11-09 15:00 | disposition skilled nursing facility (03) | DRG 682 ==
LOC: ER 17:18 → ICU 18:25 → MEDSURG 11-02 18:24
PROVIDERS: Family Medicine; Hospitalist; Internal Medicine; Internal Medicine Nephrology; Surgery; Admitting Provider Internal Medicine; Emergency Provider Family Medicine; PCP Family Medicine; Visit Provider Internal Medicine
PROC: 06HY33Z Insertion of Infusion Device into Lower Vein, Percutaneous Approach (ICD-10-PCS; principal; 2021-10-28 13:00)
PROC: 0DJ08ZZ Inspection of Upper Intestinal Tract, Via Natural or Artificial Opening Endoscopic (ICD-10-PCS; CPT 43235; principal; 2021-10-31 11:00)
DX: N17.0 Acute kidney failure with tubular necrosis (principal); R57.1 Hypovolemic shock; A41.9 Sepsis, unspecified organism; R65.21 Severe sepsis with septic shock; K92.2 Gastrointestinal hemorrhage, unspecified; K80.10 Calculus of gallbladder with chronic cholecystitis without obstruction; E87.2 Acidosis; D62 Acute posthemorrhagic anemia; K92.0 Hematemesis; D68.32 Hemorrhagic disorder due to extrinsic circulating anticoagulants; N18.30 Chronic kidney disease, stage 3 unspecified; I12.9 Hypertensive chronic kidney disease with stage 1 through stage 4 chronic kidney disease, or unspecified chronic kidney disease; E66.9 Obesity, unspecified; Z68.31 Body mass index [BMI] 31.0-31.9, adult; I48.0 Paroxysmal atrial fibrillation; I95.9 Hypotension, unspecified; E87.5 Hyperkalemia; E78.2 Mixed hyperlipidemia; T45.515A Adverse effect of anticoagulants, initial encounter; M79.605 Pain in left leg; M79.604 Pain in right leg; K29.80 Duodenitis without bleeding; K44.9 Diaphragmatic hernia without obstruction or gangrene; K21.00 Gastro-esophageal reflux disease with esophagitis, without bleeding; Z79.01 Long term (current) use of anticoagulants
CPT/HCPCS: 36415; 36430; 36592; 36600; 43239; 51702; 71045; 74177; 80051; 80053; 80069; 81001; 82274; 82306; 82330; 82550; 82575; 82805; 83605; 83690; 83735; 84100; 84300; 84550; 85014; 85018; 85025; 85610; 86160; 86706; 86803; 86850; 86900; 86920; 86927; 87040; 87086; 87340; 87426; 87635; 88305; 88342; 93005; 93970; 94664; 96365; 96366; 96372; 96375; 97110; 97116; 97161; 97165; 97530; 97535; 99285; C9113; J0282; J0692; J1265; J1940; J2354; J2405; J2597; J2704; J2765; J3010; J3430; J3475; J3490; J7030; J7050; J7060; J7168; J7799; P9016; P9017; Q3014; Q9967

== ENCOUNTER → 2021-11-21 15:14 | Outpatient (BNVA) | payer MEDICARE, SELFPAY | PROVIDERS: PCP Family Medicine; Visit Provider Surgery | DX: K80.10 Calculus of gallbladder with chronic cholecystitis without obstruction (principal) | CPT/HCPCS: 99213 ==

== ENCOUNTER 2021-12-03 06:19 | Day surgery (SDC) | payer MEDICARE, SELFPAY ==
[2021-11-30 11:20] VITALS: BMI 31.7
[2021-12-03] VITALS (17 sets, daily range): BP systolic 130–151; BP diastolic 72–100; PULSE 89–120; RESP 16–20; TEMP 36.1–36.7; O2SAT 93–100
--- NOTE | 2021-12-03 06:25 | W.PM.OPSUD ---
Surgery/Procedure H&P Update DATE OF PROCEDURE: December 03, 2021 DATE H&P PERFORMED: 10/30/21 H&P UPDATE INFORMATION: I have reviewed H&P completed within last 30 days, I have examined patient prior to procedure and No changes to prior documentation PREOP DIAGNOSIS: Hematemesis PRIMARY INDICATION FOR PROCEDURE: The same PLANNED PROCEDURE: Operation Date: 12/03/21 08:05 Proposed Procedures p Laparoscopic Cholecystectomy 65636/k80.10(Not Applicable) - Milton Kerns MD
[2021-12-03] MEDS: acetaminophen 1,000 MG/100 ML PIGGYBACK 400 MG IV (07:13)
[2021-12-03] MEDS: sodium chloride 0.9% 1,000 ML 30 ML IV (07:13)
[2021-12-03] MEDS: heparin 5,000 unit/mL INJ 1 mL 3000 UNIT SUBCUT (07:14)
[2021-12-03] MEDS: pantoprazole 40 mg SDV IVP (07:25)
--- NOTE | 2021-12-03 07:25 | ANES.PREANE2 ---
Pre-Anesthetic Assessment Height/Weight: Height 1.63 m Weight 83.915 kg Temp Pulse Resp BP Pulse Ox 97.4 F L 120 H 18 148/87 99 12/03/21 06:42 12/03/21 06:42 12/03/21 06:42 12/03/21 06:42 12/03/21 06:42 Preop Diagnosis: Symptomatic cholelithiasis Operation Date: 12/03/21 08:05 Proposed Procedures p Laparoscopic Cholecystectomy 08714/k80.10(Not Applicable) - Milton Kerns MD Familial anesthetic complications: None Was Beta Ondina taken within 24 hours: N/A Was Clonidine taken within 24 hours: N/A Last intake: Intake Last Liquid Date 12/02/21 Last Liquid Time 22:00 Last Solid Date 12/02/21 Last Solid Time 18:00 Social No alcohol and No tobacco Exam alert, oriented x 3 and clear to auscultation bilaterally irregular Airway Submandibular: within normal limits Cervical ROM: within normal limits Mallampati: Class III Dentition: full CV/HEM Atrial Fibrillation GI Gastroesophageal Reflux Disease Metabolic Morbid Obesity Anesthetic Plan ASA status: 3 Anesthesia: General Medications/Allergies Home Medications Medication Instructions Recorded Confirmed Last Taken Type No Known Home Medications 11/30/21 11/30/21 Unknown History Allergies Allergy/AdvReac Type Severity Reaction Status Date / Time Penicillins Allergy unknown Verified 11/30/21 11:13 Current Medications Generic Name Dose Route Start Last Admin Trade Name Freq PRN Reason Stop Dose Admin Sodium Chloride 1,000 mls @ 30 mls/hr 12/03/21 06:45 12/03/21 07:13 Sodium Chloride 0.9% IV 12/04/21 06:44 30 mls/hr .Q24H SHER Administration PFS Anesthesia Medical History (Updated 11/23/21 @ 08:53 by Milton Kerns MD) Acute anemia Acute kidney injury superimposed on chronic kidney disease Anemia due to blood loss, acute Atrial fibrillation Calculus of gallbladder with cholecystitis without biliary obstruction Cholecystostomy care Chronic anticoagulation With Coumadin, for atrial fibrillation Chronic kidney disease Gastritis and duodenitis GI bleed Hematemesis Hyperkalemia Hypertension Hypotension Hypotension Hypoxia Leg pain, bilateral Malaise Metabolic acidosis Mixed hyperlipidemia Nausea and vomiting Obesity Paroxysmal atrial fibrillation with RVR Reflux esophagitis Warfarin-induced coagulopathy Surgical History Acute calculous cholecystitis Status post cholecystostomy tube placement Family History Grandmother Cancer Mother Cancer Denies family history of Diabetes CAD (coronary artery disease) Clotting disorder Dementia Hyperlipidemia Chronic kidney disease (CKD) Suicide Anesthesia complication Bleeding disorder Lung disease Hypertension Stroke Social History Smoking and tobacco status: never smoked Alcohol intake: never Household members: spouse Marital status: Data Anesthesia Cardiac Studies: Echocardiogram 10/03/21
[2021-12-03] MEDS: clindamycin 900 MG/50 ML PREMIX 100 MG IV (07:30)
[2021-12-03] MEDS: lidocaine 2% INJ 20 mL INJECTION (07:57)
--- NOTE | 2021-12-03 09:24 | PM.OP ---
Operative Report Date of procedure: December 03, 2021 Pre-op diagnosis: Preop Diagnosis Symptomatic cholelithiasis Post-op diagnosis: Acute on top of chronic calculus cholecystitis Post-op findings: Cholecystostomy tube in place Extensive omental adhesions encasing the gallbladder Procedure done: Laparoscopic cholecystectomy and explantation of cholecystostomy tube Implants: Surgicel at the gallbladder fossa Specimens removed/disposition: 1. Gallbladder and contents 2. 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 A preop dose of Protonix 40 mg IV was given. Time-out was done verifying the patient's name/date of /planned procedure and destination after the procedure, all were in agreement. SCDs confirmed to be functioning, preoperative antibiotics administered per protocol, and beta lizy protocol was confirmed. Patient was appropriately secured to the table, footboard was applied to the OR table, before prep and drape anesthesia was asked to tilt the table back and forth to make sure that the patient is appropriately secured and she was. Prep and drape of the abdomen was done under the usual sterile technique, followed by that infraumbilical skin incision,skin incision was done by a 15 blade knife, and stay sutures were applied to the fascia and Ruelas trocar technique was used to enter the abdominal without injuring any abdominal viscera, started by low flow gas insufflation followed by a high flow, started with a 10 mm laparoscope and under direct vision there was no evidence of any injuries, the scope then switched to a 30? ,10 millimeter scope and under direct visualization 5 millimeter trocar was inserted in the epigastric region followed by two 5 mm trocars were inserted in the right upper quadrant that was done after injection of local lidocaine 2% at all incision sites. Gallbladder showed acute on top chronic cholecystitis and cholecystostomy tube in place Patient was then positioned in the head up and tilted to the left. A 5 mm tenaculum and ratcheted forceps were introduced into the lateral most 5mm port and was applied unto the fundus of the gallbladder cephalad and and also alternating with a Bullet forceps the infundibulum of the gallbladder was retracted laterally. Extensive adhesions were noticed to increase the cholecystostomy tube and inflamed gallbladder. Adhesions were taken down by electrocauterization safely under direct vision. At this point I decided to cut of the cholecystostomy tube and removal of the tube in it its entirety from the abdominal cavity, and was sent separately for gross pathology. Using [place] forceps then L-hook cautery to dissect the peritoneum overlying the Calot's triangle which was then opened medially and laterally until the cystic duct and the cystic artery were skeletonized. Dissection was carried along the body of the gallbladder and after ensuring critical view of safety was identfied. Cystic duct and cystic artery where seen connected to the gallbladder. Clips were applied on the cystic duct towards the common bile duct 1 towards the gallbladder then divided is in sharp scissors, 2 clips were then applied onto the cystic artery and 1 towards the gallbladder and divided by sharp scissors. Additional traversing vessels were clipped and divided during dissection. Noticed that the patient does have an acute on top of chronic cholecystitis with extensive vascular adhesions. Dissection was then carried along of the gallbladder from the gallbladder fossa using cautery as well as sharp dissection with heat energy. The gallbladder then was dissected out from the gallbladder fossa totally , cholecystectomy was then achieved and was placed in an Endo Catch bag and then retrieved from the Ruelas trocar site under direct visualization using a 5 mm 30? scope through the epigastric trocar, specimen was then passed to the circulating nurse to go for permanent pathology,irrigation and hemostasis was done to the gallbladder fossa after hemostasis was secured and finalized by placement of pieces of Surgicel at the gallbladder fossa final survey laparoscopy was done that showed no injuries. Copious irrigation followed by suction was obtained. The infra umbilical fascial defect was then closed using interrupted number one PDS sutures using a fascial closure device ;Jayden Jones under direct visualization,following that Gas was allowed to deflate,Trocars were then taken out under direct vision there was no evidence of bleeding. Specimen was passed to the circulating nurse for permanent pathology. No drains were placed and the infraumbilical incision was closed by 3/0 Vicryl followed by skin eduardo that were applied to all incisions after injection of local anesthetic. To approximate the skin edges of the incisions , dressing was applied in the form of band aids and the patient patient got extubated and was taken to recovery area in a stable condition. Site of the cholecystostomy tube exit was cauterized as a granuloma has been formed that was cauterized and excised and the skin staple was applied. Count of sponges,needles and instruments were completed at the end of the procedure I was present for the whole entire procedure.
[2021-12-03] MEDS: fentaNYL 50 mcg/mL INJ 2mL IVP ×2 (09:41→09:55)
--- NOTE | 2021-12-03 10:19 | SUR.PHASEI ---
[facility]
[2021-12-03] MEDS: ondansetron 2 mg/ML SDV 2 mL 4 MG IVP (11:13)
[2021-12-03] MEDS: HYDROcodone-acetaminophen 5-325 mg Tablet 1 TAB PO (11:13)
[2021-12-03] MEDS: ketorolac 30 mg/mL INJ 15 MG IVP (12:16)
--- NOTE | 2021-12-03 13:00 | SUR.PHASEII ---
patient sitting in chair at bedside. in room. pt and educated on laparoscopic gas pain and post op pain.
--- NOTE | 2021-12-03 14:22 | ANE.PACU2 ---
Inpatient post-anesthesia follow up: Airway intact: Yes Vital signs: Temperature 97.0 F Pulse Rate 89 Respiratory Rate 17 Blood Pressure 137/72 Pulse Oximetry 96 Oxygen Delivery Me thod Room Air Oxygen Flow Rate 2 Fraction of Inspir ed Oxygen Hydration adequate: Yes Nausea and vomiting: No Pain level: 4 Mental status: Baseline
== END 2021-12-03 13:35 | disposition home or self-care (01) ==
PROVIDERS: Visit Provider Surgery
PROC: 0FT44ZZ Resection of Gallbladder, Percutaneous Endoscopic Approach (ICD-10-PCS; CPT 47562; principal; 2021-12-03 08:05)
DX: K80.10 Calculus of gallbladder with chronic cholecystitis without obstruction (principal); I48.91 Unspecified atrial fibrillation; K21.9 Gastro-esophageal reflux disease without esophagitis; E66.01 Morbid (severe) obesity due to excess calories; Z68.31 Body mass index [BMI] 31.0-31.9, adult; Z79.01 Long term (current) use of anticoagulants; I10 Essential (primary) hypertension; E66.9 Obesity, unspecified
CPT/HCPCS: 47562; 88300; 88304; C9113; J1644; J1885; J2370; J2405; J2704; J2710; J3010; J3490; J7030

== ENCOUNTER → 2021-12-10 08:40 | Outpatient (BNVA) | payer MEDICARE, SELFPAY | PROVIDERS: Visit Provider Surgery | DX: Z98.890 Other specified postprocedural states (principal); K80.10 Calculus of gallbladder with chronic cholecystitis without obstruction ==

== ENCOUNTER → 2022-01-03 11:27 | Outpatient (BNVA) | payer MEDICARE, SELFPAY | PROVIDERS: PCP Electrodiagnostic Medicine; Visit Provider Internal Medicine Cardiovascular Disease | DX: I48.0 Paroxysmal atrial fibrillation (principal); I12.9 Hypertensive chronic kidney disease with stage 1 through stage 4 chronic kidney disease, or unspecified chronic kidney disease; N18.9 Chronic kidney disease, unspecified; D64.9 Anemia, unspecified; K92.0 Hematemesis; E78.2 Mixed hyperlipidemia | CPT/HCPCS: 99214 ==

== ENCOUNTER → 2022-01-23 08:17 | Outpatient (BNVA) | payer MEDICARE, SELFPAY | PROVIDERS: PCP Electrodiagnostic Medicine; Visit Provider Surgery | DX: Z09 Encounter for follow-up examination after completed treatment for conditions other than malignant neoplasm (principal) | CPT/HCPCS: 99024 ==

== ENCOUNTER → 2022-10-03 10:19 | Outpatient (BNVA) | payer MEDICARE, SELFPAY | PROVIDERS: PCP Electrodiagnostic Medicine; Visit Provider Internal Medicine Cardiovascular Disease | DX: I48.0 Paroxysmal atrial fibrillation (principal); I12.9 Hypertensive chronic kidney disease with stage 1 through stage 4 chronic kidney disease, or unspecified chronic kidney disease; N18.9 Chronic kidney disease, unspecified; D64.9 Anemia, unspecified; E78.2 Mixed hyperlipidemia | CPT/HCPCS: 99214 ==

== ENCOUNTER → 2023-04-17 11:27 | Outpatient (BNVA) | payer MEDICARE, SELFPAY | PROVIDERS: PCP Electrodiagnostic Medicine; Visit Provider Internal Medicine Cardiovascular Disease | DX: E78.2 Mixed hyperlipidemia (principal); I48.0 Paroxysmal atrial fibrillation; R04.0 Epistaxis; I10 Essential (primary) hypertension | CPT/HCPCS: 99214 ==

== ENCOUNTER 2023-10-20 12:37 | Outpatient (CLI) | payer MEDICARE, SELFPAY ==
--- NOTE | 2023-10-20 13:00 | USCV_ITS ---
Camryn De Age: 78 Gender: F : 1945 Exam Date: 10/20/2023 12:49 Ordering Phys: Brendan Weaver DO Technologist: [email or web address] Exam Location: [facility] [place] Indication: a fib, Htn, BP: 132 / 82 HR: 92 Rhythm: Sinus Technical Quality: Adequate MEASUREMENTS (Male / Female) Normal Values 2D ECHO LV Diastolic Diameter PLAX 3.8 cm 4.2 - 5.9 / 3.9 - 5.3 cm IVS Diastolic Thickness 1.5 cm 0.6 - 1.0 / 0.6 - 0.9 cm IVS Systolic Thickness 1.6 cm LVPW Diastolic Thickness 1.7 cm 0.6 - 1.0 / 0.6 - 0.9 cm LVPW Systolic Thickness 2.8 cm LVOT Diameter 2.2 cm LV Ejection Fraction 2D Teich 90.6 % LV Ejection Fraction MOD 2C 67.7 % LV Ejection Fraction 2C AL 67.1 % LA Diameter 6.1 cm RA Systolic Volume 4C AL 46.4 ml RA Systolic Volume 4C MOD 46.0 ml Aorta at Sinotubular Diameter 2.9 cm IVC Diameter 1.6 cm M-MODE LA Ao Ratio MM 1.8 AV Cusp Separation MM 1.7 cm DOPPLER AV Peak Velocity 123.0 cm/s LVOT Peak Velocity 111.0 cm/s AV Area Cont Eq vti 3.1 cm squared AV Area Cont Eq pk 3.3 cm squared MV Peak Velocity 108.0 cm/s MV Area PHT 4.6 cm squared TV Peak Velocity 83.3 cm/s TR Peak Velocity 90.5 cm/s TR Peak Gradient 3.3 mmHg TR Mean Velocity 69.0 cm/s TR Mean Gradient 2.1 mmHg TR Velocity Time Integral 18.0 cm TV Peak E Velocity 86.0 cm/s Right Atrial Pressure 3.0 mmHg Pulmonary Artery Systolic Pressu 6.3 mmHg PV Peak Velocity 93.0 cm/s FINDINGS Left Ventricle Technically limited quality echocardiogram. Grossly LV systolic function is normal. Accurate assessment of regional wall motion abnormalities is not possible because of limited visualization. Right Ventricle Grossly normal Right Atrium Normal in size Left Atrium Dilated Mitral Valve Grossly normal. Trace mitral regurgitation. Aortic Valve Not well visualized. No significant stenosis or regurgitation seen. Tricuspid Valve Not well visualized. Trace tricuspid regurgitation. Pulmonic Valve Mild pulmonic regurgitation. Pericardium Normal Aorta Normal in size IVC Appears to be normal CONCLUSIONS Technically limited quality echocardiogram because of poor ultrasonic windows. Grossly LV systolic function is normal. Left atrial dilation seen Trace mitral regurgitation Valves are not well-visualized. Trace tricuspid regurgitation Mild pulmonic regurgitation Accurate comparison with prior echocardiograms not possible secondary to limited quality study. Jonny Clarke MD (Electronically Signed) Final Date: 02 November 2023 11:22 S
== END 2023-10-20 12:38 | disposition home or self-care (01) ==
LOC: RAD 12:37
PROVIDERS: PCP Electrodiagnostic Medicine; Visit Provider Electrodiagnostic Medicine
DX: I48.91 Unspecified atrial fibrillation (principal); I10 Essential (primary) hypertension; I37.1 Nonrheumatic pulmonary valve insufficiency
CPT/HCPCS: 93306

== ENCOUNTER → 2023-11-04 10:01 | Outpatient (BNVA) | payer MEDICARE, SELFPAY | PROVIDERS: PCP Electrodiagnostic Medicine; Visit Provider Internal Medicine Cardiovascular Disease | DX: I48.0 Paroxysmal atrial fibrillation (principal); E78.2 Mixed hyperlipidemia; R00.2 Palpitations; I12.9 Hypertensive chronic kidney disease with stage 1 through stage 4 chronic kidney disease, or unspecified chronic kidney disease; N18.9 Chronic kidney disease, unspecified | CPT/HCPCS: 99214 ==

== ENCOUNTER → 2024-05-06 09:59 | Outpatient (BNVA) | payer MEDICARE, SELFPAY | PROVIDERS: PCP Electrodiagnostic Medicine; Visit Provider Nurse Practitioner Family | DX: I12.9 Hypertensive chronic kidney disease with stage 1 through stage 4 chronic kidney disease, or unspecified chronic kidney disease (principal); N18.9 Chronic kidney disease, unspecified; I48.0 Paroxysmal atrial fibrillation | CPT/HCPCS: 99214 ==

== ENCOUNTER → 2024-11-18 11:19 | Outpatient (BNVA) | payer MEDICARE, SELFPAY | PROVIDERS: PCP Electrodiagnostic Medicine; Visit Provider Internal Medicine Cardiovascular Disease | DX: I12.9 Hypertensive chronic kidney disease with stage 1 through stage 4 chronic kidney disease, or unspecified chronic kidney disease (principal); I48.20 Chronic atrial fibrillation, unspecified; E78.2 Mixed hyperlipidemia; R00.2 Palpitations; Z79.82 Long term (current) use of aspirin | CPT/HCPCS: 99214 ==

== ENCOUNTER → 2025-06-06 10:08 | Outpatient (BNVA) | payer MEDICARE, SELFPAY | PROVIDERS: PCP Electrodiagnostic Medicine; Visit Provider Internal Medicine Cardiovascular Disease | DX: I48.20 Chronic atrial fibrillation, unspecified (principal); Z79.82 Long term (current) use of aspirin; E78.2 Mixed hyperlipidemia; I10 Essential (primary) hypertension; R00.2 Palpitations | CPT/HCPCS: 99214 ==